=== PATIENT | female | born 1960 | race Caucasian/White ===

== ENCOUNTER → 2024-01-02 12:13 | Outpatient (REF) | payer BC, SELFPAY | LOC: RAD 12:13 | PROVIDERS: ATTENDING PHYSICIAN Nurse Practitioner Adult Health | DX: M54.2 Cervicalgia (principal) | CPT/HCPCS: 72040; 72110 ==

== ENCOUNTER → 2024-01-08 11:23 | Outpatient (REF) | payer BC, SELFPAY ==
[2024-01-08 13:58] LABS: Magnesium 2.1 mg/dl (1.6-2.3)
[2024-01-13 04:35] LABS: Albumin 3.89 g/dL (3.75-5.01); Alpha 1 Globulin 0.24 g/dL (0.19-0.46); Alpha 2 Globulin 0.75 g/dL (0.48-1.05); SPEP IFE Reflex Not Done; Total Protein-Electrophoresis 6.6 g/dL (6.3-8.2)
[2024-01-13 20:18] LABS: 24 Hour Urine Total Volume 1750 mL; Cortisol, Free Urine per 24Hr 14.5 ug/d (<=45.0); Cortisol,Urine Free per Volume 8.28 ug/L; Creatinine, Urine 24 Hour 1435 mg/d (500-1400); Creatinine, Urine per Volume 82 mg/dL; Urine Collection Length 24 hr
== END ==
LOC: REG 11:23
PROVIDERS: ATTENDING PHYSICIAN Nurse Practitioner Adult Health
DX: R25.2 Cramp and spasm (principal); R53.82 Chronic fatigue, unspecified; R51.9 Headache, unspecified
CPT/HCPCS: 81050; 82530; 83735; 84155; 84165

== ENCOUNTER → 2024-01-30 08:52 | Outpatient (REF) | payer BC, SELFPAY | LOC: HWRAD 08:52 | PROVIDERS: ATTENDING PHYSICIAN Nurse Practitioner Adult Health | DX: R10.11 Right upper quadrant pain (principal) | CPT/HCPCS: 76700 ==

== ENCOUNTER → 2024-02-04 11:07 | Outpatient (REF) | payer BC, SELFPAY | LOC: DHCBC HW 11:07 | PROVIDERS: ATTENDING PHYSICIAN Nurse Practitioner; FAMILY PHYSICIAN Nurse Practitioner Adult Health | DX: R06.02 Shortness of breath (principal); R06.09 Other forms of dyspnea; I48.0 Paroxysmal atrial fibrillation; I25.10 Atherosclerotic heart disease of native coronary artery without angina pectoris | CPT/HCPCS: 93306 ==

== ENCOUNTER → 2024-02-10 17:27 | Outpatient (REF) | payer BC, SELFPAY | LOC: RAD 17:27 | PROVIDERS: ATTENDING PHYSICIAN Nurse Practitioner Adult Health; FAMILY PHYSICIAN Nurse Practitioner Adult Health | DX: R06.02 Shortness of breath (principal) | CPT/HCPCS: 71046 ==

== ENCOUNTER 2024-02-12 13:34 | Emergency (ER) | payer BC, SELFPAY ==
[2024-02-12 13:36] VITALS: BP 154/103
[2024-02-12 14:06] LABS: % Basophils 1.4 % (0-2); % Eosinophils 1.6 % (0-6); % Immature Granulocytes 0.3 % (0-0.5); % Lymphocytes 21.9 % (20.5-51.1); % Monocytes 9.1 % (1.7-9.3); % Neutrophils 65.7 % (42.2-75.2); Absolute Basophils 0.1 10^3/uL (0-0.2); Absolute Eosinophils 0.1 10^3/uL (0-0.7); Absolute Lymphocytes 1.4 10^3/uL (1.2-3.4); Absolute Monocytes 0.6 10^3/uL (0.1-0.6); Absolute Neutrophils 4.2 10^3/uL (1.4-6.5); Hematocrit 43.5 % (37.0-47.0); Hemoglobin 14.5 g/dL (12.0-16.0); Mean Corp Hgb Conc. 33.3 g/dL (33.0-37.0); Mean Corpuscular Hgb 30.9 pg (27.0-31.0); Mean Corpuscular Volume 92.6 fL (81.0-99.0); Mean Platelet Volume 9.6 fL (7.4-10.4); Nucleated Red Blood Cells % 0 %; Platelet Count 242 10^3/uL (130-400); Red Cell Dist. Width 12.1 % (11.5-14.5); White Blood Cell Count 6.4 10^3/uL (4.8-10.8)
[2024-02-12 14:19] LABS: ALT (SGPT) 21 U/L (0-35); AST (SGOT) 28 U/L (14-36); Albumin 4.2 g/dl (3.5-5.0); Alkaline Phosphatase 83 U/L (38-126); Blood Urea Nitrogen 18 mg/dl (7-17); COVID-19 Antigen Negative (Negative); Calcium 9.5 mg/dl (8.4-10.2); Carbon Dioxide 30 mmol/L (22-30); Chloride 102 mmol/L (98-107); Glucose 125 mg/dl (70-99); Potassium 3.8 mmol/L (3.5-5.1); Sodium 138 mmol/L (135-145); Total Protein 6.6 g/dl (6.3-8.2); eGFR > 60.00
[2024-02-12 14:28] LABS: Troponin I < 0.012 ng/ml
[2024-02-12 16:37] VITALS: BMI 40.6
[2024-02-12 16:43] VITALS: BP 141/98
[2024-02-12 17:13] LABS: Urine Albumin Negative (Neg - Trace); Urine Bilirubin Negative (Negative); Urine Character Clear (Clear); Urine Color Yellow; Urine Glucose Negative (Negative); Urine Ketone Negative (Negative); Urine Leukocyte Negative (Negative); Urine Nitrite Negative (Negative); Urine Occult Blood 1+ (Negative); Urine Urobilinogen Negative (Neg - 1+)
[2024-02-12 17:22] LABS: Urine Squamous Cell 16-20 /LPF (Few)
[2024-02-12 17:23] LABS: Urine Bacteria Few (Negative); Urine White Cell 0-2 /HPF (0-5)
--- NOTE | 2024-02-12 17:30 | ED.GENMED ---
History of Present Illness
General
Chief Complaint: Weakness
Time Seen by Provider: 02/12/24 16:15
Travel History
Have you had any contact with someone who has COVID-19?: No
Do you have any symptoms of coronavirus? Fever > 100 degrees, chills, cough, shortness of breath, sore throat, loss of taste or smell, muscle aches, or headache?: No
History of Present Illness
History of Present Illness:
63-year-old female presents to the emergency department for evaluation of generalized weakness, back pain, shortness of breath, and intermittent bilateral facial numbness. The symptoms been ongoing for the past 5 days. She feels short of breath
when she exerts herself. Did have an unremarkable echocardiogram 1 week ago at this hospital. Denies any chest pain at this time. No recent nausea or vomiting. No fevers, or URI symptoms. Denies any coughing.
Past History
Past History
ED Past Medical History: Arrthythmia (Atrial fibrillation), Asthma, CAD, COPD, GERD and Hypercholesterolemia
ED Past Surgical History: Cardiac and Other (Lung biopsy)
Patient has exhibited threatening behavior?: No
PSI?: No
Social History
Tobacco: Former smoker
Alcohol: Occasional
Drug: None
Personal:
Living: with family
Employment: Not employed
Family History
Family History: CAD
Review of Systems
Review of Systems
Allergies reviewed?: Yes
All Other Systems: ROS reviewed and negative except as documented in HPI and ROS
Phy Exam
Physical Exam
Physical Exam:
GEN: Well appearing, NAD, WDWN
Eyes: PERRLA, EOMs intact, no scleral icterus
HENT: NCAT, oral mucosa moist, no JVD, no cervical adenopathy.
Lungs: CTAB, no wheezes, rales, rhonchi, normal chest wall excursion
Cardiac: RRR, no M/R/G, no peripheral edema. Radial pulses 2+ bilat
Abdomen: S, NT, ND, NABS, no masses or hepatosplenomegaly
Neuro: AO x 3
MSK: No gross deformity or ecchymosis. No edema. No digital clubbing
Skin: No rashes, petechiae. Normal color, no pallor or jaundice.
Psych: Calm, cooperative, proper hygiene
Course
Orders/Labs/Results
Orders:
Orders
02/12/24 13:40
Electrocardiogram (*1) Urgent
Reason for Study: Chest Pain
EKG- Treatment ONCE
02/12/24 13:53
COVID-19 Antigen Urgent
Source: Nasal Swab
Complete Blood Count/With Diff Urgent
Comprehensive Metabolic Panel Urgent
Troponin I Urgent
Influenza A+B Rapid Molecular Urgent
ARCADIO Source: Nasal Swab
Specimen Description:
02/12/24 17:07
Urinalysis Reflex To Culture Urgent
Date Specimen was Collected: 02/12/24
Time Specimen was Collected: 17:06
Urine Microscopic Reflex Cult Urgent
Abnormal Lab Results
02/12/24 02/12/24
13:53 17:07
BUN 18 H mg/dl
(7-17)
Glucose 125 H mg/dl
(70-99)
Ur Occult Blood Reflex 1+ A
(Negative)
Urine RBC 3-6 A /HPF
(0-2)
Urine Bacteria (Reflex) Few A
(Negative)
02/12/24 13:53
02/12/24 13:53
Vital Signs
Initial and Last Documented VS:
Initial Vital Signs
Temp Pulse Resp BP Pulse Ox
98.9 F 87 20 154/103 97
02/12/24 13:36 02/12/24 13:36 02/12/24 13:36 02/12/24 13:36 02/12/24 13:36
Last Documented Vital Signs
Temp Pulse Resp BP Pulse Ox
98.9 F 68 17 141/98 97
02/12/24 13:36 02/12/24 17:00 02/12/24 17:00 02/12/24 16:43 02/12/24 17:00
MDM/Problems Addressed
MDM/Problems Addressed:
Patient appears clinically well and is unremarkable labs. EKG is nonischemic with no arrhythmic changes. Electrolytes are within normal limits. Unclear etiology to patient's symptoms particularly given recent normal chest x-ray and outpatient
echocardiogram. Advised continued primary care follow-up
*Critical Care Note
Total Time (30-74mins, 75-104mins- exclusive of procedures): Not Applicable
ED Attending Note
-
Portions of this chart may have been created with voice recognition software.� Occasional wrong word or��sound alike� substitutions may have occurred due to the inherent limitations of voice recognition software.
Discharge Plan
Departure
Patient Disposition: Home (Routine Discharge)
Date of Disposition: 02/12/24
Time of Disposition: 17:30
Patient with high blood pressure during this ER visit?: Yes
Discharge Problem:
Fatigue
Instructions: Generalized Weakness (DC)
Prescriptions:
No Action
levalbuterol HCl 0.63 MG/3 ML solution for nebulization
0.63 mg inhalation R TIDPRN PRN (Reason: sob/wheezing)
pantoprazole 40 MG tablet,delayed release (DR/EC)
40 mg PO DAILY
loratadine [Claritin] 10 mg Tablet
10 mg PO DAILY
levalbuterol tartrate 45 mcg/actuation Hfa Aerosol Inhaler
2 inh INHALATION Q6H PRN (Reason: sob,wheezing)
fluticasone propion-salmeterol [Advair HFA] 115-21 mcg/actuation HFA aerosol inhaler
2 puff INHALATION R BID
cholecalciferol (vitamin D3) 50 mcg (2,000 unit) Tablet
50 mcg PO DAILY@1200
Spiriva Respimat 2.5 mcg/actuation mist
2 puff INHALATION R DAILY
clopidogrel 75 MG tablet
75 mg PO DAILY
aspirin 81 MG tablet,delayed release (DR/EC)
81 mg PO DAILY
famotidine 20 MG tablet
20 mg PO DAILYPRN PRN (Reason: heartburn)
docusate sodium 100 MG capsule
100 mg PO HS
diltiazem HCl 120 MG capsule,extended release 24hr
120 mg PO DAILY
famotidine 20 mg Tablet
20 mg PO BID Qty: 0 0RF
cefepime 2 gram Recon Soln
2,000 mg IV Q12H Qty: 0 0RF
guaifenesin 600 mg Tablet Extended Release 12hr
1,200 mg PO Q12 Qty: 0 0RF
nystatin 100,000 unit/mL Suspension
5 ml PO QID Qty: 60 0RF
doxycycline hyclate 100 mg Capsule
100 mg PO Q12 Qty: 21 0RF
prednisone 10 mg tablet
10 mg PO DIRECTED Qty: 45 0RF
Rx Instructions:
50mgX3 days,[id number] and stop
levalbuterol HCl 0.63 mg/3 mL solution for nebulization
0.63 mg inhalation ONCE Qty: 75 0RF
doxycycline monohydrate 100 mg capsule
100 mg PO BID Qty: 8 0RF
Referrals:
Kacey Villalba CRNP [Family Provider] -
Activity Restrictions/Additional Instructions:
The cause of your symptoms is not clear at this time, workup and see department is reassuring.
We recommend following up with your primary care physician for further testing if symptoms do not resolve within the next 5 to 7 days
Interventions
Interventions:
*Risk Screen - Suicide Last Done: 02/12/24 16:39
*General Assessment Last Done: 02/12/24 16:38
*Neglect/Abuse Screening Last Done: 02/12/24 16:39
ED- Fall Risk Assessment Last Done: 02/12/24 16:38
*ED COVID-19 Vaccine History Last Done: 02/12/24 13:36
*Nursing Disposition Last Done: 02/12/24 17:42
ED- Cardiac Assessment Last Done: 02/12/24 16:39
ED- Neurological Assessment Last Done: 02/12/24 16:39
ED- Pulmonary Assessment Last Done: 02/12/24 16:39
Discharge Date and Time
Discharge Date/Time: 02/12/24 17:44
Print Language: KINYARWANDA
== END 2024-02-12 17:44 | disposition home or self-care (01) ==
LOC: EMR 13:34
PROVIDERS: Emergency Medicine; Physician Assistant; EMERGENCY PHYSICIAN Emergency Medicine; FAMILY PHYSICIAN Nurse Practitioner Adult Health
DX: R53.83 Other fatigue (principal); R03.0 Elevated blood-pressure reading, without diagnosis of hypertension; Z87.891 Personal history of nicotine dependence; Z11.52 Encounter for screening for COVID-19
CPT/HCPCS: 99284; 80053; 81003; 81015; 84484; 85025; 87502; 87811; 93005

== ENCOUNTER → 2024-03-11 13:41 | Outpatient (REF) | payer BC, SELFPAY | LOC: RAD 13:41 | PROVIDERS: ATTENDING PHYSICIAN Nurse Practitioner Adult Health | DX: R51.9 Headache, unspecified (principal); I65.23 Occlusion and stenosis of bilateral carotid arteries; E78.00 Pure hypercholesterolemia, unspecified; R42 Dizziness and giddiness | CPT/HCPCS: 93880 ==

== ENCOUNTER 2024-06-29 23:54 | Inpatient (IN) | payer BC, SELFPAY ==
[2024-06-29] VITALS (8 sets, daily range): BP systolic 106–176; BP diastolic 73–93; BMI 42.1
[2024-06-29 17:20] LABS: % Basophils 1.2 % (0-2); % Immature Granulocytes 0.3 % (0-0.5); % Lymphocytes 23.2 % (20.5-51.1); % Monocytes 10.3 % (1.7-9.3); Absolute Basophils 0.1 10^3/uL (0-0.2); Absolute Eosinophils 0.1 10^3/uL (0-0.7); Absolute Lymphocytes 1.5 10^3/uL (1.2-3.4); Absolute Monocytes 0.7 10^3/uL (0.1-0.6); Absolute Neutrophils 4.2 10^3/uL (1.4-6.5); Mean Corpuscular Hgb 30.9 pg (27.0-31.0); Mean Corpuscular Volume 88.3 fL (81.0-99.0); Mean Platelet Volume 8.9 fL (7.4-10.4); Nucleated Red Blood Cells % 0 %; Platelet Count 287 10^3/uL (130-400); Red Blood Cell Count 4.53 10^6/uL (4.20-5.40); Red Cell Dist. Width 12.3 % (11.5-14.5); White Blood Cell Count 6.6 10^3/uL (4.8-10.8)
[2024-06-29 17:39] LABS: ALT (SGPT) 20 U/L (0-35); AST (SGOT) 28 U/L (14-36); Albumin 4.3 g/dl (3.5-5.0); Alkaline Phosphatase 92 U/L (38-126); Blood Urea Nitrogen 20 mg/dl (7-17); Calcium 9.6 mg/dl (8.4-10.2); Carbon Dioxide 26 mmol/L (22-30); Chloride 105 mmol/L (98-107); Glucose 107 mg/dl (70-99); Potassium 3.7 mmol/L (3.5-5.1); Sodium 142 mmol/L (135-145); Total Bilirubin 1.1 mg/dl (0.2-1.3); Total Protein 6.7 g/dl (6.3-8.2); eGFR > 60.00
[2024-06-29 17:44] LABS: Troponin I 0.025 ng/ml
--- NOTE | 2024-06-29 19:15 | ED.GENMED ---
History of Present Illness
General
Chief Complaint: Weakness
Source: patient
Exam Limitations: none
Time Seen by Provider: 06/29/24 19:08
Nursing documentation reviewed up to this point in time: agreed with
History of Present Illness
History of Present Illness:
Patient is a 63-year-old female with past medical history of A-fib CAD COPD GERD hypercholesteremia on chronic O2l cardiac stents on aspirin Plavix presents to the ER for evaluation of worsening shortness of breath over the past 2 weeks. She is on
chronic O2 2 L but noticed that despite the oxygen she is very short of breath. She believes that something is wrong. She has had off-and-on chest pressure in her left arm and left jaw but this is not new. In addition she reports she is feeling
lightheaded sometimes when she walks or stands. Today in fact she was sitting putting her make-up on and felt the same lightheaded feeling so she sat on her bed and the next thing she knew she woke up sitting on the floor and had a syncopal
episode. This is what prompted patient to call EMS. She is followed by pulmonary as well as Dr. Olmedo here cardiology. She is on Advair and Spiriva.
Past History
Past History
ED Past Medical History: Arrthythmia (Atrial fibrillation), Asthma, CAD, COPD, GERD and Hypercholesterolemia
ED Past Surgical History: Cardiac and Other (Lung biopsy)
Patient has exhibited threatening behavior?: No
PSI?: No
Social History
Tobacco: Former smoker
Alcohol: Occasional
Drug: None
Personal:
Living: with family
Employment: Not employed
Family History
Family History: CAD
Review of Systems
Review of Systems
Allergies reviewed?: Yes
All Other Systems: ROS reviewed and negative except as documented in HPI and ROS
Constitutional: Reports no symptoms
EENT: Reports no symptoms
Respiratory: Reports trouble breathing
Cardiac: Reports syncope and other (Intermittent chest pressure over the past several weeks)
ABD/GI: Reports no symptoms
: Reports no symptoms
Musculoskeletal: Reports no symptoms
Skin: Reports no symptoms
Neurological: Reports no symptoms
Psychiatric: Reports no symptoms
Phy Exam
General Physical Exam
General Presentation: no apparent distress
General age: appears stated age
General Skin: warm and dry
General Habitus: normal
General Mental: alert
General Hydration: appears well hydrated
Cardiovascular Exam
Cardiovascular Exam: regular rate/rhythm, no murmur and normal peripheral pulses
Pulmonary Exam
Pulmonary Exam: lungs clear, no respiratory distress and other (Dyspnea with exertion and conversational dyspnea)
Oxygen Status: oxygen 2 liters via NC
Neurological Exam
Neurological Exam: alert and oriented x3
Musculoskeletal Exam
Musculoskeletal Exam: full ROM
Skin Exam
Skin Exam: normal color and warm/dry
Psychiatric Exam
Psychiatric Exam: normal mood/affect
Course
Orders/Labs/Results
Orders:
Orders
06/29/24 17:04
Electrocardiogram (*1) Urgent
Reason for Study: Fatigue / Weakness
EKG- Treatment ONCE
06/29/24 17:13
CMP [Comprehensive Metabolic Panel] Urgent
Complete Blood Count/With Diff Urgent
NT-proBNP Urgent
Comment: ADD ON
Troponin I Urgent
06/29/24 19:26
Add On- LAB Urgent
Tests Added?: cardiac BNP
06/29/24 19:28
Chest [CR Chest - 2 Views ] Urgent
Comment:
Reason For Exam: sob
06/29/24 20:00
DDimer [D-Dimer] Urgent
06/29/24 21:39
CT Chest Pe Study Urgent
Comment:
Reason For Exam: SOB
Dexamethasone Sod Phosphate [Decadron] 10 mg IV NOW STA
Levalbuterol [Xopenex 1.25 mg Inhalant Solution] 1.25 mg INH R NOW STA
Abnormal Lab Results
06/29/24 06/29/24
17:13 20:00
Absolute Monos (auto) 0.7 H 10^3/uL
(0.1-0.6)
Monocytes % 10.3 H %
(1.7-9.3)
D-Dimer 0.65 H ug/mlFEU
(0.00-0.50)
BUN 20 H mg/dl
(7-17)
Glucose 107 H mg/dl
(70-99)
06/29/24 17:13
06/29/24 17:13
Vital Signs
Initial and Last Documented VS:
Initial Vital Signs
Temp Pulse Resp BP Pulse Ox
98.5 F 67 16 176/93 98
06/29/24 17:00 06/29/24 17:00 06/29/24 17:00 06/29/24 17:00 06/29/24 17:00
Last Documented Vital Signs
Temp Pulse Resp BP Pulse Ox
98.5 F 72 35 120/90 98
06/29/24 17:00 06/29/24 21:30 06/29/24 21:30 06/29/24 21:43 06/29/24 23:05
Electric Power Machine Operator consulted with Physician
Electric Power Machine Operator consulted with physician?: Yes
Name of Physician Consulted: Cristopher
MDM/Problems Addressed
Differential Diagnosis Includes:
Not limited to syncope, dehydration, COPD exacerbation, CAD
MDM/Problems Addressed:
Patient is a 63-year-old female with history of CAD stents on aspirin and Plavix history of COPD on 2 L nasal cannula with sleep apnea on CPAP at night presents to the ER complaining of worsening shortness of breath. She does not feel that the COPD
however has and is gradually worsening shortness of breath over the past 2 weeks worse for the past several days. Today she felt lightheaded and passed out. Patient denies any fevers on exam she does have conversational dyspnea is afebrile with a
normal white count D-dimer mildly elevated 0.65 normal creatinine. With mildly elevated D-dimer and syncope with shortness of as discussed ED physician will CT to rule out PE. The patient is not wheezing we will try lev albuterol as she does not
tolerate albuterol well along with a steroid however will likely need admission for eval of SOB . no associated cp neg trop and neg Pro BNP .
CT pe study neg for PE emphysematous changes seen
With continued dyspnea exertion shortness of breath history of syncope today will admit as planned.
*Radiology
Radiology exam reviewed: radiology read reviewed
*Pulse Oximetry
Patient hypoxic: yes
*EKG
Interpreted by ED Provider?: Yes
Heart Rate: 66
Rate: normal
Rhythm: sinus
Ischemia: no ischemia
*Critical Care Note
Total Time (30-74mins, 75-104mins- exclusive of procedures): Not Applicable
Data Reviewed
Review of Other/Old Records Reveals: Other (echo from 02/04/24 nm )
ED Attending Note
-
Portions of this chart may have been created with voice recognition software.� Occasional wrong word or��sound alike� substitutions may have occurred due to the inherent limitations of voice recognition software.
Discharge Plan
Departure
Patient Disposition: Admit
Date of Disposition: 06/29/24
Time of Disposition: 23:32
Admit to: Telemetry
Admit to doctor: hospitalist
Presentation/result/management discussed w/ accepting MD/DO: Hospitalist
Patient with high blood pressure during this ER visit?: Yes
Condition: Fair
Covid-19: Not Applicable
Discharge Problem:
Acute dyspnea, Syncope
Prescriptions:
No Action
levalbuterol HCl 0.63 MG/3 ML solution for nebulization
0.63 mg inhalation R TIDPRN PRN (Reason: sob/wheezing)
pantoprazole 40 MG tablet,delayed release (DR/EC)
40 mg PO DAILY
levalbuterol tartrate 45 mcg/actuation Hfa Aerosol Inhaler
2 inh INHALATION R Q6HPRN PRN (Reason: sob,wheezing)
fluticasone propion-salmeterol [Advair HFA] 115-21 mcg/actuation HFA aerosol inhaler
2 puff INHALATION R BID
cholecalciferol (vitamin D3) 50 mcg (2,000 unit) Tablet
50 mcg PO NOON
Spiriva Respimat 2.5 mcg/actuation mist
2 puff INHALATION R DAILY
clopidogrel 75 MG tablet
75 mg PO DAILY
aspirin 81 MG tablet,delayed release (DR/EC)
81 mg PO DAILY
famotidine 20 MG tablet
20 mg PO DAILYPRN PRN (Reason: heartburn)
docusate sodium 100 MG capsule
100 mg PO QPM
diltiazem HCl 120 MG capsule,extended release 24hr
120 mg PO DAILY
acetaminophen [Tylenol 8 Hour] 650 mg Tablet Extended Release
650 mg PO [id number] PRN (Reason: mild pain)
diazepam 2 mg Tablet
2 mg PO DAILYPRN PRN (Reason: anxiety)
Patient Comments:
06/29/24: last filled 02/26/24 for 30 tablets over 30 days. Patient states she uses this very rarely.
guaifenesin 600 mg tablet extended release 12hr
1,200 mg PO [id number] PRN (Reason: lung/breathing issues)
Referrals:
Kacey Villalba CRNP [Family Provider] -
Interventions
Interventions:
*Risk Screen - Suicide Last Done: 06/29/24 18:29
*General Assessment Last Done: 06/29/24 18:29
*Neglect/Abuse Screening Last Done: 06/29/24 18:29
*ED COVID-19 Vaccine History Last Done: 06/29/24 18:29
ED- Cardiac Assessment Last Done: 06/29/24 23:05
ED- Neurological Assessment Last Done: 06/29/24 23:05
ED- Pulmonary Assessment Last Done: 06/29/24 23:05
Discharge Date and Time
Print Language: PERUVIAN
[2024-06-29 20:22] LABS: NT-proBNP 67.8 pg/ml
[2024-06-29 20:22] LABS: D-Dimer 0.65 ug/mlFEU (0.00-0.50)
[2024-06-29] MEDS: DECADRON 10 MG IV (22:18)
[2024-06-29] MEDS: XOPENEX 1.25 MG INHALANT SOLUTION INH (22:19)
--- NOTE | 2024-06-29 23:59 | HPS.HSE ---
Family Physician
-
Family Physician: Kacey Villalba
Chief Complaint
-
SOB / malaise
History of Present Illness
Patient is a 63y F with PMH significant for O2-dependent COPD, ASCVD and morbid obesity who presents to ED complaining of worsening SOB. Patient states that she has been feeling worse for the past 2 weeks - with symptoms markedly worse over the
past 5 days or so. She complains of significant dyspnea with even minimal exertion. Prolonged recovery times with rest. No cough, fevers / chills, sore throat, etc. She does endorse periodic chest tightness, jaw pain, arm pain, etc. No
palpitations. Patient states that she 'feels terrible' and cannot explain further. She notes that her SpO2 at home decreases into the 80s at times - even on supplemental oxygen.
She denies any significant changes in her weight / edema / etc.
Today patient was seated on the bed drying her hair and the next thing she recalls is waking on the floor. She denies any prior h/o syncopal episodes.
She is currently comfortable in the ED while at rest. She has significant dyspnea with activity or with prolonged conversation. She is tearful and anxious.
Medical History
Past Medical History
Past Medical History: Reports Other
Additional Past Medical History:
Severe COPD
Chronic Hypoxemic Respiratory Failure
ASCVD
Paroxysmal Atrial Fibrillation
Hypertension
Alpha-1 Antitrypsin Deficiency
Morbid Obesity
GERD
Past Surgical History: Reports Other
Additional Past Surgical History:
Lung Biopsy
PTCA with Stent x 2
Social History
Tobacco: Former Smoker (Quit 2020. > 50 pack years total.)
Alcohol: Occasional
Drug: None
Family History
Family History: Not pertinent
Allergies / Home Medications
Allergies reflects when Allergies were last updated in [employer].
Home Medications with original date entered in [employer]
Allergy/Medication List:
Allergies
Allergy/AdvReac Type Severity Reaction Status Date / Time
azithromycin Allergy Unknown Verified 06/29/24 17:04
dipyridamole Allergy didn't Verified 06/29/24 17:04
[From Persantine] tolerate.
dobutamine Allergy 'feels Verified 06/29/24 17:04
terrible'
isosorbide [From Imdur] Allergy DIZZY Verified 06/29/24 17:04
levofloxacin [From Levaquin] Allergy LEGS WEAK Verified 06/29/24 17:04
morphine Allergy Nausea Verified 06/29/24 17:04
MUSCLE RELAXERS Allergy Nausea / Uncoded 06/29/24 17:04
Vomiting
Home Medications
levalbuterol HCl 0.63 mg/3 mL solution for nebulization 0.63 mg inhalation R TIDPRN PRN sob/wheezing 09/08/21
pantoprazole 40 mg tablet,delayed release 40 mg PO DAILY Gastrointestinal issue 02/28/22
aspirin 81 mg tablet,delayed release 81 mg PO DAILY Blood clot prevention/tx 01/29/23
cholecalciferol (vitamin D3) 50 mcg (2,000 unit) tablet 50 mcg PO NOON Supplement 01/29/23
clopidogrel 75 mg tablet 75 mg PO DAILY Blood clot prevention/tx 01/29/23
diltiazem HCl 120 mg capsule,extended release 24 hr 120 mg PO DAILY Blood pressure 01/29/23
docusate sodium 100 mg capsule 100 mg PO QPM Constipation 01/29/23
famotidine 20 mg tablet 20 mg PO DAILYPRN PRN heartburn 01/29/23
fluticasone propionate 115 mcg-salmeterol 21 mcg/actuation HFA inhaler (Advair HFA) 2 puff inhalation R BID Lung/breathing issues 01/29/23
levalbuterol tartrate 45 mcg/actuation aerosol inhaler 2 inh inhalation R Q6HPRN PRN sob,wheezing 01/29/23
tiotropium bromide 2.5 mcg/actuation mist for inhalation (Spiriva Respimat) 2 puff inhalation R DAILY Lung/breathing issues 01/29/23
acetaminophen 650 mg tablet,extended release (Tylenol 8 Hour) 650 mg PO [id number] PRN mild pain 06/29/24
diazepam 2 mg tablet 2 mg PO DAILYPRN PRN anxiety 06/29/24
guaifenesin 600 mg tablet, extended release 12 hr 1,200 mg PO [id number] PRN lung/breathing issues 06/29/24
Review of Systems
-
History Source: Patient
A 12 point ROS was completed and negative except as noted: Yes
Constitutional: Reports Fatigue; Denies Fever, Weight Gain, Weight Loss or Chills
EENT: Denies Sore Throat
Respiratory: Reports Trouble Breathing; Denies Cough or Hemoptysis
Cardiac: Reports Chest Pain, Diaphoresis and Syncope; Denies Palpitations
Abdomen/GI: Denies Abdominal Pain, Nausea, Vomiting, Diarrhea, Bloody Stools or Black Stools
: Denies Dysuria, Frequency or Flank Pain
Musculoskeletal: Denies Joint Pain or Edema
Neurological: Reports Headache; Denies Dizzy
Psych: Reports Depression and Anxiety
Physical Exam
Vital Signs
Vital Signs
Temp Pulse Resp BP Pulse Ox
98.5 F 72 35 120/90 98
06/29/24 17:00 06/29/24 21:30 06/29/24 21:30 06/29/24 21:43 06/29/24 23:05
Physical Exam
General: Other (63y F in mild distress due to YEN and anxiety.)
HEENT: Other (Thick neck. No JVD. MMM.)
Respiratory: Other (Decreased at bases - otherwise clear. No wheezing or rales.)
Cardiac: S1/S2 and Regular Rhythm; No Murmur
GI: Soft, Non Tender, Non Distended and Normal Bowel Sounds
Musculoskeletal: No Clubbing, No Cyanosis and No Edema
Neuro: AO x 3
Psych: Anxious and Depressed
Laboratory Results
-
06/29/24 17:13
06/29/24 17:13
Laboratory Results
Total Bilirubin 1.1 mg/dl (0.2-1.3) 06/29/24 17:13
AST 28 U/L (14-36) 06/29/24 17:13
ALT 20 U/L (0-35) 06/29/24 17:13
Alkaline Phosphatase 92 U/L (38-126) 06/29/24 17:13
Troponin I 0.025 ng/ml 06/29/24 17:13
Impression/Plan
-
A/P: Patient is a 63y F with PMH significant for COPD, chronic hypoxemia, ASCVD and morbid obesity who presents to ED complaining of worsening SOB and malaise.
Acute on Chronic Hypoxemic Respiratory Insufficiency
Syncope
- Admit for further evaluation and treatment.
- This is likely multifactorial and address individual issues as noted below.
- No significant evidence at present for exacerbations of either CF or COPD.
- ? cor pulmonale given syncopal event.
- Monitor on telemetry overnight. Update Echo (Last done 02/2024 and was fairly unremarkable).
- Follow for any new / worsening symptoms.
- Continue supplemental O2 and titrate as needed.
Severe COPD
- No active wheezing appreciated on exam.
- Continue inhaled medications including PRN Xopenex.
- Pulmonary evaluation given recent increase in dyspnea, etc.
ASCVD
- Patient complains of intermittent chest tightness, jaw pain, arm pain.
- EKG without evident ischemia / change from prior.
- Troponin is non-negative.
- Will continue to trend and monitor for any new / recurrent symptoms.
- Cardiology evaluation.
- Update Echo as noted above.
- Continue current CV med regimen including DAPT, statin, etc.
Anxiety / Depression
- Patient clearly anxious / depressed regarding her worsening symptoms.
- Continue PRN BZDs for now.
- Would consider trial of SSRI or similar for ongoing treatment of mood.
Morbid Obesity due to excess calories
- Affects all aspects of care and is certainly contributing directly to her worsening dyspnea.
- Weight is significantly elevated from prior visits (despite patient report of stable weight at home).
- Encourage healthy diet. Activity as tolerated - though this will likely be difficult in this patient with her degree of YEN.
DVT Prophylaxis: Lovenox
Code Status: Full
[2024-06-30] VITALS (10 sets, daily range): BP systolic 106–157; BP diastolic 66–98; PULSE 69–89; O2SAT 94–95; BMI 42.1; BMI 41.0
[2024-06-30 07:16] LABS: Hematocrit 44.4 % (37.0-47.0); Hemoglobin 15.3 g/dL (12.0-16.0); Mean Corp Hgb Conc. 34.5 g/dL (33.0-37.0); Mean Corpuscular Hgb 30.5 pg (27.0-31.0); Mean Corpuscular Volume 88.4 fL (81.0-99.0); Mean Platelet Volume 9.6 fL (7.4-10.4); Platelet Count 276 10^3/uL (130-400); Red Blood Cell Count 5.02 10^6/uL (4.20-5.40); Red Cell Dist. Width 12.2 % (11.5-14.5)
[2024-06-30] MEDS: ADVAIR HFA 115/21 MCG INHALER 2 PUFF INH ×2 (07:17→19:24)
[2024-06-30] MEDS: XOPENEX 0.63 MG INHALANT SOLUTION INH ×2 (07:20→19:25)
[2024-06-30 07:29] LABS: Troponin I < 0.012 ng/ml
[2024-06-30 07:34] LABS: Blood Urea Nitrogen 15 mg/dl (7-17); Calcium 10.2 mg/dl (8.4-10.2); Carbon Dioxide 28 mmol/L (22-30); Chloride 102 mmol/L (98-107); Estimated Creatinine Clearance 69 ml/min; Glucose 154 mg/dl (70-99); Potassium 4.4 mmol/L (3.5-5.1); Sodium 143 mmol/L (135-145); eGFR > 60.00
[2024-06-30 08:04] LABS: TSH Reflex To Free T4 0.67 uIU/ml (0.47-4.68)
[2024-06-30] MEDS: PROTONIX 40 MG PO (08:10)
[2024-06-30] MEDS: ASPIR LOW (ENTERIC COATED) 81 MG PO (08:11)
[2024-06-30] MEDS: PLAVIX 75 MG PO (08:13)
[2024-06-30] MEDS: CARDIZEM CD 120 MG PO (08:13)
--- NOTE | 2024-06-30 09:15 | CON.PUL ---
Consultation
Consultation Request
Date/Time Consultation Requested: 06/30/24
Date/Time Consultation Performed: 06/30/24
Performing Provider: Timothy
Reason for Consultation: SOB
Medical History
-
History of Present Illness:
Patient is a 63-year-old female with previous history of severe COPD on chronic 2 L oxygen, ASCVD, morbid obesity presenting to ER with complaints of acute on chronic shortness of breath over the past 4 months. She reports that her symptoms have
been progressively worsening over the past 4 months, she has significant tachypnea with exertion and is finding it difficult to recover with rest. She does not have any wheezing or chest tightness, she did have atypical chest discomfort. She does
not feel it was triggered by any upper respiratory illnesses or sick contacts. Chest x-ray demonstrating normal findings.
She has not noticed any worsening hypoxemia with exertion.
She has not been treated with oral prednisone course throughout this time.
.
Past Medical History
Past Medical History: Other (see list below)
Social History
Tobacco: Former Smoker
Alcohol: None
Drug: None
Family History
Family History: Reviewed & Not Pertinent
Allergies / Home Medications
Allergies
Allergy/AdvReac Type Severity Reaction Status Date / Time
azithromycin Allergy Unknown Verified 06/29/24 17:04
dipyridamole Allergy didn't Verified 06/29/24 17:04
[From Persantine] tolerate.
dobutamine Allergy 'feels Verified 06/29/24 17:04
terrible'
isosorbide [From Imdur] Allergy DIZZY Verified 06/29/24 17:04
levofloxacin [From Levaquin] Allergy LEGS WEAK Verified 06/29/24 17:04
morphine Allergy Nausea Verified 06/29/24 17:04
MUSCLE RELAXERS Allergy Nausea / Uncoded 06/29/24 17:04
Vomiting
Home Medications
�Medication �Instructions �Recorded �Confirmed �Last Taken �Type
levalbuterol HCl 0.63 mg/3 mL 0.63 mg inhalation R TIDPRN PRN 09/08/21 06/29/24 05/23/22 06:00 History
solution for nebulization sob/wheezing
pantoprazole 40 mg tablet,delayed 40 mg PO DAILY Gastrointestinal 02/28/22 06/29/24 06/29/24 History
release issue
aspirin 81 mg tablet,delayed 81 mg PO DAILY Blood clot 01/29/23 06/29/24 06/29/24 History
release prevention/tx
cholecalciferol (vitamin D3) 50 50 mcg PO NOON Supplement 01/29/23 06/29/24 06/29/24 History
mcg (2,000 unit) tablet
clopidogrel 75 mg tablet 75 mg PO DAILY Blood clot 01/29/23 06/29/24 06/29/24 History
prevention/tx
diltiazem HCl 120 mg 120 mg PO DAILY Blood pressure 01/29/23 06/29/24 06/29/24 History
capsule,extended release 24 hr
docusate sodium 100 mg capsule 100 mg PO QPM Constipation 01/29/23 06/29/24 02/24/23 History
famotidine 20 mg tablet 20 mg PO DAILYPRN PRN heartburn 01/29/23 06/29/24 Unknown History
fluticasone propionate 115 2 puff inhalation R BID 01/29/23 06/29/24 06/29/24 History
mcg-salmeterol 21 mcg/actuation Lung/breathing issues
HFA inhaler (Advair HFA)
levalbuterol tartrate 45 2 inh inhalation R Q6HPRN PRN 01/29/23 06/29/24 Unknown History
mcg/actuation aerosol inhaler sob,wheezing
tiotropium bromide 2.5 2 puff inhalation R DAILY 01/29/23 06/29/24 06/29/24 History
mcg/actuation mist for inhalation Lung/breathing issues
(Spiriva Respimat)
acetaminophen 650 mg 650 mg PO [id number] PRN mild pain 06/29/24 06/29/24 3 Days Ago History
tablet,extended release (Tylenol 8 ~06/26/24
Hour)
diazepam 2 mg tablet 2 mg PO DAILYPRN PRN anxiety 06/29/24 06/29/24 Unknown History
guaifenesin 600 mg tablet, 1,200 mg PO [id number] PRN 06/29/24 06/29/24 Unknown History
extended release 12 hr lung/breathing issues
Review of Systems
-
History Source: Patient
All other systems: Negative unless noted
Vitals / Labs / Diagnostic Testing
Vital Signs
Temp Pulse Resp BP Pulse Ox
97.9 F 70 14 126/82 97
06/30/24 02:13 06/30/24 08:13 06/30/24 07:22 06/30/24 08:13 06/30/24 07:22
Lab Data
06/30/24 06:06
06/30/24 06:06
Diagnostic Testing:
Physical Exam
-
HEENT: Normocephalic, Anicteric and Moist Mucous Membranes
Cardiovascular: S1/S2 and Regular Rhythm
Respiratory: Clear (decreased BS) and Non-Labored Respirations
GI: Soft, Non Distended and Non Tender
Neurology: Awake, Alert, Oriented, AO x 3 and No Motor Deficits
Skin: Warm, Dry and Good Color
General: Comfortable and Other (NAD)
Assessment
-
Patient is a 63-year-old female with previous history of severe COPD on chronic 2 L oxygen, ASCVD, morbid obesity presenting to ER with complaints of acute on chronic shortness of breath over the past 4 months. She reports that her symptoms have
been progressively worsening over the past 4 months, she has significant tachypnea with exertion and is finding it difficult to recover with rest. She does not have any wheezing or chest tightness, she did have atypical chest discomfort. She does
not feel it was triggered by any upper respiratory illnesses or sick contacts. Chest x-ray demonstrating normal findings. We are consulted for eval.
Acute on chronic SOB
AE COPD
New pulmonary nodules
Atypical chest pain
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
Severe COPD, maintained on levalbuterol nebs, advair/spiriva, and O2 2L at rest and sleep, 4L on exertion. Intermittent CS but no nursing home
ABG 02-28-22 on O2 3L: 7.40/46/125/28.5/3/98.9%
Intermittently elevated serum total CO2
02/20/24- FVC 2.07 or 72%, FEV1 0.95 or 43%. Ratio 45.
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 Never received A1AT replacement therapy
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
CAD, s/p KATHARINE to mid LAD 02/28/2021, then [place] with KATHARINE to stenosis proximal to prior LAD stent 10/31/2021, continued on ASA/clopidogrel, [facility] 12-04-21 without residual disease
PAFib: declined AC due to fear of bleeding complications
Paroxysmal SVT
Sinus bradycardia
Implantable Loop Recorder (2018)
GERD
HLD
Former smoker: since age 16, up to 2 ppd, quit 02/2021
PUD
Smoked marijuana intermittently for one y in her early 30s
Morbid obesity BMI 41
COVID vaccinated x2 until February 2021, declined booster due to side effects of second vaccine dose (tachycardia, AFib flare)
Suspected ALISSON
Pulmonary nodules, new 6 and 7mm
Plan:
She has acute on chronic SOB but no significant changes in her degree of hypoxemia
This could be due to deconditioning, obesity in the setting of severe COPD.
She has not been treated with oral steroids as an outpatient
She has completed pulmonary rehab over 5 years ago but has not returned
She follows with Dr. Lagunas
Chest x-ray demonstrating normal lungs
proBNP initially negative
There is questionable lower extremity swelling
She is willing to try 1 dose of Lasix
Cardiology has been consulted, repeat echo was obtained
Correspondence reviewed
I will also empirically treat with IV steroids for AECOPD
We have discussed possibility that this is just overall worsening lung disease
She is due for outpatient PFT at her next visit on 08/04/2024
It would be beneficial for her to re-enroll into pulmonary rehab
We have discussed that if this is worsening overall lung disease, that we should discuss her prognosis
We had a long discussion today in regards to her lung disease
If shortness of breath is not improving with empiric treatment, agree with moving forward with right heart cath and left heart cath
Outpatient pulmonary follow-Known to Dr Lagunas, scheduled for 08/04/24
We will follow
Diagnostic Data
CXR 02-25 c/w 01-29-23: interim RUL/RML infiltrate
Chest X-Ray: 02-17-22, PA/lat, upper lobes emphysema, no infiltrates, relatively flat diaphragms on lateral view.
CT Chest 06/29/24- 1. No evidence of pulmonary embolism.
2. Moderate/severe apical predominant emphysematous changes with similar appearance of the nodular scarring within the right middle lobe measuring approximately 3.0 cm.
3. There is a new 6 mm solid nodule within the medial right upper lobe as well as new 7 mm solid nodules within the left upper lobe. Recommend follow-up CT to ensure stability
4. Prominent gallstone present.
CT Chest 01/29/23 - IMPRESSION: Examination is negative for pulmonary embolism. Severe changes of emphysema. New horizontal band of increased opacity within the superior segment of the right lower lobe of the lung. Morphologic appearance would be
suggestive of scarring or atelectasis. Fatty infiltration of the liver.
CT chest 02-28-22, c/w 02-23-21 IMPRESSION: No CT evidence for pulmonary embolism. Severe centrilobular emphysema.
TTE 11-29-22: CONCLUSIONS- Normal biventricular size and systolic function without regional wall motion abnormality. Mild concentric left ventricular hypertrophy. No significant valvular disease. No significant change since the prior study of
03/01/22.
Echo: 03-01-22, normal LV systolic function, LVEF greater than 75%, mild concentric LVH. No significant valvular disease. Normal RV size and function. Normal pericardium without effusion. IVC is of normal size and demonstrates normal respiratory
variation. Interatrial septum is intact with no evidence of shunting by color-flow Doppler. No intracardiac mass or thrombus formation seen. No significant change compared to October 2021.
/[facility] 05-25-22 HEMODYNAMIC DATA : AO: 127/78 - LV: 127/16 - PCWP: 14 - PA: 36/22 - RV: 34/14 - RA: 10 - Oximetry: Ao 97%, PA 75%, cardiac output 4.5, cardiac index 2.4
LEFT VENTRICULOGRAPHY: Not performed
CORONARY ANGIOGRAPHY: Dominance: Right - Left Main: Normal - LAD: Widely patent ostial/proximal LAD stents with no restenosis. There is 30% mid LAD stenosis. - Circumflex: Normal - RCA: Normal dominant vessel
CONCLUSIONS
1: Normal filling pressures without pulmonary hypertension
2: Widely patent ostial/proximal LAD stents without restenosis
3. No significant residual obstructive CAD
DIANN doppler 02-26-23: negative
DIANN doppler 09-08-21: negative
PFT 08/21/22: FEV1 1.02L 46%, FVC 2.11L 73%, ratio 48. Post FEV1 1.06L 48%, +BD response in FVC. TLC 4.86L 110%, RV/TLC 51%, DLCO 24%
-----
Total time spent on this consultation __80__ includes review of history, physical exam, medications, laboratory data, personal review of imaging, extensive review of outpatient records, discussion with care team and respiratory therapy.
--- NOTE | 2024-06-30 10:33 | PTCARENOTE ---
EKG obtained and forwarded to Dr. Henderson via tiger text [id number]. Placed in chart
--- NOTE | 2024-06-30 11:05 | CM ---
CM following re: discharge planning.
Reviewed pt's chart, met with pt.
Pt is a 63 year old female, admitted with primary dx of increased SOB.
Pt reports she lives with brother in a 2SH, 2 steps to enter, [place]. Pt reports she has supportive daughter Karen Le [phone]. Pt reports her friend Domonique and brother Brian join [employer]. Pt reports she ambulates with a
walker at baseline, has BSC, a cane, w/c, home O2 - 2L NC at baseline and provided by [facility]. Pt reports she is known to [facility]. No SNF history.
PT and OT evaluations noted - home PT/OT recommended. Pt is aware, [facility] A referral to [facility] made.
PCP: Kacey Villalba
Pharmacy: [facility]
D/C plan: home with [facility] and family support. Family to transport at discharge.
CM will follow with discharge plan updates as hospitalization progresses
--- NOTE | 2024-06-30 11:28 | CON.CAR ---
Addendum entered and electronically signed by Jose Simmons MD 06/30/24 12:38:
I saw and examined the patient.
The WOOD PATTERN MAKER's note was reviewed and I agree with the note.
63 yo female with CAD s/p KATHARINE to mid LAD 02/28/21 then UA and KATHARINE proximal to prior LAD stent 10/31/21, ( cath 2021 with patent stents) paroxysmal Afib (declines OAC), PSVT, sinus bradycardia, LINQ 2018 (at EOL), anxiety, COPD ( homeO2) patietn with
SOB. Also reports ? syncope. Was seated and then found herself on the floor at home. Denies prodrome or other cause. Prior history of vertigo. Challegningto assess asymptoms. varies of symptms and some anxiety as well
- SOB - multifacotrial Obestiy deconditioning, COPD. No PE or acute abnormality on CT this admit. No overt signs of HF. pro BNP OK
- pulmonary assessment . if symptoms persist despite pulmonary optimization thn could RHC and LHC
- ?LOC/ syncope. stable on tele
- monitor on tele
- echo
- consider neuroi / seizure eval consideringother head symptoms she has
- anxiety - tx per primary team
Original Note:
Consultation
Consultation Request
Date/Time Consultation Requested: 06/30/24 2a
Date/Time Consultation Performed: 06/30/24 9a
Requesting Provider: Dr. Pedroza
Performing Provider: OMA Shukla for Dr. Simmons
Reason for Consultation: acute on chronic hypoxia
Medical History
-
Chief Complaint: sob
History of Present Illness:
Ms. Villanueva is a 63 yo female with CAD s/p KATHARINE to mid LAD 02/28/21 then UA and KATHARINE proximal to prior LAD stent 10/31/21, paroxysmal Afib (declines OAC), PSVT, sinus bradycardia, LINQ 2017 (at EOL), HLD, anxiety, COPD oxygen dependent 2L NC, and
former smoker, who presents to the ER with c/o SOB/YEN for months that has worsened over the last 1 month. YEN occurs with any type of exertion and improves with rest though does not resolve. She is admitted to the hospitalist service and we are
consulted for SOB/YEN. Tele is stable in NSR.
Past Medical History
Past Medical History: Other (as above)
Past Surgical History: Other (as above)
Social History
Tobacco: Former Smoker
Alcohol: None
Personal: Single
Living: With Family
Family History
Family History: Other (father AAA 67 yo cause of )
Allergies / Home Medications
Allergy/AdvReac Type Severity Reaction Status Date / Time
azithromycin Allergy Unknown Verified 06/29/24 17:04
dipyridamole Allergy didn't Verified 06/29/24 17:04
[From Persantine] tolerate.
dobutamine Allergy 'feels Verified 06/29/24 17:04
terrible'
isosorbide [From Imdur] Allergy DIZZY Verified 06/29/24 17:04
levofloxacin [From Levaquin] Allergy LEGS WEAK Verified 06/29/24 17:04
morphine Allergy Nausea Verified 06/29/24 17:04
MUSCLE RELAXERS Allergy Nausea / Uncoded 06/29/24 17:04
Vomiting
�Medication �Instructions �Recorded �Confirmed �Type
levalbuterol HCl 0.63 mg/3 mL 0.63 mg inhalation R TIDPRN PRN 09/08/21 06/29/24 History
solution for nebulization sob/wheezing
pantoprazole 40 mg tablet,delayed 40 mg PO DAILY Gastrointestinal 02/28/22 06/29/24 History
release issue
aspirin 81 mg tablet,delayed 81 mg PO DAILY Blood clot 01/29/23 06/29/24 History
release prevention/tx
cholecalciferol (vitamin D3) 50 50 mcg PO NOON Supplement 01/29/23 06/29/24 History
mcg (2,000 unit) tablet
clopidogrel 75 mg tablet 75 mg PO DAILY Blood clot 01/29/23 06/29/24 History
prevention/tx
diltiazem HCl 120 mg 120 mg PO DAILY Blood pressure 01/29/23 06/29/24 History
capsule,extended release 24 hr
docusate sodium 100 mg capsule 100 mg PO QPM Constipation 01/29/23 06/29/24 History
famotidine 20 mg tablet 20 mg PO DAILYPRN PRN heartburn 01/29/23 06/29/24 History
fluticasone propionate 115 2 puff inhalation R BID 01/29/23 06/29/24 History
mcg-salmeterol 21 mcg/actuation Lung/breathing issues
HFA inhaler (Advair HFA)
levalbuterol tartrate 45 2 inh inhalation R Q6HPRN PRN 01/29/23 06/29/24 History
mcg/actuation aerosol inhaler sob,wheezing
tiotropium bromide 2.5 2 puff inhalation R DAILY 01/29/23 06/29/24 History
mcg/actuation mist for inhalation Lung/breathing issues
(Spiriva Respimat)
acetaminophen 650 mg 650 mg PO [id number] PRN mild pain 06/29/24 06/29/24 History
tablet,extended release (Tylenol 8
Hour)
diazepam 2 mg tablet 2 mg PO DAILYPRN PRN anxiety 06/29/24 06/29/24 History
guaifenesin 600 mg tablet, 1,200 mg PO [id number] PRN 06/29/24 06/29/24 History
extended release 12 hr lung/breathing issues
Review of Systems
-
History Source: Patient
All other systems: Negative unless noted
Physical Exam
Vital Signs
Temp Pulse Resp BP Pulse Ox
97.5 F 70 14 126/82 97
06/30/24 07:10 06/30/24 08:13 06/30/24 07:22 06/30/24 08:13 06/30/24 07:22
Lab Results
06/30/24 06:06
06/30/24 06:06
Troponin I < 0.012 ng/ml 06/30/24 06:06
Agc-M-[id number] Pept 67.8 pg/ml 06/29/24 17:13
Physical Exam
General: Well Developed, Well Nourished and No Apparent Distress
HEENT: Normocephalic, Anicteric and Moist Mucous Membranes
Respiratory: Clear and Non Labored Respirations (on 2L NC)
Cardiac: S1/S2 and Regular Rhythm
Breast: Deferred by me
GI: Soft, Non Tender, Non Distended and Normal Bowel Sounds
Rectal: Deferred by Provider
Genito-urinary: No Costovertebral Tender
Musculoskeletal: No Clubbing, No Cyanosis and No Edema
Skin: Warm and Dry
Neuro: AO x 3
Psych: Calm
Impression / Plan
-
SOB - acute on chronic.
- no obvious wheezing or HF on exam.
- worse with exertion, chronic.
- troponin negative.
- chest CT results as below.
Afib - paroxysmal.
- none seen on tele.
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
- she denies using additional Cardizem, compliance with Cardizem 120mg daily.
- [id number] VASC score is 2, she declines OAC therapy.
- if Afib episodes seen on tele then can consider increasing Cardizem to 180mg daily and re-consider OAC therapy.
COPD - significant.
- oxygen dependent 2L NC.
- follows with pulmonary.
- CT chest results noted - new lung nodules.
CAD - stable on cath 05/2022.
- negative troponin and no ischemia on EKG.
- continue
CT chest no PE, moderate/severe apical predominant emphysematous changes with similar appearance of the nodular scarring within the right middle lobe measuring approximately 3.0 cm, new 6 mm solid nodule within the medial right upper lobe as well as
new 7 mm solid nodules within the left upper lobe.
Data Reviewed
-
EKG: Tracing Personally Visualized and interpreted (NSR 66 bpm, no acute ischemia)
Radiology: Report Reviewed by me (cxr: nad)
CT Scan: Report Reviewed by me (chest: no PE, moderate/severe apical predominant emphysematous changes with similar appearance of the nodular scarring within the right middle lobe measuring approximately 3.0 cm, new 6 mm solid nodule within the
medial right upper lobe as well as new 7 mm solid nodules within the left upper lobe.)
Medical Tests (Nuc Med, Echo etc): Report Reviewed by me (echo 11/29/22: EF 70-75%, mild LVH, no significant valve disease) and Other (cath 05/2022: patent LAD stent, 30% mid LAD.)
Labs: Labs Reviewed by me
Old Records: Reviewed
[2024-06-30 12:45] LABS: Troponin I 0.027 ng/ml
--- NOTE | 2024-06-30 13:21 | W.PN.HOSP.TC ---
Today's Communication/Plan
-
Monitor on O2 supplementation.
Echocardiogram.
Consider trial of diuresis if persistent dyspnea.
Assessment / Plan
Assessment / Plan
Impression:*
Presentation with syncope
Acute on chronic hypoxic respiratory failure
Conditions prior to admission:
Severe COPD
Chronic hypoxic respiratory failure on home O2 at 2 L per
ASCVD.
Anxiety/depression.
Morbid obesity with BMI of 41
Suspected obstructive sleep apnea not on CPAP
Plan:
Syncopal episodes, patient reports brief loss of consciousness without prodrome at home
No evidence of arrhythmia on monitoring or EKG.
Worsening dyspnea likely multifactorial.
Currently remains on O2 supplementation at 2 L which is baseline although with slightly increased work of breathing, likely secondary to anxiety.
Lung exam with clear lung holt no evidence of bronchospasm leaning away from COPD exacerbation.
Exam with relatively compensated volume status.
Pro CHF BNP within normal limits.
CT scan of the chest negative for PE or parenchymal abnormalities
Most recent echocardiogram 02/25 with preserved biventricular function.
Repeat echocardiogram.
Continue O2 supplementation per
Currently no indication for systemic steroids (status post single dose of dexamethasone provided in ED)
Consider trial of diuresis.
Cardiology consultation
Severe COPD.
Chronic hypoxic respiratory failure on home O2 at 2 L per
No more symptoms or signs of exacerbation.
Continue inhaled short and long-acting bronchodilators and corticosteroids
Pulmonology evaluation
ASCVD
- Patient complains of intermittent chest tightness, jaw pain, arm pain.
- EKG without evident ischemia / change from prior.
- Troponin is non-negative.
- Will continue to trend and monitor for any new / recurrent symptoms.
- Cardiology evaluation.
- Update Echo as noted above.
- Continue current CV med regimen including DAPT, statin, etc.
Anxiety / Depression
- Patient clearly anxious / depressed regarding her worsening symptoms.
- Continue PRN BZDs for now.
- Would consider trial of SSRI or similar for ongoing treatment of mood.
Morbid Obesity due to excess calories
- Affects all aspects of care and is certainly contributing directly to her worsening dyspnea.
- Weight is significantly elevated from prior visits (despite patient report of stable weight at home).
- Encourage healthy diet. Activity as tolerated - though this will likely be difficult in this patient with her degree of YEN.
DVT Prophylaxis: Lovenox
Code Status: Full
Anticipated Discharge: 24 - 48 hours
Subjective/Interval History
-
Date of Service: June 30, 2024
Objective Data
-
Labs:
Laboratory Results
06/30/24
06:06
WBC 5.0
Hgb 15.3
Hct 44.4
Plt Count 276
Sodium 143
Potassium 4.4
Chloride 102
Carbon Dioxide 28
BUN 15
Creatinine 0.9
Glucose 154 H
Calcium 10.2
Vital Signs:
Vital Signs
Temp Pulse Resp BP Pulse Ox
98.0 F 84 16 152/96 97
06/30/24 11:00 06/30/24 11:00 06/30/24 11:00 06/30/24 11:00 06/30/24 11:00
I&O
06/29/24 06/30/24 07/01/24
06:59 06:59 06:59
Intake Total 480 / 480
Balance 480 / 480
Physical Exam
-
General: Well Developed and No Apparent Distress
HEENT: Normocephalic, Atraumatic and Moist Mucous Membranes
Respiratory: Clear to Auscultation
Cardiac: Regular Rhythm and S1/S2; Negative Murmur, Rub or Gallop
GI: Soft, Nontender, Nondistended and Normal Bowel Sounds; Negative Organomegaly
Rectal: Deferred by Provider
Musculoskeletal: No Clubbing, No Cyanosis and Other (Trace bilateral lower extremity edema)
Skin: Negative Rash
Neuro: Awake, Alert, Oriented, AO x 3 and Nonfocal/Grossly Intact
Psych: Anxious
[2024-06-30] MEDS: COLACE 100 MG PO (17:30)
[2024-06-30] MEDS: DECADRON 4 MG IV (17:30)
[2024-06-30] MEDS: LASIX 40 MG IV (17:35)
[2024-06-30 19:51] LABS: Troponin I 0.028 ng/ml
[2024-07-01 03:02] VITALS: BP 141/86
[2024-07-01] MEDS: DECADRON 4 MG IV ×2 (05:45→17:26)
[2024-07-01 05:50] VITALS: BMI 40.7
[2024-07-01 07:05] VITALS: BP 134/79
[2024-07-01] MEDS: ADVAIR HFA 115/21 MCG INHALER 2 PUFF INH ×2 (07:24→21:05)
[2024-07-01] MEDS: XOPENEX 0.63 MG INHALANT SOLUTION INH (07:24)
[2024-07-01] MEDS: ASPIR LOW (ENTERIC COATED) 81 MG PO (08:11)
[2024-07-01] MEDS: CARDIZEM CD 120 MG PO (08:11)
[2024-07-01] MEDS: PROTONIX 40 MG PO (08:11)
[2024-07-01] MEDS: PLAVIX 75 MG PO (08:11)
--- NOTE | 2024-07-01 08:34 | W.PN.PUL3 ---
Today's Communication / Plan
-
Improved with steroids, lasix dose
Continue observation another day, can continue taper at discharge
She has FU appt scheduled, but will call for 2 week visit
Discharge planning in next 24 hours
Assessment
-
Patient is a 63-year-old female with previous history of severe COPD on chronic 2 L oxygen, ASCVD, morbid obesity presenting to ER with complaints of acute on chronic shortness of breath over the past 4 months. She reports that her symptoms have
been progressively worsening over the past 4 months, she has significant tachypnea with exertion and is finding it difficult to recover with rest. She does not have any wheezing or chest tightness, she did have atypical chest discomfort. She does
not feel it was triggered by any upper respiratory illnesses or sick contacts. Chest x-ray demonstrating normal findings. We are consulted for eval.
Acute on chronic SOB
AE COPD
New pulmonary nodules
Atypical chest pain
Conditions [employer]SE SEINING [employer]:
Severe COPD, maintained on levalbuterol nebs, advair/spiriva, and O2 2L at rest and sleep, 4L on exertion. Intermittent CS but no long term care administrator
ABG 02-28-22 on O2 3L: 7.40/46/125/28.5/3/98.9%
Intermittently elevated serum total CO2
02/20/24- FVC 2.07 or 72%, FEV1 0.95 or 43%. Ratio 45.
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 Never received A1AT replacement therapy
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
CAD, s/p KATHARINE to mid LAD 02/28/2021, then [place] with KATHARINE to stenosis proximal to prior LAD stent 10/31/2021, continued on ASA/clopidogrel, [facility] 12-04-21 without residual disease
PAFib: declined AC due to fear of bleeding complications
Paroxysmal SVT
Sinus bradycardia
Implantable Loop Recorder (2018)
GERD
HLD
Former smoker: since age 16, up to 2 ppd, quit 02/2021
PUD
Smoked marijuana intermittently for one y in her early 30s
Morbid obesity BMI 41
COVID vaccinated x2 until February 2021, declined booster due to side effects of second vaccine dose (tachycardia, AFib flare)
Suspected ALISSON
Pulmonary nodules, new 6 and 7mm
Plan:
She has acute on chronic SOB but no significant changes in her degree of hypoxemia
This could be due to deconditioning, obesity in the setting of severe COPD.
She has not been treated with oral steroids as an outpatient
She has completed pulmonary rehab over 5 years ago but has not returned
She follows with Dr. Lagunas
Chest x-ray demonstrating normal lungs
proBNP initially negative
There is questionable lower extremity swelling
She is willing to try 1 dose of Lasix, did well
2nd dose given today
Cardiology has been consulted, repeat echo was obtained
Correspondence reviewed
I will also empirically treat with IV steroids for AECOPD
We have discussed possibility that this is just overall worsening lung disease
She is due for outpatient PFT at her next visit on 08/04/2024
It would be beneficial for her to re-enroll into pulmonary rehab
We have discussed that if this is worsening overall lung disease, that we should discuss her prognosis
We had a long discussion today in regards to her lung disease
If shortness of breath is improving with empiric treatment
Can hold off on right heart cath and left heart cath
Outpatient pulmonary follow-Known to Dr Lagunas, scheduled for 08/04/24
Diagnostic Data
CXR 02-25 c/w 01-29-23: interim RUL/RML infiltrate
Chest X-Ray: 02-17-22, PA/lat, upper lobes emphysema, no infiltrates, relatively flat diaphragms on lateral view.
CT Chest 06/29/24- . No evidence of pulmonary embolism.
2. Moderate/severe apical predominant emphysematous changes with similar appearance of the nodular scarring within the right middle lobe measuring approximately 3.0 cm.
3. There is a new 6 mm solid nodule within the medial right upper lobe as well as new 7 mm solid nodules within the left upper lobe. Recommend follow-up CT to ensure stability
4. Prominent gallstone present.
CT Chest 01/29/23 - IMPRESSION: Examination is negative for pulmonary embolism. Severe changes of emphysema. New horizontal band of increased opacity within the superior segment of the right lower lobe of the lung. Morphologic appearance would be
suggestive of scarring or atelectasis. Fatty infiltration of the liver.
CT chest 02-28-22, c/w 02-23-21 IMPRESSION: No CT evidence for pulmonary embolism. Severe centrilobular emphysema.
TTE 11-29-22: CONCLUSIONS- Normal biventricular size and systolic function without regional wall motion abnormality. Mild concentric left ventricular hypertrophy. No significant valvular disease. No significant change since the prior study of
03/01/22.
Echo: 03-01-22, normal LV systolic function, LVEF greater than 75%, mild concentric LVH. No significant valvular disease. Normal RV size and function. Normal pericardium without effusion. IVC is of normal size and demonstrates normal respiratory
variation. Interatrial septum is intact with no evidence of shunting by color-flow Doppler. No intracardiac mass or thrombus formation seen. No significant change compared to October 2021.
/[facility] 05-25-22 HEMODYNAMIC DATA : AO: 127/78 - LV: 127/16 - PCWP: 14 - PA: 36/22 - RV: 34/14 - RA: 10 - Oximetry: Ao 97%, PA 75%, cardiac output 4.5, cardiac index 2.4
LEFT VENTRICULOGRAPHY: Not performed
CORONARY ANGIOGRAPHY: Dominance: Right - Left Main: Normal - LAD: Widely patent ostial/proximal LAD stents with no restenosis. There is 30% mid LAD stenosis. - Circumflex: Normal - RCA: Normal dominant vessel
CONCLUSIONS
1: Normal filling pressures without pulmonary hypertension
2: Widely patent ostial/proximal LAD stents without restenosis
3. No significant residual obstructive CAD
DAINN doppler 02-26-23: negative
DIANN doppler 09-08-21: negative
PFT 08/21/22: FEV1 1.02L 46%, FVC 2.11L 73%, ratio 48. Post FEV1 1.06L 48%, +BD response in FVC. TLC 4.86L 110%, RV/TLC 51%, DLCO 24%
-----
Total time spent on this encounter __50__ includes review of history, physical exam, medications, laboratory data, personal review of imaging, extensive review of outpatient records, discussion with care team and respiratory therapy.
Subjective Data
-
Date of Service:
Date of Service: July 01, 2024
Chief Complaint: Pulmonary Follow Up
Subjective:
Feels more improved today, less air hungry
Still on O2
UO was decent following lasix
Objective Data
Data Reviewed
Vital Signs / I&O / Oxygen:
Vital Signs
Temp Pulse Resp BP Pulse Ox
98.0 F 63 16 134/79 94
07/01/24 07:05 07/01/24 08:11 07/01/24 07:28 07/01/24 08:11 07/01/24 07:28
Intake and Output
06/30/24 07/01/24 07/02/24
06:59 06:59 06:59
Intake Total 480 / 480 840 / 840
Balance 480 / 480 840 / 840
SaO2 94
Nasal Cannula flow liters per 2
minute
Physical Exam
General: Comfortable and Other (NAD)
HEENT: Normocephalic, Anicteric and Moist Mucous Membranes
Cardiovascular: S1-S2 and Regular Rhythm
Respiratory: Clear and Non-Labored Respirations
GI: Soft, Non Distended and Non Tender
Neurology: Awake, Alert, Oriented, AO x 3 and No Motor Deficits
Skin: Warm, Dry and Good Color
Labs/Micro/Reports
Lab Data
06/30/24 06:06
06/30/24 06:06
--- NOTE | 2024-07-01 10:54 | CM ---
Patient seen at bedside.
Discussed role of CM.
PT recommended home health.
[facility] referral was placed in care port. Liaison aware.
Patient on home 02 & has her portable tank here in her room.
PLAN: Discharge when stable with [facility].
Brother to transport home.
[2024-07-01 11:05] VITALS: BP 160/90
[2024-07-01 11:40] VITALS: PULSE 87; O2SAT 92
[2024-07-01] MEDS: LASIX 40 MG IV (13:38)
[2024-07-01 15:05] VITALS: BP 133/78
--- NOTE | 2024-07-01 15:45 | W.PN.CD ---
Today's Communication / Plan
-
- Patient has been given steroids as well as a dose of Lasix yesterday. She definitely has noted some improvement.
Continue current therapy. If patient continues to improve then she will be discharged with additional outpatient follow-up with pulmonary and she also has a follow-up visit already scheduled in our office in July.
-As previously outlined in pulmonary note if patient does not have adequate improvement with the above measures then would consider right and left heart catheterization.
Impression / Plan
-
SOB - acute on chronic.
- no obvious wheezing or HF on exam.
- Patient has been given steroids as well as a dose of Lasix yesterday. She definitely has noted some improvement.
Continue current therapy. If patient continues to improve then she will be discharged with additional outpatient follow-up with pulmonary and she also has a follow-up visit already scheduled in our office in July.
-As previously outlined in pulmonary note if patient does not have adequate improvement with the above measures then would consider right and left heart catheterization.
Afib - paroxysmal.
- none seen on tele in last 24 hours
- wore an outpatient desk monitor recently that showed several episodes of Afib/Aflutter, rates 120-165 bpm.
- she denies using additional Cardizem, compliance with Cardizem 120mg daily.
- [id number] VASC score is 2, she declines OAC therapy.
- if Afib episodes seen on tele then can consider increasing Cardizem to 180mg daily and re-consider OAC therapy.
COPD - significant.
- oxygen dependent 2L NC.
- follows with pulmonary.
- CT chest results noted - new lung nodules.
CAD - stable on cath 05/2022.
- negative troponin and no ischemia on EKG.
- continue
CT chest no PE, moderate/severe apical predominant emphysematous changes with similar appearance of the nodular scarring within the right middle lobe measuring approximately 3.0 cm, new 6 mm solid nodule within the medial right upper lobe as well as
new 7 mm solid nodules within the left upper lobe.
Physical Exam
Vital Signs/Labs
Vital Signs
Temp Pulse Resp BP Pulse Ox
97.7 F 81 18 160/90 94
07/01/24 11:05 07/01/24 11:05 07/01/24 11:05 07/01/24 11:05 07/01/24 11:05
06/30/24 07/01/24 07/02/24
06:59 06:59 06:59
Actual Weight 98.458 kg 97.607 kg
06/30/24 06:06
06/30/24 06:06
06/29/24
17:13
Xgi-V-Gunafxyzcoo Pept 67.8
LAB Results
06/29/24 06/30/24 06/30/24
17:13 06:06 12:03
Troponin I 0.025 < 0.012 0.027 D
06/30/24
19:13
Troponin I 0.028
Physical Exam
Constitutional: No acute distress
Cardiovascular: Rhythm & rate is regular
Respiratory: Respiratory effort normal
GI: Soft and Non tender
Neuro/Psych: Alert
Data Reviewed
-
Date of Service: July 01, 2024
Medical Decision Making: Reviewed Test Results
Echo: Report Reviewed by me
Medical Tests (PFT, Pathology etc): Report Reviewed by me
Labs: Labs Reviewed by me
[2024-07-01] MEDS: COLACE 100 MG PO (17:26)
--- NOTE | 2024-07-01 17:46 | W.PN.HOSP.TC ---
Addendum entered and electronically signed by Jarvis Henderson MD 07/13/24 16:36:
Acute on chronic hypoxic respiratory failure present on admission in patient with chronic oxygen supplementation and increase of work of breathing
Original Note:
Today's Communication/Plan
-
IV Lasix.
IV corticosteroids.
Increase activity
Discussed option of anxiety management and consideration of low-dose of SSRI. Patient declined at this point.
Assessment / Plan
Assessment / Plan
Impression:*
Presentation with syncope
Acute on chronic hypoxic respiratory failure
Conditions prior to admission:
Severe COPD
Chronic hypoxic respiratory failure on home O2 at 2 L per
ASCVD.
Anxiety/depression.
Morbid obesity with BMI of 41
Suspected obstructive sleep apnea not on CPAP
Plan:
Syncopal episodes, patient reports brief loss of consciousness without prodrome at home
No evidence of arrhythmia on monitoring or EKG.
Worsening dyspnea likely multifactorial.
Currently remains on O2 supplementation at 2 L which is baseline although with slightly increased work of breathing, likely secondary to anxiety.
Lung exam with clear lung holt no evidence of bronchospasm leaning away from COPD exacerbation.
Exam with relatively compensated volume status.
Pro CHF BNP within normal limits.
CT scan of the chest negative for PE or parenchymal abnormalities
Most recent echocardiogram 02/25 with preserved biventricular function.
Repeat echocardiogram with preserved biventricular function and no changes since prior study.
Continue O2 supplementation per
Currently no indication for systemic steroids (status post single dose of dexamethasone provided in ED)
Subjectively improved with Lasix. Will continue IV diuresis for another 24 hours. Follow daily weights.
Severe COPD.
Chronic hypoxic respiratory failure on home O2 at 2 L per
No more symptoms or signs of exacerbation.
Continue inhaled short and long-acting bronchodilators and corticosteroids
Subjectively improved with empiric corticosteroids. Will continue with plan to transition to prednisone over the next 24 hours. Will taper
ASCVD
- Patient complains of intermittent chest tightness, jaw pain, arm pain.
- EKG without evident ischemia / change from prior.
- Troponin is non-negative.
- Will continue to trend and monitor for any new / recurrent symptoms.
- Cardiology evaluation.
- Update Echo as noted above.
- Continue current CV med regimen including DAPT, statin, etc.
Anxiety / Depression
- Patient clearly anxious / depressed regarding her worsening symptoms.
- Continue PRN BZDs for now.
- Would consider trial of SSRI or similar for ongoing treatment of mood.
Morbid Obesity due to excess calories
- Affects all aspects of care and is certainly contributing directly to her worsening dyspnea.
- Weight is significantly elevated from prior visits (despite patient report of stable weight at home).
- Encourage healthy diet. Activity as tolerated - though this will likely be difficult in this patient with her degree of YEN.
DVT Prophylaxis: Lovenox
Code Status: Full
Anticipated Discharge: 24 - 48 hours
Subjective/Interval History
-
Date of Service: July 01, 2024
Objective Data
-
Vital Signs:
Vital Signs
Temp Pulse Resp BP Pulse Ox
97.9 F 69 18 133/78 94
07/01/24 15:05 07/01/24 15:05 07/01/24 15:05 07/01/24 15:05 07/01/24 15:05
I&O
06/30/24 07/01/24 07/02/24
06:59 06:59 06:59
Intake Total 480 / 480 840 / 840 1080 / 1080
Balance 480 / 480 840 / 840 1080 / 1080
Physical Exam
-
General: Well Developed and No Apparent Distress
HEENT: Normocephalic, Atraumatic and Moist Mucous Membranes
Respiratory: Clear to Auscultation
Cardiac: Regular Rhythm and S1/S2; Negative Murmur, Rub or Gallop
GI: Soft, Nontender, Nondistended and Normal Bowel Sounds; Negative Organomegaly
Rectal: Deferred by Provider
Musculoskeletal: No Clubbing, No Cyanosis and Other (Trace bilateral lower extremity edema)
Skin: Negative Rash
Neuro: Awake, Alert, Oriented, AO x 3 and Nonfocal/Grossly Intact
Psych: Anxious
[2024-07-01 23:02] VITALS: BP 127/78
[2024-07-02 04:43] VITALS: BMI 40.8
[2024-07-02] MEDS: DECADRON 4 MG IV (05:22)
[2024-07-02] MEDS: ADVAIR HFA 115/21 MCG INHALER 2 PUFF INH (05:58)
[2024-07-02] MEDS: XOPENEX 0.63 MG INHALANT SOLUTION INH (05:58)
[2024-07-02 07:10] VITALS: BP 135/87
[2024-07-02] MEDS: ASPIR LOW (ENTERIC COATED) 81 MG PO (07:49)
[2024-07-02] MEDS: PLAVIX 75 MG PO (07:49)
[2024-07-02] MEDS: PROTONIX 40 MG PO (07:49)
[2024-07-02] MEDS: CARDIZEM CD 120 MG PO (07:49)
--- NOTE | 2024-07-02 08:58 | PN.CDI ---
CDI
- -
CDI:
Physician Documentation Request
Admit Date: 06/29/24 23:54
Dear Doctor Beatriz,
Please review the following and provide your response in the progress notes.
Clinical Indicators:
- 06/29 H&P 'Severe COPD'
- 'No active wheezing appreciated on exam'
- 07/01 Pulmonary 'AE COPD'
- 'empirically treat with IV steroids for AECOPD...possibility that this is just overall worsening lung disease'
- 07/01 PN 'No more symptoms or signs of exacerbation'
- Duoneb, Decadron, Xopenex, and Advair given
Clarify which of the following accurately represents the patient's respiratory status:
COPD - with exacerbation
COPD - stable chronic disease
Other
Use of terms such as suspected, likely, concern for, or probable (associated with a specific diagnosis that is being evaluated, monitored, or treated as if it exists) are acceptable and can be coded in the inpatient setting, when documented at the
time of discharge.
Thank you,
Fatemeh Guerra RN
CDI Specialist
Please use your independent medical judgment in providing your response.
--- NOTE | 2024-07-02 11:05 | W.PN.PUL3 ---
Today's Communication / Plan
-
Transition to PO prednisone, we discussed taper as OP
Encouraged continued rehab/consider OP enrollment
Outpatient FU scheduled, with PFT
Discharge planning per team
Assessment
-
Patient is a 63-year-old female with previous history of severe COPD on chronic 2 L oxygen, ASCVD, morbid obesity presenting to ER with complaints of acute on chronic shortness of breath over the past 4 months. She reports that her symptoms have
been progressively worsening over the past 4 months, she has significant tachypnea with exertion and is finding it difficult to recover with rest. She does not have any wheezing or chest tightness, she did have atypical chest discomfort. She does
not feel it was triggered by any upper respiratory illnesses or sick contacts. Chest x-ray demonstrating normal findings. We are consulted for eval.
Acute on chronic SOB
AE COPD
New pulmonary nodules
Atypical chest pain
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
Severe COPD, maintained on levalbuterol nebs, advair/spiriva, and O2 2L at rest and sleep, 4L on exertion. Intermittent CS but no nursing home
ABG 02-28-22 on O2 3L: 7.40/46/125/28.5/3/98.9%
Intermittently elevated serum total CO2
02/20/24- FVC 2.07 or 72%, FEV1 0.95 or 43%. Ratio 45.
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 Never received A1AT replacement therapy
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
CAD, s/p KATHARINE to mid LAD 02/28/2021, then [place] with KATHARINE to stenosis proximal to prior LAD stent 10/31/2021, continued on ASA/clopidogrel, [facility] 12-04-21 without residual disease
PAFib: declined AC due to fear of bleeding complications
Paroxysmal SVT
Sinus bradycardia
Implantable Loop Recorder (2018)
GERD
HLD
Former smoker: since age 16, up to 2 ppd, quit 02/2021
PUD
Smoked marijuana intermittently for one y in her early 30s
Morbid obesity BMI 41
COVID vaccinated x2 until February 2021, declined booster due to side effects of second vaccine dose (tachycardia, AFib flare)
Suspected ALISSON
Pulmonary nodules, new 6 and 7mm
Plan:
She has acute on chronic SOB but no significant changes in her degree of hypoxemia
This could be due to deconditioning, obesity in the setting of severe COPD.
She has not been treated with oral steroids as an outpatient
She has completed pulmonary rehab over 5 years ago but has not returned
She follows with Dr. Lagunas
Chest x-ray demonstrating normal lungs
proBNP initially negative
There is questionable lower extremity swelling
She is willing to try 1 dose of Lasix, did well
2nd dose given today
Cardiology has been consulted, repeat echo was obtained
Correspondence reviewed
I will also empirically treat with IV steroids for AECOPD--transition to PO prednisone with taper
We have discussed possibility that this is just overall worsening lung disease
She is due for outpatient PFT at her next visit on 08/04/2024
It would be beneficial for her to re-enroll into pulmonary rehab
We have discussed that if this is worsening overall lung disease, that we should discuss her prognosis
We had a long discussion today in regards to her lung disease
If shortness of breath is improving with empiric treatment
Can hold off on right heart cath and left heart cath
Outpatient pulmonary follow-Known to Dr Lagunas, scheduled for 08/04/24
Diagnostic Data
CXR 02-25 c/w 01-29-23: interim RUL/RML infiltrate
Chest X-Ray: 02-17-22, PA/lat, upper lobes emphysema, no infiltrates, relatively flat diaphragms on lateral view.
CT Chest 06/29/24- . No evidence of pulmonary embolism.
2. Moderate/severe apical predominant emphysematous changes with similar appearance of the nodular scarring within the right middle lobe measuring approximately 3.0 cm.
3. There is a new 6 mm solid nodule within the medial right upper lobe as well as new 7 mm solid nodules within the left upper lobe. Recommend follow-up CT to ensure stability
4. Prominent gallstone present.
CT Chest 01/29/23 - IMPRESSION: Examination is negative for pulmonary embolism. Severe changes of emphysema. New horizontal band of increased opacity within the superior segment of the right lower lobe of the lung. Morphologic appearance would be
suggestive of scarring or atelectasis. Fatty infiltration of the liver.
CT chest 02-28-22, c/w 02-23-21 IMPRESSION: No CT evidence for pulmonary embolism. Severe centrilobular emphysema.
TTE 11-29-22: CONCLUSIONS- Normal biventricular size and systolic function without regional wall motion abnormality. Mild concentric left ventricular hypertrophy. No significant valvular disease. No significant change since the prior study of
03/01/22.
Echo: 03-01-22, normal LV systolic function, LVEF greater than 75%, mild concentric LVH. No significant valvular disease. Normal RV size and function. Normal pericardium without effusion. IVC is of normal size and demonstrates normal respiratory
variation. Interatrial septum is intact with no evidence of shunting by color-flow Doppler. No intracardiac mass or thrombus formation seen. No significant change compared to October 2021.
/[facility] 05-25-22 HEMODYNAMIC DATA : AO: 127/78 - LV: 127/16 - PCWP: 14 - PA: 36/22 - RV: 34/14 - RA: 10 - Oximetry: Ao 97%, PA 75%, cardiac output 4.5, cardiac index 2.4
LEFT VENTRICULOGRAPHY: Not performed
CORONARY ANGIOGRAPHY: Dominance: Right - Left Main: Normal - LAD: Widely patent ostial/proximal LAD stents with no restenosis. There is 30% mid LAD stenosis. - Circumflex: Normal - RCA: Normal dominant vessel
CONCLUSIONS
1: Normal filling pressures without pulmonary hypertension
2: Widely patent ostial/proximal LAD stents without restenosis
3. No significant residual obstructive CAD
DIANN doppler 02-26-23: negative
DIANN doppler 09-08-21: negative
PFT 08/21/22: FEV1 1.02L 46%, FVC 2.11L 73%, ratio 48. Post FEV1 1.06L 48%, +BD response in FVC. TLC 4.86L 110%, RV/TLC 51%, DLCO 24%
-----
Total time spent on this encounter __50__ includes review of history, physical exam, medications, laboratory data, personal review of imaging, extensive review of outpatient records, discussion with care team and respiratory therapy.
Subjective Data
-
Date of Service:
Date of Service: July 02, 2024
Chief Complaint: Pulmonary Follow Up
Subjective:
Still SOB wtih exertion but better
No new complaints
Objective Data
Data Reviewed
Vital Signs / I&O / Oxygen:
Vital Signs
Temp Pulse Resp BP Pulse Ox
98.6 F 72 18 135/87 96
07/02/24 07:10 07/02/24 07:49 07/02/24 07:10 07/02/24 07:49 07/02/24 07:56
Intake and Output
07/01/24 07/02/24 07/03/24
06:59 06:59 06:59
Intake Total 840 / 840 2300 / 2300
Balance 840 / 840 2300 / 2300
SaO2 96
Nasal Cannula flow liters per 2
minute
Physical Exam
General: Comfortable and Other (NAD)
HEENT: Normocephalic, Anicteric and Moist Mucous Membranes
Cardiovascular: S1-S2 and Regular Rhythm
Respiratory: Clear and Non-Labored Respirations
GI: Soft, Non Distended and Non Tender
Neurology: Awake, Alert, Oriented, AO x 3 and No Motor Deficits
Skin: Warm, Dry and Good Color
Labs/Micro/Reports
Lab Data
06/30/24 06:06
06/30/24 06:06
--- NOTE | 2024-07-02 13:43 | W.PN.CD ---
Today's Communication / Plan
-
can discharge on lasix 20mg daily through weekend, then she can go back to prn dosing
Impression / Plan
-
SOB - acute on chronic.
- Patient has been given steroids as well as a dose of Lasix this admission. She definitely has noted some improvement.
- Continue current therapy.
-likely components of COPD and possible mild acute on chronic HFPEF
-can discharge on lasix 20mg daily through weekend, then she can go back to prn dosing
Afib - paroxysmal.
- none seen this admission
- wore an outpatient residential monitor recently that showed several episodes of Afib/Aflutter, rates 120-165 bpm.
- continue Cardizem 120mg daily.
- [id number] VASC score is 2, she declines OAC therapy.
- if Afib episodes seen on tele then can consider increasing Cardizem to 180mg daily and re-consider OAC therapy.
COPD - significant.
- oxygen dependent 2L NC.
- follows with pulmonary.
CAD - stable on cath 05/2022.
- negative troponin and no ischemia on EKG.
- continue ASA/plavix
CT chest no PE, moderate/severe apical predominant emphysematous changes with similar appearance of the nodular scarring within the right middle lobe measuring approximately 3.0 cm, new 6 mm solid nodule within the medial right upper lobe as well as
new 7 mm solid nodules within the left upper lobe.
Physical Exam
Vital Signs/Labs
Vital Signs
Temp Pulse Resp BP Pulse Ox
98.6 F 72 18 135/87 96
07/02/24 07:10 07/02/24 07:49 07/02/24 07:10 07/02/24 07:49 07/02/24 11:12
07/01/24 07/02/24 07/03/24
06:59 06:59 06:59
Actual Weight 97.607 kg 97.885 kg
06/30/24 06:06
06/30/24 06:06
06/29/24
17:13
Knr-M-Lfblewyvrar Pept 67.8
LAB Results
06/29/24 06/30/24 06/30/24
17:13 06:06 12:03
Troponin I 0.025 < 0.012 0.027 D
06/30/24
19:13
Troponin I 0.028
Physical Exam
Constitutional: No acute distress
EENT: Moist mucous membranes
Cardiovascular: Rhythm & rate is regular, Pedal edema is absent, JVD pressure is normal and Systolic murmur absent
Respiratory: Labored respirations and Other (poor air movement diffusely)
GI: Soft and Distention absent
Neuro/Psych: AO x 3
Data Reviewed
-
Date of Service: July 02, 2024
[2024-07-02] MEDS: LASIX 20 MG PO (14:03)
--- NOTE | 2024-07-02 14:07 | W.DS.TRANS ---
DC Summary - [employer]
-
Discharge Instructions:
Discharge Diagnosis/Procedures Impression:*
Presentation with syncope
Acute on chronic hypoxic respiratory failure
Conditions prior to admission:
Severe COPD
Chronic hypoxic respiratory failure on home O2
at 2 L per
ASCVD.
Anxiety/depression.
Morbid obesity with BMI of 41
Suspected obstructive sleep apnea not on CPAP
Diet Regular
Instructions:
Stand-Alone Forms:
Changes to Home Medications: Yes
Discharge Medications:
DC Medications w/original date entered in [facility]
levalbuterol HCl 0.63 mg/3 mL solution for nebulization 0.63 mg inhalation R TIDPRN PRN sob/wheezing 09/08/21
pantoprazole 40 mg tablet,delayed release 40 mg PO DAILY Gastrointestinal issue 02/28/22
aspirin 81 mg tablet,delayed release 81 mg PO DAILY Blood clot prevention/tx 01/29/23
cholecalciferol (vitamin D3) 50 mcg (2,000 unit) tablet 50 mcg PO NOON Supplement 01/29/23
clopidogrel 75 mg tablet 75 mg PO DAILY Blood clot prevention/tx 01/29/23
diltiazem HCl 120 mg capsule,extended release 24 hr 120 mg PO DAILY Blood pressure 01/29/23
docusate sodium 100 mg capsule 100 mg PO QPM Constipation 01/29/23
famotidine 20 mg tablet 20 mg PO DAILYPRN PRN heartburn 01/29/23
fluticasone propionate 115 mcg-salmeterol 21 mcg/actuation HFA inhaler (Advair HFA) 2 puff inhalation R BID Lung/breathing issues 01/29/23
levalbuterol tartrate 45 mcg/actuation aerosol inhaler 2 inh inhalation R Q6HPRN PRN sob,wheezing 01/29/23
tiotropium bromide 2.5 mcg/actuation mist for inhalation (Spiriva Respimat) 2 puff inhalation R DAILY Lung/breathing issues 01/29/23
acetaminophen 650 mg tablet,extended release (Tylenol 8 Hour) 650 mg PO [id number] PRN mild pain 06/29/24
diazepam 2 mg tablet 2 mg PO DAILYPRN PRN anxiety 06/29/24
guaifenesin 600 mg tablet, extended release 12 hr 1,200 mg PO [id number] PRN lung/breathing issues 06/29/24
furosemide 20 mg tablet 20 mg PO DAILY #30 tabs 07/02/24
prednisone 10 mg tablet 10 mg PO DIRECTED #42 tabs 07/02/24
Home Medication Changes
Standing Lasix dose
Prednisone taper
Pending Results: No
[2024-07-02 14:26] VITALS: BP 146/84
--- NOTE | 2024-07-02 14:28 | PTCARENOTE ---
Patient verbalizes understanding of discharge instructions; vital signs obtained and documented; IV removed.
--- NOTE | 2024-07-07 14:35 | PN.CDI ---
CDI
- -
CDI:
Physician Documentation Request
Admit Date: 06/29/24 23:54
Dear Doctor Beatriz,
Please review the following and provide your response in the progress notes.
Clinical Indicators:
- 06/29 ER Physician 'presents to the ER for evaluation of worsening shortness of breath over the past 2 weeks'
- 'Pulmonary Exam: lungs clear, no respiratory distress'
- per H&P 'O2-dependent COPD...She notes that her SpO2 at home decreases into the 80s at times'
- Acute on Chronic Hypoxemic Respiratory Insufficiency'
- 'No significant evidence at present for exacerbations of either CF or COPD'
- 07/02 Pulmonary 'acute on chronic SOB but no significant changes in her degree of hypoxemia'
- 'AE COPD'
Please clarify in the Progress Notes:
Acute hypoxic Respiratory failure is/was present and is a clinical diagnosis based on (please include this additional support in the medical record)
After careful study acute hypoxic respiratory failure has been ruled out, chronic hypoxic respiratory failure only
Other
Recognized standard criteria for respiratory failure includes:
(Source: [facility] Sep 2013)
ABGs (1 or more)
�PO2 <60 or RA SpO2 <91%
�PcO2 >50 and pH <7.35
�pO2 decrease or pcO2 increase by 10 mmHg from baseline if known Symptoms:
�Tachypnea, SOB, dyspnea
�Pallor or cyanosis
�Anxiety or restlessness
�Use of accessory muscles
�Retractions (grunting in newborns)
�Unable to speak in complete sentences
Supplemental O2 requirement of 40% (5LPM) or more Intubation is not required
Use of terms such as suspected, likely, concern for, or probable (associated with a specific diagnosis that is being evaluated, monitored, or treated as if it exists) are acceptable and can be coded in the inpatient setting, when documented at the
time of discharge.
Thank you,
Fatemeh Guerra RN
CDI Specialist
Please use your independent medical judgment in providing your response.
== END 2024-07-02 15:48 | disposition home health service (06) | DRG 189 ==
LOC: 2 NORTH 23:54
PROVIDERS: Emergency Medicine; Nurse Practitioner; ADMITTING PHYSICIAN Hospitalist; ATTENDING PHYSICIAN Internal Medicine; EMERGENCY PHYSICIAN Emergency Medicine; FAMILY PHYSICIAN Nurse Practitioner Adult Health; OTHER PHYSICIAN Internal Medicine; OTHER PHYSICIAN Internal Medicine Cardiovascular Disease
DX: J96.21 Acute and chronic respiratory failure with hypoxia (principal); I50.31 Acute diastolic (congestive) heart failure; J44.1 Chronic obstructive pulmonary disease with (acute) exacerbation; Z68.41 Body mass index [BMI] 40.0-44.9, adult; I11.0 Hypertensive heart disease with heart failure; F32.A Depression, unspecified; E66.01 Morbid (severe) obesity due to excess calories; J43.9 Emphysema, unspecified; E88.01 Alpha-1-antitrypsin deficiency; Z99.81 Dependence on supplemental oxygen; I48.0 Paroxysmal atrial fibrillation; I25.10 Atherosclerotic heart disease of native coronary artery without angina pectoris; F41.9 Anxiety disorder, unspecified; K21.9 Gastro-esophageal reflux disease without esophagitis; E78.00 Pure hypercholesterolemia, unspecified; R53.81 Other malaise; G47.33 Obstructive sleep apnea (adult) (pediatric); Z95.5 Presence of coronary angioplasty implant and graft; Z79.82 Long term (current) use of aspirin; Z79.02 Long term (current) use of antithrombotics/antiplatelets; Z79.899 Other long term (current) drug therapy; Z87.891 Personal history of nicotine dependence; Z87.11 Personal history of peptic ulcer disease; Z88.1 Allergy status to other antibiotic agents; Z88.5 Allergy status to narcotic agent; Z88.8 Allergy status to other drugs, medicaments and biological substances
CPT/HCPCS: 71046; 71275; 80048; 80053; 83880; 84443; 84484; 85025; 85027; 85379; 93005; 93306; 94640; 96374; 97112; 97163; 97166; 99285; Q9967

== ENCOUNTER → 2024-07-08 12:18 | Outpatient (REF) | payer BC, SELFPAY ==
[2024-07-08 14:00] LABS: Blood Urea Nitrogen 26 mg/dl (7-17); Calcium 9.2 mg/dl (8.4-10.2); Carbon Dioxide 28 mmol/L (22-30); Chloride 100 mmol/L (98-107); Glucose 118 mg/dl (70-99); Potassium 4.2 mmol/L (3.5-5.1); Sodium 139 mmol/L (135-145); eGFR > 60.00
== END ==
LOC: REG 12:18
PROVIDERS: ATTENDING PHYSICIAN Nurse Practitioner Adult Health
DX: J44.9 Chronic obstructive pulmonary disease, unspecified (principal); I10 Essential (primary) hypertension; J96.20 Acute and chronic respiratory failure, unspecified whether with hypoxia or hypercapnia
CPT/HCPCS: 36415; 80048

== ENCOUNTER 2024-07-21 06:45 | Inpatient (IN) | payer BC, SELFPAY ==
[2024-07-20 20:12] VITALS: BP 184/98
[2024-07-20 20:30] VITALS: BP 138/80
[2024-07-20 20:31] VITALS: BMI 42.1
[2024-07-20 20:51] LABS: % Basophils 0.4 % (0-2); % Eosinophils 0.2 % (0-6); % Immature Granulocytes 0.9 % (0-0.5); % Lymphocytes 17.3 % (20.5-51.1); % Neutrophils 74.2 % (42.2-75.2); Absolute Basophils 0.1 10^3/uL (0-0.2); Absolute Immature Granulocytes 0.1 10^3/uL (0-0.05); Absolute Monocytes 0.8 10^3/uL (0.1-0.6); Absolute Neutrophils 8.4 10^3/uL (1.4-6.5); Hematocrit 42.4 % (37.0-47.0); Hemoglobin 14.4 g/dL (12.0-16.0); Mean Corpuscular Hgb 31.8 pg (27.0-31.0); Mean Corpuscular Volume 93.6 fL (81.0-99.0); Mean Platelet Volume 9.2 fL (7.4-10.4); Nucleated Red Blood Cells % 0 %; Platelet Count 220 10^3/uL (130-400); Red Blood Cell Count 4.53 10^6/uL (4.20-5.40); Red Cell Dist. Width 13.3 % (11.5-14.5); White Blood Cell Count 11.3 10^3/uL (4.8-10.8)
[2024-07-20 21:00] VITALS: BP 137/73
--- NOTE | 2024-07-20 21:11 | ED.GENMED ---
History of Present Illness
General
Chief Complaint: Breathing Problem
Time Seen by Provider: 07/20/24 21:10
History of Present Illness
History of Present Illness:
HPI: Patient presents with worsening dyspnea. When she was admitted with similar symptoms approximately 3 weeks ago, she had a CTA that was negative for PE. This is very similar to when she came the last time. She called her head pumper and
guest services manager both recommended she come to the hospital again. She tells me that she has dyspnea that worsens with exertion. She did not have any significant weight gain other than maybe a couple of pounds of increase but notes no edema.
EXAM:
GENERAL: Well appearing in mild distress
HEENT: Moist oral mucosa
CARDIOVASCULAR: No murmurs, normal heart rate, regular rhythm, No chest wall tenderness
PULMONARY: Mild respiratory distress, breath sounds are slightly decreased and equal, mild tachypnea
ABDOMEN: Soft with no peritoneal signs, no tenderness
NEUROLOGIC: Excellent strength all extremities, no coordination deficits
PSYCHIATRIC: Appropriate mental status, normal insight and judgement
EXTREMITIES: Nontender, no edema, moves all extremities equally
SKIN: No rash, no lesions
TIME OF INITIAL ENCOUNTER: 9:15 PM
NUMBER AND COMPLEXITY OF PROBLEMS ADDRESSED AT THE ENCOUNTER
� Chronic conditions affecting care: The patient has history of COPD and diastolic CHF, morbid obesity, anxiety/depression
� Acute Exacerbation and/or Progression of Chronic Illness: This is an acute but recurring problem
� Differential Diagnosis includes: COPD exacerbation, CHF exacerbation, doubt PE as she just recently had a negative CTA with the same symptoms, pneumonia, atrial fibrillation
AMOUNT AND/OR COMPLEXITY OF DATA TO BE REVIEWED AND ANALYZED
� I performed an independent evaluation of and my interpretation is:
EKG: Sinus 64, normal axis, nonspecific ST abnormality
CT:
X-rays: Chest x-ray unremarkable
Laboratory Studies: White count 11.3, hemoglobin 14.4, chemistries unremarkable, COVID-negative
Other:
� Review of other/old records: I reviewed old records. The patient CTA chest last admission was negative for PE. She was given IV diuresis with Lasix and was also on systemic steroids and then improved.
� Clinical information was obtained by an independent historian: None needed
� Prescriptions/Medications Considered but not given:
� Further testing considered but not performed:
RISK OF COMPLICATIONS AND/OR MORBIDITY OR MORTALITY OF PATIENT MANAGEMENT
� Social determinants of health affecting care: Lives at home
� Discussion with other providers: Hospitalist, Dr. Quinteros for admission at 11:30 PM.
� Escalation of care including admission/observation vs risk of discharge considered: The patient feels that her symptoms are just as bad as when she required admission the last time. She feels rather significant dyspnea on
exertion. She does not feel, outpatient management. She requests Xopenex as opposed albuterol. Will also try IV diuresis and IV steroids again. On reassessment 11:30 PM, the patient states she feels she needs to stay in the hospital and tells me
that her doctors wanted her to be to the hospital for further evaluation.
Past History
Past History
ED Past Medical History: Arrthythmia (Atrial fibrillation), Asthma, CAD, COPD, GERD and Hypercholesterolemia
ED Past Surgical History: Cardiac and Other (Lung biopsy)
Patient has exhibited threatening behavior?: No
PSI?: No
Social History
Tobacco: Former smoker
Alcohol: Occasional
Drug: None
Personal:
Living: with family
Employment: Not employed
Family History
Family History: CAD
Phy Exam
Physical Exam
Physical Exam:
See HPI
Scores
Heart Failure Risk
Heart Failure Risk Score: Not Applicable
Course
Orders/Labs/Results
Orders:
Orders
07/20/24 20:17
ECG [Electrocardiogram (*1)] Urgent
Reason for Study: Shortness of Breath
Other Reason for Exam: CHEST PAIN
EKG- Treatment ONCE
07/20/24 20:41
COVID-19 Antigen Urgent
Source: Nasal Swab
Complete Blood Count/With Diff Urgent
Comprehensive Metabolic Panel Urgent
Pro-BNP [NT-proBNP] Urgent
Troponin I Urgent
Influenza A+B Rapid Molecular Urgent
ARCADIO Source: Nasal Swab
Specimen Description:
07/20/24 21:13
CR Chest Portable - 1 View Urgent
Comment:
Reason For Exam: sob
Reason Study Needs to be Portable: Patient Unstable
07/20/24 21:23
Furosemide [Lasix] 40 mg IV NOW STA
Levalbuterol [Xopenex 1.25 mg Inhalant Solution] 1.25 mg INH R NOW STA
MethylPREDNISolone PF [Solu-Medrol Pf] 125 mg IV NOW STA
Abnormal Lab Results
07/20/24
20:41
WBC 11.3 H 10^3/uL
(4.8-10.8)
MCH 31.8 H pg
(27.0-31.0)
Abs Immat Gran (auto) 0.1 H 10^3/uL
(0-0.05)
Absolute Neuts (auto) 8.4 H 10^3/uL
(1.4-6.5)
Absolute Monos (auto) 0.8 H 10^3/uL
(0.1-0.6)
Immature Gran % 0.9 H %
(0-0.5)
Lymphocytes % 17.3 L %
(20.5-51.1)
BUN 26 H mg/dl
(7-17)
Glucose 113 H mg/dl
(70-99)
07/20/24 20:41
07/20/24 20:41
Vital Signs
Initial and Last Documented VS:
Initial Vital Signs
Temp Pulse Resp BP Pulse Ox
100 F 66 30 184/98 95
07/20/24 20:12 07/20/24 20:12 07/20/24 20:12 07/20/24 20:12 07/20/24 20:12
Last Documented Vital Signs
Temp Pulse Resp BP Pulse Ox
97.6 F 61 21 115/73 97
07/20/24 20:30 07/20/24 22:45 07/20/24 22:45 07/20/24 22:08 07/20/24 22:45
*Critical Care Note
Total Time (30-74mins, 75-104mins- exclusive of procedures): Not Applicable
ED Attending Note
-
Portions of this chart may have been created with voice recognition software.� Occasional wrong word or��sound alike� substitutions may have occurred due to the inherent limitations of voice recognition software.
Discharge Plan
Departure
Prescriptions:
No Action
levalbuterol HCl 0.63 MG/3 ML solution for nebulization
0.63 mg inhalation R TIDPRN PRN (Reason: sob/wheezing)
pantoprazole 40 MG tablet,delayed release (DR/EC)
40 mg PO DAILY
levalbuterol tartrate 45 mcg/actuation Hfa Aerosol Inhaler
2 inh INHALATION R Q6HPRN PRN (Reason: sob,wheezing)
fluticasone propion-salmeterol [Advair HFA] 115-21 mcg/actuation HFA aerosol inhaler
2 puff INHALATION R BID
cholecalciferol (vitamin D3) 50 mcg (2,000 unit) Tablet
50 mcg PO NOON
Spiriva Respimat 2.5 mcg/actuation mist
2 puff INHALATION R DAILY
clopidogrel 75 MG tablet
75 mg PO DAILY
aspirin 81 MG tablet,delayed release (DR/EC)
81 mg PO DAILY
famotidine 20 MG tablet
20 mg PO DAILYPRN PRN (Reason: heartburn)
docusate sodium 100 MG capsule
100 mg PO QPM
diltiazem HCl 120 MG capsule,extended release 24hr
120 mg PO DAILY
acetaminophen [Tylenol 8 Hour] 650 mg Tablet Extended Release
650 mg PO [id number] PRN (Reason: mild pain)
diazepam 2 mg Tablet
2 mg PO DAILYPRN PRN (Reason: anxiety)
Patient Comments:
06/29/24: last filled 02/26/24 for 30 tablets over 30 days. Patient states she uses this very rarely.
guaifenesin 600 mg tablet extended release 12hr
1,200 mg PO [id number] PRN (Reason: lung/breathing issues)
furosemide 20 mg Tablet
20 mg PO DAILY Qty: 30 0RF
prednisone 10 mg tablet
10 mg PO DIRECTED Qty: 42 1RF
Rx Instructions:
Start with 50 ng daily and decreased dose by 10 mg on every 4th day.
Referrals:
Kacey Villalba CRNP [Family Provider] -
Interventions
Interventions:
*Risk Screen - Suicide Last Done: 07/20/24 20:12
*General Assessment Last Done: 07/20/24 20:31
*Neglect/Abuse Screening Last Done: 07/20/24 20:12
ED- Fall Risk Assessment Last Done: 07/20/24 20:31
*ED COVID-19 Vaccine History Last Done: 07/20/24 20:31
ED- Cardiac Assessment Last Done: 07/20/24 20:34
ED- Pulmonary Assessment Last Done: 07/20/24 20:34
Discharge Date and Time
Print Language: AUSTRALIAN
[2024-07-20 21:12] LABS: ALT (SGPT) 31 U/L (0-35); AST (SGOT) 25 U/L (14-36); Albumin 4.3 g/dl (3.5-5.0); Alkaline Phosphatase 81 U/L (38-126); Blood Urea Nitrogen 26 mg/dl (7-17); Calcium 9.7 mg/dl (8.4-10.2); Carbon Dioxide 30 mmol/L (22-30); Chloride 100 mmol/L (98-107); Estimated Creatinine Clearance 62 ml/min; Glucose 113 mg/dl (70-99); Potassium 3.7 mmol/L (3.5-5.1); Sodium 142 mmol/L (135-145); Total Bilirubin 1.2 mg/dl (0.2-1.3); Total Protein 6.8 g/dl (6.3-8.2); eGFR > 60.00
[2024-07-20 21:14] LABS: COVID-19 Antigen Negative (Negative)
[2024-07-20 21:15] LABS: NT-proBNP 55.2 pg/ml; Troponin I < 0.012 ng/ml
[2024-07-20 22:00] VITALS: BP 115/73
[2024-07-20] MEDS: XOPENEX 1.25 MG INHALANT SOLUTION INH (22:07)
[2024-07-20] MEDS: LASIX 40 MG IV (22:08)
[2024-07-20] MEDS: SOLU-MEDROL PF 125 MG IV (22:08)
[2024-07-21] VITALS (10 sets, daily range): BP systolic 129–161; BP diastolic 69–95; PULSE 75; O2SAT 97–98; BMI 40.9
--- NOTE | 2024-07-21 00:59 | HPS.HSE ---
Family Physician
-
Family Physician: Kacey Villalba
Chief Complaint
-
Dyspnea on exertion
History of Present Illness
This is a 64-year-old female with a past medical history of COPD, obesity, hypertension, atrial fibrillation not anticoagulated per patient's preference who presents to the emergency department with dyspnea on exertion and shortness of breath and
generally feeling unwell.
Patient had a similar presentation about 2 weeks ago. The etiology was not exactly clear but differential included COPD exacerbation and possibly diastolic CHF. She had a CT PE at the time which was negative for PE. Patient was treated
empirically with Lasix and a course of steroids. She was department from the steroids and maintained on 20 mg of Lasix daily. After discharge the patient felt slightly improved. Then she suffered an episode of shingles in the left trunk. She
felt significantly weakened and fatigued after the episode of shingles. Soon as the episode of shingles started clearing she developed this dyspnea exertion 4 days ago. She reported waking up and walking to her bathroom and noticing that she was
out of breath with just that activity. With any physical activity she develops shortness of breath and then becomes sweaty. She denies palpitations, she denies lightheadedness and she denies dizziness. She denies exertional chest pain. She
denies any numbness or tingling. She is measuring her blood pressure regularly and notices occasional transient elevations. She denies any acute weight gain. She denies ankle swelling.
In the Emergency Department the patient was afebrile blood pressure was normal at 115/73 with a pulse of 56 oxygen saturation was 97% on 2 L. Chest x-ray shows no acute infiltrates. ECG showed normal sinus rhythm with a rate of [address]
or T wave changes. White count was 11.3 hemoglobin 14.4 with a platelet count of 220. Troponin was negative. COVID testing was negative. BNP was 53. Chemistries were unremarkable.
Medical History
Past Medical History
Past Medical History: Reports Arrhythmia (Atrial Fibrillation), COPD and HTN
Past Surgical History: Reports None
Social History
Tobacco: Non-smoker
Alcohol: None
Drug: None
Living: With Family
Family History
Family History: Not pertinent
Allergies / Home Medications
Allergies reflects when Allergies were last updated in [facility].
Home Medications with original date entered in [facility]
Allergy/Medication List:
Allergies
Allergy/AdvReac Type Severity Reaction Status Date / Time
azithromycin Allergy Unknown Verified 07/20/24 20:15
dipyridamole Allergy didn't Verified 07/20/24 20:15
[From Persantine] tolerate.
dobutamine Allergy 'feels Verified 07/20/24 20:15
terrible'
isosorbide [From Imdur] Allergy DIZZY Verified 07/20/24 20:15
levofloxacin [From Levaquin] Allergy LEGS WEAK Verified 07/20/24 20:15
morphine Allergy Nausea Verified 07/20/24 20:15
MUSCLE RELAXERS Allergy Nausea / Uncoded 07/20/24 20:15
Vomiting
Home Medications
levalbuterol HCl 0.63 mg/3 mL solution for nebulization 0.63 mg inhalation R TIDPRN PRN sob/wheezing 09/08/21
pantoprazole 40 mg tablet,delayed release 40 mg PO DAILY Gastrointestinal issue 02/28/22
aspirin 81 mg tablet,delayed release 81 mg PO DAILY Blood clot prevention/tx 01/29/23
cholecalciferol (vitamin D3) 50 mcg (2,000 unit) tablet 50 mcg PO NOON Supplement 01/29/23
clopidogrel 75 mg tablet 75 mg PO DAILY Blood clot prevention/tx 01/29/23
diltiazem HCl 120 mg capsule,extended release 24 hr 120 mg PO DAILY Blood pressure 01/29/23
docusate sodium 100 mg capsule 100 mg PO QPM Constipation 01/29/23
famotidine 20 mg tablet 20 mg PO DAILYPRN PRN heartburn 01/29/23
fluticasone propionate 115 mcg-salmeterol 21 mcg/actuation HFA inhaler (Advair HFA) 2 puff inhalation R BID Lung/breathing issues 01/29/23
levalbuterol tartrate 45 mcg/actuation aerosol inhaler 2 inh inhalation R Q6HPRN PRN sob,wheezing 01/29/23
tiotropium bromide 2.5 mcg/actuation mist for inhalation (Spiriva Respimat) 2 puff inhalation R DAILY Lung/breathing issues 01/29/23
acetaminophen 650 mg tablet,extended release (Tylenol 8 Hour) 650 mg PO [id number] PRN mild pain 06/29/24
diazepam 2 mg tablet 2 mg PO DAILYPRN PRN anxiety 06/29/24
guaifenesin 600 mg tablet, extended release 12 hr 1,200 mg PO [id number] PRN lung/breathing issues 06/29/24
furosemide 20 mg tablet 20 mg PO DAILY #30 tabs 07/02/24
prednisone 10 mg tablet 10 mg PO DIRECTED #42 tabs 07/02/24
Review of Systems
-
History Source: Patient
Constitutional: Reports Fatigue
EENT: Reports No Symptoms
Respiratory: Reports Trouble Breathing
Cardiac: Reports Diaphoresis
Abdomen/GI: Reports No Symptoms
: Reports No Symptoms
Musculoskeletal: Reports No Symptoms
Skin: Reports No Symptoms
Neurological: Reports No Symptoms
Endocrine: Reports No Symptoms
Hematologic/Lymphatic: Reports No Symptoms
Psych: Reports No Symptoms
Physical Exam
Vital Signs
Vital Signs
Temp Pulse Resp BP Pulse Ox
97.6 F 56 22 115/73 97
07/20/24 20:30 07/21/24 00:00 07/21/24 00:00 07/20/24 22:08 07/21/24 00:00
Physical Exam
General: Well Developed, Well Nourished, No Apparent Distress and Comfortable
HEENT: NormoCephalic, Anicteric, Moist mucous membranes, Atraumatic and Oxygen
Respiratory: Clear
Cardiac: S1/S2 and Regular Rhythm
Breast: Deferred by me
GI: Soft, Non Tender, Non Distended and Normal Bowel Sounds
Rectal: Deferred by Provider
Genito-urinary: Deferred by me
Musculoskeletal: No Clubbing, No Cyanosis and No Edema
Skin: Warm
Neuro: AO x 3
Psych: Anxious
Laboratory Results
-
07/20/24 20:41
07/20/24 20:41
Laboratory Results
Total Bilirubin 1.2 mg/dl (0.2-1.3) 07/20/24 20:41
AST 25 U/L (14-36) 07/20/24 20:41
ALT 31 U/L (0-35) 07/20/24 20:41
Alkaline Phosphatase 81 U/L (38-126) 07/20/24 20:41
Troponin I < 0.012 ng/ml 07/20/24 20:41
Data Reviewed
-
Diagnostic Radiology: Image Personally Visualized and interpreted
Medical Tests (Nuc Med, Echo, EKG etc): Image Personally Visualized and interpreted
Lab Data: Labs Reviewed by me
Old Records: Reviewed
Impression/Plan
-
IMPRESSION:
64-year-old with history of COPD on home O2, atrial fibrillation, hyperlipidemia who presents to the emergency department with recurrent episode of dyspnea on exertion that started about 4 days ago and was instructed to come into the ED by
return agent airport and sewer bricklayer.
PLAN:
Dyspnea�patient with known COPD but does not appear to have COPD exacerbation without cough or wheezing fevers or infiltrates on x-ray. COVID test is negative. Oxygenation is at baseline. She has no pulmonary edema on x-ray. She has no
peripheral edema on exam. TRU JVD is not elevated. Patient's troponin is negative. BNP is negative. Similar presentation about 2 and half weeks ago for which she was treated empirically for COPD exacerbation and CHF exacerbation and placed on 20
mg of steroids at home. No weight changes. The only difference with this presentation is that the patient has significant dyspnea with any activity as well as diaphoresis. She did have a CT PE done the last time she was admitted but the symptoms
are still consistent with a PE. The other possibility is dyspnea exertion due to cardiac ischemia and possibly this is anxiety. 40mg IV lasix given in ED. No change in symptoms.
- admit to telemetry
- check CT PE
- cycle cardiac enzymes
- continue home lasix 20mg for now
- continue inhaled treatments for COPD without addition of systemic steroids as no evidence of acute exacerbation
- cardiology and pulmonary consultation.
AFIB - Rate controlled and sinus rhythm
- continue diltiazem
- asp/plavix, patient refused AC
DVT PPX - lovenox for now
Code Status - Full
[2024-07-21] MEDS: SPIRIVA RESPIMAT 2.5 MCG 2 PUFF INH (07:10)
[2024-07-21] MEDS: ADVAIR HFA 115/21 MCG INHALER 2 PUFF INH ×2 (07:10→19:15)
[2024-07-21] MEDS: ProAIR HFA INHALER 2 PUFF INH (07:11)
[2024-07-21] MEDS: PROTONIX 40 MG PO (08:01)
[2024-07-21] MEDS: MYCOSTATIN ORAL SUSPENSION PO ×2 (08:01→11:31)
[2024-07-21] MEDS: PLAVIX 75 MG PO (08:01)
[2024-07-21] MEDS: CARDIZEM CD 120 MG PO (08:01)
[2024-07-21] MEDS: ASPIR LOW (ENTERIC COATED) 81 MG PO (08:01)
[2024-07-21] MEDS: LASIX 20 MG PO (08:01)
[2024-07-21] MEDS: SOLU-MEDROL PF 40 MG IV (08:02)
--- NOTE | 2024-07-21 08:16 | CON.CAR ---
Addendum entered and electronically signed by David Molina MD 07/21/24 14:10:
Patient seen and examined in collaboration with NC MANAGER; agree with below.
-64-year-old female with CAD, PAF (declines oral anticoagulation), PSVT, obesity, and severe oxygen dependent COPD admitted with dyspnea and chest pain.
-Patient states chest pain radiates to jaw and down left arm.
-Will arrange right and left heart catheterization tomorrow.
-NPO after midnight.
Original Note:
Consultation
Consultation Request
Date/Time Consultation Requested: 07/21/2024 03:30
Date/Time Consultation Performed: 07/21/2024 09:00
Requesting Provider: Dr. Quinteros
Performing Provider: OMA Barrera for Dr. Molina
Reason for Consultation: Shortness of breath
Medical History
-
Chief Complaint: sob
History of Present Illness:
Maryjo Villanueva is a 64-year-old female (known to Dr. Olmedo, her primary clutch inspector), with CAD (KATHARINE to mid LAD 02/28/21 then UA and KATHARINE proximal to prior LAD stent 10/31/21), paroxysmal atrial fibrillation (declines OAC), PSVT, sinus bradycardia,
LINQ 2018 (EOL), HLD, anxiety, COPD oxygen dependent 2L NC, and former smoker, who presents to the ER with complaints of shortness of breath. Her shortness of breath was occurring at rest. She then began experiencing chest pain that was midsternal
and anterior and felt like a pressure. She endorses jaw discomfort along with her chest pain. She had 3 episodes of this at home, twice she was at rest. She had some lightheadedness at home.
She had a similar presentation approximately 2 weeks ago. The etiology was not exactly clear but differential included COPD exacerbation and acute on chronic heart failure exacerbation. She had a CT PE which was negative. She was empirically
treated with furosemide and steroids. She felt like she was getting better and then she developed shingles on her right trunk. Since her shingles diagnosis, she has been experiencing more significant fatigue and lightheadedness. Unfortunately,
she is still having nerve pain.
Past Medical History
Past Medical History: Arrhythmias (Paroxysmal atrial fibrillation, PSVT), CAD, COPD, HTN and Hypercholesterolemia
Social History
Tobacco: Former Smoker
Alcohol: None
Drug: None
Personal: Single
Living: With Family
Family History
Family History: Other (Father with AAA at the age of 67 (COD))
Allergies / Home Medications
Allergy/AdvReac Type Severity Reaction Status Date / Time
azithromycin Allergy Unknown Verified 07/20/24 20:15
dipyridamole Allergy didn't Verified 07/20/24 20:15
[From Persantine] tolerate.
dobutamine Allergy 'feels Verified 07/20/24 20:15
terrible'
isosorbide [From Imdur] Allergy DIZZY Verified 07/20/24 20:15
levofloxacin [From Levaquin] Allergy LEGS WEAK Verified 07/20/24 20:15
morphine Allergy Nausea Verified 07/20/24 20:15
MUSCLE RELAXERS Allergy Nausea / Uncoded 07/20/24 20:15
Vomiting
�Medication �Instructions �Recorded �Confirmed �Type
levalbuterol HCl 0.63 mg/3 mL 0.63 mg inhalation R TIDPRN PRN 09/08/21 07/21/24 History
solution for nebulization sob/wheezing
pantoprazole 40 mg tablet,delayed 40 mg PO DAILY Gastrointestinal 02/28/22 07/21/24 History
release issue
aspirin 81 mg tablet,delayed 81 mg PO DAILY Blood clot 01/29/23 07/21/24 History
release prevention/tx
cholecalciferol (vitamin D3) 50 50 mcg PO NOON Supplement 01/29/23 07/21/24 History
mcg (2,000 unit) tablet
clopidogrel 75 mg tablet 75 mg PO DAILY Blood clot 01/29/23 07/21/24 History
prevention/tx
diltiazem HCl 120 mg 120 mg PO DAILY Blood pressure 01/29/23 07/21/24 History
capsule,extended release 24 hr
docusate sodium 100 mg capsule 100 mg PO QPM Constipation 01/29/23 07/21/24 History
famotidine 20 mg tablet 20 mg PO DAILYPRN PRN heartburn 01/29/23 07/21/24 History
fluticasone propionate 115 2 puff inhalation R BID 01/29/23 07/21/24 History
mcg-salmeterol 21 mcg/actuation Lung/breathing issues
HFA inhaler (Advair HFA)
levalbuterol tartrate 45 2 inh inhalation R [id number] PRN 01/29/23 07/21/24 History
mcg/actuation aerosol inhaler sob,wheezing
tiotropium bromide 2.5 2 puff inhalation R DAILY 01/29/23 07/21/24 History
mcg/actuation mist for inhalation Lung/breathing issues
(Spiriva Respimat)
acetaminophen 650 mg 650 mg PO [id number] PRN mild pain 06/29/24 07/21/24 History
tablet,extended release (Tylenol 8
Hour)
guaifenesin 600 mg tablet, 1,200 mg PO [id number] PRN 06/29/24 07/21/24 History
extended release 12 hr lung/breathing issues
furosemide 20 mg tablet 20 mg PO DAILY #30 tabs 07/02/24 07/21/24 Rx
prednisone 10 mg tablet 10 mg PO DIRECTED #42 tabs 07/02/24 07/21/24 Rx
Review of Systems
-
History Source: Patient
All other systems: Negative unless noted
Constitutional: Fatigue
EENT: No Symptoms
Respiratory: Cough and Trouble Breathing
Cardiac: Chest Pain and Diaphoresis
Abdomen/GI: Other (Abdominal fullness)
: No Symptoms
Musculoskeletal: No Symptoms
Skin: No Symptoms
Neurological: Weakness
Endocrine: No Symptoms
Hematologic/Lymphatic: No Symptoms
Physical Exam
Vital Signs
Temp Pulse Resp BP Pulse Ox
98.1 F 75 20 146/90 97
07/21/24 07:35 07/21/24 08:01 07/21/24 07:35 07/21/24 08:01 07/21/24 07:35
Lab Results
07/20/24 20:41
07/20/24 20:41
Troponin I < 0.012 ng/ml 07/20/24 20:41
Rzw-T-Vpcgnkaznnu Pept 55.2 pg/ml 07/20/24 20:41
Physical Exam
General: Well Developed, Well Nourished, No Apparent Distress and Comfortable
HEENT: Normocephalic, Anicteric and Moist Mucous Membranes
Respiratory: Clear and Non Labored Respirations
Cardiac: S1/S2 and Regular Rhythm; Negative Peripheral Edema
Breast: Deferred by me
GI: Soft, Non Distended and Normal Bowel Sounds
Rectal: Deferred by Provider
Genito-urinary: No Costovertebral Tender
Musculoskeletal: No Cyanosis and No Edema
Skin: Warm and Dry
Neuro: AO x 3
Hematologic/Lymphatic: No Lymphadenopathy
Psych: Calm
Impression / Plan
-
Shortness of breath, acute on chronic, perhaps multifactorial
-Currently receiving intravenous furosemide and steroids
-Consider LHC/RHC
HFpEF, chronic
-She does not appear significantly volume overloaded
-She reports her weight is unchanged at home, perhaps her dry weight has changed (discharged 97.8 kg, today's weight 98.2 kg)
-Echocardiogram last month stable without significant changes
-Continue diuresis today
-Continue heart failure education
CAD
-Currently chest pain-free
-Some discomfort at home along with jaw pain and diaphoresis
-Cardiac catheterization in 2021 showed patent ostial/proximal LAD stents without restenosis and 30% mid LAD stenosis
-Continue risk factor modification
Paroxysmal atrial fibrillation
-Stable in sinus rhythm
-CM demonstrated elevated rates of atrial fibrillation, she had lightheadedness with diltiazem ER at 180 mg, she took 1 dose and is unsure if it was related to shingles or medication
-Oral Anticoagulation: Declines
- [id number]: Score at least 4 (Heart failure, HTN, Vascular disease, female gender)
COPD, significant, per primary team
Hypertension, trend BP
Obesity, BMI 40.9
DATA:
TTE, 06/30/2024:
1. Mild concentric LVH with hyperdynamic wall motion with EF 65-70%
2. Mild AL
3. Compared with prior study February 2024, AL previously graded as trace
Cardiac catheterization, 05/23/2022:
1: Normal filling pressures without pulmonary hypertension
2: Widely patent ostial/proximal LAD stents without restenosis
3. No significant residual obstructive CAD
4. Continue medical therapy for CAD and advanced oxygen dependent COPD
Data Reviewed
-
EKG: Report Reviewed by me (Sinus rhythm, rate 64)
Radiology: Report Reviewed by me (CXR: No active cardiopulmonary disease.)
--- NOTE | 2024-07-21 08:27 | VNURNOTE ---
Chart reviewed. Patient is current with [facility] nursing. Will continue to follow hospital course and DC plans.
--- NOTE | 2024-07-21 10:21 | W.PN.HOSP.TC ---
Today's Communication/Plan
-
Will benefit from RHC, cardiac evaluation.
Nystatin solution
Change to regular diet
Will hold on IV steroid until discuss with pulmonary doctor
Assessment / Plan
Assessment / Plan
Physical Exam
General: Well Developed, Well Nourished, No Apparent Distress and Comfortable
HEENT: NormoCephalic, Anicteric, Moist mucous membranes, Atraumatic and Oxygen
Respiratory: No crackles or wheezes, limited
Cardiac: S1/S2 and Regular Rhythm
GI: Soft, Non Tender, Non Distended and Normal Bowel Sounds
Genito-urinary: No hematuria
Musculoskeletal: No Clubbing, No Cyanosis and No Edema
Skin: Warm
Neuro: AO x 3
Psych: calm
# Progressive dyspnea�
patient with known COPD but does not appear to have COPD exacerbation without cough or wheezing fevers or infiltrates on x-ray. COVID test is negative. Oxygenation is at baseline. She has no pulmonary edema on x-ray. She has no peripheral edema
on exam. TRU JVD is not elevated. Patient's troponin is negative. BNP is negative. Similar presentation about 2 and half weeks ago for which she was treated empirically for COPD exacerbation and CHF exacerbation and placed on 20 mg of steroids at
home. No weight changes. The only difference with this presentation is that the patient has significant dyspnea with any activity as well as diaphoresis. CT chest no PE The other possibility is dyspnea exertion due to cardiac ischemia and
possibly this is anxiety. 40mg IV Lasix given in ED. No change in symptoms.
- continue home Lasix 20mg for now
- continue inhaled treatments for COPD, hold Steroid until further evaluation
- Known to Dr Zepeda and DR Olmedo
Will likely need to rule out CAD/Pulmonary HTN?
# paroxysmal AFIB - Rate controlled and sinus rhythm
- continue diltiazem
- asp/plavix, patient refused AC
# Mouth thrush
c/w Nystatin solution
# Recent Shingles
Recovery stage now
monitor, symptomatic treatment as needed
DVT PPX - lovenox for now
Code Status - Full
Anticipated Discharge: > 48 hours
Subjective/Interval History
-
Date of Service: July 21, 2024
Objective Data
-
Vital Signs:
Vital Signs
Temp Pulse Resp BP Pulse Ox
98.1 F 75 20 146/90 97
07/21/24 07:35 07/21/24 08:01 07/21/24 07:35 07/21/24 08:01 07/21/24 07:35
I&O
07/20/24 07/21/24 07/22/24
06:59 06:59 06:59
Intake Total 480 / 480
Balance 480 / 480
--- NOTE | 2024-07-21 10:55 | PTOTSP ---
pt currently demonstrates ability to complete simple ADLs, functional transfers, ambulation with supervision to no assistance. no acute OT needs identified at this time, will sign off.
[2024-07-21] MEDS: TYLENOL 650 MG PO (11:28)
[2024-07-21] MEDS: PEPCID 20 MG PO (11:28)
[2024-07-21] MEDS: VITAMIN D3 (cholecalciferol) 50 MCG PO (11:30)
[2024-07-21] MEDS: MYCOSTATIN ORAL SUSPENSION 5 ML PO ×3 (12:40→21:34)
--- NOTE | 2024-07-21 14:36 | PN.CDI ---
Addendum entered and electronically signed by Juan C Jones MD 07/21/24 14:56:
Chronic respiratory failure
Original Note:
CDI
- -
CDI:
Physician Documentation Request
Admit Date: 07/21/24 06:45
Dear Doctor Karen,
Please review the following and provide your response in the progress notes.
Clinical Indicators:
Cardiology consult, 07/21
#...COPD oxygen dependent 2L NC, and former smoker,
#...who presents to the ER with complaints of shortness of breath.
Maintained on 2L O2
Based on the above and your clinical assessment, please clarify which of the following accurately represents the patient's respiratory status:
Chronic respiratory failure
Hypoxia
Other(please specify)
Additional information for Respiratory Failure:
Recognized criteria for Respiratory Failure (Source: [employer] [facility] Sep 2013)
Symptoms
1. Tachypnea, SOB, dyspnea
2. Use of accessory muscles
3. Pallor or cyanosis
4. Anxiety or restlessness
5. Unable to speak in full sentences
Supplemental O2 of > 40% (5LPM) Intubation is not required
Use of terms such as suspected, likely, concern for, or probable (associated with a specific diagnosis that is being evaluated, monitored, or treated as if it exists) are acceptable and can be coded in the inpatient setting, when documented at the
time of discharge.
Thank you,
Sarina Crain RN BSN CCDS
CDI Specialist
please contact via tiger text
Please use your independent medical judgment in providing your response.
--- NOTE | 2024-07-21 14:54 | CON.PUL ---
Consultation
Consultation Request
Date/Time Consultation Requested: 07/21/2024
Date/Time Consultation Performed: 07/21/2024
Requesting Provider: Dr. Jones
Performing Provider: Dr. Roddy Herrera
Reason for Consultation: Exertional dyspnea/severe COPD
Medical History
-
History of Present Illness:
This is a 64-year-old woman who is well-known to our service for severe COPD, chronic shortness of breath, obesity, hypertension, atrial fibrillation not on anticoagulation, prior history of coronary artery disease with stents in the past. Recently
discharged from the hospital 2 weeks ago with shortness of breath. Treated with diuretics as well as steroids. Partial improvement.
At home developed worsening shortness of breath also complaining of some chest discomfort. In between she developed shingles. She is recovering from that.
She denies increased cough, wheezing, phlegm production or hemoptysis. Denies any fevers.
Evaluation in the emergency room including a CT angiogram of the chest that showed no evidence for pulmonary embolism. No evidence for acute infiltrates.
She has been compliant with inhalers from
She completed prednisone course. Currently has some thrush.
She did received in the emergency room high doses of IV corticosteroids for shortness of breath.
Past Medical History
Past Medical History: Other (see list below)
Social History
Tobacco: Former Smoker
Alcohol: None
Drug: None
Personal:
Family History
Family History: Reviewed & Not Pertinent
Allergies / Home Medications
Allergies
Allergy/AdvReac Type Severity Reaction Status Date / Time
azithromycin Allergy Unknown Verified 07/20/24 20:15
dipyridamole Allergy didn't Verified 07/20/24 20:15
[From Persantine] tolerate.
dobutamine Allergy 'feels Verified 07/20/24 20:15
terrible'
isosorbide [From Imdur] Allergy DIZZY Verified 07/20/24 20:15
levofloxacin [From Levaquin] Allergy LEGS WEAK Verified 07/20/24 20:15
morphine Allergy Nausea Verified 07/20/24 20:15
MUSCLE RELAXERS Allergy Nausea / Uncoded 07/20/24 20:15
Vomiting
Home Medications
�Medication �Instructions �Recorded �Confirmed �Last Taken �Type
levalbuterol HCl 0.63 mg/3 mL 0.63 mg inhalation R TIDPRN PRN 09/08/21 07/21/24 05/23/22 06:00 History
solution for nebulization sob/wheezing
pantoprazole 40 mg tablet,delayed 40 mg PO DAILY Gastrointestinal 02/28/22 07/21/24 07/20/24 History
release issue
aspirin 81 mg tablet,delayed 81 mg PO DAILY Blood clot 01/29/23 07/21/24 07/20/24 History
release prevention/tx
cholecalciferol (vitamin D3) 50 50 mcg PO NOON Supplement 01/29/23 07/21/24 07/20/24 History
mcg (2,000 unit) tablet
clopidogrel 75 mg tablet 75 mg PO DAILY Blood clot 01/29/23 07/21/24 07/20/24 History
prevention/tx
diltiazem HCl 120 mg 120 mg PO DAILY Blood pressure 01/29/23 07/21/24 07/20/24 History
capsule,extended release 24 hr
docusate sodium 100 mg capsule 100 mg PO QPM Constipation 01/29/23 07/21/24 02/24/23 History
famotidine 20 mg tablet 20 mg PO DAILYPRN PRN heartburn 01/29/23 07/21/24 Unknown History
fluticasone propionate 115 2 puff inhalation R BID 01/29/23 07/21/24 07/20/24 History
mcg-salmeterol 21 mcg/actuation Lung/breathing issues
HFA inhaler (Advair HFA)
levalbuterol tartrate 45 2 inh inhalation R Q6HPRN PRN 01/29/23 07/21/24 Unknown History
mcg/actuation aerosol inhaler sob,wheezing
tiotropium bromide 2.5 2 puff inhalation R DAILY 01/29/23 07/21/24 07/20/24 History
mcg/actuation mist for inhalation Lung/breathing issues
(Spiriva Respimat)
acetaminophen 650 mg 650 mg PO [id number] PRN mild pain 06/29/24 07/21/24 07/19/24 History
tablet,extended release (Tylenol 8
Hour)
guaifenesin 600 mg tablet, 1,200 mg PO [id number] PRN 06/29/24 07/21/24 Unknown History
extended release 12 hr lung/breathing issues
furosemide 20 mg tablet 20 mg PO DAILY #30 tabs 07/02/24 07/21/24 07/20/24 Rx
prednisone 10 mg tablet 10 mg PO DIRECTED #42 tabs 07/02/24 07/21/24 07/20/24 Rx
Review of Systems
-
History Source: Patient
All other systems: Negative unless noted
Vitals / Labs / Diagnostic Testing
Vital Signs
Temp Pulse Resp BP Pulse Ox
98.6 F 76 19 152/95 96
07/21/24 11:10 07/21/24 11:10 07/21/24 11:10 07/21/24 11:10 07/21/24 11:10
Lab Data
07/20/24 20:41
07/20/24 20:41
Microbiology
07/20/24 20:41 Nasal Swab Influenza Types A & B (SUZY) - Final
Negative for Influenza A & B, NAAT
Negative results must be combined with clinical observations
and patient history.
Nucleic Acid Amplification test (NAAT)performed on the
[employer] platform.
Diagnostic Testing:
Physical Exam
-
HEENT: Normocephalic
Cardiovascular: S1/S2
Respiratory: Wheeze (n) and Other (Prolonged expiratory phase)
GI: Soft and Distended ( obese)
Neurology: Awake, Alert, AO x 3 and No Motor Deficits
Skin: Warm
General: Comfortable
Assessment
-
Patient is a 63-year-old female with previous history of severe COPD on chronic 2 L oxygen, ASCVD, morbid obesity presenting to ER with complaints of acute on chronic shortness of breath over the past 4 months. She reports that her symptoms have
been progressively worsening over the past 4 months, she has significant tachypnea with exertion and is finding it difficult to recover with rest. She does not have any wheezing or chest tightness, she did have atypical chest discomfort. She does
not feel it was triggered by any upper respiratory illnesses or sick contacts. Chest x-ray demonstrating normal findings. We are consulted for eval.
Acute on chronic shortness of breath/chest discomfort: Unclear etiology-rule out acute coronary syndrome.
CT chest 07/21/2024: Reviewed showed no evidence for pulmonary embolism. No evidence for acute infiltrates.
Stable tiny lung nodules.
Advanced COPD contributing to symptoms-not in acute exacerbation.
Chronic hypoxemic respiratory failure-stable
New pulmonary nodules noted on CT chest
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
Severe COPD, maintained on levalbuterol nebs, advair/spiriva, and O2 2L at rest and sleep, 4L on exertion. Intermittent CS but no terminal system operator
ABG 02-28-22 on O2 3L: 7.40/46/125/28.5/3/98.9%
Intermittently elevated serum total CO2
02/20/24- FVC 2.07 or 72%, FEV1 0.95 or 43%. Ratio 45.
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 Never received A1AT replacement therapy
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
CAD, s/p KATHARINE to mid LAD 02/28/2021, then USA with KATHARINE to stenosis proximal to prior LAD stent 10/31/2021, continued on ASA/clopidogrel, [facility] 12-04-21 without residual disease
PAFib: declined AC due to fear of bleeding complications
Paroxysmal SVT
Sinus bradycardia
Implantable Loop Recorder (2018)
GERD
HLD
Former smoker: since age 16, up to 2 ppd, quit 02/2021
PUD
Smoked marijuana intermittently for one y in her early 30s
Morbid obesity BMI 41
COVID vaccinated x2 until February 2021, declined booster due to side effects of second vaccine dose (tachycardia, AFib flare)
Suspected ALISSON
Pulmonary nodules, new 6 and 7mm
Plan:
Readmitted within 2 weeks.
In the interim she developed shingles that is recovering.
Reports worsening shortness of breath, atypical chest discomfort? Radiation to her jaw-
EKG 07/20/2024: Reviewed showed normal sinus rhythm. Normal EKG.
Negative troponins at this point
Cardiology correspondence reviewed given readmission with worsening symptoms, no evidence for acute exacerbation of COPD left and right heart catheterization will be performed.
-
From the pulmonary perspective she does not seem to be in acute exacerbation.
Does have prolonged expiratory phase without wheezing
Imaging without evidence for infection
Did receive 1 dose of IV steroids in the emergency room-hold for now.
Patient already has thrush from recent steroid taper.
-
Continue inhalers similar to prior admission.
She has completed pulmonary rehab over 5 years ago but has not returned
Obesity/deconditioning/anxiety likely playing a role as well.
She follows with Dr. Lagunas
It would be beneficial for her to re-enroll into pulmonary rehab
Weight loss may be beneficial. This has been an ongoing discussion for several years. Her weight has increased probably year after year.
Outpatient pulmonary follow-Known to Dr Lagunas, scheduled for 08/04/24
We will follow, records reviewed in detail. Imaging and prior catheterization report as well as eCW has been reviewed.
Extensive discussion with patient as well.

Diagnostic Data
CT chest 07/21/2024: Reviewed
1. No evidence of pulmonary embolism or thoracic aortic dissection.
2. Changes of severe emphysema.
3. Nodular opacity within the right middle lobe, measuring 2.5 cm in diameter, best seen on series 401 images 33-38. No significant change compared to 06/29/2024, or 11/27/2023. Opacity is less pronounced compared to a prior CT dated 02/25/2023. This
likely represents scarring in a region of prior pneumonia. Consider continued CT follow-up as clinically appropriate.
4. Pulmonary nodule within the medial aspect of the right lung apex, best seen on series 401 image 18, measuring 4 mm in diameter. Nodule measured approximately 8 mm in diameter on 06/29/2024, therefore is likely infectious or inflammatory.
5. Severe coronary arterial calcification. Please correlate with symptoms of and risk factors for coronary artery disease, with further workup as clinically appropriate.
CXR 02-25 c/w 01-29-23: interim RUL/RML infiltrate
Chest X-Ray: 02-17-22, PA/lat, upper lobes emphysema, no infiltrates, relatively flat diaphragms on lateral view.
CT Chest 06/29/24- 1. No evidence of pulmonary embolism.
2. Moderate/severe apical predominant emphysematous changes with similar appearance of the nodular scarring within the right middle lobe measuring approximately 3.0 cm.
3. There is a new 6 mm solid nodule within the medial right upper lobe as well as new 7 mm solid nodules within the left upper lobe. Recommend follow-up CT to ensure stability
4. Prominent gallstone present.
CT Chest 01/29/23 - IMPRESSION: Examination is negative for pulmonary embolism. Severe changes of emphysema. New horizontal band of increased opacity within the superior segment of the right lower lobe of the lung. Morphologic appearance would be
suggestive of scarring or atelectasis. Fatty infiltration of the liver.
CT chest 02-28-22, c/w 02-23-21 IMPRESSION: No CT evidence for pulmonary embolism. Severe centrilobular emphysema.
TTE 11-29-22: CONCLUSIONS- Normal biventricular size and systolic function without regional wall motion abnormality. Mild concentric left ventricular hypertrophy. No significant valvular disease. No significant change since the prior study of
03/01/22.
Echo: 03-01-22, normal LV systolic function, LVEF greater than 75%, mild concentric LVH. No significant valvular disease. Normal RV size and function. Normal pericardium without effusion. IVC is of normal size and demonstrates normal respiratory
variation. Interatrial septum is intact with no evidence of shunting by color-flow Doppler. No intracardiac mass or thrombus formation seen. No significant change compared to October 2021.
R/[facility] 05-25-22 HEMODYNAMIC DATA : AO: 127/78 - LV: 127/16 - PCWP: 14 - PA: 36/22 - RV: 34/14 - RA: 10 - Oximetry: Ao 97%, PA 75%, cardiac output 4.5, cardiac index 2.4
LEFT VENTRICULOGRAPHY: Not performed
CORONARY ANGIOGRAPHY: Dominance: Right - Left Main: Normal - LAD: Widely patent ostial/proximal LAD stents with no restenosis. There is 30% mid LAD stenosis. - Circumflex: Normal - RCA: Normal dominant vessel
CONCLUSIONS
1: Normal filling pressures without pulmonary hypertension
2: Widely patent ostial/proximal LAD stents without restenosis
3. No significant residual obstructive CAD
DIANN doppler 02-26-23: negative
DIANN doppler 09-08-21: negative
PFT 08/21/22: FEV1 1.02L 46%, FVC 2.11L 73%, ratio 48. Post FEV1 1.06L 48%, +BD response in FVC. TLC 4.86L 110%, RV/TLC 51%, DLCO 24%
-----
Total time spent on this consultation __75__ includes review of history, physical exam, medications, laboratory data, personal review of imaging, extensive review of outpatient records, discussion with care team and respiratory therapy.
[2024-07-21] MEDS: COLACE 100 MG PO (17:29)
[2024-07-22] VITALS (13 sets, daily range): BP systolic 103–166; BP diastolic 62–96; BMI 41.8
--- NOTE | 2024-07-22 03:04 | DOWNTIME ---
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 Downtime documentation of patient's care, including medication administrations, has been reconciled in the electronic record per guidelines. Refer to the
patient's paper chart under the miscellaneous tab to see printed paper medication records and downtime forms.
[2024-07-22 07:29] LABS: % Basophils 0.1 % (0-2); % Eosinophils 0.1 % (0-6); % Immature Granulocytes 1.2 % (0-0.5); % Lymphocytes 12.7 % (20.5-51.1); % Monocytes 7.9 % (1.7-9.3); Absolute Immature Granulocytes 0.2 10^3/uL (0-0.05); Absolute Lymphocytes 1.8 10^3/uL (1.2-3.4); Absolute Monocytes 1.1 10^3/uL (0.1-0.6); Absolute Neutrophils 10.8 10^3/uL (1.4-6.5); Hematocrit 41.4 % (37.0-47.0); Hemoglobin 13.7 g/dL (12.0-16.0); Mean Corp Hgb Conc. 33.1 g/dL (33.0-37.0); Mean Corpuscular Hgb 30.2 pg (27.0-31.0); Mean Corpuscular Volume 91.2 fL (81.0-99.0); Mean Platelet Volume 10.1 fL (7.4-10.4); Nucleated Red Blood Cells % 0 %; Platelet Count 195 10^3/uL (130-400); Red Blood Cell Count 4.54 10^6/uL (4.20-5.40); Red Cell Dist. Width 13.4 % (11.5-14.5); White Blood Cell Count 13.9 10^3/uL (4.8-10.8)
[2024-07-22] MEDS: PROTONIX 40 MG PO (07:42)
[2024-07-22] MEDS: ASPIR LOW (ENTERIC COATED) 81 MG PO (07:42)
[2024-07-22] MEDS: PLAVIX 75 MG PO (07:42)
[2024-07-22] MEDS: CARDIZEM CD 120 MG PO (07:43)
[2024-07-22] MEDS: LASIX 20 MG PO (07:43)
[2024-07-22] MEDS: MYCOSTATIN ORAL SUSPENSION PO ×4 (07:44→21:02)
[2024-07-22] MEDS: SPIRIVA RESPIMAT 2.5 MCG 2 PUFF INH (07:55)
[2024-07-22] MEDS: ADVAIR HFA 115/21 MCG INHALER 2 PUFF INH ×2 (07:55→19:19)
[2024-07-22 08:01] LABS: Blood Urea Nitrogen 35 mg/dl (7-17); Carbon Dioxide 34 mmol/L (22-30); Chloride 97 mmol/L (98-107); Estimated Creatinine Clearance 62 ml/min; Glucose 102 mg/dl (70-99); Magnesium 2.2 mg/dl (1.6-2.3); Potassium 3.9 mmol/L (3.5-5.1); Sodium 139 mmol/L (135-145); eGFR > 60.00
--- NOTE | 2024-07-22 08:20 | W.PN.CD ---
Today's Communication / Plan
-
Right/Left cardiac catheterization to clarify coronary anatomy/filling pressures.
Continue to treat COPD/Emphysema.
Impression / Plan
-
Impression/Plan: 64 y/o female with HTN, CAD s/p prior PCI to pLAD, PAF, COPD and a history of HFpEF admitted with recurrent respiratory failure.
#Shortness of breath
-Acute on chronic, multifactorial (HFpEF, COPD/Emphysema).
-Currently receiving intravenous furosemide and steroids.
-LHC/RHC today to clarify coronary anatomy, filling pressures.
#HFpEF
-Acute on chronic.
-She does not appear significantly volume overloaded, but body habitus may be misleading.
-She reports her weight is unchanged at home, perhaps her dry weight has changed (discharged 97.8 kg, today's weight 98.2 kg).
-Echocardiogram last month stable without significant changes.
-Continue heart failure education.
-Complete heart cath today as noted above.
-She would benefit from SGLT2i. Start dapagliflozin 10 mg daily post cath.
#CAD
-Chronic.
-Currently chest pain-free.
-Some discomfort at home along with jaw pain and diaphoresis.
-Cardiac catheterization in 2021 showed patent ostial/proximal LAD stents without restenosis and 30% mid LAD stenosis.
-Continue risk factor modification.
-Repeat coronary angiography in light of dynamic symptoms.
-Continue aspirin and clopidogrel.
#Paroxysmal atrial fibrillation
-Currently in sinus rhythm.
-CM demonstrated elevated rates of atrial fibrillation, she had lightheadedness with diltiazem ER at 180 mg, she took 1 dose and is unsure if it was related to shingles or medication.
-[id number]: Score at least 4 (Heart failure, HTN, Vascular disease, female gender).
-She declines oral anticoagulation.
#COPD
-Acute on chronic, severe.
-Most recent PFT's on [employer]: TLC = 4.86 (110% predicted); FEV1/FVC = 0.48; FEV1 = 1.02 (46% predicted); DLCO/VA = 1.33 (29% predicted).
-Continue methylprednisolone and albuterol PRN.
-Continue tiotropium and salmeterol/fluticasone.
Hypertension, trend BP
Obesity, BMI 40.9
Subjective/Interval History:
Weight 100.4 <-- 98.2 <-- 101 (97.9 at last discharge).
She is somewhat nervous.
Remains on 2LNC.
CT chest shows severe emphysema.
DATA:
CT Chest, 07/21/2024:
IMPRESSION:
1. No evidence of pulmonary embolism or thoracic aortic dissection.
2. Changes of severe emphysema.
3. Nodular opacity within the right middle lobe, measuring 2.5 cm in diameter, best seen on series 401 images 33-38. No significant change compared to 06/29/2024, or 11/27/2023. Opacity is less pronounced compared to a prior CT dated 02/25/2023. This
likely represents scarring in a region of prior pneumonia. Consider continued CT follow-up as clinically appropriate.
4. Pulmonary nodule within the medial aspect of the right lung apex, best seen on series 401 image 18, measuring 4 mm in diameter. Nodule measured approximately 8 mm in diameter on 06/29/2024, therefore is likely infectious or inflammatory.
5. Severe coronary arterial calcification. Please correlate with symptoms of and risk factors for coronary artery disease, with further workup as clinically appropriate.
TTE, 06/30/2024:
1. Mild concentric LVH with hyperdynamic wall motion with EF 65-70%
2. Mild SC
3. Compared with prior study February 2024, SC previously graded as trace
Cardiac catheterization, 05/23/2022:
1: Normal filling pressures without pulmonary hypertension
2: Widely patent ostial/proximal LAD stents without restenosis
3. No significant residual obstructive CAD
4. Continue medical therapy for CAD and advanced oxygen dependent COPD
Physical Exam
Vital Signs/Labs
Vital Signs
Temp Pulse Resp BP Pulse Ox
36.9 C 81 17 166/96 95
07/22/24 07:24 07/22/24 07:56 07/22/24 07:56 07/22/24 07:43 07/22/24 07:56
07/20/24 07/21/24 07/22/24
11:59 11:59 11:59
Actual Weight 98.203 kg 100.4 kg
07/22/24 06:57
07/22/24 06:57
Magnesium 2.2 mg/dl (1.6-2.3) 07/22/24 06:57
07/20/24
20:41
Jiy-[id number]-Kfmzcqehtbo Pept 55.2
LAB Results
07/20/24
20:41
Troponin I < 0.012
Physical Exam
Constitutional: No acute distress and Comfortable
EENT: Anicteric and Moist mucous membranes
Cardiovascular: Rhythm & rate is regular, Pedal edema is absent, S1S2 is normal and Murmur/rub/gallop absent
Respiratory: Respiratory effort normal and Other (Diffusely decreased.)
GI: Soft, Distention absent, Flat, Non tender and Normal bowel sounds
Neuro/Psych: AO x 3
Data Reviewed
-
Date of Service: July 22, 2024
Medical Decision Making: Reviewed Test Results, Independent Historian Assessment and Test Interpretation
EKG: Tracing Personally Visualized and interpreted and Report Reviewed by me
Echo: Tracing Personally Visualized and interpreted and Report Reviewed by me
X-Ray/CT/US/MRI/NUC/PET: Image Personally Visualized and interpreted and Report Reviewed by me
Medical Tests (PFT, Pathology etc): Image Personally Visualized and interpreted and Report Reviewed by me
Labs: Labs Reviewed by me
Old Records: Reviewed
--- NOTE | 2024-07-22 08:23 | CM ---
Late note; Patient seen at bedside yesterday pm. Patient states that she lives with her and brother in a 2 story home. Patient has home O2 from [place]. Patient PCP is Dr. Villalba and she uses the [facility] in [place]. Patient
stated that she is not driving currently and has a walker/wheelchair for use as needed. Patient indicated that she has been having [facility] nursing and would like to have them again when discharged. CM will continue to follow for discharge planning
needs.
Plan; home with [facility]
--- NOTE | 2024-07-22 11:04 | W.PN.HOSP.TC ---
Today's Communication/Plan
-
she seems to have panic feeling this morning, added low dose IV Ativan , she will try to meditate
Assessment / Plan
Assessment / Plan
Physical Exam
General: Well Developed, Well Nourished, No Apparent Distress and Comfortable
HEENT: NormoCephalic, Anicteric, Moist mucous membranes, Atraumatic and Oxygen
Respiratory: No crackles or wheezes, limited
Cardiac: S1/S2 and Regular Rhythm
GI: Soft, Non Tender, Non Distended and Normal Bowel Sounds
Genito-urinary: No hematuria
Musculoskeletal: No Clubbing, No Cyanosis and No Edema
Skin: Warm
Neuro: AO x 3
Psych: calm
# Progressive dyspnea�
patient with known COPD but does not appear to have COPD exacerbation without cough or wheezing fevers or infiltrates on x-ray. COVID test is negative. Oxygenation is at baseline. She has no pulmonary edema on x-ray. She has no peripheral edema
on exam. TRU JVD is not elevated. Patient's troponin is negative. BNP is negative. Similar presentation about 2 and half weeks ago for which she was treated empirically for COPD exacerbation and CHF exacerbation and placed on 20 mg of steroids at
home. No weight changes. The only difference with this presentation is that the patient has significant dyspnea with any activity as well as diaphoresis. CT chest no PE The other possibility is dyspnea exertion due to cardiac ischemia and
possibly this is anxiety. 40mg IV Lasix given in ED. No change in symptoms.
- continue home Lasix 20mg for now
- continue inhaled treatments for COPD, hold Steroid until further evaluation
- Known to Dr Zepeda and DR Olmedo
Will likely need to rule out CAD/Pulmonary HTN?
# paroxysmal AFIB - Rate controlled and sinus rhythm
- continue diltiazem
- asp/plavix, patient refused AC
# Mouth thrush
c/w Nystatin solution
# Recent Shingles
Recovery stage now
monitor, symptomatic treatment as needed
# Anxiety
she seems to have panic feeling this morning, added low dose IV Ativan , she will try to meditate
DVT PPX - lovenox for now
Code Status - Full
Anticipated Discharge: Within 24 hours
Subjective/Interval History
-
Date of Service: July 22, 2024
No chest pain
Still exertional sob , anxious about her test
Objective Data
-
Labs:
Laboratory Results
07/22/24
06:57
WBC 13.9 H
Hgb 13.7
Hct 41.4
Plt Count 195
Sodium 139
Potassium 3.9
Chloride 97 L
Carbon Dioxide 34 H
BUN 35 H
Creatinine 1.0
Glucose 102 H
Calcium 10.0
Vital Signs:
Vital Signs
Temp Pulse Resp BP Pulse Ox
98.5 F 73 18 121/79 96
07/22/24 11:00 07/22/24 11:00 07/22/24 11:00 07/22/24 11:00 07/22/24 11:00
I&O
07/21/24 07/22/24 07/23/24
06:59 06:59 06:59
Intake Total 480 / 480 1080 / 1080
Balance 480 / 480 1080 / 1080
--- NOTE | 2024-07-22 12:06 | W.PN.PUL3 ---
Today's Communication / Plan
-
For left and right heart catheterization
Continue current pulmonary therapy for now
No indication for IV corticosteroids
Continue ox supplementation-baseline
Assessment
-
Patient is a 63-year-old female with previous history of severe COPD on chronic 2 L oxygen, ASCVD, morbid obesity presenting to ER with complaints of acute on chronic shortness of breath over the past 4 months. She reports that her symptoms have
been progressively worsening over the past 4 months, she has significant tachypnea with exertion and is finding it difficult to recover with rest. She does not have any wheezing or chest tightness, she did have atypical chest discomfort. She does
not feel it was triggered by any upper respiratory illnesses or sick contacts. Chest x-ray demonstrating normal findings. We are consulted for eval.
Acute on chronic shortness of breath/chest discomfort: Unclear etiology-rule out acute coronary syndrome.
CT chest 07/21/2024: Reviewed showed no evidence for pulmonary embolism. No evidence for acute infiltrates.
Stable tiny lung nodules.
Advanced COPD contributing to symptoms-not in acute exacerbation.
Chronic hypoxemic respiratory failure-stable
New pulmonary nodules noted on CT chest
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
Severe COPD, maintained on levalbuterol nebs, advair/spiriva, and O2 2L at rest and sleep, 4L on exertion. Intermittent CS but no long filler cigar roller machine
ABG 02-28-22 on O2 3L: 7.40/46/125/28.5/3/98.9%
Intermittently elevated serum total CO2
02/20/24- FVC 2.07 or 72%, FEV1 0.95 or 43%. Ratio 45.
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 Never received A1AT replacement therapy
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
CAD, s/p KATHARINE to mid LAD 02/28/2021, then USA with KATHARINE to stenosis proximal to prior LAD stent 10/31/2021, continued on ASA/clopidogrel, [facility] 12-04-21 without residual disease
PAFib: declined AC due to fear of bleeding complications
Paroxysmal SVT
Sinus bradycardia
Implantable Loop Recorder (2018)
GERD
HLD
Former smoker: since age 16, up to 2 ppd, quit 02/2021
PUD
Smoked marijuana intermittently for one y in her early 30s
Morbid obesity BMI 41
COVID vaccinated x2 until February 2021, declined booster due to side effects of second vaccine dose (tachycardia, AFib flare)
Suspected ALISSON
Pulmonary nodules, new 6 and 7mm
Plan:
Readmitted within 2 weeks-for exertional dyspnea.
In the interim she developed shingles that is recovering.
Reports worsening shortness of breath, atypical chest discomfort? Radiation to her jaw-
EKG 07/20/2024: Reviewed showed normal sinus rhythm. Normal EKG.
Negative troponins at this point
Cardiology correspondence reviewed given readmission with worsening symptoms, no evidence for acute exacerbation of COPD left and right heart catheterization will be performed pending today 07/22/2024.
-
From the pulmonary perspective she does not seem to be in acute exacerbation.
Not bronchospastic 07/22/2024. Seems to be at baseline.
Does have prolonged expiratory phase without wheezing
Imaging without evidence for infection
Did receive 1 dose of IV steroids in the emergency room-hold further for now.
Patient already has thrush from recent steroid taper-on nystatin.
-
Continue inhalers similar to prior admission.
She has completed pulmonary rehab over 5 years ago but has not returned
Obesity/deconditioning/anxiety likely playing a role as well.
She follows with Dr. Lagunas
It would be beneficial for her to re-enroll into pulmonary rehab
Weight loss may be beneficial. This has been an ongoing discussion for several years. Her weight has increased probably year after year.
Outpatient pulmonary follow-Known to Dr Lagunas, scheduled for 08/04/24
-
Will wait for left and right heart catheterization
Will continue to follow

Diagnostic Data
CT chest 07/21/2024: Reviewed
1. No evidence of pulmonary embolism or thoracic aortic dissection.
2. Changes of severe emphysema.
3. Nodular opacity within the right middle lobe, measuring 2.5 cm in diameter, best seen on series 401 images 33-38. No significant change compared to 06/29/2024, or 11/27/2023. Opacity is less pronounced compared to a prior CT dated 02/25/2023. This
likely represents scarring in a region of prior pneumonia. Consider continued CT follow-up as clinically appropriate.
4. Pulmonary nodule within the medial aspect of the right lung apex, best seen on series 401 image 18, measuring 4 mm in diameter. Nodule measured approximately 8 mm in diameter on 06/29/2024, therefore is likely infectious or inflammatory.
5. Severe coronary arterial calcification. Please correlate with symptoms of and risk factors for coronary artery disease, with further workup as clinically appropriate.
CXR 02-25 c/w 01-29-23: interim RUL/RML infiltrate
Chest X-Ray: 02-17-22, PA/lat, upper lobes emphysema, no infiltrates, relatively flat diaphragms on lateral view.
CT Chest 06/29/24- . No evidence of pulmonary embolism.
2. Moderate/severe apical predominant emphysematous changes with similar appearance of the nodular scarring within the right middle lobe measuring approximately 3.0 cm.
3. There is a new 6 mm solid nodule within the medial right upper lobe as well as new 7 mm solid nodules within the left upper lobe. Recommend follow-up CT to ensure stability
4. Prominent gallstone present.
CT Chest 01/29/23 - IMPRESSION: Examination is negative for pulmonary embolism. Severe changes of emphysema. New horizontal band of increased opacity within the superior segment of the right lower lobe of the lung. Morphologic appearance would be
suggestive of scarring or atelectasis. Fatty infiltration of the liver.
CT chest 02-28-22, c/w 02-23-21 IMPRESSION: No CT evidence for pulmonary embolism. Severe centrilobular emphysema.
TTE 11-29-22: CONCLUSIONS- Normal biventricular size and systolic function without regional wall motion abnormality. Mild concentric left ventricular hypertrophy. No significant valvular disease. No significant change since the prior study of
03/01/22.
Echo: 03-01-22, normal LV systolic function, LVEF greater than 75%, mild concentric LVH. No significant valvular disease. Normal RV size and function. Normal pericardium without effusion. IVC is of normal size and demonstrates normal respiratory
variation. Interatrial septum is intact with no evidence of shunting by color-flow Doppler. No intracardiac mass or thrombus formation seen. No significant change compared to October 2021.
/[facility] 05-25-22 HEMODYNAMIC DATA : AO: 127/78 - LV: 127/16 - PCWP: 14 - PA: 36/22 - RV: 34/14 - RA: 10 - Oximetry: Ao 97%, PA 75%, cardiac output 4.5, cardiac index 2.4
LEFT VENTRICULOGRAPHY: Not performed
CORONARY ANGIOGRAPHY: Dominance: Right - Left Main: Normal - LAD: Widely patent ostial/proximal LAD stents with no restenosis. There is 30% mid LAD stenosis. - Circumflex: Normal - RCA: Normal dominant vessel
CONCLUSIONS
1: Normal filling pressures without pulmonary hypertension
2: Widely patent ostial/proximal LAD stents without restenosis
3. No significant residual obstructive CAD
DIANN doppler 02-26-23: negative
DIANN doppler 09-08-21: negative
PFT 08/21/22: FEV1 1.02L 46%, FVC 2.11L 73%, ratio 48. Post FEV1 1.06L 48%, +BD response in FVC. TLC 4.86L 110%, RV/TLC 51%, DLCO 24%
-----
Subjective Data
-
Date of Service:
Date of Service: July 22, 2024
Chief Complaint: Pulmonary Follow Up (Exertional dyspnea/COPD)
Subjective:
No new events overnight
This morning with anxiety.
Waiting for left and right heart catheterization
Review of Systems
Cardiopulmonary: Dyspnea, Dyspnea on Exertion and Chest Pain (n)
GI: Abdominal Pain (n) and Nausea (n)
Objective Data
Data Reviewed
Vital Signs / I&O / Oxygen:
Vital Signs
Temp Pulse Resp BP Pulse Ox
98.5 F 73 18 121/79 96
07/22/24 11:00 07/22/24 11:00 07/22/24 11:00 07/22/24 11:00 07/22/24 11:00
Intake and Output
07/21/24 07/22/24 07/23/24
06:59 06:59 06:59
Intake Total 480 / 480 1080 / 1080
Balance 480 / 480 1080 / 1080
SaO2 96
Nasal Cannula flow liters per 2
minute
Physical Exam
General: Comfortable
HEENT: Normocephalic
Cardiovascular: S1-S2
Respiratory: Other (Prolonged expiratory phase)
GI: Soft and Distended (Obese)
Neurology: Awake, Alert, Oriented and No Motor Deficits
Labs/Micro/Reports
Lab Data
07/22/24 06:57
07/22/24 06:57
Microbiology
07/20/24 20:41 Nasal Swab Influenza Types A & B (SUZY) - Final
Negative for Influenza A & B, NAAT
Negative results must be combined with clinical observations
and patient history.
Nucleic Acid Amplification test (NAAT)performed on the
[employer] platform.
[2024-07-22] MEDS: VITAMIN D3 (cholecalciferol) PO (12:17)
--- NOTE | 2024-07-22 15:42 | ITS.CL.CATH ---
Respite Worker - Catheterization
Cardiac Catheterization
Procedure Report:
CARDIAC CATHETERIZATION REPORT
Date of Procedure: 07/22/2024
Referring: Rojelio Olmedo M.D., Ph.D.
Indication: Clarification of volume status, assessment of coronary anatomy.
PROCEDURE:
1. Right heart catheterization.
2. Left heart catheterization.
3. Coronary angiography.
ACCESS:
6 [place] right radial artery.
5 [place] right antecubital vein.
CATHETERS:
1. 5 [place] balloon wedge.
2. 5 [place] JL 3.5.
3. 5 [place] JR4.
HEMODYNAMIC DATA
Weight (kg): 100.2
AO (s/d/x mmHg): 135/85/113
LV (s/x mmHg): 138/26
PCWP (a/v/x mmHg): 29/28/26
PA (s/d/x mmHg): 40/28/33
RV (s/x mmHg): 40/20
RA (a/v/x mmHg): 23/23/21
SVC SvO2 (%): 74.1
PA SvO2 (%): 72.0
SaO2 (%): 96.7
Hbg (g/dL): 14.1
CO (L/min): 3.68
CI (L/min/m2): 1.87
TPG (mmHg): 7
PVR (Roberts Units): 1.90
SVR (dynes*seconds*cm^-5): 2000
AVO2 Diff (Volume %): 4.74
AV gradient (x, mmHg): None.
AV area (cm2): Normal.
LEFT VENTRICULOGRAPHY: Not performed.
CORONARY ANGIOGRAPHY
Dominance: Right.
Left Main: Normal size, bifurcating vessel. There is no coronary artery disease.
LAD: Normal size vessel giving rise to a single diagonal before wrapping around the apex. A patent stent is present in the proximal vessel with no evidence of in-stent restenosis. There is a 20-30% lesion in the mid vessel.
Ramus: Congenitally absent.
Circumflex: Normal size, nondominant vessel that is essentially to medium size obtuse marginals. There is moderate tortuosity with no coronary artery disease.
RCA: Large size, dominant vessel with a significant posterolateral arcade. There is no coronary artery disease.
INTERVENTIONS
None.
Closure Device: Vascular band for the right radial artery, manual pressure for the right antecubital vein.
Radiation dose (mGy): 321.58
DAP (cm2.Gy): 20.1097
Fluoroscopy time (minutes): 4.3
Sedation time (minutes): 12
CONCLUSIONS:
1. Right dominant circulation with a patent stent in the proximal LAD and a 20-30% lesion in the mid LAD without significant coronary artery disease elsewhere.
2. Severely elevated filling pressures (LVEDP = 26 mmHg, PCWP = 26 mmHg at 100.2 kg) consistent with decompensated heart failure with preserved ejection fraction.
3. Mild postcapillary pulmonary hypertension (mean PA = 33 mmHg, LVEDP = 26 mmHg, PVR = 1.90 Roberts units), WHO group 2.
RECOMMENDATIONS:
1. Expectant management after cardiac catheterization via right radial/antecubital approach.
2. Limited weight bearing on the right wrist for one week.
3. Accelerate diuresis. Increase furosemide to 40 mg IV twice daily.
4. Add guideline directed medical therapy as hemodynamics will tolerate.
5. Continue treatment of severe underlying emphysematous lung disease.
Copy to: Rojelio Olmedo M.D., Ph.D., [facility]
Rinku Tao DO, FACC, FACP
[2024-07-22] MEDS: COLACE 100 MG PO (17:03)
[2024-07-22] MEDS: TYLENOL 650 MG PO (17:05)
[2024-07-22] MEDS: LASIX 40 MG IV (19:46)
[2024-07-23] VITALS (7 sets, daily range): BP systolic 123–143; BP diastolic 77–91; PULSE 77; O2SAT 97; BMI 40.7
[2024-07-23 06:52] LABS: Hematocrit 41.4 % (37.0-47.0); Hemoglobin 13.8 g/dL (12.0-16.0); Mean Corp Hgb Conc. 33.3 g/dL (33.0-37.0); Mean Corpuscular Hgb 30.7 pg (27.0-31.0); Mean Corpuscular Volume 92.2 fL (81.0-99.0); Mean Platelet Volume 9.1 fL (7.4-10.4); Platelet Count 205 10^3/uL (130-400); Red Blood Cell Count 4.49 10^6/uL (4.20-5.40); Red Cell Dist. Width 13.6 % (11.5-14.5); White Blood Cell Count 8.3 10^3/uL (4.8-10.8)
[2024-07-23] MEDS: ADVAIR HFA 115/21 MCG INHALER 2 PUFF INH ×2 (07:41→20:28)
[2024-07-23] MEDS: SPIRIVA RESPIMAT 2.5 MCG 2 PUFF INH (07:42)
[2024-07-23 07:43] LABS: Blood Urea Nitrogen 31 mg/dl (7-17); Calcium 9.2 mg/dl (8.4-10.2); Carbon Dioxide 35 mmol/L (22-30); Chloride 94 mmol/L (98-107); Estimated Creatinine Clearance 55 ml/min; Glucose 87 mg/dl (70-99); Sodium 141 mmol/L (135-145); eGFR 56.11
[2024-07-23] MEDS: PROTONIX 40 MG PO (08:35)
[2024-07-23] MEDS: CARDIZEM CD 120 MG PO (08:36)
[2024-07-23] MEDS: MYCOSTATIN ORAL SUSPENSION PO ×2 (08:36→20:16)
[2024-07-23] MEDS: ASPIR LOW (ENTERIC COATED) 81 MG PO (08:36)
[2024-07-23] MEDS: PLAVIX 75 MG PO (08:36)
[2024-07-23] MEDS: LASIX 40 MG IV ×2 (08:37→16:39)
--- NOTE | 2024-07-23 08:44 | W.PN.CD ---
Today's Communication / Plan
-
continue IV lasix, and trend labs, weight, tele
Impression / Plan
-
Impression/Plan: 64 y/o female with HTN, CAD s/p prior PCI to pLAD, PAF, COPD and a history of HFpEF admitted with recurrent respiratory failure.
#HFpEF: acute on chronic, severe, requiring IV diuresis and close monitoring of labs and tele
-echo 06/2024: EF 65-70%, no sig valve disease
-elevated filling pressures on RHC 07/22 no obstructive CAD
-continue lasix at 40mg IV bid
-we discussed SGLT2i: she wishes to defer for now
#CAD
-patents stents on cath 07/22
-Continue aspirin and clopidogrel.
#Paroxysmal atrial fibrillation
-Currently in sinus rhythm.
-continue diltiazem 120mg daily
-[id number]: Score at least 4 (Heart failure, HTN, Vascular disease, female gender).
-She declines oral anticoagulation.
#COPD
-Acute on chronic, severe.
-Most recent PFT's on [employer]: TLC = 4.86 (110% predicted); FEV1/FVC = 0.48; FEV1 = 1.02 (46% predicted); DLCO/VA = 1.33 (29% predicted).
-Continue methylprednisolone and albuterol PRN.
-Continue tiotropium and salmeterol/fluticasone.
Hypertension, trend BP
Obesity, morbid, BMI 40.9
Subjective/Interval History:
Continue with SOB.
DATA:
CT Chest, 07/21/2024:
IMPRESSION:
1. No evidence of pulmonary embolism or thoracic aortic dissection.
2. Changes of severe emphysema.
3. Nodular opacity within the right middle lobe, measuring 2.5 cm in diameter, best seen on series 401 images 33-38. No significant change compared to 06/29/2024, or 11/27/2023. Opacity is less pronounced compared to a prior CT dated 02/25/2023. This
likely represents scarring in a region of prior pneumonia. Consider continued CT follow-up as clinically appropriate.
4. Pulmonary nodule within the medial aspect of the right lung apex, best seen on series 401 image 18, measuring 4 mm in diameter. Nodule measured approximately 8 mm in diameter on 06/29/2024, therefore is likely infectious or inflammatory.
5. Severe coronary arterial calcification. Please correlate with symptoms of and risk factors for coronary artery disease, with further workup as clinically appropriate.
TTE, 06/30/2024:
1. Mild concentric LVH with hyperdynamic wall motion with EF 65-70%
2. Mild OR
3. Compared with prior study February 2024, OR previously graded as trace
Cardiac catheterization, 05/23/2022:
1: Normal filling pressures without pulmonary hypertension
2: Widely patent ostial/proximal LAD stents without restenosis
3. No significant residual obstructive CAD
4. Continue medical therapy for CAD and advanced oxygen dependent COPD
CATH 07/22/24 (100.4 kg)
1. Right dominant circulation with a patent stent in the proximal LAD and a 20-30% lesion in the mid LAD without significant coronary artery disease elsewhere.
2. Severely elevated filling pressures (LVEDP = 26 mmHg, PCWP = 26 mmHg at 100.2 kg) consistent with decompensated heart failure with preserved ejection fraction.
3. Mild postcapillary pulmonary hypertension (mean PA = 33 mmHg, LVEDP = 26 mmHg, PVR = 1.90 Roberts units), WHO group 2.
Physical Exam
Vital Signs/Labs
Vital Signs
Temp Pulse Resp BP Pulse Ox
98.0 F 78 14 137/82 96
07/23/24 07:00 07/23/24 07:48 07/23/24 07:48 07/23/24 07:00 07/23/24 07:48
07/22/24 07/23/24 07/24/24
06:59 06:59 06:59
Actual Weight 100.4 kg 97.749 kg
07/23/24 06:22
07/23/24 06:22
Magnesium 2.2 mg/dl (1.6-2.3) 07/22/24 06:57
07/20/24
20:41
Unm-N-Ydlorupkgre Pept 55.2
LAB Results
07/20/24
20:41
Troponin I < 0.012
Physical Exam
Constitutional: Other (increased WOB)
EENT: Moist mucous membranes
Cardiovascular: Rhythm & rate is regular, Pedal edema is absent, Systolic murmur absent and JVD present
Respiratory: Labored respirations
Neuro/Psych: AO x 3
Data Reviewed
-
Date of Service: July 23, 2024
EKG: Other (Tele: SR 60s, Brief SVT, one V triplet)
Labs: Labs Reviewed by me
--- NOTE | 2024-07-23 09:10 | W.PN.PUL3 ---
Today's Communication / Plan
-
Aggressive diuresis given elevated filling pressures seen on RHC from 07/22
Trend I/O and monitor UOP, trend sCr
Continue current inhalers for now (home meds)
No indication for IV corticosteroids
Continue ox supplementation-baseline
Assessment
-
Patient is a 63-year-old female with previous history of severe COPD on chronic 2 L oxygen, ASCVD, morbid obesity presenting to ER with complaints of acute on chronic shortness of breath over the past 4 months. She reports that her symptoms have
been progressively worsening over the past 4 months, she has significant tachypnea with exertion and is finding it difficult to recover with rest. She does not have any wheezing or chest tightness, she did have atypical chest discomfort. She does
not feel it was triggered by any upper respiratory illnesses or sick contacts. Chest x-ray demonstrating normal findings. We are consulted for eval.
Impression:
Acute on chronic shortness of breath/chest discomfort: Due to acute decompensated heart failure
CT chest 07/21/2024: Reviewed showed no evidence for pulmonary embolism. No evidence for acute infiltrates.
Stable tiny lung nodules.
Advanced COPD contributing to symptoms-not in acute exacerbation.
Chronic hypoxemic respiratory failure-stable
New pulmonary nodules noted on CT chest
Conditions OPTICAL DESIGNER:
Severe COPD, maintained on levalbuterol nebs, advair/spiriva, and O2 2L at rest and sleep, 4L on exertion. Intermittent CS but no fpc
ABG 02-28-22 on O2 3L: 7.40/46/125/28.5/3/98.9%
Intermittently elevated serum total CO2
02/20/24- FVC 2.07 or 72%, FEV1 0.95 or 43%. Ratio 45.
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 Never received A1AT replacement therapy
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
CAD, s/p KATHARINE to mid LAD 02/28/2021, then [place] with KATHARINE to stenosis proximal to prior LAD stent 10/31/2021, continued on ASA/clopidogrel, [facility] 12-04-21 without residual disease
PAFib: declined AC due to fear of bleeding complications
Paroxysmal SVT
Sinus bradycardia
Implantable Loop Recorder (2018)
GERD
HLD
Former smoker: since age 16, up to 2 ppd, quit 02/2021
PUD
Smoked marijuana intermittently for one y in her early 30s
Morbid obesity BMI 41
COVID vaccinated x2 until February 2021, declined booster due to side effects of second vaccine dose (tachycardia, AFib flare)
Suspected ALISSON
Pulmonary nodules, new 6 and 7mm
Plan:
Readmitted within 2 weeks-for exertional dyspnea.
In the interim she developed shingles that she is recovering from
Reports worsening shortness of breath, atypical chest discomfort? Radiation to her jaw - troponin was negative x1 on 07/20/2024
EKG 07/20/2024: Reviewed showed normal sinus rhythm. Normal EKG, normal axis
Cardiology correspondence reviewed given readmission with worsening symptoms, no evidence for acute exacerbation of COPD; left + right heart catheterization performed on 07/22/2024 showing patent stent in proximal LAD with 20-30% lesion in the mLAD,
and severely elevated filling pressures (LVEDP: 26 mmHg, PCWP: 26 mmHg, with preserved cardiac output at 3.68 and PVR 1.9 Wood units with mild pulmonary hypertension with mPAP: 33 mmHg (postcapillary)
Continue aggressive diuresis and defer starting farxiga to cardiology - patient would like to hold off for now as she wants to try diuresis first and see how she feels
-
From the pulmonary perspective she does not seem to be in acute COPD exacerbation.
Not bronchospastic 07/22/2024. Seems to be at baseline.
Does have prolonged expiratory phase without wheezing
Imaging without evidence for infection
Did receive 1 dose of IV steroids in the emergency room -given Solu-Medrol 40 mg IV x1 on 07/21 --> continue to hold for now
Patient already has thrush from recent steroid taper-on nystatin.
-
Continue inhalers similar to prior admission (advair 115mcg + spiriva)
She has completed pulmonary rehab over 5 years ago but has not returned
Obesity/deconditioning/anxiety likely playing a role as well.
She follows with Dr. Lagunas
It would be beneficial for her to re-enroll into pulmonary rehab
Weight loss may be beneficial. This has been an ongoing discussion for several years. Her weight has increased probably year after year.
Outpatient pulmonary follow-Known to Dr Lagunas, scheduled for 08/04/24
-
Will continue to follow

Diagnostic Data
CT chest 07/21/2024: Reviewed
1. No evidence of pulmonary embolism or thoracic aortic dissection.
2. Changes of severe emphysema.
3. Nodular opacity within the right middle lobe, measuring 2.5 cm in diameter, best seen on series 401 images 33-38. No significant change compared to 06/29/2024, or 11/27/2023. Opacity is less pronounced compared to a prior CT dated 02/25/2023. This
likely represents scarring in a region of prior pneumonia. Consider continued CT follow-up as clinically appropriate.
4. Pulmonary nodule within the medial aspect of the right lung apex, best seen on series 401 image 18, measuring 4 mm in diameter. Nodule measured approximately 8 mm in diameter on 06/29/2024, therefore is likely infectious or inflammatory.
5. Severe coronary arterial calcification. Please correlate with symptoms of and risk factors for coronary artery disease, with further workup as clinically appropriate.
CXR 04-24 c/w 01-29-23: interim RUL/RML infiltrate
Chest X-Ray: 02-17-22, PA/lat, upper lobes emphysema, no infiltrates, relatively flat diaphragms on lateral view.
CT Chest 06/29/24- . No evidence of pulmonary embolism.
2. Moderate/severe apical predominant emphysematous changes with similar appearance of the nodular scarring within the right middle lobe measuring approximately 3.0 cm.
3. There is a new 6 mm solid nodule within the medial right upper lobe as well as new 7 mm solid nodules within the left upper lobe. Recommend follow-up CT to ensure stability
4. Prominent gallstone present.
CT Chest 01/29/23 - IMPRESSION: Examination is negative for pulmonary embolism. Severe changes of emphysema. New horizontal band of increased opacity within the superior segment of the right lower lobe of the lung. Morphologic appearance would be
suggestive of scarring or atelectasis. Fatty infiltration of the liver.
CT chest 02-28-22, c/w 02-23-21 IMPRESSION: No CT evidence for pulmonary embolism. Severe centrilobular emphysema.
TTE 11-29-22: CONCLUSIONS- Normal biventricular size and systolic function without regional wall motion abnormality. Mild concentric left ventricular hypertrophy. No significant valvular disease. No significant change since the prior study of
03/01/22.
Echo: 03-01-22, normal LV systolic function, LVEF greater than 75%, mild concentric LVH. No significant valvular disease. Normal RV size and function. Normal pericardium without effusion. IVC is of normal size and demonstrates normal respiratory
variation. Interatrial septum is intact with no evidence of shunting by color-flow Doppler. No intracardiac mass or thrombus formation seen. No significant change compared to October 2021.
/[facility] 05-25-22 HEMODYNAMIC DATA : AO: 127/78 - LV: 127/16 - PCWP: 14 - PA: 36/22 - RV: 34/14 - RA: 10 - Oximetry: Ao 97%, PA 75%, cardiac output 4.5, cardiac index 2.4
LEFT VENTRICULOGRAPHY: Not performed
CORONARY ANGIOGRAPHY: Dominance: Right - Left Main: Normal - LAD: Widely patent ostial/proximal LAD stents with no restenosis. There is 30% mid LAD stenosis. - Circumflex: Normal - RCA: Normal dominant vessel
CONCLUSIONS
1: Normal filling pressures without pulmonary hypertension
2: Widely patent ostial/proximal LAD stents without restenosis
3. No significant residual obstructive CAD
DIANN doppler 02-26-23: negative
DIANN doppler 09-08-21: negative
PFT 08/21/22: FEV1 1.02L 46%, FVC 2.11L 73%, ratio 48. Post FEV1 1.06L 48%, +BD response in FVC. TLC 4.86L 110%, RV/TLC 51%, DLCO 24%
-----
Total time spent today was 35 minutes for this encounter. Time includes reviewing laboratory test/imaging results, reviewing pertinent medical records, obtaining and reviewing medical history, performing an appropriate exam, ordering medications,
tests and procedures. Time also includes documentation of this encounter, coordinating patient care and communicating with other healthcare professionals. Total time does not include separately billed tests performed on this date of service.
Subjective Data
-
Date of Service:
Date of Service: July 23, 2024
Chief Complaint: Pulmonary Follow Up (Exertional dyspnea/COPD)
Subjective:
Patient seen and evaluated today at bedside. Currently on 2 L/min nasal cannula. She has pain in her back that she thinks is from sitting in the chair and she also had shingles recently although that rash was on her right flank stretching across
her abdomen and her lower back. She still feels shortness of breath, especially with activity, although it is slightly improved. Denies cough, REYES, chest pain, abdominal pain, nausea, fevers or chills.
Review of Systems
General: Other (Negative unless mentioned above)
Objective Data
Data Reviewed
Vital Signs / I&O / Oxygen:
Vital Signs
Temp Pulse Resp BP Pulse Ox
98.0 F 78 14 137/82 96
07/23/24 07:00 07/23/24 07:48 07/23/24 07:48 07/23/24 07:00 07/23/24 07:48
Intake and Output
07/22/24 07/23/24 07/24/24
06:59 06:59 06:59
Intake Total 1080 / 1080 1220 / 1220
Balance 1080 / 1080 1220 / 1220
SaO2 96
Nasal Cannula flow liters per 2
minute
Physical Exam
General: Respiratory Distress (negative) and Comfortable
HEENT: Normocephalic and Anicteric
Cardiovascular: S1-S2 and Peripheral Edema (Trace lower extremity edema bilaterally)
Respiratory: Clear, Wheeze (negative), Crackles (negative), Rhonchi (negative) and Other (Prolonged expiratory phase)
GI: Soft, Distended (Abdominal obesity), Non Tender and Normal Bowel Sounds
Neurology: AO x 3 and Tremors (negative)
Skin: Warm, Dry, Cyanosis (negative), Jaundice (negative) and Other (cap refill <2 secs)
Labs/Micro/Reports
Lab Data
07/23/24 06:22
07/23/24 06:22
Microbiology
07/20/24 20:41 Nasal Swab Influenza Types A & B (SUZY) - Final
Negative for Influenza A & B, NAAT
Negative results must be combined with clinical observations
and patient history.
Nucleic Acid Amplification test (NAAT)performed on the
[employer] platform.
--- NOTE | 2024-07-23 09:55 | W.PN.HOSP.TC ---
Today's Communication/Plan
-
likely dc in am
Assessment / Plan
Assessment / Plan
Physical Exam
General: Well Developed, Well Nourished, No Apparent Distress and Comfortable
HEENT: NormoCephalic, Anicteric, Moist mucous membranes, Atraumatic and Oxygen
Respiratory: No crackles or wheezes, limited
Cardiac: S1/S2 and Regular Rhythm
GI: Soft, Non Tender, Non Distended and Normal Bowel Sounds
Genito-urinary: No hematuria
Musculoskeletal: No Clubbing, No Cyanosis and No Edema
Skin: Warm
Neuro: AO x 3
Psych: calm
# Progressive dyspnea�
Advanced COPD
- s/p Left and right heart cath that showed no CAD, elevated filling pressures, acute on chronic diastolic heart failure
for IV Lasix, weight monitoring
- continue inhaled treatments for COPD, hold Steroid
Appreciate cardiology & pulmonary input
# paroxysmal AFIB - Rate controlled and sinus rhythm
- continue diltiazem
- asp/Plavix, patient refused AC
# Mouth thrush
c/w Nystatin solution
# Recent Shingles
Recovery stage now
monitor, symptomatic treatment as needed
# Anxiety
Less anxious today
DVT PPX - lovenox for now
Code Status - Full
Total time spent to see the patient, examine the patient on the floor, review data and lab results, discuss treatment plan with patient, nursing staff around 55 minutes
Anticipated Discharge: Within 24 hours
Subjective/Interval History
-
Date of Service: July 23, 2024
Same exertional sob
No chest pain
Objective Data
-
Labs:
Laboratory Results
07/23/24
06:22
WBC 8.3
Hgb 13.8
Hct 41.4
Plt Count 205
Sodium 141
Potassium 4.0
Chloride 94 L
Carbon Dioxide 35 H
BUN 31 H
Creatinine 1.1 H
Glucose 87
Calcium 9.2
Vital Signs:
Vital Signs
Temp Pulse Resp BP Pulse Ox
98.0 F 78 14 137/82 96
07/23/24 07:00 07/23/24 07:48 07/23/24 07:48 07/23/24 07:00 07/23/24 07:48
I&O
07/22/24 07/23/24 07/24/24
06:59 06:59 06:59
Intake Total 1080 / 1080 1220 / 1220
Balance 1080 / 1080 1220 / 1220
[2024-07-23] MEDS: MYCOSTATIN ORAL SUSPENSION 5 ML PO ×2 (11:46→17:32)
[2024-07-23] MEDS: VITAMIN D3 (cholecalciferol) 50 MCG PO (11:48)
--- NOTE | 2024-07-23 14:07 | PTCARENOTE ---
patient becomes sob with little exertion, +JVD, tolerating diet, independent in room, though feels, 'like her body is heavy and unsteady at times', vss, will continue to monitor.
[2024-07-23] MEDS: COLACE PO (17:32)
[2024-07-24] MEDS: TYLENOL 650 MG PO (02:15)
[2024-07-24 03:00] VITALS: BP 123/71
[2024-07-24 05:27] VITALS: BMI 40.6
[2024-07-24 06:00] VITALS: BMI 40.6
[2024-07-24 07:30] VITALS: BP 133/87
[2024-07-24] MEDS: ADVAIR HFA 115/21 MCG INHALER 2 PUFF INH (08:25)
[2024-07-24] MEDS: SPIRIVA RESPIMAT 2.5 MCG 2 PUFF INH (08:25)
[2024-07-24] MEDS: MYCOSTATIN ORAL SUSPENSION 5 ML PO (08:37)
[2024-07-24] MEDS: CARDIZEM CD 120 MG PO (08:37)
[2024-07-24] MEDS: LASIX 40 MG IV (08:37)
[2024-07-24] MEDS: PLAVIX 75 MG PO (08:38)
[2024-07-24] MEDS: PROTONIX 40 MG PO (08:38)
[2024-07-24] MEDS: ASPIR LOW (ENTERIC COATED) 81 MG PO (08:38)
--- NOTE | 2024-07-24 08:57 | W.PN.PUL3 ---
Today's Communication / Plan
-
Continue with diuresis given elevated filling pressures seen on RHC from 07/22 --> transition to PO lasix and advised to take daily weight and fluid/sodium restrict her diet going forward
She will need close follow up with cardiology
Trend I/O and monitor UOP, trend sCr
Continue current inhalers for now (home meds)
No indication for IV corticosteroids
Continue ox supplementation-baseline and she has O2 at home - continue same dose, and we can check 6MWT in office
Patient be prepared for discharge home today. Pulmonary service will now sign off. Advised her to keep her upcoming appt with Dr. Lagunas on 08/04/2024 at 11:30AM - she has full PFTs scheduled for that day as well at 10:00AM. Please reconsult if
there are any additional questions/concerns, or if patient's respiratory status deteriorates.
Assessment
-
Patient is a 63-year-old female with previous history of severe COPD on chronic 2 L oxygen, ASCVD, morbid obesity presenting to ER with complaints of acute on chronic shortness of breath over the past 4 months. She reports that her symptoms have
been progressively worsening over the past 4 months, she has significant tachypnea with exertion and is finding it difficult to recover with rest. She does not have any wheezing or chest tightness, she did have atypical chest discomfort. She does
not feel it was triggered by any upper respiratory illnesses or sick contacts. Chest x-ray demonstrating normal findings. We are consulted for eval.
Impression:
Acute on chronic shortness of breath/chest discomfort: Due to acute decompensated heart failure
CT chest 07/21/2024: Reviewed showed no evidence for pulmonary embolism. No evidence for acute infiltrates.
Stable tiny lung nodules
Advanced COPD contributing to symptoms-not in acute exacerbation.
Chronic hypoxemic respiratory failure-stable
New pulmonary nodules noted on CT chest
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
Severe COPD, maintained on levalbuterol nebs, advair/spiriva, and O2 2L at rest and sleep, 4L on exertion. Intermittent CS but no care home
ABG 02-28-22 on O2 3L: 7.40/46/125/28.5/3/98.9%
Intermittently elevated serum total CO2
02/20/24- FVC 2.07 or 72%, FEV1 0.95 or 43%. Ratio 45.
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 Never received A1AT replacement therapy
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
CAD, s/p KATHARINE to mid LAD 02/28/2021, then [place] with KATHARINE to stenosis proximal to prior LAD stent 10/31/2021, continued on ASA/clopidogrel, [facility] 12-04-21 without residual disease
PAFib: declined AC due to fear of bleeding complications
Paroxysmal SVT
Sinus bradycardia
Implantable Loop Recorder (2018)
GERD
HLD
Former smoker: since age 16, up to 2 ppd, quit 02/2021
PUD
Smoked marijuana intermittently for one y in her early 30s
Morbid obesity BMI 41
COVID vaccinated x2 until February 2021, declined booster due to side effects of second vaccine dose (tachycardia, AFib flare)
Suspected ALISSON
Pulmonary nodules, new 6 and 7mm
Plan:
Readmitted within 2 weeks-for exertional dyspnea.
In the interim she developed shingles that she is recovering from
Reports worsening shortness of breath, atypical chest discomfort? Radiation to her jaw - troponin was negative x1 on 07/20/2024
EKG 07/20/2024: Reviewed showed normal sinus rhythm. Normal EKG, normal axis
Cardiology correspondence reviewed given readmission with worsening symptoms, no evidence for acute exacerbation of COPD; left + right heart catheterization performed on 07/22/2024 showing patent stent in proximal LAD with 20-30% lesion in the mLAD,
and severely elevated filling pressures (LVEDP: 26 mmHg, PCWP: 26 mmHg, with preserved cardiac output at 3.68 and PVR 1.9 Wood units with mild pulmonary hypertension with mPAP: 33 mmHg (postcapillary)
Continue aggressive diuresis and defer starting farxiga to cardiology - patient would like to hold off for now as she wants to try diuresis first and see how she feels
-
From the pulmonary perspective she does not seem to be in acute COPD exacerbation.
Not bronchospastic 07/22/2024. Seems to be at baseline.
Does have prolonged expiratory phase without wheezing
Imaging without evidence for infection
Did receive 1 dose of IV steroids in the emergency room -given Solu-Medrol 40 mg IV x1 on 07/21 --> continue to hold for now
Patient already has thrush from recent steroid taper-on nystatin.
-
Continue inhalers similar to prior admission (advair 115mcg + spiriva)
She has completed pulmonary rehab over 5 years ago but has not returned
Obesity/deconditioning/anxiety likely playing a role as well.
She follows with Dr. Lagunas
It would be beneficial for her to re-enroll into pulmonary rehab
Weight loss may be beneficial. This has been an ongoing discussion for several years. Her weight has increased probably year after year.
Outpatient pulmonary follow-Known to Dr Lagunas, scheduled for 08/04/24
-
Patient be prepared for discharge home today. Pulmonary service will now sign off. Thank you for allowing us to be involved in the care of this patient. Please reconsult if there are any additional questions/concerns, or if patient's respiratory
status deteriorates.

Diagnostic Data
CT chest 07/21/2024: Reviewed
1. No evidence of pulmonary embolism or thoracic aortic dissection.
2. Changes of severe emphysema.
3. Nodular opacity within the right middle lobe, measuring 2.5 cm in diameter, best seen on series 401 images 33-38. No significant change compared to 06/29/2024, or 11/27/2023. Opacity is less pronounced compared to a prior CT dated 02/25/2023. This
likely represents scarring in a region of prior pneumonia. Consider continued CT follow-up as clinically appropriate.
4. Pulmonary nodule within the medial aspect of the right lung apex, best seen on series 401 image 18, measuring 4 mm in diameter. Nodule measured approximately 8 mm in diameter on 06/29/2024, therefore is likely infectious or inflammatory.
5. Severe coronary arterial calcification. Please correlate with symptoms of and risk factors for coronary artery disease, with further workup as clinically appropriate.
CXR 02-25 c/w 01-29-23: interim RUL/RML infiltrate
Chest X-Ray: 02-17-22, PA/lat, upper lobes emphysema, no infiltrates, relatively flat diaphragms on lateral view.
CT Chest 06/29/24- . No evidence of pulmonary embolism.
2. Moderate/severe apical predominant emphysematous changes with similar appearance of the nodular scarring within the right middle lobe measuring approximately 3.0 cm.
3. There is a new 6 mm solid nodule within the medial right upper lobe as well as new 7 mm solid nodules within the left upper lobe. Recommend follow-up CT to ensure stability
4. Prominent gallstone present.
CT Chest 01/29/23 - IMPRESSION: Examination is negative for pulmonary embolism. Severe changes of emphysema. New horizontal band of increased opacity within the superior segment of the right lower lobe of the lung. Morphologic appearance would be
suggestive of scarring or atelectasis. Fatty infiltration of the liver.
CT chest 02-28-22, c/w 02-23-21 IMPRESSION: No CT evidence for pulmonary embolism. Severe centrilobular emphysema.
TTE 11-29-22: CONCLUSIONS- Normal biventricular size and systolic function without regional wall motion abnormality. Mild concentric left ventricular hypertrophy. No significant valvular disease. No significant change since the prior study of
03/01/22.
Echo: 03-01-22, normal LV systolic function, LVEF greater than 75%, mild concentric LVH. No significant valvular disease. Normal RV size and function. Normal pericardium without effusion. IVC is of normal size and demonstrates normal respiratory
variation. Interatrial septum is intact with no evidence of shunting by color-flow Doppler. No intracardiac mass or thrombus formation seen. No significant change compared to October 2021.
/[facility] 05-25-22 HEMODYNAMIC DATA : AO: 127/78 - LV: 127/16 - PCWP: 14 - PA: 36/22 - RV: 34/14 - RA: 10 - Oximetry: Ao 97%, PA 75%, cardiac output 4.5, cardiac index 2.4
LEFT VENTRICULOGRAPHY: Not performed
CORONARY ANGIOGRAPHY: Dominance: Right - Left Main: Normal - LAD: Widely patent ostial/proximal LAD stents with no restenosis. There is 30% mid LAD stenosis. - Circumflex: Normal - RCA: Normal dominant vessel
CONCLUSIONS
1: Normal filling pressures without pulmonary hypertension
2: Widely patent ostial/proximal LAD stents without restenosis
3. No significant residual obstructive CAD
DIANN doppler 02-26-23: negative
DIANN doppler 09-08-21: negative
PFT 08/21/22: FEV1 1.02L 46%, FVC 2.11L 73%, ratio 48. Post FEV1 1.06L 48%, +BD response in FVC. TLC 4.86L 110%, RV/TLC 51%, DLCO 24%
-----
Total time spent today was 25 minutes for this encounter. Time includes reviewing laboratory test/imaging results, reviewing pertinent medical records, obtaining and reviewing medical history, performing an appropriate exam, ordering medications,
tests and procedures. Time also includes documentation of this encounter, coordinating patient care and communicating with other healthcare professionals. Total time does not include separately billed tests performed on this date of service.
Subjective Data
-
Date of Service:
Date of Service: July 24, 2024
Chief Complaint: Pulmonary Follow Up (Exertional dyspnea/COPD)
Subjective:
Patient seen and evaluated today at bedside. Afebrile overnight. She feels better today in regards to her shortness of breath. No chest pain reported overnight. Still has some back pain that she believes is from her recent diagnosis of shingles.
She denies REYES, chest pain, abdominal pain, nausea, fevers or chills. Being prepared for discharge home today.
Review of Systems
General: Other (Negative unless mentioned above)
Objective Data
Data Reviewed
Vital Signs / I&O / Oxygen:
Vital Signs
Temp Pulse Resp BP Pulse Ox
97.8 F 92 18 133/87 96
07/24/24 07:30 07/24/24 08:30 07/24/24 08:30 07/24/24 07:30 07/24/24 08:30
Intake and Output
07/23/24 07/24/24 07/25/24
06:59 06:59 06:59
Intake Total 1220 / 1220 1640 / 1640
Output Total 500 / 500
Balance 1220 / 1220 1140 / 1140
SaO2 96
Nasal Cannula flow liters per 2
minute
Physical Exam
General: Respiratory Distress (negative) and Comfortable
HEENT: Normocephalic and Anicteric
Cardiovascular: S1-S2 and Peripheral Edema (Trace lower extremity edema bilaterally)
Respiratory: Clear, Wheeze (negative), Crackles (negative), Rhonchi (negative) and Other (Prolonged expiratory phase)
GI: Soft, Distended (Abdominal obesity), Non Tender and Normal Bowel Sounds
Neurology: AO x 3 and Tremors (negative)
Skin: Warm, Dry, Cyanosis (negative), Jaundice (negative), Other (cap refill <2 secs) and Other (Crusted rash seen on lower back just superior to midline SI joint with no drainage appreciated)
Labs/Micro/Reports
Lab Data
07/23/24 06:22
07/24/24 09:32
[2024-07-24 10:17] LABS: Blood Urea Nitrogen 26 mg/dl (7-17); Calcium 10.4 mg/dl (8.4-10.2); Carbon Dioxide 39 mmol/L (22-30); Chloride 88 mmol/L (98-107); Estimated Creatinine Clearance 51 ml/min; Glucose 153 mg/dl (70-99); Potassium 3.7 mmol/L (3.5-5.1); Sodium 138 mmol/L (135-145); eGFR 50.55
--- NOTE | 2024-07-24 10:18 | W.PN.HOSP.TC ---
Today's Communication/Plan
-
Likely dc
Assessment / Plan
Assessment / Plan
Physical Exam
General: Well Developed, Well Nourished, No Apparent Distress and Comfortable
HEENT: NormoCephalic, Anicteric, Moist mucous membranes, Atraumatic and Oxygen
Respiratory: No crackles or wheezes, limited
Cardiac: S1/S2 and Regular Rhythm
GI: Soft, Non Tender, Non Distended and Normal Bowel Sounds
Genito-urinary: No hematuria
Musculoskeletal: No Clubbing, No Cyanosis and No Edema
Skin: Warm
Neuro: AO x 3
Psych: calm
# Progressive dyspnea�
Advanced COPD
- s/p Left and right heart cath that showed no CAD, elevated filling pressures, acute on chronic diastolic heart failure
for IV Lasix, weight monitoring
- continue inhaled treatments for COPD, hold Steroid
Appreciate cardiology & pulmonary input
# paroxysmal AFIB - Rate controlled and sinus rhythm
- continue diltiazem
- asp/Plavix, patient refused AC
# Mouth thrush
c/w Nystatin solution
# Recent Shingles
Recovery stage now
monitor, symptomatic treatment as needed
# Anxiety
Less anxious today
DVT PPX - lovenox for now
Code Status - Full
Total discharge time spent to see the patient, examine the patient on the floor, review data and lab results, discuss discharge plan with patient, nursing staff around 65 minutes
Anticipated Discharge: Today
Subjective/Interval History
-
Date of Service: July 24, 2024
No worsening sob
No chest pain
Objective Data
-
Labs:
Laboratory Results
07/24/24
09:32
Sodium 138
Potassium 3.7
Chloride 88 L
Carbon Dioxide 39 H
BUN 26 H
Creatinine 1.2 H
Glucose 153 H
Calcium 10.4 H
Vital Signs:
Vital Signs
Temp Pulse Resp BP Pulse Ox
97.8 F 92 18 133/87 96
07/24/24 07:30 07/24/24 08:30 07/24/24 08:30 07/24/24 07:30 07/24/24 08:30
I&O
07/23/24 07/24/24 07/25/24
06:59 06:59 06:59
Intake Total 1220 / 1220 1640 / 1640
Output Total 500 / 500
Balance 1220 / 1220 1140 / 1140
--- NOTE | 2024-07-24 12:09 | W.PN.CD ---
Today's Communication / Plan
-
transition to lasix 40mg PO bid
discharge planning
we will arrange for follow up with us
Impression / Plan
-
Impression/Plan: 64 y/o female with HTN, CAD s/p prior PCI to pLAD, PAF, COPD and a history of HFpEF admitted with recurrent respiratory failure.
#HFpEF: acute on chronic, severe, requiring IV diuresis and close monitoring of labs and tele
-echo 06/2024: EF 65-70%, no sig valve disease
-elevated filling pressures on RHC 07/22 no obstructive CAD
-looks euvolemic at 97.5 kg (down 3 kg this admission)
-transition to lasix 40mg PO bid
-we discussed SGLT2i: she wishes to defer for now
#CAD
-patents stents on cath 07/22
-Continue aspirin and clopidogrel.
#Paroxysmal atrial fibrillation
-Currently in sinus rhythm.
-continue diltiazem 120mg daily
-[id number]: Score at least 4 (Heart failure, HTN, Vascular disease, female gender).
-She declines oral anticoagulation.
#COPD
-Acute on chronic, severe.
-Most recent PFT's on [employer]: TLC = 4.86 (110% predicted); FEV1/FVC = 0.48; FEV1 = 1.02 (46% predicted); DLCO/VA = 1.33 (29% predicted).
-Continue methylprednisolone and albuterol PRN.
-Continue tiotropium and salmeterol/fluticasone.
Hypertension, trend BP
Obesity, morbid, BMI 40.9
Subjective/Interval History:
SOB better.
DATA:
CT Chest, 07/21/2024:
IMPRESSION:
1. No evidence of pulmonary embolism or thoracic aortic dissection.
2. Changes of severe emphysema.
3. Nodular opacity within the right middle lobe, measuring 2.5 cm in diameter, best seen on series 401 images 33-38. No significant change compared to 06/29/2024, or 11/27/2023. Opacity is less pronounced compared to a prior CT dated 02/25/2023. This
likely represents scarring in a region of prior pneumonia. Consider continued CT follow-up as clinically appropriate.
4. Pulmonary nodule within the medial aspect of the right lung apex, best seen on series 401 image 18, measuring 4 mm in diameter. Nodule measured approximately 8 mm in diameter on 06/29/2024, therefore is likely infectious or inflammatory.
5. Severe coronary arterial calcification. Please correlate with symptoms of and risk factors for coronary artery disease, with further workup as clinically appropriate.
TTE, 06/30/2024:
1. Mild concentric LVH with hyperdynamic wall motion with EF 65-70%
2. Mild OH
3. Compared with prior study February 2024, OH previously graded as trace
Cardiac catheterization, 05/23/2022:
1: Normal filling pressures without pulmonary hypertension
2: Widely patent ostial/proximal LAD stents without restenosis
3. No significant residual obstructive CAD
4. Continue medical therapy for CAD and advanced oxygen dependent COPD
CATH 07/22/24 (100.4 kg)
1. Right dominant circulation with a patent stent in the proximal LAD and a 20-30% lesion in the mid LAD without significant coronary artery disease elsewhere.
2. Severely elevated filling pressures (LVEDP = 26 mmHg, PCWP = 26 mmHg at 100.2 kg) consistent with decompensated heart failure with preserved ejection fraction.
3. Mild postcapillary pulmonary hypertension (mean PA = 33 mmHg, LVEDP = 26 mmHg, PVR = 1.90 Roberts units), WHO group 2.
Physical Exam
Vital Signs/Labs
Vital Signs
Temp Pulse Resp BP Pulse Ox
97.8 F 92 18 133/87 96
07/24/24 07:30 07/24/24 08:30 07/24/24 08:30 07/24/24 07:30 07/24/24 08:30
07/23/24 07/24/24 07/25/24
06:59 06:59 06:59
Actual Weight 97.749 kg 97.477 kg
07/23/24 06:22
07/24/24 09:32
Magnesium 2.2 mg/dl (1.6-2.3) 07/22/24 06:57
07/20/24
20:41
Vit-Q-Dldskjnujxs Pept 55.2
Physical Exam
Constitutional: No acute distress
EENT: Moist mucous membranes
Cardiovascular: Rhythm & rate is regular, Pedal edema is absent, JVD pressure is normal and Systolic murmur absent
Respiratory: Labored respirations
Neuro/Psych: AO x 3
Data Reviewed
-
Date of Service: July 24, 2024
EKG: Other (Tele: SR 70s)
Labs: Labs Reviewed by me
[2024-07-24 12:10] VITALS: BP 157/94
--- NOTE | 2024-07-24 12:17 | CM ---
met with patient at bedside.she is on 2 liters nc o2(on home o2),transition to po lasix.declines anticogulation for afib.may dc home with dhvn.
[2024-07-24] MEDS: VITAMIN D3 (cholecalciferol) PO (13:27)
[2024-07-24] MEDS: MYCOSTATIN ORAL SUSPENSION PO (13:27)
[2024-07-24 14:40] VITALS: BP 148/82
== END 2024-07-24 14:55 | disposition home health service (06) | DRG 286 ==
LOC: 3 WEST ACU 06:45
PROVIDERS: Internal Medicine; Internal Medicine Cardiovascular Disease; Nurse Practitioner; Nurse Practitioner Family; ADMITTING PHYSICIAN Internal Medicine; ATTENDING PHYSICIAN Internal Medicine; EMERGENCY PHYSICIAN Emergency Medicine; FAMILY PHYSICIAN Nurse Practitioner Adult Health; OTHER PHYSICIAN Internal Medicine; OTHER PHYSICIAN Internal Medicine Critical Care Medicine
PROC: B2111ZZ Fluoroscopy of Multiple Coronary Arteries using Low Osmolar Contrast (ICD-10-PCS; 2024-07-22)
PROC: 4A023N8 Measurement of Cardiac Sampling and Pressure, Bilateral, Percutaneous Approach (ICD-10-PCS; 2024-07-22)
DX: I11.0 Hypertensive heart disease with heart failure (principal); I50.33 Acute on chronic diastolic (congestive) heart failure; Z68.41 Body mass index [BMI] 40.0-44.9, adult; J96.11 Chronic respiratory failure with hypoxia; B37.0 Candidal stomatitis; I27.29 Other secondary pulmonary hypertension; J43.9 Emphysema, unspecified; E78.00 Pure hypercholesterolemia, unspecified; I25.10 Atherosclerotic heart disease of native coronary artery without angina pectoris; K21.9 Gastro-esophageal reflux disease without esophagitis; E66.01 Morbid (severe) obesity due to excess calories; F41.9 Anxiety disorder, unspecified; F32.A Depression, unspecified; G47.33 Obstructive sleep apnea (adult) (pediatric); B02.9 Zoster without complications; I48.0 Paroxysmal atrial fibrillation; Z99.81 Dependence on supplemental oxygen; Z87.891 Personal history of nicotine dependence; Z88.1 Allergy status to other antibiotic agents; Z88.5 Allergy status to narcotic agent; Z88.8 Allergy status to other drugs, medicaments and biological substances; Z79.82 Long term (current) use of aspirin; Z79.02 Long term (current) use of antithrombotics/antiplatelets; Z79.51 Long term (current) use of inhaled steroids; Z79.52 Long term (current) use of systemic steroids; Z11.52 Encounter for screening for COVID-19
CPT/HCPCS: 71045; 71275; 80048; 80053; 83735; 83880; 84484; 85025; 85027; 87502; 87811; 93005; 93460; 94640; 96374; 96375; 97116; 97163; 97165; 97530; 99285; C1894; Q9967

== ENCOUNTER → 2024-07-29 11:37 | Outpatient (REF) | payer BC, SELFPAY ==
[2024-07-29 13:26] LABS: Blood Urea Nitrogen 29 mg/dl (7-17); Calcium 9.4 mg/dl (8.4-10.2); Carbon Dioxide 33 mmol/L (22-30); Chloride 92 mmol/L (98-107); Glucose 117 mg/dl (70-99); Potassium 3.5 mmol/L (3.5-5.1); Sodium 138 mmol/L (135-145); eGFR 45.92
== END ==
LOC: REG 11:37
PROVIDERS: ATTENDING PHYSICIAN Internal Medicine; FAMILY PHYSICIAN Nurse Practitioner Adult Health
DX: I48.0 Paroxysmal atrial fibrillation (principal); R00.1 Bradycardia, unspecified
CPT/HCPCS: 36415; 80048

== ENCOUNTER → 2024-08-04 11:46 | Outpatient (REF) | payer BC, SELFPAY ==
[2024-08-04 12:31] LABS: % Eosinophils 1.8 % (0-6); % Immature Granulocytes 0.7 % (0-0.5); % Lymphocytes 21.4 % (20.5-51.1); % Monocytes 11.9 % (1.7-9.3); % Neutrophils 63.2 % (42.2-75.2); Absolute Basophils 0.1 10^3/uL (0-0.2); Absolute Eosinophils 0.1 10^3/uL (0-0.7); Absolute Immature Granulocytes 0.1 10^3/uL (0-0.05); Absolute Lymphocytes 1.4 10^3/uL (1.2-3.4); Absolute Monocytes 0.8 10^3/uL (0.1-0.6); Absolute Neutrophils 4.3 10^3/uL (1.4-6.5); Hemoglobin 13.9 g/dL (12.0-16.0); Mean Corp Hgb Conc. 33.9 g/dL (33.0-37.0); Mean Corpuscular Hgb 30.3 pg (27.0-31.0); Mean Corpuscular Volume 89.3 fL (81.0-99.0); Mean Platelet Volume 9.3 fL (7.4-10.4); Nucleated Red Blood Cells % 0 %; Platelet Count 278 10^3/uL (130-400); Red Blood Cell Count 4.59 10^6/uL (4.20-5.40); Red Cell Dist. Width 12.4 % (11.5-14.5); White Blood Cell Count 6.7 10^3/uL (4.8-10.8)
[2024-08-04 13:15] LABS: ALT (SGPT) 31 U/L (0-35); AST (SGOT) 30 U/L (14-36); Albumin 4.3 g/dl (3.5-5.0); Alkaline Phosphatase 82 U/L (38-126); Blood Urea Nitrogen 20 mg/dl (7-17); Calcium 9.7 mg/dl (8.4-10.2); Carbon Dioxide 32 mmol/L (22-30); Chloride 97 mmol/L (98-107); Glucose 104 mg/dl (70-99); Potassium 3.4 mmol/L (3.5-5.1); Sodium 140 mmol/L (135-145); Total Bilirubin 0.9 mg/dl (0.2-1.3); Total Protein 6.8 g/dl (6.3-8.2); eGFR 50.55
[2024-08-04 13:33] LABS: Glycohemoglobin (HgbA1c) 6.2 % (4.0-5.6)
== END ==
LOC: REG 11:46
PROVIDERS: ATTENDING PHYSICIAN Internal Medicine; FAMILY PHYSICIAN Nurse Practitioner Adult Health
DX: I25.10 Atherosclerotic heart disease of native coronary artery without angina pectoris (principal); J44.9 Chronic obstructive pulmonary disease, unspecified
CPT/HCPCS: 36415; 80048; 80053; 83036; 85025

== ENCOUNTER → 2024-08-12 10:38 | Outpatient (REF) | payer BC, SELFPAY ==
[2024-08-12 12:20] LABS: Blood Urea Nitrogen 21 mg/dl (7-17); Calcium 9.7 mg/dl (8.4-10.2); Carbon Dioxide 36 mmol/L (22-30); Chloride 97 mmol/L (98-107); Glucose 96 mg/dl (70-99); Potassium 3.4 mmol/L (3.5-5.1); Sodium 142 mmol/L (135-145); eGFR 50.55
== END ==
LOC: REG 10:38
PROVIDERS: ATTENDING PHYSICIAN Nurse Practitioner; FAMILY PHYSICIAN Nurse Practitioner Adult Health
DX: I50.32 Chronic diastolic (congestive) heart failure (principal); I48.0 Paroxysmal atrial fibrillation; I25.10 Atherosclerotic heart disease of native coronary artery without angina pectoris
CPT/HCPCS: 36415; 80048

== ENCOUNTER → 2024-08-20 11:30 | Outpatient (REF) | payer BC, SELFPAY ==
[2024-08-20 14:23] LABS: Blood Urea Nitrogen 23 mg/dl (7-17); Calcium 9.9 mg/dl (8.4-10.2); Carbon Dioxide 33 mmol/L (22-30); Chloride 98 mmol/L (98-107); Glucose 104 mg/dl (70-99); Potassium 3.6 mmol/L (3.5-5.1); Sodium 143 mmol/L (135-145); eGFR 50.55
== END ==
LOC: REG 11:30
PROVIDERS: ATTENDING PHYSICIAN Nurse Practitioner Adult Health; FAMILY PHYSICIAN Internal Medicine
DX: E87.6 Hypokalemia (principal)
CPT/HCPCS: 36415; 80048

== ENCOUNTER → 2024-08-27 12:01 | Outpatient (REF) | payer BC, SELFPAY ==
[2024-08-27 14:01] LABS: Blood Urea Nitrogen 21 mg/dl (7-17); Calcium 9.8 mg/dl (8.4-10.2); Carbon Dioxide 32 mmol/L (22-30); Chloride 101 mmol/L (98-107); Glucose 96 mg/dl (70-99); Sodium 144 mmol/L (135-145); eGFR 56.11
== END ==
LOC: REG 12:01
PROVIDERS: ATTENDING PHYSICIAN Nurse Practitioner; FAMILY PHYSICIAN Nurse Practitioner Adult Health
DX: I50.32 Chronic diastolic (congestive) heart failure (principal); I48.0 Paroxysmal atrial fibrillation; I25.10 Atherosclerotic heart disease of native coronary artery without angina pectoris; E87.6 Hypokalemia
CPT/HCPCS: 36415; 80048

== ENCOUNTER 2024-09-02 13:33 | Emergency (ER) | payer BC, SELFPAY ==
[2024-09-02 13:36] VITALS: BP 136/97
--- NOTE | 2024-09-02 15:19 | ED.GENMED ---
History of Present Illness
General
Chief Complaint: Dizziness
Time Seen by Provider: 09/02/24 14:12
History of Present Illness
History of Present Illness:
64-year-old female with history of newly diagnosed CHF on Lasix, emphysema on chronic oxygen presenting to the emergency department for feeling like she is going to pass out. She reports since today she has been having what she describes as
dizziness,, feels like she is going to pass out. Reports that she has had this sensation several times today. She called her doctor who advised that she come to the hospital. She does note in the past several days she has had increased dyspnea,
however is on her baseline 2 L of O2. She has been compliant with her Lasix and denies any swelling in her lower extremities. She denies any cough or fever. She denies any associated chest pain. She denies abdominal pain or GI complaints. She
denies weakness or numbness to her extremities. She denies additional acute medical complaints.
Past History
Past History
ED Past Medical History: Arrthythmia (Atrial fibrillation), Asthma, CAD, COPD, GERD and Hypercholesterolemia
ED Past Surgical History: Cardiac and Other (Lung biopsy)
Patient has exhibited threatening behavior?: No
PSI?: No
Social History
Tobacco: Former smoker
Alcohol: Occasional
Drug: None
Personal:
Living: with family
Employment: Not employed
Family History
Family History: CAD
Phy Exam
Physical Exam
Physical Exam:
General: Well-appearing, no clinical signs of dehydration, nontoxic and in no acute distress
HEENT: protecting airway
Neck: appears supple
CV: Normal heart rate, regular rhythm
Resp: No accessory muscle use, no increased work of breathing, lungs clear to auscultation bilaterally
Abd: Soft and non-distended, no tenderness to palpation
Extremities: No deformities, no swelling, no erythema
Neuro: alert, no focal neurologic deficit
: deferred
Rectal: deferred
Psych: Normal affect
Skin: Intact
Course
Orders/Labs/Results
Orders:
Orders
09/02/24 13:39
ECG [Electrocardiogram (*1)] Urgent
Reason for Study: Vertigo / Dizzy
EKG- Treatment ONCE
09/02/24 14:33
CR Chest - 2 Views Urgent
Comment:
Reason For Exam: dizziness
09/02/24 15:22
Complete Blood Count/With Diff Urgent
Comprehensive Metabolic Panel Urgent
Magnesium Urgent
NT-proBNP Urgent
Troponin I Urgent
Abnormal Lab Results
09/02/24
15:22
Lymphocytes % 16.3 L %
(20.5-51.1)
Potassium 3.4 L mmol/L
(3.5-5.1)
Chloride 95 L mmol/L
(98-107)
Carbon Dioxide 34 H mmol/L
(22-30)
BUN 23 H mg/dl
(7-17)
Glucose 122 H mg/dl
(70-99)
09/02/24 15:22
09/02/24 15:22
Vital Signs
Initial and Last Documented VS:
Initial Vital Signs
Temp Pulse Resp BP Pulse Ox
98.3 F 72 20 136/97 95
09/02/24 13:36 09/02/24 13:36 09/02/24 13:36 09/02/24 13:36 09/02/24 13:36
Last Documented Vital Signs
Temp Pulse Resp BP Pulse Ox
98.3 F 72 18 129/86 98
09/02/24 13:36 09/02/24 15:30 09/02/24 15:30 09/02/24 15:34 09/02/24 15:34
MDM/Problems Addressed
MDM/Problems Addressed:
64-year-old female with history of CHF and COPD on chronic O2 presenting for dizziness. Vital signs on arrival are normal.
On exam, patient is well-appearing, no acute distress or discomfort. Unremarkable cardiac and pulmonary exam. Patient in no respiratory distress. No signs of volume overload, no rales/crackles, no signs of lower extremity edema. Unremarkable
neurologic exam, no focal neurologic deficits, without concern for central neurologic process. Patient afebrile, nontoxic with lower suspicion for infectious pathology. Patient does not describe the dizziness as room spinning, with lower suspicion
for vertigo. Patient reports she has had increase of her diuretic secondary to her newly diagnosed CHF. For this reason possible overdiuresis, will check electrolyte panel. Will continue to close monitor.
16:20 - Patient's labs are unremarkable, mild hypokalemia. Chest x-ray without acute cardiopulmonary disease. Troponin undetectable. EKG unchanged from prior. BNP within normal limits. At this time low suspicion for acute process. Advised
continued appropriate nutrition, patient notes that she did not eat very much today, as well as hydration. Otherwise feel stable for discharge. Return precautions discussed and patient verbalized understanding
*EKG
Interpreted by ED Provider?: Yes
EKG Intrepretation Date: 09/02/24
EKG Intrepretation Time: 16:11
Interpretation: normal
Comparison EKG: no changes (07/20/24)
Heart Rate: 74
Rate: normal
Rhythm: sinus
[place]: normal axis
Interval: normal interval
QRS Pattern: normal QRS
Ischemia: non-specific ST changes
*Critical Care Note
Total Time (30-74mins, 75-104mins- exclusive of procedures): Not Applicable
ED Attending Note
-
Portions of this chart may have been created with voice recognition software.� Occasional wrong word or��sound alike� substitutions may have occurred due to the inherent limitations of voice recognition software.
Discharge Plan
Departure
Prescriptions:
No Action
levalbuterol HCl 0.63 MG/3 ML solution for nebulization
0.63 mg inhalation R TIDPRN PRN (Reason: sob/wheezing)
pantoprazole 40 MG tablet,delayed release (DR/EC)
40 mg PO DAILY
levalbuterol tartrate 45 mcg/actuation Hfa Aerosol Inhaler
2 inh INHALATION R Q6HPRN PRN (Reason: sob,wheezing)
fluticasone propion-salmeterol [Advair HFA] 115-21 mcg/actuation HFA aerosol inhaler
2 puff INHALATION R BID
cholecalciferol (vitamin D3) 50 mcg (2,000 unit) Tablet
50 mcg PO NOON
Spiriva Respimat 2.5 mcg/actuation mist
2 puff INHALATION R DAILY
clopidogrel 75 MG tablet
75 mg PO DAILY
aspirin 81 MG tablet,delayed release (DR/EC)
81 mg PO DAILY
famotidine 20 MG tablet
20 mg PO DAILYPRN PRN (Reason: heartburn)
docusate sodium 100 MG capsule
100 mg PO QPM
diltiazem HCl 120 MG capsule,extended release 24hr
120 mg PO DAILY
acetaminophen [Tylenol 8 Hour] 650 mg Tablet Extended Release
650 mg PO [id number] PRN (Reason: mild pain)
guaifenesin 600 mg tablet extended release 12hr
1,200 mg PO [id number] PRN (Reason: lung/breathing issues)
furosemide 40 mg Tablet
40 mg PO BID AT 0800,1600 Qty: 60 0RF
tramadol 50 mg tablet
25 mg PO DAILYPRN PRN (Reason: severe pain) Qty: 10 0RF
Referrals:
Kacey Villalba CRNP [Family Provider] -
Interventions
Interventions:
*Risk Screen - Suicide Last Done: 09/02/24 15:28
*General Assessment Last Done: 09/02/24 13:36
*Neglect/Abuse Screening Last Done: 09/02/24 15:28
*ED COVID-19 Vaccine History Last Done: 09/02/24 15:25
ED- Cardiac Assessment Last Done: 09/02/24 15:28
ED- Neurological Assessment Last Done: 09/02/24 15:28
ED Swallowing Screen Last Done: 09/02/24 15:33
Discharge Date and Time
Print Language: PALAUAN
[2024-09-02 15:25] VITALS: BMI 41.1
[2024-09-02 15:29] VITALS: BP 129/86
[2024-09-02 15:33] LABS: % Basophils 1.2 % (0-2); % Eosinophils 1.2 % (0-6); % Immature Granulocytes 0.4 % (0-0.5); % Lymphocytes 16.3 % (20.5-51.1); % Monocytes 7.6 % (1.7-9.3); % Neutrophils 73.3 % (42.2-75.2); Absolute Basophils 0.1 10^3/uL (0-0.2); Absolute Eosinophils 0.1 10^3/uL (0-0.7); Absolute Lymphocytes 1.3 10^3/uL (1.2-3.4); Absolute Monocytes 0.6 10^3/uL (0.1-0.6); Absolute Neutrophils 5.7 10^3/uL (1.4-6.5); Hematocrit 43.3 % (37.0-47.0); Mean Corp Hgb Conc. 34.6 g/dL (33.0-37.0); Mean Corpuscular Hgb 30.9 pg (27.0-31.0); Mean Corpuscular Volume 89.3 fL (81.0-99.0); Mean Platelet Volume 8.7 fL (7.4-10.4); Nucleated Red Blood Cells % 0 %; Platelet Count 312 10^3/uL (130-400); Red Blood Cell Count 4.85 10^6/uL (4.20-5.40); Red Cell Dist. Width 12.4 % (11.5-14.5); White Blood Cell Count 7.7 10^3/uL (4.8-10.8)
[2024-09-02 15:34] VITALS: BP 129/86
[2024-09-02 15:43] LABS: ALT (SGPT) 27 U/L (0-35); AST (SGOT) 31 U/L (14-36); Albumin 4.5 g/dl (3.5-5.0); Alkaline Phosphatase 89 U/L (38-126); Blood Urea Nitrogen 23 mg/dl (7-17); Calcium 9.3 mg/dl (8.4-10.2); Carbon Dioxide 34 mmol/L (22-30); Chloride 95 mmol/L (98-107); Estimated Creatinine Clearance 61 ml/min; Glucose 122 mg/dl (70-99); Magnesium 2.1 mg/dl (1.6-2.3); Potassium 3.4 mmol/L (3.5-5.1); Sodium 141 mmol/L (135-145); Total Bilirubin 1.1 mg/dl (0.2-1.3); Total Protein 7.1 g/dl (6.3-8.2); eGFR > 60.00
[2024-09-02 15:52] LABS: NT-proBNP 26.8 pg/ml
[2024-09-02 16:14] LABS: Troponin I < 0.012 ng/ml
[2024-09-02 16:48] VITALS: BP 123/96
[2024-09-02] MEDS: KCL 40 MEQ PO (16:56)
== END 2024-09-02 17:30 | disposition home or self-care (01) ==
LOC: EMR 13:33
PROVIDERS: EMERGENCY PHYSICIAN Student in an Organized Health Care Education/Training Program; FAMILY PHYSICIAN Nurse Practitioner Adult Health
DX: R42 Dizziness and giddiness (principal); E87.6 Hypokalemia; I50.9 Heart failure, unspecified; J43.9 Emphysema, unspecified; E78.00 Pure hypercholesterolemia, unspecified; I48.91 Unspecified atrial fibrillation; I25.10 Atherosclerotic heart disease of native coronary artery without angina pectoris; J44.89 Other specified chronic obstructive pulmonary disease; K21.9 Gastro-esophageal reflux disease without esophagitis; Z87.891 Personal history of nicotine dependence; Z99.81 Dependence on supplemental oxygen; Z79.899 Other long term (current) drug therapy
CPT/HCPCS: 99285; 71046; 80053; 83735; 83880; 84484; 85025; 93005

== ENCOUNTER → 2024-09-23 13:11 | Outpatient (REF) | payer BC, SELFPAY ==
[2024-09-23 15:59] LABS: ALT (SGPT) 21 U/L (0-35); AST (SGOT) 28 U/L (14-36); Albumin 4.3 g/dl (3.5-5.0); Alkaline Phosphatase 96 U/L (38-126); Blood Urea Nitrogen 19 mg/dl (7-17); Calcium 9.3 mg/dl (8.4-10.2); Carbon Dioxide 29 mmol/L (22-30); Chloride 98 mmol/L (98-107); Glucose 120 mg/dl (70-99); Potassium 3.3 mmol/L (3.5-5.1); Sodium 140 mmol/L (135-145); Total Bilirubin 1.3 mg/dl (0.2-1.3); Total Protein 6.6 g/dl (6.3-8.2); eGFR 56.11
[2024-09-23 16:28] LABS: TSH Reflex To Free T4 1.32 uIU/ml (0.47-4.68)
== END ==
LOC: REG 13:11
PROVIDERS: ATTENDING PHYSICIAN Nurse Practitioner Adult Health
DX: E78.00 Pure hypercholesterolemia, unspecified (principal); Z13.29 Encounter for screening for other suspected endocrine disorder
CPT/HCPCS: 36415; 80053; 84443

== ENCOUNTER → 2024-10-06 13:04 | Outpatient (REF) | payer BC, SELFPAY | LOC: DHSLP 13:04 | PROVIDERS: ATTENDING PHYSICIAN Internal Medicine Critical Care Medicine; FAMILY PHYSICIAN Nurse Practitioner Adult Health | DX: G47.00 Insomnia, unspecified (principal); R06.83 Snoring; R09.02 Hypoxemia | CPT/HCPCS: 95810 ==

== ENCOUNTER → 2024-10-13 14:10 | Outpatient (REF) | payer BC, SELFPAY ==
[2024-10-13 16:16] LABS: ALT (SGPT) 20 U/L (0-35); AST (SGOT) 26 U/L (14-36); Albumin 4.3 g/dl (3.5-5.0); Alkaline Phosphatase 95 U/L (38-126); Blood Urea Nitrogen 23 mg/dl (7-17); Calcium 9.4 mg/dl (8.4-10.2); Carbon Dioxide 31 mmol/L (22-30); Chloride 99 mmol/L (98-107); Glucose 128 mg/dl (70-99); Magnesium 2.2 mg/dl (1.6-2.3); Potassium 3.6 mmol/L (3.5-5.1); Sodium 140 mmol/L (135-145); Total Bilirubin 1.2 mg/dl (0.2-1.3); Total Protein 6.7 g/dl (6.3-8.2); eGFR 45.92
== END ==
LOC: REG 14:10
PROVIDERS: ATTENDING PHYSICIAN Nurse Practitioner; FAMILY PHYSICIAN Nurse Practitioner Adult Health
DX: I50.32 Chronic diastolic (congestive) heart failure (principal)
CPT/HCPCS: 36415; 80053; 83735

== ENCOUNTER 2024-10-22 20:44 | Inpatient (IN) | payer BC, SELFPAY ==
[2024-10-22 14:55] VITALS: BP 153/91
--- NOTE | 2024-10-22 14:57 | ED.GENMED ---
ED Provider Triage
<Delfina Chun PA-C - Last Filed: 10/22/24 15:01>
-
Patient seen by provider in Triage?: Seen in Triage
Attestation: A medical screening examination has been initiated by a qualified medical provider. Based on the assessment performed at this time, it has been determined that an emergent medical condition may exist and the patient has been informed
that further medical evaluation and possible additional diagnostic testing may be needed.
HPI: 64yoF here with lightheadedness, SOB, feeling clammy x 2 days. On 2L NC with ambulation. Hx of COPD, CHF, and CAD. Sent here by PCP.
GENERAL: Alert , in no apparent distress
EYE: No visual abnormalities.
NECK: Trachea midline
ENT: No visible abnormalities.
LUNGS: No acute respiratory distress
NEUROLOGICAL: Alert and oriented
SKIN: Skin intact. No visible changes.
MUSCULOSKELETAL: Moving extremities normally
PSYCH: Normal and appropriate interaction.
This is a medical evaluation conducted in person to initiate diagnostic evaluation and provide initial therapeutics. Please see further documentation by the treating clinician.
Cardiac labs, EKG, and CXR ordered.
History of Present Illness
<Delfina Chun PA-C - Last Filed: 10/22/24 15:01>
General
Chief Complaint: Breathing Problem
Time Seen by Provider: 10/22/24 17:06
<Steve Argueta PA-C - Last Filed: 10/22/24 19:07>
General
Source: patient
Exam Limitations: none
History of Present Illness
History of Present Illness:
64-year-old female with history of COPD, PAF, CHF, presents with increased shortness of breath worsening since yesterday. She is typically on 2 L of oxygen daily. She saw her family doctor today and was sent here for evaluation. She noted an
episode of diaphoresis yesterday with extreme difficulty breathing. She dropped into the 80s at the office when ambulating. She denies chest pain. Report from family doctor states that she was having trouble completing a sentence. She denies any
leg swelling. She is on aspirin and Plavix. She also feels lightheaded.
Past History
<Delfina Chun PA-C - Last Filed: 10/22/24 15:01>
Past History
ED Past Medical History: Arrthythmia (Atrial fibrillation), Asthma, CAD, COPD, GERD and Hypercholesterolemia
ED Past Surgical History: Cardiac and Other (Lung biopsy)
Patient has exhibited threatening behavior?: No
PSI?: No
Social History
Tobacco: Former smoker
Alcohol: Occasional
Drug: None
Personal:
Living: with family
Employment: Not employed
Family History
Family History: CAD
Phy Exam
<Steve Argueta PA-C - Last Filed: 10/22/24 19:07>
Physical Exam
Physical Exam:
General: Well-developed female with slight increased work of breathing on her baseline 2 L of oxygen
HEENT: Normocephalic atraumatic
Heart: Regular rate and rhythm
Lungs: diminished bilaterally
Abdomen soft nontender extremities: No cyanosis or edema
Scores
<Steve Argueta PA-C - Last Filed: 10/22/24 19:07>
Heart Failure Risk
Heart Failure Risk Score: Not Applicable
Course
<Delfina Chun PA-C - Last Filed: 10/22/24 15:01>
Orders/Labs/Results
Orders:
Orders
10/22/24 15:00
Electrocardiogram (*1) Urgent
Reason for Study: Shortness of Breath
EKG- Treatment ONCE
CR Chest - 2 Views Urgent
Comment:
Reason For Exam: SOB
10/22/24 15:14
Complete Blood Count/With Diff Urgent
Comprehensive Metabolic Panel Urgent
NT-proBNP Urgent
Comment: ADD ON
Troponin I Urgent
10/22/24 17:08
Add On- LAB Urgent
Tests Added?: bnp
10/22/24 17:48
COVID-19 Antigen Urgent
Source: Nasal Swab
Influenza A+B Rapid Molecular Urgent
ARCADIO Source: Nasal Swab
Specimen Description:
10/22/24 18:12
Dexamethasone Sod Phosphate [Decadron] 10 mg IV NOW STA
Ipratropium/Albuterol Sulfate [Duoneb] 3 ml INH R NOW STA
10/22/24 18:39
Levalbuterol [Xopenex 1.25 mg Inhalant Solution] 1.25 mg INH R NOW STA
Abnormal Lab Results
10/22/24
15:14
Absolute Monos (auto) 0.7 H 10^3/uL
(0.1-0.6)
Monocytes % 10.1 H %
(1.7-9.3)
Potassium 3.2 L mmol/L
(3.5-5.1)
Chloride 96 L mmol/L
(98-107)
Carbon Dioxide 32 H mmol/L
(22-30)
BUN 20 H mg/dl
(7-17)
Creatinine 1.1 H mg/dL
(0.6-1.0)
Glucose 111 H mg/dl
(70-99)
10/22/24 15:14
10/22/24 15:14
Vital Signs
Initial and Last Documented VS:
Initial Vital Signs
Temp Pulse Resp BP Pulse Ox
98.4 F 68 20 153/91 97
10/22/24 14:55 10/22/24 14:55 10/22/24 14:55 10/22/24 14:55 10/22/24 14:55
Last Documented Vital Signs
Temp Pulse Resp BP Pulse Ox
98.4 F 72 20 153/91 97
10/22/24 14:55 10/22/24 18:45 10/22/24 18:45 10/22/24 14:55 10/22/24 18:45
<Steve Argueta PA-C - Last Filed: 10/22/24 19:07>
Orders/Labs/Results
Orders:
Orders
10/22/24 15:00
Electrocardiogram (*1) Urgent
Reason for Study: Shortness of Breath
EKG- Treatment ONCE
CR Chest - 2 Views Urgent
Comment:
Reason For Exam: SOB
10/22/24 15:14
Complete Blood Count/With Diff Urgent
Comprehensive Metabolic Panel Urgent
NT-proBNP Urgent
Comment: ADD ON
Troponin I Urgent
10/22/24 17:08
Add On- LAB Urgent
Tests Added?: bnp
10/22/24 17:48
COVID-19 Antigen Urgent
Source: Nasal Swab
Influenza A+B Rapid Molecular Urgent
ARCADIO Source: Nasal Swab
Specimen Description:
10/22/24 18:12
Dexamethasone Sod Phosphate [Decadron] 10 mg IV NOW STA
Ipratropium/Albuterol Sulfate [Duoneb] 3 ml INH R NOW STA
10/22/24 18:39
Levalbuterol [Xopenex 1.25 mg Inhalant Solution] 1.25 mg INH R NOW STA
Abnormal Lab Results
10/22/24
15:14
Absolute Monos (auto) 0.7 H 10^3/uL
(0.1-0.6)
Monocytes % 10.1 H %
(1.7-9.3)
Potassium 3.2 L mmol/L
(3.5-5.1)
Chloride 96 L mmol/L
(98-107)
Carbon Dioxide 32 H mmol/L
(22-30)
BUN 20 H mg/dl
(7-17)
Creatinine 1.1 H mg/dL
(0.6-1.0)
Glucose 111 H mg/dl
(70-99)
10/22/24 15:14
10/22/24 15:14
Vital Signs
Initial and Last Documented VS:
Initial Vital Signs
Temp Pulse Resp BP Pulse Ox
98.4 F 68 20 153/91 97
10/22/24 14:55 10/22/24 14:55 10/22/24 14:55 10/22/24 14:55 10/22/24 14:55
Last Documented Vital Signs
Temp Pulse Resp BP Pulse Ox
98.4 F 72 20 153/91 97
10/22/24 14:55 10/22/24 18:45 10/22/24 18:45 10/22/24 14:55 10/22/24 18:45
<Steve Argueta PA-C - Last Filed: 10/22/24 19:07>
MDM/Problems Addressed
Differential Diagnosis Includes:
Shortness of breath. Differential could in bili CHF flare versus COPD exacerbation versus pneumonia versus COVID or flu. Will check electrolytes and blood count. BMP pending. Chest x-ray pending. Will ambulate her in the room to see how she
does with her breathing. She is not hypoxic at rest
<Steve Argueta PA-C - Last Filed: 10/22/24 19:07>
*Critical Care Note
Total Time (30-74mins, 75-104mins- exclusive of procedures): Not Applicable
<Steve Argueta PA-C - Last Filed: 10/22/24 19:07>
Update Note
Update Note:
Patient extremely dyspneic on minimal ambulation here. Chest x-ray clear BNP negative. Ordered Decadron and nebulizer treatment however she declined Decadron will opt to admit patient to hospital secondary to shortness of breath
ED Attending Note
<Delfina Chun PA-C - Last Filed: 10/22/24 15:01>
-
Portions of this chart may have been created with voice recognition software.� Occasional wrong word or��sound alike� substitutions may have occurred due to the inherent limitations of voice recognition software.
Discharge Plan
Departure
Patient Disposition: Admit
Date of Disposition: 10/22/24
Time of Disposition: 19:05
Admit to: Telemetry
Presentation/result/management discussed w/ accepting MD/DO: Hospitalist
Discharge Problem:
COPD (chronic obstructive pulmonary disease)
Prescriptions:
No Action
levalbuterol HCl 0.63 MG/3 ML solution for nebulization
0.63 mg inhalation R TIDPRN PRN (Reason: sob/wheezing)
pantoprazole 40 MG tablet,delayed release (DR/EC)
40 mg PO DAILY
levalbuterol tartrate 45 mcg/actuation Hfa Aerosol Inhaler
2 inh INHALATION R Q6HPRN PRN (Reason: sob,wheezing)
fluticasone propion-salmeterol [Advair HFA] 115-21 mcg/actuation HFA aerosol inhaler
2 puff INHALATION R BID
cholecalciferol (vitamin D3) 50 mcg (2,000 unit) Tablet
50 mcg PO NOON
Spiriva Respimat 2.5 mcg/actuation mist
2 puff INHALATION R DAILY
clopidogrel 75 MG tablet
75 mg PO DAILY
aspirin 81 MG tablet,delayed release (DR/EC)
81 mg PO DAILY
famotidine 20 MG tablet
20 mg PO DAILYPRN PRN (Reason: heartburn)
docusate sodium 100 MG capsule
100 mg PO QPM
diltiazem HCl 120 MG capsule,extended release 24hr
120 mg PO DAILY
acetaminophen [Tylenol 8 Hour] 650 mg Tablet Extended Release
650 mg PO [id number] PRN (Reason: mild pain)
guaifenesin 600 mg tablet extended release 12hr
1,200 mg PO [id number] PRN (Reason: lung/breathing issues)
furosemide 40 mg Tablet
40 mg PO BID AT 0800,1600 Qty: 60 0RF
tramadol 50 mg tablet
25 mg PO DAILYPRN PRN (Reason: severe pain) Qty: 10 0RF
Referrals:
Kacey Villalba CRNP [Family Provider] -
Interventions
Interventions:
*Risk Screen - Suicide Last Done: 10/22/24 14:55
*General Assessment Last Done: 10/22/24 14:55
*Neglect/Abuse Screening Last Done: 10/22/24 14:55
*ED COVID-19 Vaccine History Last Done: 10/22/24 14:55
ED- Cardiac Assessment Last Done: 10/22/24 16:39
ED- Pulmonary Assessment Last Done: 10/22/24 16:39
Discharge Date and Time
Print Language: KENYAN
[2024-10-22 15:39] LABS: % Basophils 1.4 % (0-2); % Eosinophils 1.5 % (0-6); % Immature Granulocytes 0.4 % (0-0.5); % Lymphocytes 21.3 % (20.5-51.1); % Monocytes 10.1 % (1.7-9.3); % Neutrophils 65.3 % (42.2-75.2); Absolute Basophils 0.1 10^3/uL (0-0.2); Absolute Eosinophils 0.1 10^3/uL (0-0.7); Absolute Lymphocytes 1.5 10^3/uL (1.2-3.4); Absolute Monocytes 0.7 10^3/uL (0.1-0.6); Absolute Neutrophils 4.7 10^3/uL (1.4-6.5); Hematocrit 42.3 % (37.0-47.0); Hemoglobin 14.3 g/dL (12.0-16.0); Mean Corp Hgb Conc. 33.8 g/dL (33.0-37.0); Mean Corpuscular Hgb 30.6 pg (27.0-31.0); Mean Corpuscular Volume 90.6 fL (81.0-99.0); Mean Platelet Volume 8.8 fL (7.4-10.4); Nucleated Red Blood Cells % 0 %; Platelet Count 299 10^3/uL (130-400); Red Blood Cell Count 4.67 10^6/uL (4.20-5.40); Red Cell Dist. Width 11.9 % (11.5-14.5); White Blood Cell Count 7.2 10^3/uL (4.8-10.8)
[2024-10-22 15:42] LABS: ALT (SGPT) 19 U/L (0-35); AST (SGOT) 25 U/L (14-36); Albumin 4.4 g/dl (3.5-5.0); Alkaline Phosphatase 90 U/L (38-126); Blood Urea Nitrogen 20 mg/dl (7-17); Calcium 9.7 mg/dl (8.4-10.2); Carbon Dioxide 32 mmol/L (22-30); Chloride 96 mmol/L (98-107); Glucose 111 mg/dl (70-99); Potassium 3.2 mmol/L (3.5-5.1); Sodium 138 mmol/L (135-145); Total Bilirubin 1.1 mg/dl (0.2-1.3); Total Protein 6.9 g/dl (6.3-8.2); eGFR 56.11
[2024-10-22 15:54] LABS: Troponin I < 0.012 ng/ml
[2024-10-22 18:09] LABS: NT-proBNP 37.9 pg/ml
[2024-10-22 18:26] LABS: COVID-19 Antigen Negative (Negative)
[2024-10-22] MEDS: XOPENEX 1.25 MG INHALANT SOLUTION INH (18:40)
[2024-10-22 19:19] VITALS: BMI 39.7
--- NOTE | 2024-10-22 19:25 | HPS.HSE ---
Family Physician
-
Family Physician: Kacey Villalba
Chief Complaint
-
Short of breath
History of Present Illness
64-year-old female with history of COPD, PAF, CHF, presents with increased shortness of breath worsening since Saturday. she is typically on 2 L of oxygen daily. Patient was extremely short of breath with any small activity. She noted some relief
with rest, but it took while get some relief. As stated she was very clammy and sweating. 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 She was evaluated by PCP today, who thought she will be
benefit from ER evaluation. She noted some cough. Patient stated lightheaded, dizzy and felt like passing out when she is coughing. Denied headache patient denied fever, chills, chest pain. Patient denied abdominal pain, nausea, vomiting,
diarrhea. Patient denied dysuria materia. She denied any lower extremities edema. Denied any weight gain.
Patient received nebs. Admitting for further management. Patient denied steroids
Medical History
Past Medical History
Past Medical History: Reports Other
Additional Past Medical History:
Paroxysmal SVT
Hyperlipidemia
Herpes simplex
Centrilobular emphysema
Coronary artery disease
Pulmonary emphysema
Anxiety CHF
Pulmonary hypertension
Obstructive sleep apnea
Paroxysmal A-fib
GERD
Past Surgical History: Reports Other
Additional Past Surgical History:
Loop recorder implant
Left breast lump removed cardiac stent
Social History
Tobacco: Former Smoker
Alcohol: None
Drug: None
Family History
Family History: Not pertinent
Allergies / Home Medications
Allergies reflects when Allergies were last updated in [email or web address].
Home Medications with original date entered in [email or web address]
Allergy/Medication List:
Allergies
Allergy/AdvReac Type Severity Reaction Status Date / Time
azithromycin Allergy Unknown Verified 10/22/24 15:01
dipyridamole Allergy didn't Verified 10/22/24 15:01
[From Persantine] tolerate.
dobutamine Allergy 'feels Verified 10/22/24 15:01
terrible'
isosorbide [From Imdur] Allergy DIZZY Verified 10/22/24 15:01
levofloxacin [From Levaquin] Allergy LEGS WEAK Verified 10/22/24 15:01
morphine Allergy Nausea Verified 10/22/24 15:01
MUSCLE RELAXERS Allergy Nausea / Uncoded 10/22/24 15:01
Vomiting
Home Medications
levalbuterol HCl 0.63 mg/3 mL solution for nebulization 0.63 mg inhalation R TIDPRN PRN sob/wheezing 09/08/21
pantoprazole 40 mg tablet,delayed release 40 mg PO DAILY Gastrointestinal issue 02/28/22
aspirin 81 mg tablet,delayed release 81 mg PO DAILY Blood clot prevention/tx 01/29/23
cholecalciferol (vitamin D3) 50 mcg (2,000 unit) tablet 50 mcg PO NOON Supplement 01/29/23
clopidogrel 75 mg tablet 75 mg PO DAILY Blood clot prevention/tx 01/29/23
diltiazem HCl 120 mg capsule,extended release 24 hr 120 mg PO DAILY Blood pressure 01/29/23
docusate sodium 100 mg capsule 100 mg PO QPM Constipation 01/29/23
famotidine 20 mg tablet 20 mg PO DAILYPRN PRN heartburn 01/29/23
fluticasone propionate 115 mcg-salmeterol 21 mcg/actuation HFA inhaler (Advair HFA) 2 puff inhalation R BID Lung/breathing issues 01/29/23
levalbuterol tartrate 45 mcg/actuation aerosol inhaler 2 inh inhalation R Q6HPRN PRN sob,wheezing 01/29/23
acetaminophen 650 mg tablet,extended release (Tylenol 8 Hour) 650 mg PO [id number] PRN mild pain 06/29/24
guaifenesin 600 mg tablet, extended release 12 hr 1,200 mg PO [id number] PRN lung/breathing issues 06/29/24
furosemide 40 mg tablet 40 mg PO MUST ENTER TIMES 10/22/24
furosemide 40 mg tablet 40 mg PO [id number] 10/22/24
Review of Systems
-
Constitutional: Reports No Symptoms
EENT: Reports No Symptoms
Respiratory: Reports Cough and Trouble Breathing
Cardiac: Reports No Symptoms
Abdomen/GI: Reports No Symptoms
: Reports No Symptoms
Musculoskeletal: Reports No Symptoms
Skin: Reports No Symptoms
Neurological: Reports Dizzy
Endocrine: Reports No Symptoms
Hematologic/Lymphatic: Reports No Symptoms
Psych: Reports No Symptoms
Physical Exam
Vital Signs
Vital Signs
Temp Pulse Resp BP Pulse Ox
98.4 F 71 20 153/91 97
10/22/24 14:55 10/22/24 19:00 10/22/24 19:00 10/22/24 14:55 10/22/24 18:45
Physical Exam
General: Well Developed, Well Nourished and No Apparent Distress
HEENT: NormoCephalic, Moist mucous membranes and Atraumatic
Respiratory: Clear
Cardiac: S1/S2 and Regular Rhythm; No Murmur or Rub
GI: Soft, Non Tender, Non Distended and Normal Bowel Sounds; No Organomegaly
Rectal: Deferred by Provider
Musculoskeletal: No Clubbing, No Cyanosis and No Edema
Skin: No Rash
Neuro: AO x 3 and Nonfocal/grossly intact
Psych: Calm
Laboratory Results
-
10/22/24 15:14
10/22/24 15:14
Laboratory Results
Total Bilirubin 1.1 mg/dl (0.2-1.3) 10/22/24 15:14
AST 25 U/L (14-36) 10/22/24 15:14
ALT 19 U/L (0-35) 10/22/24 15:14
Alkaline Phosphatase 90 U/L (38-126) 10/22/24 15:14
Troponin I < 0.012 ng/ml 10/22/24 15:14
Data Reviewed
-
Diagnostic Radiology: Report Reviewed by me
Lab Data: Labs Reviewed by me
Impression/Plan
-
# Dyspnea on exertion unclear cause likely palpitation
# Chronic respiratory failure, patient uses 2 L at home
-Patient oxygenating greater than 92 on 2 L
-COVID-negative, negative for influenza AMB
-Chest x-ray with no acute cardiopulmonary process.
-nebs as needed for short of breath and wheezing
-Continue supplemental oxygen to keep sat greater than 92/9
-Wean as tolerated
-obtain D dimer
-consult cardiology
# Dizziness/lightheaded with cough likely vasovagal
-Obtain orthostatics
-PT consult
#hxt of COPD
-meds from home continued
# Hypokalemia/CKD stage IIIb
-K3.2
-replated with kcl
-Creatinine stable at 1.1
paroxysmal AFIB - Rate controlled and sinus rhythm
- continue diltiazem
- asp/Plavix, patient refused AC
# History of CHF
-Patient not in acute exacerbation
-Diuretics continued
-Strict GENESIS, daily weight
# GERD
-PPI continued
-DVT prophylaxis
#DVT PPX
-Heparin subcu
Code Status - Full
--- NOTE | 2024-10-22 20:03 | W.PN.UPDATE ---
Update Note
Progress Note Update
Patient seen and condition with OMA. I agree with the findings on history and physical. I concur with the assessment and plan.
This is a 64-year-old with past medical history significant for COPD, quit smoking 3 years ago, CHF with preserved EF, hypertension, GERD, paroxysmal atrial fibrillation not anticoagulated due to patient was concerned about intracranial bleed who
presents to the emergency department with 6 days of recurrent symptoms of exertional dyspnea, lightheadedness, intermittent episodes of feeling out of breath suddenly and clamy. Denies having any sick contacts. No fevers or chills. She denies any
significant productive cough. She reports compliance with her usual medications. She denies palpitations. She denies chest pain but feels like if she did not have cath recently she will consider it/chest pain. Denies any significant weight
change. Denies lower extremity swelling. Denies orthopnea. Patient denies pleuritic chest pain.
In the emergency department she was afebrile blood pressure was 150/90 with a pulse of 71 and regular. She was satting 97% on her home O2. ECG shows normal sinus rhythm at a rate of 63 with a known right bundle and no acute ST or T wave changes.
Troponin was negative. BNP was in the 50s. Chest x-ray shows no acute infiltrates. No pneumothorax or pleural effusion. CBC is unremarkable. Chemistries notable for a potassium of 3.2 but is otherwise unchanged from prior with a creatinine of
1.1 and a BUN of 26. Recent cardiac w/u with severely elevated filling pressures (LVEDP = 26 mmHg, PCWP = 26 mmHg at 100.2 kg) consistent with decompensated heart failure with preserved ejection fraction.
On my exam the patient had clear breath sounds bilaterally. There was no decrease in the breath sound. There was no wheezing. There was no crackles. There is no increased work of breathing or labored breathing. There was no JVD. Her cardiac
exam revealed no murmurs rubs or gallops. Lower extremity shows no pitting edema.
Dyspnea and lightheadedness
Patients vitals and examination were reassurring and did not provide evidence for acute COPD exacerbation or heart failure exacerbation. No evidence of acute infection. Differential for her lightheadedness and dyspnea on exertion now includes
intermittent uncontrolled cardiac rhythm, CHF exacerbation and venous thromboembolism and less likely COPD exacerbation. In the past she had severe heart failure on cath without overt signs on exam, xray or elevation in BNP in part due to body
habitus and she has NICM and has been unable to tolerate GDMT with SGLTII inh or aldactone.
Admit to telemetry and monitor x 12 to 24 hours.
- ambulating sats
- check d-dimer, if negative, no further testing, if positive CT PE
- orthostatic vs
- continue furosemide per home regimen
- keep K, Mag > 4, 2
- continue diltiazem, aspirin and plavix
- cardiology consultation regarding longer term monitoring
COPD - no evidence of acute exacerbation
- continue current home ICS/LABA and intermittent albuterol prn
- AFIB
- see above
DVT PPX - lovenox sq for now
[2024-10-22] MEDS: KCL ELIXIR 40 MEQ PO (20:12)
[2024-10-22 20:16] VITALS: BP 124/88
[2024-10-22 20:38] LABS: D-Dimer 0.97 ug/mlFEU (0.00-0.50)
[2024-10-22 21:02] VITALS: BP 150/95; BMI 39.9
--- NOTE | 2024-10-22 21:15 | PTCARENOTE ---
Patient arrived from the ED via stretcher. Patient on chronic 2L O2 NC. Ambulated into the room with assistance. AAOx3, VSS. Very SOB with exertion. Patient oriented to the room, call butler is within reach.
[2024-10-22 21:45] VITALS: BMI 39.9
[2024-10-22] MEDS: PEPCID 20 MG PO (21:56)
[2024-10-22 22:01] LABS: Magnesium 2.2 mg/dl (1.6-2.3)
[2024-10-22] MEDS: ADVAIR HFA 115/21 MCG INHALER INH (22:49)
[2024-10-22 23:30] VITALS: BP 119/80
[2024-10-23] MEDS: TYLENOL 650 MG PO (03:19)
[2024-10-23 03:45] VITALS: BP 98/67
[2024-10-23 05:01] VITALS: BMI 39.9
[2024-10-23 08:04] VITALS: BP 121/78
[2024-10-23 08:20] LABS: Hematocrit 41.5 % (37.0-47.0); Hemoglobin 13.9 g/dL (12.0-16.0); Mean Corp Hgb Conc. 33.5 g/dL (33.0-37.0); Mean Corpuscular Hgb 30.7 pg (27.0-31.0); Mean Corpuscular Volume 91.6 fL (81.0-99.0); Mean Platelet Volume 9.2 fL (7.4-10.4); Platelet Count 280 10^3/uL (130-400); Red Blood Cell Count 4.53 10^6/uL (4.20-5.40); Red Cell Dist. Width 11.9 % (11.5-14.5)
--- NOTE | 2024-10-23 08:28 | CON.CAR ---
Consultation
Consultation Request
Date/Time Consultation Requested: 10/22/24 10p
Date/Time Consultation Performed: 10/23/24 8:15a
Requesting Provider: OMA Valderrama
Performing Provider: OMA Shukla for Dr. You
Reason for Consultation: SOB
Medical History
-
Chief Complaint: SOB
History of Present Illness:
Mrs. Villanueva is a 64 year old female with HTN, CAD s/p prior PCI to pLAD, PAF (declines OAC), COPD 2L NC and a history of HFpEF, who c/o recurrent SOB that began 3 days ago. She is admitted to the hospitalist service and we are consulted for SOB.
CXR NAD and Chest CT shows COPD. Her BNP is 37. She is wheezing and coughing on exam. She noted chest tightness while at home with her SOB, EKG with NSR 63, iRBBB and no acute ischemia; troponin is <0.012. Currently she c/o SOB, wheezing and
coughing up clear mucus.
Past Medical History
Past Medical History: Other (as above)
Past Surgical History: Other (as above)
Social History
Tobacco: Former Smoker
Alcohol: None
Personal: Single
Living: With Family
Family History
Family History: Reviewed & Not Pertinent
Allergies / Home Medications
Allergy/AdvReac Type Severity Reaction Status Date / Time
azithromycin Allergy Per pt Verified 10/22/24 21:05
stimulates
her A Fib
dipyridamole Allergy didn't Verified 10/22/24 15:01
[From Persantine] tolerate.
dobutamine Allergy 'feels Verified 10/22/24 15:01
terrible'
isosorbide [From Imdur] Allergy DIZZY Verified 10/22/24 15:01
levofloxacin [From Levaquin] Allergy LEGS WEAK Verified 10/22/24 15:01
morphine Allergy Nausea Verified 10/22/24 15:01
MUSCLE RELAXERS Allergy Nausea / Uncoded 10/22/24 15:01
Vomiting
�Medication �Instructions �Recorded �Confirmed �Type
levalbuterol HCl 0.63 mg/3 mL 0.63 mg inhalation R TIDPRN PRN 09/08/21 10/22/24 History
solution for nebulization sob/wheezing
pantoprazole 40 mg tablet,delayed 40 mg PO DAILY Gastrointestinal 02/28/22 10/22/24 History
release issue
aspirin 81 mg tablet,delayed 81 mg PO DAILY Blood clot 01/29/23 10/22/24 History
release prevention/tx
cholecalciferol (vitamin D3) 50 50 mcg PO NOON Supplement 01/29/23 10/22/24 History
mcg (2,000 unit) tablet
clopidogrel 75 mg tablet 75 mg PO DAILY Blood clot 01/29/23 10/22/24 History
prevention/tx
diltiazem HCl 120 mg 120 mg PO DAILY Blood pressure 01/29/23 10/22/24 History
capsule,extended release 24 hr
docusate sodium 100 mg capsule 100 mg PO QPM Constipation 01/29/23 10/22/24 History
famotidine 20 mg tablet 20 mg PO DAILYPRN PRN heartburn 01/29/23 10/22/24 History
fluticasone propionate 115 2 puff inhalation R BID 01/29/23 10/22/24 History
mcg-salmeterol 21 mcg/actuation Lung/breathing issues
HFA inhaler (Advair HFA)
levalbuterol tartrate 45 2 inh inhalation R Q6HPRN PRN 01/29/23 10/22/24 History
mcg/actuation aerosol inhaler sob,wheezing
acetaminophen 650 mg 650 mg PO [id number] PRN mild pain 06/29/24 10/22/24 History
tablet,extended release (Tylenol 8
Hour)
guaifenesin 600 mg tablet, 1,200 mg PO [id number] PRN 06/29/24 10/22/24 History
extended release 12 hr lung/breathing issues
furosemide 40 mg tablet 40 mg PO MUST ENTER TIMES 10/22/24 10/22/24 History
furosemide 40 mg tablet 40 mg PO [id number] 10/22/24 10/22/24 History
Review of Systems
-
History Source: Patient
All other systems: Negative unless noted
Physical Exam
Vital Signs
Temp Pulse Resp BP Pulse Ox
97.8 F 62 20 121/78 98
10/23/24 08:04 10/23/24 08:04 10/23/24 08:04 10/23/24 08:04 10/23/24 08:04
Lab Results
10/23/24 07:22
Troponin I < 0.012 ng/ml 10/22/24 15:14
Mnl-B-[id number] Pept 37.9 pg/ml 10/22/24 15:14
Physical Exam
General: Well Developed and Well Nourished
HEENT: Normocephalic, Anicteric and Moist Mucous Membranes
Respiratory: Wheezes (diffuse expiratory) and Non Labored Respirations
Cardiac: S1/S2 and Regular Rhythm
Breast: Deferred by me
GI: Soft, Non Tender, Non Distended and Normal Bowel Sounds
Rectal: Deferred by Provider
Genito-urinary: No Costovertebral Tender
Musculoskeletal: No Clubbing
Skin: Warm and Dry
Neuro: AO x 3
Hematologic/Lymphatic: No Lymphadenopathy
Psych: Calm
Impression / Plan
-
SOB - recurrent.
- COPD noted on chest CT.
- BNP 37, no acute weight gain at home, CXR NAD.
COPD - acute on chronic, severe.
- nebs, inhalers, oxygen, supportive treatment.
- recent PFT's on [facility]: TLC = 4.86 (110% predicted); FEV1/FVC = 0.48; FEV1 = 1.02 (46% predicted); DLCO/VA = 1.33 (29% predicted).
- follows with Dr. Lagunas as an outpatient.
HFpEF - chronic.
- stable weight at 210 lbs at home, bnp 37 and no acute heart failure on CXR.
- echo 06/2024: EF 65-70%, no sig valve disease.
- PCWP 26mmHg at 220 lbs on RHC 07/22/24, no obstructive CAD.
- continue outpatient diuretics.
- she was taken off Aldactone due to lightheadedness at home this week, no change off meds.
- has declined SGLT2i in the past.
CAD - stable w/o angina.
- patents stents from 02/2021, on cath 07/22/24, no new ischemia.
- continue aspirin and clopidogrel.
Paroxysmal atrial fibrillation - stable in NSR.
- denies palpitations.
- continue diltiazem 120mg daily.
- [id number]: Score at least 4 (Heart failure, HTN, Vascular disease, female gender).
- she declines oral anticoagulation.
Hypertension - stable on meds.
- trend BP.
Obesity, morbid, BMI 40.9 - weight loss recommended.
Data Reviewed
-
EKG: Report Reviewed by me (NSR, iRBBB, no acute changes. )
Radiology: Report Reviewed by me (CXR: NAD)
CT Scan: Report Reviewed by me (chest with COPD)
Labs: Labs Reviewed by me
Old Records: Reviewed
[2024-10-23 08:38] VITALS: BP 141/88; PULSE 83; O2SAT 97
[2024-10-23] MEDS: ADVAIR HFA 115/21 MCG INHALER 2 PUFF INH (08:41)
[2024-10-23] MEDS: XOPENEX 1.25 MG INHALANT SOLUTION INH (08:49)
[2024-10-23 08:57] LABS: Blood Urea Nitrogen 18 mg/dl (7-17); Calcium 9.4 mg/dl (8.4-10.2); Carbon Dioxide 33 mmol/L (22-30); Chloride 97 mmol/L (98-107); Estimated Creatinine Clearance 60 ml/min; Glucose 98 mg/dl (70-99); Magnesium 2.3 mg/dl (1.6-2.3); Potassium 4.1 mmol/L (3.5-5.1); Sodium 136 mmol/L (135-145); eGFR > 60.00
[2024-10-23] MEDS: PROTONIX 40 MG PO (09:01)
[2024-10-23] MEDS: PLAVIX 75 MG PO (09:01)
[2024-10-23] MEDS: CARDIZEM CD 120 MG PO (09:01)
[2024-10-23] MEDS: ASPIR LOW (ENTERIC COATED) 81 MG PO (09:01)
[2024-10-23] MEDS: FLUSH (NSS) 1 FLUSH IV (09:04)
[2024-10-23] MEDS: LASIX 40 MG PO (09:10)
--- NOTE | 2024-10-23 10:08 | W.PN.HOSP.TC ---
Today's Communication/Plan
-
see outlined plan
Assessment / Plan
Assessment / Plan
Assessment:
Acute on chronic SOB/YEN
Chronic hypoxic respiratory failure
- broad differential given underlying history
- monitor tele for arrhythmia
- no overt signs of CHF - patient compliance with Lasix.
- trop negative x 1, repeat
- consider Echo
- noted recent RHC with elevated pressures.
- Appreciate Cards recs
- with sore throat, reported wheezing - possible bronchitis - start Doxycycline empirically
- CT-PE study negative for clot, PNA. COVID/Flu negative. Strep pending
- no changes in baseline O2 needs
- consult Pulmonary to evaluate outpatient regimen. ? chronic steroids
- ultimately will benefit from cardio-pulmonary outpatient rehab.
Hx of COPD/Emphysema
- continue Xopenex
- continue Advair
- continue Mucolytics
- Pulm evaluation to determine any further changes in baseline meds
Chronic HFpEF
- continue Lasix; monitor weights, I/Os, lytes
- previously on Aldactone and Farxiga - could not tolerate
- Cards following
Dizziness
- recently was on Aldactone, stopped
- check orthostatics
- PT/OT evaluation
Hypokalemia
- replete prn
- may need daily dosing
CKD stage 3b
Parox Afib
- continue Diltiazem/ASA/Plavix
- not on AC due to concerns for intracranial bleeding
GERD
- continue PPI
DVT ppx: SC heparin
Code: Full
Anticipated Discharge: 24 - 48 hours
Subjective/Interval History
-
Date of Service: October 23, 2024
reports chronic SOB since cath, worsening over past 1 week
denies any chills/fevers, no sick contacts but does reports nasal congestion, sore throat
no change in baseline 2L NC
Objective Data
-
Labs:
Laboratory Results
10/23/24
07:22
WBC 6.0
Hgb 13.9
Hct 41.5
Plt Count 280
Sodium 136
Potassium 4.1 D
Chloride 97 L
Carbon Dioxide 33 H
BUN 18 H
Creatinine 1.0
Glucose 98
Calcium 9.4
Vital Signs:
Vital Signs
Temp Pulse Resp BP Pulse Ox
97.8 F 62 20 121/78 96
10/23/24 08:04 10/23/24 09:10 10/23/24 08:52 10/23/24 09:10 10/23/24 08:52
I&O
10/22/24 10/23/24 10/24/24
06:59 06:59 06:59
Intake Total 960 / 960
Output Total 300 / 300
Balance 660 / 660
Physical Exam
-
General: Respiratory Distress (mild)
HEENT: Normocephalic and Atraumatic
Respiratory: Clear to Auscultation; Negative Wheezes or Rales
Cardiac: Regular Rhythm and S1/S2
GI: Soft
Genito-urinary: No Costovertebral Tender
Musculoskeletal: No Edema
Neuro: AO x 3
Hematologic / Lymphatic: No Lymphadenopathy
Psych: Calm
Data Reviewed
-
Total Time Spent with Patient (in minutes): 44
Labs: Labs Reviewed by me
--- NOTE | 2024-10-23 10:53 | CON.PUL ---
Consultation
Consultation Request
Date/Time Consultation Requested: 10/23/2024-11 45 AM
Date/Time Consultation Performed: 10/23/2020 4-12 noon
Requesting Provider: Hospitalist
Performing Provider: Dr. Cheng
Reason for Consultation: Shortness of breath
Medical History
-
Chief Complaint: Shortness of breath
History of Present Illness:
64-year-old former smoker with COPD, PAF, CHF, SVT, anxiety, ALISSON presents with increasing shortness of breath and pulmonary was consulted for shortness of breath and hypoxemia 10/23/2024.Patient states that her shortness of breath, increased from
her baseline and she was not sure whether it was COPD or CHF. She states it is not like her previous COPD exacerbations. She was admitted, not placed on steroids, continued on some nebulizers and had some diuresis. She is feeling improved without
steroids. She offers no complaints of chest pain but admits significant intermittent wheezing responding to nebulizers and currently no chest pain, chest tightness, chest congestion, productive cough, abdominal pain or worsening leg swelling.
Past Medical History
Past Medical History: None (COPD. Hypertension. Hyperlipidemia. ALISSON. Pulmonary hypertension. CAD/stent. Anxiety. History CHF. PAF. GERD. Left breast lump removed.)
Social History
Tobacco: Former Smoker
Alcohol: None
Drug: None
Personal: Single
Living: With Family
Occupational Exposures: No known asbestos exposure
Environmental Exposures: No known tuberculosis exposure
Family History
Family History: Other (Brother-ALISSON and COPD)
Allergies / Home Medications
Allergies
Allergy/AdvReac Type Severity Reaction Status Date / Time
azithromycin Allergy Per pt Verified 10/22/24 21:05
stimulates
her A Fib
dipyridamole Allergy didn't Verified 10/22/24 15:01
[From Persantine] tolerate.
dobutamine Allergy 'feels Verified 10/22/24 15:01
terrible'
isosorbide [From Imdur] Allergy DIZZY Verified 10/22/24 15:01
levofloxacin [From Levaquin] Allergy LEGS WEAK Verified 10/22/24 15:01
morphine Allergy Nausea Verified 10/22/24 15:01
MUSCLE RELAXERS Allergy Nausea / Uncoded 10/22/24 15:01
Vomiting
Home Medications
�Medication �Instructions �Recorded �Confirmed �Last Taken �Type
levalbuterol HCl 0.63 mg/3 mL 0.63 mg inhalation R TIDPRN PRN 09/08/21 10/22/24 05/23/22 06:00 History
solution for nebulization sob/wheezing
pantoprazole 40 mg tablet,delayed 40 mg PO DAILY Gastrointestinal 02/28/22 10/22/24 07/20/24 History
release issue
aspirin 81 mg tablet,delayed 81 mg PO DAILY Blood clot 01/29/23 10/22/24 07/20/24 History
release prevention/tx
cholecalciferol (vitamin D3) 50 50 mcg PO NOON Supplement 01/29/23 10/22/24 07/20/24 History
mcg (2,000 unit) tablet
clopidogrel 75 mg tablet 75 mg PO DAILY Blood clot 01/29/23 10/22/24 07/20/24 History
prevention/tx
diltiazem HCl 120 mg 120 mg PO DAILY Blood pressure 01/29/23 10/22/24 07/20/24 History
capsule,extended release 24 hr
docusate sodium 100 mg capsule 100 mg PO QPM Constipation 01/29/23 10/22/24 02/24/23 History
famotidine 20 mg tablet 20 mg PO DAILYPRN PRN heartburn 01/29/23 10/22/24 Unknown History
fluticasone propionate 115 2 puff inhalation R BID 01/29/23 10/22/24 07/20/24 History
mcg-salmeterol 21 mcg/actuation Lung/breathing issues
HFA inhaler (Advair HFA)
levalbuterol tartrate 45 2 inh inhalation R Q6HPRN PRN 01/29/23 10/22/24 Unknown History
mcg/actuation aerosol inhaler sob,wheezing
acetaminophen 650 mg 650 mg PO [id number] PRN mild pain 06/29/24 10/22/24 07/19/24 History
tablet,extended release (Tylenol 8
Hour)
guaifenesin 600 mg tablet, 1,200 mg PO [id number] PRN 06/29/24 10/22/24 Unknown History
extended release 12 hr lung/breathing issues
furosemide 40 mg tablet 40 mg PO MUST ENTER TIMES 10/22/24 10/22/24 Unknown History
furosemide 40 mg tablet 40 mg PO [id number] 10/22/24 10/22/24 Unknown History
Review of Systems
-
Unable to Obtain full review of systems at this time due to: Other (Per HPI)
Vitals / Labs / Diagnostic Testing
Vital Signs
Temp Pulse Resp BP Pulse Ox
97.8 F 62 20 121/78 96
10/23/24 08:04 10/23/24 09:10 10/23/24 08:52 10/23/24 09:10 10/23/24 08:52
Lab Data
10/23/24 07:22
10/23/24 07:22
Microbiology
10/22/24 17:48 Nasal Swab Influenza Types A & B (SUZY) - Final
Negative for Influenza A & B, NAAT
Negative results must be combined with clinical observations
and patient history.
Nucleic Acid Amplification test (NAAT)performed on the
[employer] platform.
Diagnostic Testing:
Physical Exam
-
Exam:
Well-nourished and well-developed in no apparent distress
HEENT-atraumatic, normocephalic
Neck-supple, no JVD, no bruit
Heart-regular rate and rhythm-no murmurs, rubs or gallops
Chest with diminished breath sounds, prolonged expiratory time and forced wheezes
Back without tenderness
Abdomen-soft, nontender, nondistended, no hepatosplenomegaly
Extremities-no cyanosis, clubbing, edema and good peripheral pulses
Integument-intact, no rashes, lesions or ecchymosis
Neurology-alert and oriented, nonfocal motor and sensory exam
Assessment
-
64-year-old former smoker with COPD, PAF, CHF, SVT, anxiety, ALISSON presents with increasing shortness of breath and pulmonary was consulted for shortness of breath and hypoxemia 10/23/2024.
COPD with mild acute exacerbation
Fluid overload/Art failure, preserved EF
Elevated E-[id number]-[id number] CT PE protocol
Conditions present prior to admission:
Hospitalized 07/2024 with COPD exacerbation and decompensated heart failure
Severe COPD, maintained on levalbuterol nebs, advair/spiriva, and O2 2L at rest and sleep, 4L on exertion. Intermittent CS but no termination clerk
ABG 02-28-22 on O2 3L: 7.40/46/125/28.5/3/98.9%
Intermittently elevated serum total CO2
02/20/24- FVC 2.07 or 72%, FEV1 0.95 or 43%. Ratio 45.
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 Never received A1AT replacement therapy
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
Pulmonary nodules-4 mm right upper lobe stable
Former smoker-since age 16 up to 2 packs a day quit 02/2021
Hypertension.
Hyperlipidemia.
ALISSON-mild.
Nocturnal hypoxemia
Pulmonary hypertension.
CAD, s/p KATHARINE to mid LAD 02/28/2021, then [facility] with KATHARINE to stenosis proximal to prior LAD stent 10/31/2021, continued on ASA/clopidogrel, [facility] 12-04-21 without residual disease
PAFib: declined AC due to fear of bleeding complications
Anxiety.
History CHF.
PAF.
GERD.
Left breast lump removed.
Plan
Deciphering etiology of her respiratory decompensation is often difficult as she has both CHF and advanced COPD
She feels like this exacerbation was 'not like her COPD exacerbations in the past' and she has responded to diuresis and not steroids.
Supplemental oxygen as needed.
Continue Advair.
Add drxs-nxoornmfava-ixi was told to 'stop Spiriva as it caused bleeding when taking potassium supplements.'-I told her I was unaware of any such contraindication
Nebulizers as needed.
Mucolytic's..
Observe off steroids
Check cultures.
Observe off antibiotics.
Cardiology following-correspondence reviewed.
Diuresis as tolerated.
Monitor weight, intake, output, renal function, edema and replace electrolytes as needed
Noted when cardiac catheterization performed in July and chest x-ray was clear she had significantly elevated left ventricular filling pressures
DVT prophylaxis-on subcutaneous heparin.
Pantoprazole for GI prophylaxis.
Nutrition
Early mobilization.
Stable from a pulmonary perspective for discharge-she was told to continue Advair, return to Spiriva, (use prednisone 40 mg-has pills at home) if wheezing worsens and call the office on Saturday.
Pulmonary rehabilitation would be an option.
Consider Biologics if anything COPD/asthma overlap..
Had sleep study 10/06/24- reviewed- no significant sleep disorder breathing, nocturnal hypoxemia, nocturnal oxygen supplementation 1 L recommended
Outpatient pulmonary/Sleep disorders-follows with Dr. Lagunas-last seen 08/04/24
Diagnostic data:
Chest x-ray 10/22/2024-NAD, stable scarring in anterior right upper lobe
CT chest 10/22/2024-Advanced emphysematous changes, stable 4 mm nodule right upper lobe, no evidence for pulmonary embolism, chronic scarring right upper lobe
CT chest 07/21/2024: ReviewedNo evidence of pulmonary embolism or thoracic aortic dissection.Changes of severe emphysema.Nodular opacity within the right middle lobe, measuring 2.5 cm in diameter, best seen on series 401 images 33-38. No significant
change compared to 06/29/2024, or 11/27/2023. Opacity is less pronounced compared to a prior CT dated 02/25/2023. This likely represents scarring in a region of prior pneumonia. Consider continued CT follow-up as clinically appropriate. Pulmonary
nodule within the medial aspect of the right lung apex, best seen on series 401 image 18, measuring 4 mm in diameter. Nodule measured approximately 8 mm in diameter on 06/29/2024, therefore is likely infectious or inflammatory. Severe coronary
arterial calcification. Please correlate with symptoms of and risk factors for coronary artery disease, with further workup as clinically appropriate.
CT Chest 06/29/24- No evidence of pulmonary embolism.Moderate/severe apical predominant emphysematous changes with similar appearance of the nodular scarring within the right middle lobe measuring approximately 3.0 cm.There is a new 6 mm solid nodule
within the medial right upper lobe as well as new 7 mm solid nodules within the left upper lobe. Recommend follow-up CT to ensure stability Prominent gallstone present.
CT Chest 01/29/23 - Examination is negative for pulmonary embolism. Severe changes of emphysema. New horizontal band of increased opacity within the superior segment of the right lower lobe of the lung. Morphologic appearance would be suggestive of
scarring or atelectasis. Fatty infiltration of the liver.
CT chest 02-28-22, c/w 02-23-21 IMPRESSION: No CT evidence for pulmonary embolism. Severe centrilobular emphysema.
TTE 11-29-22:Normal biventricular size and systolic function without regional wall motion abnormality. Mild concentric left ventricular hypertrophy. No significant valvular disease. No significant change since the prior study of 03/01/22
.
Echo: 03-01-22, normal LV systolic function, LVEF greater than 75%, mild concentric LVH. No significant valvular disease. Normal RV size and function. Normal pericardium without effusion. IVC is of normal size and demonstrates normal respiratory
variation. Interatrial septum is intact with no evidence of shunting by color-flow Doppler. No intracardiac mass or thrombus formation seen. No significant change compared to October 2021.
/[facility] 05-25-22 HEMODYNAMIC DATA : AO: 127/78 - LV: 127/16 - PCWP: 14 - PA: 36/22 - RV: 34/14 - RA: 10 - Oximetry: Ao 97%, PA 75%, cardiac output 4.5, cardiac index 2.4
LEFT VENTRICULOGRAPHY: Not performed
CORONARY ANGIOGRAPHY: Dominance: Right - Left Main: Normal - LAD: Widely patent ostial/proximal LAD stents with no restenosis. There is 30% mid LAD stenosis. - Circumflex: Normal - RCA: Normal dominant vessel
CONCLUSIONS
1: Normal filling pressures without pulmonary hypertension
2: Widely patent ostial/proximal LAD stents without restenosis
3. No significant residual obstructive CAD
Cardiac catheterization 07/22/2024-patent proximal LAD stent, severely elevated filling [id number]
DIANN doppler 02-26-23: negative
DIANN doppler 09-08-21: negative
PFT 08/21/22: FEV1 1.02L 46%, FVC 2.11L 73%, ratio 48. Post FEV1 1.06L 48%, +BD response in FVC. TLC 4.86L 110%, RV/TLC 51%, DLCO 24%
.
HST 10/07/19-AHI-2.4, desaturation laura 89%, snoring
PSG 10/06/24-sleep efficiency 68.7%, AHI-4.4, desaturation laura 78%, 76.4%. The time less than 90% saturation, 1 L of oxygen was added
Data Reviewed
-
PFT: Report reviewed by me
EKG: Report reviewed by me
Radiology: Image personally visualized and interpreted and Report reviewed by me
CT Scan: Image personally visualized and interpreted and Report reviewed by me
Medical Tests (Nuc Med, Echo etc): Image personally visualized and interpreted and Report reviewed by me
Labs: Labs reviewed by me
Old Records: Reviewed
Total Time Spent with Patient (in minutes): 65
[2024-10-23 11:47] VITALS: BP 133/80
[2024-10-23 12:08] LABS: Troponin I < 0.012 ng/ml
[2024-10-23] MEDS: VIBRAMYCIN 100 MG PO ×2 (12:20→17:52)
[2024-10-23 12:59] LABS: TSH Reflex To Free T4 2.03 uIU/ml (0.47-4.68)
--- NOTE | 2024-10-23 13:22 | W.PN.UPDATE ---
Update Note
Progress Note Update
Please see medical consultation note from today at 08:28 by OMA Shukla for full consultation.
In brief this is a 64-year-old female with COPD (on home O2), CAD (LAD PCI 2020), paroxysmal atrial fibrillation (declines AC), HFpEF, hypertension, and obesity who presents for shortness of breath. She is known to Dr. Ruddy Olmedo and Honey Baeza,
OMA. She was diagnosed with HFpEF in July when she had an RHC/LHC showing elevated filling pressures (PCWP 26 mmHg) and patent stents with no new obstructive coronary artery disease. Her weight at that time was 220 pounds. She was started
on Lasix and has been taking 40 mg daily on Saturday, , Saturday, and Saturday and 40 mg twice daily on . She was started on Farxiga a few months ago but had to stop it because it made her feel 'terrible'. She was then started on
spironolactone on 10/06. She felt constant dizziness with this so stopped it on Saturday of this week. On Saturday she notes that she was clammy, diaphoretic, short of breath, and had chest pressure. It felt slightly better yesterday but was not
totally improved so she came to the ER. Here she continues to note dyspnea on exertion though it is not changed from her ongoing symptoms the past couple of months. Her chest pressure and diaphoresis have resolved. She denies recent sick
contacts, palpitations, and presyncope or syncope. She does not feel like this is similar to her prior COPD exacerbations. On exam she is well-appearing, comfortably sitting up in bed. Her cardiovascular exam is notable for regular rate and
rhythm with no murmurs/rubs/gallops, lungs are clear to auscultation bilaterally. She has no lower extremity edema. Her labs are notable for creatinine 1.0, troponin <0.012, BNP 38. CXR and chest CT are consistent with COPD. Her last echo in
June showed LVEF 65-70%, mild concentric LVH and no significant valvular disease. ECG this admission shows normal sinus rhythm with first-degree AV block and incomplete RBBB. Telemetry shows intermittent SVT. I do not think that she has a HFpEF
exacerbation given that her weight is stable, CXR and chest CT have no evidence of pulmonary edema, and she does not appear volume overloaded on exam. We can switch her Lasix to alternating 40 mg daily with 40 mg BID every other day as this may
allow for tighter volume control. Her goal weight is 210-212 pounds. She knows to call our office if her weight increases by 3 pounds overnight or 5 pounds in 1 week. Thus far she has not been able to tolerate any other GDMT for her HFpEF, but we
can continue to work on this as an outpatient. We will check if she qualifies for cardiac rehab. If not, maybe pulmonary rehab can be considered given her COPD on home oxygen. She has follow-up with our office scheduled on 11/11/2024 with Honey
OMA Baeza. She is stable for discharge from a cardiovascular standpoint.
[2024-10-23 15:27] VITALS: BP 141/80
[2024-10-23 15:28] VITALS: BP 132/82; BP 141/80; PULSE 63; PULSE 66; PULSE 75
--- NOTE | 2024-10-23 16:56 | W.DS.TRANS ---
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
-
Discharge Instructions:
Sleep Apnea Risk Intermediate
Discharge Diagnosis/Procedures acute on chronic SOB from CHF and COPD, possible
bronchitis
Diet 2 Gram Sodium,Restrict fluids to 48 oz,Low
Cholesterol
Activity As tolerated
Instructions:
Stand-Alone Forms:
Changes to Home Medications: Yes
Discharge Medications:
DC Medications w/original date entered in [employer]
pantoprazole 40 mg tablet,delayed release 40 mg PO DAILY Gastrointestinal issue 02/28/22
aspirin 81 mg tablet,delayed release 81 mg PO DAILY Blood clot prevention/tx 01/29/23
cholecalciferol (vitamin D3) 50 mcg (2,000 unit) tablet 50 mcg PO NOON Supplement 01/29/23
clopidogrel 75 mg tablet 75 mg PO DAILY Blood clot prevention/tx 01/29/23
diltiazem HCl 120 mg capsule,extended release 24 hr 120 mg PO DAILY Blood pressure 01/29/23
docusate sodium 100 mg capsule 100 mg PO QPM Constipation 01/29/23
famotidine 20 mg tablet 20 mg PO DAILYPRN PRN heartburn 01/29/23
fluticasone propionate 115 mcg-salmeterol 21 mcg/actuation HFA inhaler (Advair HFA) 2 puff inhalation R BID Lung/breathing issues 01/29/23
acetaminophen 650 mg tablet,extended release (Tylenol 8 Hour) 650 mg PO [id number] PRN mild pain 06/29/24
guaifenesin 600 mg tablet, extended release 12 hr 1,200 mg PO [id number] PRN lung/breathing issues 06/29/24
doxycycline hyclate 100 mg capsule 100 mg PO Q12 #8 caps 10/23/24
furosemide 40 mg tablet See Rx Instructions .Route .COMPLEX #60 tabs 10/23/24
levalbuterol HCl 0.63 mg/3 mL solution for nebulization 0.63 mg (3 mL) inhalation R TIDPRN PRN sob/wheezing #72 mL 10/23/24
levalbuterol tartrate 45 mcg/actuation aerosol inhaler 2 inh inhalation R Q6HPRN PRN sob,wheezing #15 grams 10/23/24
tiotropium bromide 18 mcg capsule with inhalation device (Spiriva with HandiHaler) 1 cap inhalation DAILY #30 inhalations 10/23/24
Home Medication Changes
spiriva added back
Lasix dosing increased
Pending Results: No
Total time spent discharging patient (in min): 41
--- NOTE | 2024-10-23 17:03 | CM ---
Alert awake oriented patient who lives with her brother Brian who lives in a 2 story home with 2 steps to enter and stairglide to bed bathroom. She is independent in all activities of daily living.She has oxygen with [employer].Offered VN she
declined.
DH VN hx /SNF
Pharmacy [facility]
PCP Dr Kacey Villalba
PLAN Home no needs
[2024-10-23] MEDS: LASIX PO (17:14)
== END 2024-10-23 19:13 | disposition home or self-care (01) | DRG 202 ==
LOC: 4 EAST ACU 20:44
PROVIDERS: Nurse Practitioner Family; Physician Assistant; Registered Nurse; ADMITTING PHYSICIAN Internal Medicine; ATTENDING PHYSICIAN Internal Medicine; CONSULT PHYSICIAN Internal Medicine; CONSULT PHYSICIAN Internal Medicine Critical Care Medicine; EMERGENCY PHYSICIAN Emergency Medicine; FAMILY PHYSICIAN Nurse Practitioner Adult Health
DX: J20.9 Acute bronchitis, unspecified (principal); I13.0 Hypertensive heart and chronic kidney disease with heart failure and stage 1 through stage 4 chronic kidney disease, or unspecified chronic kidney disease; I50.32 Chronic diastolic (congestive) heart failure; J96.11 Chronic respiratory failure with hypoxia; J44.0 Chronic obstructive pulmonary disease with (acute) lower respiratory infection; N18.32 Chronic kidney disease, stage 3b; I48.0 Paroxysmal atrial fibrillation; E87.6 Hypokalemia; R42 Dizziness and giddiness; K21.9 Gastro-esophageal reflux disease without esophagitis
CPT/HCPCS: 71046; 71275; 80048; 80053; 83735; 83880; 84443; 84484; 85025; 85027; 85379; 87070; 87502; 87811; 87880; 93005; 94640; 97116; 97162; 97166; 97535; 99285; Q9967

== ENCOUNTER → 2024-11-10 11:38 | Outpatient (REF) | payer BC, SELFPAY ==
[2024-11-10 13:13] LABS: ALT (SGPT) 21 U/L (0-35); AST (SGOT) 30 U/L (14-36); Albumin 4.4 g/dl (3.5-5.0); Alkaline Phosphatase 92 U/L (38-126); Blood Urea Nitrogen 23 mg/dl (7-17); Calcium 8.9 mg/dl (8.4-10.2); Carbon Dioxide 32 mmol/L (22-30); Chloride 96 mmol/L (98-107); Glucose 100 mg/dl (70-99); Potassium 3.7 mmol/L (3.5-5.1); Sodium 138 mmol/L (135-145); Total Bilirubin 1.2 mg/dl (0.2-1.3); Total Protein 6.9 g/dl (6.3-8.2); eGFR > 60.00
[2024-11-10 13:25] LABS: NT-proBNP 47.1 pg/ml
== END ==
LOC: REG 11:38
PROVIDERS: ATTENDING PHYSICIAN Nurse Practitioner Adult Health
DX: R06.02 Shortness of breath (principal); I50.32 Chronic diastolic (congestive) heart failure
CPT/HCPCS: 36415; 80053; 83880

== ENCOUNTER → 2024-11-24 11:52 | Outpatient (REF) | payer BC, SELFPAY ==
[2024-11-24 13:55] LABS: Blood Urea Nitrogen 20 mg/dl (7-17); Calcium 9.2 mg/dl (8.4-10.2); Carbon Dioxide 34 mmol/L (22-30); Chloride 95 mmol/L (98-107); Glucose 129 mg/dl (70-99); Potassium 3.6 mmol/L (3.5-5.1); Sodium 135 mmol/L (135-145); eGFR 56.11
== END ==
LOC: REG 11:52
PROVIDERS: ATTENDING PHYSICIAN Nurse Practitioner; FAMILY PHYSICIAN Nurse Practitioner Adult Health
DX: I48.0 Paroxysmal atrial fibrillation (principal); I50.32 Chronic diastolic (congestive) heart failure; I25.10 Atherosclerotic heart disease of native coronary artery without angina pectoris
CPT/HCPCS: 36415; 80048

== ENCOUNTER 2024-11-27 02:39 | Inpatient (IN) | payer BC, SELFPAY ==
[2024-11-26 23:44] VITALS: BP 131/96; BMI 40.1
[2024-11-26 23:50] VITALS: BP 131/96
[2024-11-27] VITALS (11 sets, daily range): BP systolic 103–151; BP diastolic 70–92; PULSE 66–69; O2SAT 96–98; BMI 40.4
[2024-11-27 00:13] LABS: Hemoglobin 14.2 g/dL (12.0-16.0); Mean Corp Hgb Conc. 34.6 g/dL (33.0-37.0); Mean Corpuscular Hgb 30.5 pg (27.0-31.0); Mean Corpuscular Volume 88.2 fL (81.0-99.0); Mean Platelet Volume 9.2 fL (7.4-10.4); Platelet Count 264 10^3/uL (130-400); Red Blood Cell Count 4.65 10^6/uL (4.20-5.40); White Blood Cell Count 8.9 10^3/uL (4.8-10.8)
--- NOTE | 2024-11-27 00:19 | ED.GENMED ---
History of Present Illness
General
Chief Complaint: Heart Rate Problem
Source: patient
Exam Limitations: none
Time Seen by Provider: 11/26/24 23:40
Nursing documentation reviewed up to this point in time: agreed with
History of Present Illness
History of Present Illness:
Patient with history of COPD, congestive heart failure on Lasix, paroxysmal atrial fibrillation, and tachycardia on Cardizem, presents to ED secondary to more frequent episodes of tachycardia despite medication adjustment by cardiology office last
week, associated with 'not feeling well' and near syncope. Patient has had a loop recorder in place, but battery has run out. There has been discussion with her junior administrative assistant about changing her battery or other potential workup. Patient was told
that she is not a candidate for ablation, secondary to her underlying COPD history. Denies fever or chills. Denies coughing. Denies leg pain or swelling. Denies back pain. No recent change in diet.
Past History
Past History
ED Past Medical History: Arrthythmia (Atrial fibrillation), Asthma, CAD, COPD, GERD and Hypercholesterolemia
ED Past Surgical History: Cardiac and Other (Lung biopsy)
Patient has exhibited threatening behavior?: No
PSI?: No
Social History
Tobacco: Former smoker
Alcohol: Occasional
Drug: None
Personal:
Living: with family
Employment: Not employed
Family History
Family History: CAD
Review of Systems
Review of Systems
Allergies reviewed?: Yes
All Other Systems: ROS reviewed and negative except as documented in HPI and ROS
Constitutional: Reports no symptoms
Respiratory: Reports no symptoms
Cardiac: Reports palpitations and other (Near syncope)
ABD/GI: Reports no symptoms
: Reports no symptoms
Musculoskeletal: Reports no symptoms; Denies edema
Skin: Reports no symptoms
Neurological: Reports dizzy; Denies headache
Phy Exam
Physical Exam
Physical Exam:
Physical Exam
General: mild distress, not acutely ill. afebrile
Head: nc/at. eomi
Neck: supple. normal range of motion.
Heart: s1/s2 regular rate and rhythm, no murmur. equal radial pulses.
Lungs: no acute respiratory distress. clear bilaterally
Abdomen: normal bowel sounds. not tender.
Neuro: alert and oriented. no focal neurological deficits
Skin: no rash
Psychiatric: well kept. interactive and cooperative
Extremities: no edema. no calf tenderness
Course
Orders/Labs/Results
Orders:
Orders
11/26/24 23:37
Electrocardiogram (*1) Urgent
Reason for Study: Tachycardia
11/26/24 23:38
EKG- Treatment ONCE
11/26/24 23:59
BNP [NT-proBNP] Urgent
Complete Blood Count/No Diff Urgent
Comprehensive Metabolic Panel Urgent
Magnesium Urgent
Comment: ADDED
TSH Reflex To Free T4 Urgent
Comment: ADDED
11/27/24 00:17
Add On- LAB Urgent
Tests Added?: magnesium, TSH to reflex Free T4
11/27/24 00:30
Diltiazem 125 mg/125 ml Nss [Cardizem] 125 mg in 125 ml IV PER PROTOCOL
Initial dose in mg/hr, then titrate:: 5
Titrate to keep:: Heart rate 80-100 bpm
Titrate by mg/hr:: 5 mg/hr
Frequency of titrations (minutes):: 15
Maximum dose in mg/hr:: 15
11/27/24 00:52
Acetaminophen [Tylenol] 650 mg .ROUTE .STK-MED ONE
11/27/24 00:56
Acetaminophen [Tylenol] 650 mg PO NOW STA
11/27/24 02:20
Admit/Transfer Patient As Directed
Co-Sign Provider:
Level of Care: Inpatient admission
Assign to:: Telemetry
Physician / Group: Yovany
Diagnosis: Palpitations / SVT
Reason for Telemetry: Arrhythmia
Date to Stop Telemetry: 11/30/24
Time to Stop Telemetry: 11:00
Reason for Hospitalization: Palpitations / SVT
Expected length of stay greater than two midnights?: Yes
ELOS- Estimated Length of Stay in days: 2
I certify the patient meets the requirements for IP care: Yes
11/27/24 02:21
PRN Pain Medication Management As Directed
May give lesser potent ordered pain med per pt: Yes
preference::
Protocol:: Medication orders for pain may be administered in a
manner that supports deferring to patient preference
when the pt is:
- Requesting an ordered lesser potent pain medication.
Least to most potent pain medications are defined
as: acetaminophen < NSAID < tramadol < opioids
(morphine, oxycodone, hydromorphone).
- Requesting a lesser dose of the same medication IF
ORDERED.
- Requesting a less intrusive route of administration
if both routes are prescribed by the provider (PO <
IV).
11/27/24 02:23
Code Status As Directed
Resuscitation Status: Full Code
11/27/24 04:07
Acetaminophen [Tylenol] 650 mg PO Q4HPRN PRN
Diltiazem 125 mg/125 ml Nss [Cardizem] 125 mg in 125 ml IV PER PROTOCOL
Continuous dose without titration in mg/hr:: 5
Additional Titration Instructions:: Do not titrate. Rate change by provider order only.
Furosemide [Lasix] See Dose Instructions PO .COMPLEX
Levalbuterol [Xopenex 0.63 mg Inhalant Solution] 0.63 mg INH R TIDPRN PRN
11/27/24 04:07
CARDIOLOGY CONSULT Routine
Consulting Provider: Durga Andrew
Was physician already notified: No
Reason for consult: Palpitations / SVT
Consult Notification Routine
Specialty to Notify: Cardiology
Activity As Directed
Activity Level: Ambulate
With Assistance
EKG with chest pain [ECG as needed] As Directed
ECG as needed for:: Chest Pain
I/O [Intake/ Output] As Directed
Frequency: Per unit guidelines
Notify MD As Directed
Notify physician if: HR < 50 or > 110
Vital Signs As Directed
Frequency: Per unit guidelines
Weight As Directed
Frequency: Daily
Xopenex Reason for Use As Directed
Reason for ordering Xopenex instead of Albuterol: Tachycardia
Oxygen Therapy [O2 Therapy] [RESP] Routine
Titrate/Wean O2 to maintain O2 sat greater than (%): 94
Ot Eval And Treat Routine
PT Consult [Pt Eval And Treat] Routine
Activity Level: Ambulate
With Assistance
DX Deep Vein Thrombosis Video Routine
11/27/24 06:00
EKG [Electrocardiogram (*1)] IN AM
Reason for Study: Chest Pain
Regular
At Your Request: Full Participation
Basic Metabolic Panel IN AM
Complete Blood Count/No Diff IN AM
11/27/24 08:00
Aspirin Low Dose EC [Aspir Low (Enteric Coated)] 81 mg PO DAILY
Clopidogrel Bisulfate [Plavix] 75 mg PO DAILY
Heparin 5,000 units SC Q12
Pantoprazole [Protonix] 40 mg PO DAILY
Potassium Chloride [KCl] 20 meq PO DAILY
tiotropium bromide [Spiriva with HandiHaler] 1 cap INH DAILY
11/30/24 11:00
DC Protocol for Telemetry ONCE
Abnormal Lab Results
11/26/24
23:59
Chloride 97 L mmol/L
(98-107)
BUN 28 H mg/dl
(7-17)
Creatinine 1.1 H mg/dL
(0.6-1.0)
Glucose 116 H mg/dl
(70-99)
11/26/24 23:59
11/26/24 23:59
Vital Signs
Initial and Last Documented VS:
Initial Vital Signs
Temp Pulse Resp BP Pulse Ox
98.7 F 85 33 131/96 98
11/26/24 23:44 11/26/24 23:44 11/26/24 23:44 11/26/24 23:44 11/26/24 23:44
Last Documented Vital Signs
Temp Pulse Resp BP Pulse Ox
97.6 F 64 22 140/78 96
11/27/24 04:13 11/27/24 04:13 11/27/24 04:13 11/27/24 04:13 11/27/24 04:13
MDM/Problems Addressed
MDM/Problems Addressed:
Patient with multiple episodes of narrow complex tachycardia noted during initial evaluation, with the symptoms. As such, patient will be started on Cardizem infusion and admitted for further evaluation/treatment.
*Critical Care Note
Total Time (30-74mins, 75-104mins- exclusive of procedures): Not Applicable
ED Attending Note
-
Portions of this chart may have been created with voice recognition software.� Occasional wrong word or��sound alike� substitutions may have occurred due to the inherent limitations of voice recognition software.
Discharge Plan
Departure
Patient Disposition: Admit
Date of Disposition: 11/27/24
Time of Disposition: 01:03
Admit to: Telemetry
Presentation/result/management discussed w/ accepting MD/DO: Hospitalist
Discharge Problem:
Tachycardia
Interventions
Interventions:
*Risk Screen - Suicide Last Done: 11/27/24 04:13
*General Assessment Last Done: 11/26/24 23:44
*Neglect/Abuse Screening Last Done: 11/26/24 23:44
ED- Fall Risk Assessment Last Done: 11/27/24 03:25
*ED COVID-19 Vaccine History Last Done: 11/27/24 04:13
*Nursing Disposition Last Done: 11/27/24 04:00
ED- Cardiac Assessment Last Done: 11/27/24 03:25
ED- Pulmonary Assessment Last Done: 11/27/24 03:25
Discharge Date and Time
Discharge Date/Time: 11/27/24 04:00
[2024-11-27 00:30] LABS: ALT (SGPT) 18 U/L (0-35); AST (SGOT) 27 U/L (14-36); Albumin 4.3 g/dl (3.5-5.0); Alkaline Phosphatase 99 U/L (38-126); Blood Urea Nitrogen 28 mg/dl (7-17); Calcium 8.9 mg/dl (8.4-10.2); Carbon Dioxide 27 mmol/L (22-30); Chloride 97 mmol/L (98-107); Estimated Creatinine Clearance 55 ml/min; Glucose 116 mg/dl (70-99); Potassium 3.5 mmol/L (3.5-5.1); Sodium 135 mmol/L (135-145); Total Bilirubin 1.1 mg/dl (0.2-1.3); Total Protein 6.9 g/dl (6.3-8.2); eGFR 56.11
[2024-11-27 00:36] LABS: Magnesium 2.1 mg/dl (1.6-2.3)
[2024-11-27] MEDS: CARDIZEM 125 IV (00:38)
[2024-11-27] MEDS: TYLENOL 650 MG PO ×2 (00:56→16:31)
--- NOTE | 2024-11-27 02:27 | HPS.HSE ---
Family Physician
-
Family Physician: Kacey Villalba
Chief Complaint
-
Palpitations
History of Present Illness
Patient is a 64y F with PMH significant for O2-dependent COPD, ASCVD and CHFpEF who presents to ED complaining of palpitations. Patient reports intermittent palpitations that have been occurring for months. She reports a fluttering sensation in
her chest along with a pulsing in her upper abdomen. She will typically confirm her symptoms with checking her carotid pulse or by using pulse oximeter at home. Episodes last for moments and then resolve. Patient reports that these episodes have
been occurring more frequently of late. She was seen by Cardiology about one week ago and her Cardizem dose was increased from 120mg daily to 120mg BID in an attempt to decrease her symptoms. Patient feels that her episodes have become more
frequent since this dose change.
This evening she was having palpitations off-an-on throughout the night. She took an extra 30mg of diltiazem without improvement in her symptoms and then called 911 for evaluation.
In the ED, patient is resting comfortably. She is somewhat anxious and tearful at times when discussing her symptoms / history.
Medical History
Past Medical History
Past Medical History: Reports Other
Additional Past Medical History:
Severe COPD
Chronic Hypoxemic Respiratory Failure
ASCVD
Paroxysmal Atrial Fibrillation
Hypertension
Alpha-1 Antitrypsin Deficiency
Morbid Obesity
GERD
Past Surgical History: Reports Other
Additional Past Surgical History:
Lung Biopsy
PTCA with Stent x 2
Social History
Tobacco: Former Smoker (Quit 2020. > 50 pack years total.)
Alcohol: Occasional
Drug: None
Family History
Family History: Not pertinent
Allergies / Home Medications
Allergies reflects when Allergies were last updated in [facility]
Home Medications with original date entered in [facility]
Allergy/Medication List:
Allergies
Allergy/AdvReac Type Severity Reaction Status Date / Time
azithromycin Allergy Per pt Verified 11/26/24 23:43
stimulates
her A Fib
dipyridamole Allergy didn't Verified 11/26/24 23:43
[From Persantine] tolerate.
dobutamine Allergy 'feels Verified 11/26/24 23:43
terrible'
isosorbide [From Imdur] Allergy DIZZY Verified 11/26/24 23:43
levofloxacin [From Levaquin] Allergy LEGS WEAK Verified 11/26/24 23:43
morphine Allergy Nausea Verified 11/26/24 23:43
MUSCLE RELAXERS Allergy Nausea / Uncoded 11/26/24 23:43
Vomiting
Home Medications
pantoprazole 40 mg tablet,delayed release 40 mg PO DAILY Gastrointestinal issue 02/28/22
aspirin 81 mg tablet,delayed release 81 mg PO DAILY Blood clot prevention/tx 01/29/23
cholecalciferol (vitamin D3) 50 mcg (2,000 unit) tablet 50 mcg PO NOON Supplement 01/29/23
clopidogrel 75 mg tablet 75 mg PO DAILY Blood clot prevention/tx 01/29/23
diltiazem HCl 120 mg capsule,extended release 24 hr 120 mg PO DAILY Blood pressure 01/29/23
docusate sodium 100 mg capsule 100 mg PO QPM Constipation 01/29/23
famotidine 20 mg tablet 20 mg PO DAILYPRN PRN heartburn 01/29/23
fluticasone propionate 115 mcg-salmeterol 21 mcg/actuation HFA inhaler (Advair HFA) 2 puff inhalation R BID Lung/breathing issues 01/29/23
acetaminophen 650 mg tablet,extended release (Tylenol 8 Hour) 650 mg PO [id number] PRN mild pain 06/29/24
guaifenesin 600 mg tablet, extended release 12 hr 1,200 mg PO [id number] PRN lung/breathing issues 06/29/24
doxycycline hyclate 100 mg capsule 100 mg PO Q12 #8 caps 10/23/24
furosemide 40 mg tablet See Rx Instructions .Route .COMPLEX #60 tabs 10/23/24
levalbuterol HCl 0.63 mg/3 mL solution for nebulization 0.63 mg (3 mL) inhalation R TIDPRN PRN sob/wheezing #72 mL 10/23/24
levalbuterol tartrate 45 mcg/actuation aerosol inhaler 2 inh inhalation R Q6HPRN PRN sob,wheezing #15 grams 10/23/24
potassium chloride 20 mEq tablet,extended release 20 meq PO DAILY #30 tabs 10/23/24
tiotropium bromide 18 mcg capsule with inhalation device (Spiriva with HandiHaler) 1 cap inhalation DAILY #30 inhalations 10/23/24
Review of Systems
-
History Source: Patient
A 12 point ROS was completed and negative except as noted: Yes
Constitutional: Reports Fatigue; Denies Fever, Weight Gain, Weight Loss or Chills
Respiratory: Reports Trouble Breathing; Denies Cough
Cardiac: Reports Palpitations; Denies Chest Pain, Diaphoresis or Syncope
Abdomen/GI: Denies Abdominal Pain, Nausea, Vomiting or Diarrhea
: Denies Dysuria or Frequency
Musculoskeletal: Denies Joint Pain or Edema
Neurological: Denies Dizzy or Headache
Psych: Reports Depression and Anxiety
Physical Exam
Vital Signs
Vital Signs
Temp Pulse Resp BP Pulse Ox
98.7 F 57 19 114/74 95
11/26/24 23:44 11/27/24 01:30 11/27/24 01:30 11/27/24 01:00 11/27/24 01:30
Physical Exam
General: Other (64y F in no acute distress.)
HEENT: Moist mucous membranes and PERRLA
Respiratory: Clear; No Wheezes, Rales or Rhonchi
Cardiac: S1/S2 and Regular Rhythm; No Murmur
GI: Soft, Non Tender, Non Distended and Normal Bowel Sounds
Musculoskeletal: No Clubbing, No Cyanosis and No Edema
Neuro: AO x 3
Laboratory Results
-
11/26/24 23:59
11/26/24 23:59
Laboratory Results
Total Bilirubin 1.1 mg/dl (0.2-1.3) 11/26/24 23:59
AST 27 U/L (14-36) 11/26/24 23:59
ALT 18 U/L (0-35) 11/26/24 23:59
Alkaline Phosphatase 99 U/L (38-126) 11/26/24 23:59
Impression/Plan
-
A/P: Patient is a 64y F with PMH significant for COPD, CHF, PA-Fib and ASCVD who presents to ED complaining of palpitations.
Palpitations
Paroxysmal Atrial Fibrillation / SVT
- Admit for further evaluation and treatment.
- Patient reportedly had multiple episodes of transient SVT / tachycardia in the ED - though there is no recorded tachycardia by vitals, etc.
- EKG and tele at the time of my visit are both unremarkable.
- Maintain diltiazem infusion for now with no titration.
- Cardiology evaluation in the AM for additional recommendations.
- Has LINQ in place that is non-functional - ? replace.
- Patient is not on OAC despite history of PA-Fib.
- Monitor for any new / worsening symptoms.
- Continue other usual medications without changes.
COPD
Chronic Hypoxemic Respiratory Insufficiency secondary to the above.
- No active wheezing appreciated on exam.
- Continue inhaled medications including PRN Xopenex.
ASCVD
- Stable. No complaints of chest pain, new dyspnea, etc.
- Continue current CV med regimen including DAPT, statin, etc.
Anxiety / Depression
- Patient clearly anxious / depressed regarding her symptoms.
- Would consider trial of SSRI or similar for ongoing treatment of mood.
Morbid Obesity due to excess calories
- Affects all aspects of care.
- Encourage healthy diet. Activity as tolerated with goal of weight loss.
DVT Prophylaxis: Subcut Heparin
Code Status: Full
[2024-11-27 03:23] LABS: TSH Reflex To Free T4 1.84 uIU/ml (0.47-4.68)
[2024-11-27 06:41] LABS: Hematocrit 39.5 % (37.0-47.0); Hemoglobin 13.4 g/dL (12.0-16.0); Mean Corp Hgb Conc. 33.9 g/dL (33.0-37.0); Mean Corpuscular Hgb 30.7 pg (27.0-31.0); Mean Corpuscular Volume 90.4 fL (81.0-99.0); Mean Platelet Volume 8.4 fL (7.4-10.4); Platelet Count 254 10^3/uL (130-400); Red Blood Cell Count 4.37 10^6/uL (4.20-5.40); White Blood Cell Count 7.3 10^3/uL (4.8-10.8)
[2024-11-27 07:06] LABS: Blood Urea Nitrogen 25 mg/dl (7-17); Calcium 8.7 mg/dl (8.4-10.2); Carbon Dioxide 34 mmol/L (22-30); Chloride 97 mmol/L (98-107); Estimated Creatinine Clearance 55 ml/min; Glucose 96 mg/dl (70-99); Potassium 3.3 mmol/L (3.5-5.1); Sodium 137 mmol/L (135-145); eGFR 56.11
[2024-11-27] MEDS: SPIRIVA RESPIMAT 2.5 MCG 2 PUFF INH (07:30)
--- NOTE | 2024-11-27 07:58 | CON.CAR ---
Addendum entered and electronically signed by Rojelio Olmedo MD 11/27/24 14:07:
64 yo female with PMH of paroxysmal A fib (declines OAC), CAD prior LAD stent 2020, chronic HFPEF, severe COPD admitted with palpitations. Found to have runs of SVT. Was on diltiazem drip, now weaned off. Feels better overall. No chest pain. Exam
with RRR, no murmurs, no edema. Tele: SR, brief SVT.
Paroxysmal SVT. Increase diltiazem gradually (120mg AM, 180mg PM) given prior side effects. Avoiding beta ayde due to severe SOB.
Original Note:
Consultation
Consultation Request
Date/Time Consultation Requested: 11/27/24 4a
Date/Time Consultation Performed: 11/27/24 7:45a
Requesting Provider: Dr. Pedroza
Performing Provider: OMA Shukla for Dr. Olmedo
Reason for Consultation: Afib/SVT
Medical History
-
Chief Complaint: palpitations
History of Present Illness:
Mrs. Villanueva is a 64 year old female with HTN, CAD s/p prior PCI to pLAD 2020, paroxysmal atrial fibrillation (declines OAC), sinus bradycardia with MDT ILR (LINQ) 2018 now at EOS, severe COPD 2L dependent and a history of HFpEF, who c/o increased
palpitations/tachycardia feeling over the last week. 11/12/24 office visit her Cardizem was titrated to 120mg BID for palpitations and she feels they are worse now. She is admitted to the hospitalist service and we are consulted for Afib/SVT. EKG
and tele reviewed and shows NSR with PACs, PVCs, no Afib and one short run of SVT today 6:45a 11/27/24. She was placed on a Diltiazem drip at 5mg in the ER and it was turned off this am due to sinus bradycardia. She feels better now and denies any
recurrence of palpitations. She states her signal for Afib is jaw pain and mild SOB, which she states having this week, along with the tachycardia/palpitations.
Past Medical History
Past Medical History: Other (as above)
Past Surgical History: Cardiac (ILR 2018)
Social History
Tobacco: Former Smoker
Alcohol: None
Living: With Family (brother)
Family History
Family History: Reviewed & Not Pertinent
Allergies / Home Medications
Allergy/AdvReac Type Severity Reaction Status Date / Time
azithromycin Allergy Per pt Verified 11/26/24 23:43
stimulates
her A Fib
dipyridamole Allergy didn't Verified 11/26/24 23:43
[From Persantine] tolerate.
dobutamine Allergy 'feels Verified 11/26/24 23:43
terrible'
isosorbide [From Imdur] Allergy DIZZY Verified 11/26/24 23:43
levofloxacin [From Levaquin] Allergy LEGS WEAK Verified 11/26/24 23:43
morphine Allergy Nausea Verified 11/26/24 23:43
MUSCLE RELAXERS Allergy Nausea / Uncoded 11/26/24 23:43
Vomiting
�Medication �Instructions �Recorded �Confirmed �Type
pantoprazole 40 mg tablet,delayed 40 mg PO DAILY Gastrointestinal 02/28/22 11/27/24 History
release issue
aspirin 81 mg tablet,delayed 81 mg PO DAILY Blood clot 01/29/23 11/27/24 History
release prevention/tx
cholecalciferol (vitamin D3) 50 50 mcg PO NOON Supplement 01/29/23 11/27/24 History
mcg (2,000 unit) tablet
clopidogrel 75 mg tablet 75 mg PO DAILY Blood clot 01/29/23 11/27/24 History
prevention/tx
diltiazem HCl 120 mg 120 mg PO BID Blood pressure 01/29/23 11/27/24 History
capsule,extended release 24 hr
docusate sodium 100 mg capsule 100 mg PO QPM Constipation 01/29/23 11/27/24 History
famotidine 20 mg tablet 20 mg PO DAILYPRN PRN heartburn 01/29/23 11/27/24 History
fluticasone propionate 115 2 puff inhalation R BID 01/29/23 11/27/24 History
mcg-salmeterol 21 mcg/actuation Lung/breathing issues
HFA inhaler (Advair HFA)
acetaminophen 650 mg 650 mg PO [id number] PRN mild pain 06/29/24 11/27/24 History
tablet,extended release (Tylenol 8
Hour)
furosemide 40 mg tablet See Rx Instructions .Route 10/23/24 Rx
.COMPLEX #60 tabs
levalbuterol HCl 0.63 mg/3 mL 0.63 mg (3 mL) inhalation R TIDPRN 10/23/24 11/27/24 Rx
solution for nebulization PRN sob/wheezing #72 mL
levalbuterol tartrate 45 2 inh inhalation R Q6HPRN PRN 10/23/24 11/27/24 Rx
mcg/actuation aerosol inhaler sob,wheezing #15 grams
potassium chloride 20 mEq 20 meq PO DAILY #30 tabs 10/23/24 11/27/24 Rx
tablet,extended release
tiotropium bromide 18 mcg capsule 1 cap inhalation DAILY #30 10/23/24 11/27/24 Rx
with inhalation device (Spiriva inhalations
with HandiHaler)
Review of Systems
-
History Source: Patient
All other systems: Negative unless noted
Physical Exam
Vital Signs
Temp Pulse Resp BP Pulse Ox
97.6 F 62 16 140/78 98
11/27/24 04:13 11/27/24 07:35 11/27/24 07:35 11/27/24 04:13 11/27/24 07:35
Lab Results
11/27/24 06:14
11/27/24 06:14
[id number] Pept 43.0 pg/ml 11/26/24 23:59
Physical Exam
General: Well Developed, Well Nourished and No Apparent Distress
HEENT: Normocephalic and Anicteric
Respiratory: Clear and Non Labored Respirations
Cardiac: S1/S2 and Regular Rhythm
Breast: Deferred by me
GI: Soft, Non Tender, Non Distended and Normal Bowel Sounds
Rectal: Deferred by Provider
Musculoskeletal: No Cyanosis and No Edema
Neuro: AO x 3
Psych: Calm
Impression / Plan
-
Tachycardia/PSVT/Afib - Paroxysmal atrial fibrillation history.
- no Afib seen here on EKG or tele.
- one short run of SVT today 11/27/24 at 6:45a, resolved on its own.
- last week her Cardizem CD was increased to 120mg BID and she was given IV Cardizem in the ER, now off due to sinus bradycardia. now she feels better w/o recurrent palpitations/tachycardia feeling.
- [id number]: Score at least 4 (Heart failure, HTN, Vascular disease, female gender).
- she declines oral anticoagulation, which limits treatment options.
- MDT ILR LINQ 2018 implant, now at EOS and does not provide data.
- consider increasing Cardizem CD to 180mg BID.
- consider explant ILR and re-implant ILR for continued monitoring.
- she does have [employer] mobile device at home, no recent episodes recorded.
COPD - severe, oxygen dependent.
- stable.
- nebs, inhalers, oxygen, supportive treatment.
- PFT's on [employer]: TLC = 4.86 (110% predicted); FEV1/FVC = 0.48; FEV1 = 1.02 (46% predicted); DLCO/VA = 1.33 (29% predicted).
- follows with Dr. Lagunas as an outpatient.
HFpEF - chronic.
- stable weight at 209-212 lbs at home.
- echo 06/2024: EF 65-70%, no significant valve disease.
- PCWP 26mmHg at 220 lbs on RHC 07/22/24, no obstructive CAD at that time.
- continue outpatient diuretics, Lasix 80mg alternating with 40mg daily.
- does not tolerate Aldactone due to lightheadedness, did not tolerate Farxiga either.
CAD - stable w/o angina.
- patents stents from 02/2021, on cath 07/22/24, no new ischemia.
- continue aspirin and clopidogrel.
Hypertension - stable on meds.
- trend BP.
Obesity, morbid, BMI 40.9 - weight loss recommended.
Data Reviewed
-
EKG: Tracing Personally Visualized and interpreted (11/26/24 NSR with sinus arrhythmia 74 bpm, [id number], no changes. EKG 11/27/24 Sinus bradycardia with PVCs 64.)
Medical Tests (Nuc Med, Echo etc): Report Reviewed by me (cath 07/22/24: patent stent in pLAD, 20-30% lesion in mLAD, severely elevated filling pressures LVEDP 26mmHg at 220 lbs (consistent with decompensated HFpEF)) and Other (echo 06/30/24: mild
cLVH, EF 65-70%, mild pulmonic regurgitation)
Labs: Labs Reviewed by me
Old Records: Reviewed
[2024-11-27] MEDS: PLAVIX 75 MG PO (08:17)
[2024-11-27] MEDS: ASPIR LOW (ENTERIC COATED) 81 MG PO (08:17)
[2024-11-27] MEDS: KCL 20 MEQ PO (08:17)
[2024-11-27] MEDS: PROTONIX 40 MG PO (08:17)
[2024-11-27] MEDS: LASIX 40 MG PO ×2 (08:21→21:02)
[2024-11-27] MEDS: CARDIZEM CD 120 MG PO (10:36)
--- NOTE | 2024-11-27 10:43 | CM ---
Patient seen bedside.
IA completed.
patient loves with spouse and brother in a 2 story home, 2 steps to enter.
Patient has a stair glide in the home.
patient on chronic home oxygen, has thru [facility] [employer].
Patient has had [facility] in the past, not current with them.
No HC needs anticipated.
Patient requested names of alternate home oxygen suppliers, options provided.
PCP: Dr Villalba
Pharmacy: [facility]
Plan: home, no needs anticiapted
--- NOTE | 2024-11-27 11:28 | W.PN.HOSP.TC ---
Today's Communication/Plan
-
Continues her home dose of Cardizem. Following telemetry.
Await cardiology input.
Assessment / Plan
Assessment / Plan
A/P: Patient is a 64y F with PMH significant for COPD, CHF, PA-Fib and ASCVD who presents to ED complaining of palpitations.
Palpitations
Paroxysmal Atrial Fibrillation / SVT
- Currently in sinus rhythm. Off of Cardizem drip.
- Cardiology evaluation pending.
- Has LINQ in place that is non-functional - ? replace.
- Patient is not on OAC despite history of PA-Fib -she told me today that she chose not to go because of concerns of bleeding risk.
- Monitor for any new / worsening symptoms.
- Continue other usual medications without changes.
COPD
Chronic Hypoxemic Respiratory Insufficiency secondary to the above.
- No active wheezing appreciated on exam.
- Continue inhaled medications including PRN Xopenex.
ASCVD
- Stable. No complaints of chest pain, new dyspnea, etc.
- Continue current CV med regimen including DAPT, statin, etc.
Anxiety / Depression
- Patient clearly anxious / depressed regarding her symptoms.
- Would consider trial of SSRI or similar for ongoing treatment of mood.
Morbid Obesity due to excess calories
- Affects all aspects of care.
- Encourage healthy diet. Activity as tolerated with goal of weight loss.
DVT Prophylaxis: Subcut Heparin
Code Status: Full
Anticipated Discharge: 24 - 48 hours
Subjective/Interval History
-
Date of Service: November 27, 2024
Patient currently without any palpitations or chest pain. She is in sinus rhythm and off of IV Cardizem drip.
She is troubled with intermittent tachycardia and palpitations for last 10days.
Denies any changes with her COPD symptoms or need for more oxygenation.
Denies any recent fever, chills, sorethroat, cough or phlegm.
Objective Data
-
Labs:
Laboratory Results
11/26/24 11/27/24
23:59 06:14
WBC 8.9 7.3
Hgb 14.2 13.4
Hct 41.0 39.5
Plt Count 264 254
Sodium 135 137
Potassium 3.5 3.3 L
Chloride 97 L 97 L
Carbon Dioxide 27 34 H
BUN 28 H 25 H
Creatinine 1.1 H 1.1 H
Glucose 116 H 96
Calcium 8.9 8.7
Total Bilirubin 1.1
AST 27
ALT 18
Alkaline Phosphatase 99
Vital Signs:
Vital Signs
Temp Pulse Resp BP Pulse Ox
97.7 F 77 24 131/78 96
11/27/24 08:26 11/27/24 10:36 11/27/24 08:26 11/27/24 10:36 11/27/24 08:26
Review of Systems
-
Abdomen/GI: Denies Abdominal Pain, Nausea or Vomiting
Neuro: Denies Dizzy
Physical Exam
-
General: No Apparent Distress
HEENT: Moist Mucous Membranes
Respiratory: Non Labored Respirations; Negative Wheezes, Crackles or Accessory Resp Muscle Use
Cardiac: Regular Rhythm and S1/S2; Negative Tachycardic
GI: Soft
Musculoskeletal: No Edema
Neuro: AO x 3
Psych: Calm
Data Reviewed
-
Labs: Labs Reviewed by me
[2024-11-27] MEDS: ADVAIR HFA 115/21 MCG INHALER INH (11:49)
[2024-11-27] MEDS: ADVAIR HFA 115/21 MCG INHALER 2 PUFF INH ×2 (11:51→20:23)
[2024-11-27] MEDS: CARDIZEM CD 180 MG PO (21:03)
[2024-11-28] MEDS: XOPENEX 0.63 MG INHALANT SOLUTION INH (02:29)
[2024-11-28 03:45] VITALS: BP 99/63
[2024-11-28 06:00] VITALS: BMI 40.5
[2024-11-28] MEDS: TYLENOL 650 MG PO (06:28)
[2024-11-28 07:35] VITALS: BP 109/69
[2024-11-28] MEDS: CARDIZEM CD 120 MG PO (08:37)
[2024-11-28] MEDS: ASPIR LOW (ENTERIC COATED) 81 MG PO (08:37)
[2024-11-28] MEDS: KCL 20 MEQ PO (08:38)
[2024-11-28] MEDS: PLAVIX 75 MG PO (08:38)
[2024-11-28] MEDS: PROTONIX 40 MG PO (08:38)
[2024-11-28] MEDS: LASIX 40 MG PO (08:41)
[2024-11-28] MEDS: FLUSH (NSS) 1 FLUSH IV (08:41)
[2024-11-28] MEDS: ADVAIR HFA 115/21 MCG INHALER 2 PUFF INH (08:52)
[2024-11-28] MEDS: SPIRIVA RESPIMAT 2.5 MCG 2 PUFF INH (08:53)
[2024-11-28 09:56] VITALS: BP 109/69
--- NOTE | 2024-11-28 11:00 | W.PN.HOSP.TC ---
Today's Communication/Plan
-
COVID/influenza swab
DC planning
Assessment / Plan
Assessment / Plan
A/P: Patient is a 64y F with PMH significant for COPD, CHF, PA-Fib and ASCVD who presents to ED complaining of palpitations.
Palpitations
Paroxysmal Atrial Fibrillation / SVT
- Currently in sinus rhythm. Off of Cardizem drip.
- Cardiology evaluation noted-increased Cardizem evening dose. Patient has breakthrough nonsustained SVT last night but patient had no symptoms. If no further new recommendations from cardiology will discharge patient home today.
- Has LINQ in place that is non-functional - ? replace.
- Patient is not on OAC despite history of PA-Fib -she told me today that she chose not to go because of concerns of bleeding risk.
- Continue other usual medications without changes.
COPD
Chronic Hypoxemic Respiratory Insufficiency secondary to the above.
- No active wheezing appreciated on exam.
- Continue inhaled medications including PRN Xopenex.
-Check COVID and flu swab because of sore throat.
ASCVD
- Stable. No complaints of chest pain, new dyspnea, etc.
- Continue current CV med regimen including DAPT, statin, etc.
Anxiety / Depression
- Patient clearly anxious / depressed regarding her symptoms.
- Would consider trial of SSRI or similar for ongoing treatment of mood.
Morbid Obesity due to excess calories
- Affects all aspects of care.
- Encourage healthy diet. Activity as tolerated with goal of weight loss.
DVT Prophylaxis: Subcut Heparin
Code Status: Full
Anticipated Discharge: Today
Subjective/Interval History
-
Date of Service: November 28, 2024
Denies any further palpitations. No chest pain. Not short of breath.
She felt as throat was bit sore yesterday. No fever or chills.
Objective Data
-
Vital Signs:
Vital Signs
Temp Pulse Resp BP Pulse Ox
98.5 F 63 18 109/69 97
11/28/24 07:35 11/28/24 09:06 11/28/24 09:06 11/28/24 08:37 11/28/24 09:06
I&O
11/27/24 11/28/24 11/29/24
06:59 06:59 06:59
Intake Total 480 / 480
Balance 480 / 480
Review of Systems
-
Abdomen/GI: Denies Abdominal Pain, Nausea or Vomiting
Neuro: Denies Dizzy
Physical Exam
-
General: No Apparent Distress
Respiratory: Clear to Auscultation and Non Labored Respirations; Negative Accessory Resp Muscle Use
Cardiac: Regular Rhythm and S1/S2; Negative Tachycardic
GI: Soft
Neuro: AO x 3
[2024-11-28 11:10] VITALS: BP 134/85
[2024-11-28 12:19] VITALS: BP 134/85
[2024-11-28 12:50] LABS: COVID-19 Antigen Negative (Negative)
--- NOTE | 2024-11-28 12:52 | W.PN.CD ---
Today's Communication / Plan
-
stable on increased diltiazem: at home she will take 180mg AM, 120mg PM
discharge planning
Impression / Plan
-
Tachycardia/PSVT/Afib - Paroxysmal atrial fibrillation history.
- no Afib seen here on EKG or tele. there is paroxysmal SVT
- [id number]: Score at least 4 (Heart failure, HTN, Vascular disease, female gender).
- she declines oral anticoagulation, which limits treatment options.
- MDT NAOMI DICKINSON 2018 implant, now at [facility] and does not provide data.
-stable on increased diltiazem: at home she will take 180mg AM, 120mg PM
COPD - severe, oxygen dependent.
- stable.
- nebs, inhalers, oxygen, supportive treatment.
- PFT's on [employer]-IVC: TLC = 4.86 (110% predicted); FEV1/FVC = 0.48; FEV1 = 1.02 (46% predicted); DLCO/VA = 1.33 (29% predicted).
- follows with Dr. Lagunas as an outpatient.
HFpEF - chronic.
- stable weight at 209-212 lbs at home.
- echo 06/2024: EF 65-70%, no significant valve disease.
- PCWP 26mmHg at 220 lbs on C 07/22/24, no obstructive CAD at that time.
- continue outpatient diuretics, Lasix 80mg alternating with 40mg daily.
- does not tolerate Aldactone due to lightheadedness, did not tolerate Farxiga either.
CAD - stable w/o angina.
- patents stents from 02/2021, on cath 07/22/24, no new ischemia.
- continue aspirin and clopidogrel.
Hypertension - stable on meds.
- trend BP.
Obesity, morbid, BMI 40.9 - weight loss recommended.
Physical Exam
Vital Signs/Labs
Vital Signs
Temp Pulse Resp BP Pulse Ox
98.2 F 72 16 134/85 96
11/28/24 11:10 11/28/24 11:10 11/28/24 11:10 11/28/24 11:10 11/28/24 11:10
11/27/24 11/28/24 11/29/24
06:59 06:59 06:59
Actual Weight 96.842 kg 97.097 kg
11/27/24 06:14
11/27/24 06:14
Magnesium 2.1 mg/dl (1.6-2.3) 11/26/24 23:59
11/26/24
23:59
Xzd-R-Yjxllipxyon Pept 43.0
Physical Exam
Constitutional: No acute distress
EENT: Moist mucous membranes
Cardiovascular: Rhythm & rate is regular, Pedal edema is absent, JVD pressure is normal and Systolic murmur absent
Respiratory: Labored respirations and Wheeze Present
Neuro/Psych: AO x 3
Data Reviewed
-
Date of Service: November 28, 2024
EKG: Other (Tele: SR, with runs of SVT)
Labs: Labs Reviewed by me
--- NOTE | 2024-11-28 13:00 | PTCARENOTE ---
Pt has been refusing Heparin SC since admission to hospital. Pt verbalizes understanding of why it was ordered for her. Dr. Pereira aware that pt refusing Heparin.
--- NOTE | 2024-11-28 15:11 | CM ---
CM following re: discharge planning.
Reviewed pt's chart, met with pt.
Discharge order noted. Pt is aware and she stated her is coming to transport home.
Pt is aware that PT/OT recommend home PT/OT vs outpatient therapy. Pt politely declined it. Pt stated she has her private therapist and she can call him but pt stated she feels very weak and she just wants to be home with family.
Pt asked to check a new [employer]xygen DME company because pt stated she is tired dealing with [employer] bureaucracy. CM spoke to [employer] liaison and she stated that pt was too long with the same company and it will not be possible. Per pt she was with
[employer] for 5 years.
D/C plan: home no needs. to transport.
[2024-11-28 15:30] VITALS: BP 148/93
== END 2024-11-28 16:55 | disposition home or self-care (01) | DRG 309 ==
LOC: 4 EAST ACU 02:39
PROVIDERS: Emergency Medicine; ADMITTING PHYSICIAN Hospitalist; ATTENDING PHYSICIAN Internal Medicine; EMERGENCY PHYSICIAN Emergency Medicine; FAMILY PHYSICIAN Nurse Practitioner Adult Health; OTHER PHYSICIAN Internal Medicine
DX: I47.10 Supraventricular tachycardia, unspecified (principal); I50.32 Chronic diastolic (congestive) heart failure; J96.11 Chronic respiratory failure with hypoxia; Z68.41 Body mass index [BMI] 40.0-44.9, adult; E78.00 Pure hypercholesterolemia, unspecified; I25.10 Atherosclerotic heart disease of native coronary artery without angina pectoris; I11.0 Hypertensive heart disease with heart failure; E88.01 Alpha-1-antitrypsin deficiency; E66.01 Morbid (severe) obesity due to excess calories; K21.9 Gastro-esophageal reflux disease without esophagitis; R00.2 Palpitations; F32.A Depression, unspecified; F41.9 Anxiety disorder, unspecified; I49.3 Ventricular premature depolarization; R68.84 Jaw pain; I48.0 Paroxysmal atrial fibrillation; J44.9 Chronic obstructive pulmonary disease, unspecified; Z87.891 Personal history of nicotine dependence; Z79.02 Long term (current) use of antithrombotics/antiplatelets; Z79.82 Long term (current) use of aspirin; Z99.81 Dependence on supplemental oxygen; Z11.52 Encounter for screening for COVID-19; Z95.5 Presence of coronary angioplasty implant and graft; Z88.1 Allergy status to other antibiotic agents; Z88.5 Allergy status to narcotic agent; Z88.8 Allergy status to other drugs, medicaments and biological substances
CPT/HCPCS: 71046; 80048; 80053; 83735; 83880; 84443; 85027; 87502; 87811; 93005; 94640; 96374; 97162; 97166; 97530; 99285

== ENCOUNTER → 2024-12-26 08:53 | Outpatient (REF) | payer BC, SELFPAY ==
[2024-12-26 11:08] LABS: ALT (SGPT) 24 U/L (0-35); AST (SGOT) 26 U/L (14-36); Albumin 4.7 g/dl (3.5-5.0); Alkaline Phosphatase 124 U/L (38-126); Blood Urea Nitrogen 23 mg/dl (7-17); Calcium 9.3 mg/dl (8.4-10.2); Carbon Dioxide 36 mmol/L (22-30); Chloride 95 mmol/L (98-107); Glucose 97 mg/dl (70-99); Potassium 3.4 mmol/L (3.5-5.1); Sodium 137 mmol/L (135-145); Total Bilirubin 1.2 mg/dl (0.2-1.3); Total Protein 7.3 g/dl (6.3-8.2); eGFR 56.11
== END ==
LOC: REG 08:53
PROVIDERS: ATTENDING PHYSICIAN Nurse Practitioner; FAMILY PHYSICIAN Nurse Practitioner Adult Health
DX: I50.32 Chronic diastolic (congestive) heart failure (principal)
CPT/HCPCS: 36415; 80053

== ENCOUNTER 2025-01-08 20:03 | Inpatient (IN) | payer BC, SELFPAY ==
[2025-01-08 13:07] VITALS: BP 155/100
--- NOTE | 2025-01-08 13:11 | ED.GENMED ---
History of Present Illness
<OMA Petty - Last Filed: 01/08/25 19:19>
General
Chief Complaint: Breathing Problem
Source: patient
Exam Limitations: none
Time Seen by Provider: 01/08/25 13:11
Nursing documentation reviewed up to this point in time: agreed with
History of Present Illness
History of Present Illness:
Patient is a 64-year-old history of A-fib PSVT COPD oxygen dependent, heart failure CAD hypertension HI stent presents to the ER for evaluation. Patient reports for the past 5 days she has had increasing shortness of breath. She is very short of
breath with exertion/walking. She does reports she has had a gradual increased weight over the past 3 weeks and recently noticed some ankle swelling. She is on Lasix alternating 40 mg and 80 mg a day. She does have COPD and is on 2 L nasal
cannula oxygen however does not feel like this is COPD exacerbation she denies any wheezing. She has used her inhalers and has not have relief.
She did have chest pain yesterday morning which radiates to her left arm.
Past History
<OMA Petty - Last Filed: 01/08/25 19:19>
Past History
ED Past Medical History: Arrthythmia (Atrial fibrillation), Asthma, CAD, COPD, GERD and Hypercholesterolemia
ED Past Surgical History: Cardiac and Other (Lung biopsy)
Patient has exhibited threatening behavior?: No
PSI?: No
Social History
Tobacco: Former smoker
Alcohol: Occasional
Drug: None
Personal:
Living: with family
Employment: Not employed
Family History
Family History: CAD
Review of Systems
<OMA Petty - Last Filed: 01/08/25 19:19>
Review of Systems
Allergies reviewed?: Yes
All Other Systems: ROS reviewed and negative except as documented in HPI and ROS
Constitutional: Reports no symptoms; Denies fever, fatigue or chills
Respiratory: Reports trouble breathing; Denies cough
Cardiac: Reports no symptoms
ABD/GI: Reports no symptoms
Musculoskeletal: Reports no symptoms
Skin: Reports no symptoms
Neurological: Reports no symptoms
Psychiatric: Reports no symptoms
Phy Exam
<OMA Petty - Last Filed: 01/08/25 19:19>
General Physical Exam
General Presentation: no apparent distress
General age: appears stated age
General Skin: warm and dry
General Habitus: normal
General Mental: alert
General Hydration: appears well hydrated
Cardiovascular Exam
Cardiovascular Exam: regular rate/rhythm, no murmur and normal peripheral pulses
Pulmonary Exam
Pulmonary Exam: no respiratory distress and other (decreased throughout )
Gastrointestinal Exam
Gastrointestinal Exam: non tender and soft
Neurological Exam
Neurological Exam: alert and oriented x3
Scores
<OMA Petty - Last Filed: 01/08/25 19:19>
Heart Failure Risk
Heart Failure Risk Score: Not Applicable
Course
<OMA Petty - Last Filed: 01/08/25 19:19>
Orders/Labs/Results
Orders:
Orders
01/08/25 13:03
EKG [Electrocardiogram (*1)] Urgent
Reason for Study: Chest Pain
EKG- Treatment ONCE
01/08/25 13:31
CBC/With Diff [Complete Blood Count/With Diff] Urgent
CMP [Comprehensive Metabolic Panel] Urgent
Magnesium Urgent
Pro-BNP [NT-proBNP] Urgent
Troponin I Urgent
01/08/25 13:37
Chest [CR Chest - 2 Views ] Urgent
Comment:
Reason For Exam: sob
01/08/25 14:34
DDimer [D-Dimer] Urgent
01/08/25 14:35
EKG [Electrocardiogram (*1)] Urgent
Reason for Study: Chest Pain
EKG- Treatment ONCE
01/08/25 14:45
Albuterol Nebs [Ventolin Nebules] 2.5 mg INH R NOW STA
01/08/25 15:16
Dexamethasone Sod Phosphate [Decadron] 10 mg IV NOW STA
Ipratropium/Albuterol Sulfate [Duoneb] 3 ml INH R NOW STA
01/08/25 15:18
CT Chest PE Study Urgent
Comment:
Reason For Exam: sob
01/08/25 15:31
Venous Blood Gas Urgent
%Oxygen/Room Air: 2l
01/08/25 16:29
US Abdomen Complete/Upper Urgent
Comment:
Reason For Exam: upper abd pain
01/08/25 18:24
Albuterol Nebs [Ventolin Nebules] 2.5 mg INH R NOW STA
01/08/25 18:32
Troponin I Urgent
Abnormal Lab Results
01/08/25 01/08/25 01/08/25
13:31 14:34 15:31
Lymphocytes % 19.6 L %
(20.5-51.1)
D-Dimer 0.70 H ug/mlFEU
(0.00-0.50)
VBG pCO2 54 H mmHg
(35-48)
VBG HCO3 31.9 H mmol/L
(22-27)
BUN 20 H mg/dl
(7-17)
Creatinine 1.1 H mg/dL
(0.6-1.0)
Glucose 136 H mg/dl
(70-99)
Total Bilirubin 1.4 H mg/dl
(0.2-1.3)
Alkaline Phosphatase 141 H U/L
(38-126)
01/08/25 13:31
01/08/25 13:31
Vital Signs
Initial and Last Documented VS:
Initial Vital Signs
Temp Pulse Resp BP Pulse Ox
98.4 F 78 20 155/100 98
01/08/25 13:07 01/08/25 13:07 01/08/25 13:07 01/08/25 13:07 01/08/25 13:07
Last Documented Vital Signs
Temp Pulse Resp BP Pulse Ox
98.4 F 78 22 138/80 94
01/08/25 13:07 01/08/25 18:45 01/08/25 18:45 01/08/25 17:24 01/08/25 18:45
Gin Clerk consulted with Physician
Gin Clerk consulted with physician?: Yes
Name of Physician Consulted: Roel
<Cheryl Sevilla MD - Last Filed: 01/08/25 15:19>
Orders/Labs/Results
Orders:
Orders
01/08/25 13:03
EKG [Electrocardiogram (*1)] Urgent
Reason for Study: Chest Pain
EKG- Treatment ONCE
01/08/25 13:31
CBC/With Diff [Complete Blood Count/With Diff] Urgent
CMP [Comprehensive Metabolic Panel] Urgent
Magnesium Urgent
Pro-BNP [NT-proBNP] Urgent
Troponin I Urgent
01/08/25 13:37
Chest [CR Chest - 2 Views ] Urgent
Comment:
Reason For Exam: sob
01/08/25 14:34
DDimer [D-Dimer] Urgent
01/08/25 14:35
EKG [Electrocardiogram (*1)] Urgent
Reason for Study: Chest Pain
EKG- Treatment ONCE
01/08/25 14:45
Albuterol Nebs [Ventolin Nebules] 2.5 mg INH R NOW STA
01/08/25 15:16
Dexamethasone Sod Phosphate [Decadron] 10 mg IV NOW STA
Ipratropium/Albuterol Sulfate [Duoneb] 3 ml INH R NOW STA
01/08/25 15:18
CT Chest PE Study Urgent
Comment:
Reason For Exam: sob
01/08/25 15:31
Venous Blood Gas Urgent
%Oxygen/Room Air: 2l
01/08/25 16:29
US Abdomen Complete/Upper Urgent
Comment:
Reason For Exam: upper abd pain
01/08/25 18:24
Albuterol Nebs [Ventolin Nebules] 2.5 mg INH R NOW STA
01/08/25 18:32
Troponin I Urgent
Abnormal Lab Results
01/08/25 01/08/25 01/08/25
13:31 14:34 15:31
Lymphocytes % 19.6 L %
(20.5-51.1)
D-Dimer 0.70 H ug/mlFEU
(0.00-0.50)
VBG pCO2 54 H mmHg
(35-48)
VBG HCO3 31.9 H mmol/L
(22-27)
BUN 20 H mg/dl
(7-17)
Creatinine 1.1 H mg/dL
(0.6-1.0)
Glucose 136 H mg/dl
(70-99)
Total Bilirubin 1.4 H mg/dl
(0.2-1.3)
Alkaline Phosphatase 141 H U/L
(38-126)
01/08/25 13:31
01/08/25 13:31
Vital Signs
Initial and Last Documented VS:
Initial Vital Signs
Temp Pulse Resp BP Pulse Ox
98.4 F 78 20 155/100 98
01/08/25 13:07 01/08/25 13:07 01/08/25 13:07 01/08/25 13:07 01/08/25 13:07
Last Documented Vital Signs
Temp Pulse Resp BP Pulse Ox
98.4 F 78 22 138/80 94
01/08/25 13:07 01/08/25 18:45 01/08/25 18:45 01/08/25 17:24 01/08/25 18:45
<OMA Petty - Last Filed: 01/08/25 19:19>
MDM/Problems Addressed
Differential Diagnosis Includes:
Not limited to CHF, COPD exacerbation
MDM/Problems Addressed:
As documented patient is a 64-year-old with history of COPD presented for worsening shortness of breath. She has had increased weight however her BNP is normal and imaging not consistent with congestive heart failure. She denies any fever. She is
tight on exam and was given nebs and Decadron here however has persistent shortness of breath. CAT scan was done and negative for PE. She has a normal white count denies any fevers. In addition she felt some upper abdominal fullness and
ultrasound done and negative for acute cholecystitis normal LFTs.
Patient was eval by ED physician with patiently being symptomatic we will admit to the hospital.
<OMA Petty - Last Filed: 01/08/25 19:19>
*Radiology
Radiology exam reviewed: radiology read reviewed
*Pulse Oximetry
Patient hypoxic: no
*EKG
Interpreted by ED Provider?: Yes
Interpretation: abnormal
Heart Rate: 72
Rhythm: sinus
Ischemia: non-specific ST changes
*Critical Care Note
Total Time (30-74mins, 75-104mins- exclusive of procedures): Not Applicable
ED Attending Note
<OMA Petty - Last Filed: 01/08/25 19:19>
-
Portions of this chart may have been created with voice recognition software.� Occasional wrong word or��sound alike� substitutions may have occurred due to the inherent limitations of voice recognition software.
<Cheryl Sevilla MD - Last Filed: 01/08/25 15:19>
ED Attending Note
Patient seen and examined by attending physician: Yes
I performed the substantive portion of visit, reviewed & personally made and approve the management plan that is documented in note by myself or MANJIT.: Yes
ED Attending Note:
I have seen and evaluated the patient with a [id number] encounter. I have spoken to the [WINDOWS SECURITY ANALYST] and involved in the medical history, the physical exam, medical decision making.
Evaluation and management service: agree unless noted differently below.
Results interpretation: agree unless noted differently below.
64-year-old woman with history of COPD, A-fib, CHF, CAD presenting to the emergency room with shortness of breath. Patient states for the past week has been having shortness of breath especially upon exertion. Last night she developed chest pain
that radiated up her jaw and down her arms. Has been intermittently coming and going since last night. She did try taking her nebulizer at home which did not help. Denies any hemoptysis. States that she is been compliant with her medications.
No recent sick contacts.
GENERAL: in no acute distress
HEENT: normocephalic, extraocular movements intact, moist oral mucosa
NECK: normal inspection
RESPIRATORY: Mild respiratory distress, tachypneic, pursed lip breathing, diminished breath sounds at the apex
CARDIOVASCULAR: regular rate and rhythm
ABDOMEN/: soft, non-distended, non-tender to palpation, no rebound or guarding
EXTREMITIES: non-tender, no edema/swelling
NEUROLOGIC: awake and alert, moves all extremities
SKIN: warm
64-year-old woman history of COPD, A-fib, CHF, CAD presenting to the emergency room shortness of breath and chest pain. On arrival patient is requiring 2 L which is her baseline. Exam does show accessory muscle use tachypnea and diminished breath
sounds at the apex. Differential consists of COPD exacerbation versus atypical ACS. Considered PE though less likely. Initial blood work obtained is unremarkable. Will obtain delta troponin. Also obtain VBG. Will give nebulizer treatment.
Dimer is elevated we will proceed with CT PE. Consider BiPAP however patient would like to trial the nebulizer treatment first appropriate given that she is not in overt respiratory distress. Dispo pending reassessment and patient's response to
treatment.
Discharge Plan
Departure
Patient Disposition: Admit
Date of Disposition: 01/08/25
Time of Disposition: 19:17
Admit to: Telemetry
Admit to doctor: hospitalist
Presentation/result/management discussed w/ accepting MD/DO: Hospitalist
Patient with high blood pressure during this ER visit?: No
Condition: Fair
Covid-19: Not Applicable
Discharge Problem:
YEN (dyspnea on exertion), copd exacerbation
Prescriptions:
No Action
pantoprazole 40 MG tablet,delayed release (DR/EC)
40 mg PO DAILY
fluticasone propion-salmeterol [Advair HFA] 115-21 mcg/actuation HFA aerosol inhaler
2 puff INHALATION R BID
cholecalciferol (vitamin D3) 50 mcg (2,000 unit) Tablet
50 mcg PO NOON
clopidogrel 75 MG tablet
75 mg PO DAILY
aspirin 81 MG tablet,delayed release (DR/EC)
81 mg PO DAILY
famotidine 20 MG tablet
20 mg PO DAILYPRN PRN (Reason: heartburn)
docusate sodium 100 MG capsule
100 mg PO QPM
acetaminophen [Tylenol 8 Hour] 650 mg Tablet Extended Release
650 mg PO [id number] PRN (Reason: mild pain)
furosemide 40 mg Tablet
See Rx Instructions .ROUTE .COMPLEX Qty: 60 0RF
Rx Instructions:
take 1 tablet 40mg BID every other day and daily 40mg every other day.
tiotropium bromide [Spiriva with HandiHaler] 18 mcg capsule, w/inhalation device
1 cap inhalation DAILY Qty: 30 0RF
levalbuterol HCl 0.63 MG/3 ML solution for nebulization
0.63 mg inhalation R TIDPRN PRN (Reason: sob/wheezing) Qty: 72 0RF
levalbuterol tartrate 45 mcg/actuation Hfa Aerosol Inhaler
2 inh INHALATION R Q6HPRN PRN (Reason: sob,wheezing) Qty: 15 0RF
potassium chloride 20 mEq tablet extended release
20 meq PO DAILY Qty: 30 0RF
diltiazem HCl [Cardizem CD] 180 mg capsule,extended release 24hr
180 mg PO DAILY Qty: 30 0RF
diltiazem HCl [Cardizem CD] 120 mg capsule,extended release 24hr
120 mg PO HS Qty: 30 0RF
Referrals:
UNKNOWN - PT NOT,INTERVIEWE [Unknown Provider] -
Interventions
Interventions:
*General Assessment Last Done: 01/08/25 13:07
*Neglect/Abuse Screening Last Done: 01/08/25 13:39
*ED- Fall Risk Assessment Last Done: 01/08/25 13:39
ED- Cardiac Assessment Last Done: 01/08/25 13:39
ED- Pulmonary Assessment Last Done: 01/08/25 13:39
Discharge Date and Time
Print Language: GREENLANDIC
[2025-01-08 13:17] VITALS: BP 110/84
[2025-01-08 13:34] VITALS: BMI 41.7
[2025-01-08 13:42] LABS: % Basophils 1.8 % (0-2); % Eosinophils 1.6 % (0-6); % Immature Granulocytes 0.1 % (0-0.5); % Lymphocytes 19.6 % (20.5-51.1); % Neutrophils 69.9 % (42.2-75.2); Absolute Basophils 0.1 10^3/uL (0-0.2); Absolute Eosinophils 0.1 10^3/uL (0-0.7); Absolute Lymphocytes 1.3 10^3/uL (1.2-3.4); Absolute Monocytes 0.5 10^3/uL (0.1-0.6); Absolute Neutrophils 4.8 10^3/uL (1.4-6.5); Hematocrit 45.6 % (37.0-47.0); Hemoglobin 15.5 g/dL (12.0-16.0); Mean Corpuscular Hgb 30.4 pg (27.0-31.0); Mean Corpuscular Volume 89.4 fL (81.0-99.0); Mean Platelet Volume 8.5 fL (7.4-10.4); Nucleated Red Blood Cells % 0 %; Platelet Count 300 10^3/uL (130-400); Red Cell Dist. Width 12.4 % (11.5-14.5); White Blood Cell Count 6.8 10^3/uL (4.8-10.8)
[2025-01-08 13:52] LABS: ALT (SGPT) 20 U/L (0-35); AST (SGOT) 25 U/L (14-36); Albumin 4.2 g/dl (3.5-5.0); Alkaline Phosphatase 141 U/L (38-126); Blood Urea Nitrogen 20 mg/dl (7-17); Calcium 9.6 mg/dl (8.4-10.2); Carbon Dioxide 30 mmol/L (22-30); Chloride 102 mmol/L (98-107); Estimated Creatinine Clearance 56 ml/min; Glucose 136 mg/dl (70-99); Magnesium 2.2 mg/dl (1.6-2.3); Potassium 3.9 mmol/L (3.5-5.1); Sodium 137 mmol/L (135-145); Total Bilirubin 1.4 mg/dl (0.2-1.3); Total Protein 6.9 g/dl (6.3-8.2); eGFR 56.11
[2025-01-08 14:00] VITALS: BP 126/84
[2025-01-08 14:03] LABS: NT-proBNP 59.8 pg/ml; Troponin I < 0.012 ng/ml
[2025-01-08 15:00] VITALS: BP 137/83
[2025-01-08] MEDS: DUONEB 3 ML INH (15:33)
[2025-01-08] MEDS: DECADRON 10 MG IV (15:33)
[2025-01-08 15:50] LABS: Venous Blood Gas B.E. 5.3 mmol/L (-4 to +4); Venous Blood Gas HCO3 31.9 mmol/L (22-27); Venous Blood Gas O2 Sat % 54.8 %; Venous Blood Gas pCO2 54 mmHg (35-48); Venous Blood Gas pH 7.38 (7.32-7.43); Venous Blood Gas pO2 33 mmHg (30-50)
[2025-01-08 17:24] VITALS: BP 138/80
[2025-01-08] MEDS: VENTOLIN NEBULES 2.5 MG INH (18:28)
[2025-01-08 19:06] LABS: Troponin I < 0.012 ng/ml
--- NOTE | 2025-01-08 20:05 | HPS.HSE ---
Family Physician
-
Family Physician: Kacey Villalba
Chief Complaint
-
SOB
History of Present Illness
Patient is a 64y F with PMH significant for O2-dependent COPD, ASCVD and CHFpEF who presents to ED complaining of SOB. Patient states that she has felt increasingly SOB over the past week or so. She notes dyspnea with any level of exertion and
now even at rest. Patient notes that she breathes heavily and then begins to feel as if she might pass out. She complains of chest tightness with pain across the anterior chest and radiating into the jaw and the LUE. The chest discomfort worsens
with activity and improves with rest. She denies any cough, fevers / chills, N/V/D, etc.
Patient has been using her usual meds at home including typical inhaler regimen, diuretics, etc.
She notes that she has gained about 7 pounds gradually over the past 3 weeks or so (212 lbs to 219 lbs by her scale).
She denies any significant ankle swelling, but notes that she has felt abdominal distention and 'fullness / tightness' in the thighs.
Patient states that her symptoms seem similar to her prior episode of CHF. Symptoms do not seem similar to her prior episodes of COPD exacerbation.
Her diltiazem dose has been gradually titrated over the past two months from 120mg daily to 180mg BID.
No other recent med changes.
Medical History
Past Medical History
Past Medical History: Reports Other
Additional Past Medical History:
Severe COPD
Chronic Hypoxemic Respiratory Failure
ASCVD
Chronic HFpEF
Paroxysmal Atrial Fibrillation
Hypertension
Alpha-1 Antitrypsin Deficiency
Morbid Obesity
GERD
Past Surgical History: Reports Other
Additional Past Surgical History:
Lung Biopsy
PTCA with Stent x 2
Social History
Tobacco: Former Smoker (Quit 2020. > 50 pack years total.)
Alcohol: Occasional
Drug: None
Family History
Family History: Not pertinent
Allergies / Home Medications
Allergies reflects when Allergies were last updated in [employer].
Home Medications with original date entered in [employer]
Allergy/Medication List:
Allergies
Allergy/AdvReac Type Severity Reaction Status Date / Time
azithromycin Allergy Per pt Verified 01/08/25 13:06
stimulates
her A Fib
dipyridamole Allergy didn't Verified 01/08/25 13:06
[From Persantine] tolerate.
dobutamine Allergy 'feels Verified 01/08/25 13:06
terrible'
isosorbide [From Imdur] Allergy DIZZY Verified 01/08/25 13:06
levofloxacin [From Levaquin] Allergy LEGS WEAK Verified 01/08/25 13:06
morphine Allergy Nausea Verified 01/08/25 13:06
MUSCLE RELAXERS Allergy Nausea / Uncoded 01/08/25 13:06
Vomiting
Home Medications
pantoprazole 40 mg tablet,delayed release 40 mg PO DAILY Gastrointestinal issue 02/28/22
aspirin 81 mg tablet,delayed release 81 mg PO DAILY Blood clot prevention/tx 01/29/23
cholecalciferol (vitamin D3) 50 mcg (2,000 unit) tablet 50 mcg PO NOON Supplement 01/29/23
clopidogrel 75 mg tablet 75 mg PO DAILY Blood clot prevention/tx 01/29/23
docusate sodium 100 mg capsule 100 mg PO QPM Constipation 01/29/23
famotidine 20 mg tablet 20 mg PO DAILYPRN PRN heartburn 01/29/23
fluticasone propionate 115 mcg-salmeterol 21 mcg/actuation HFA inhaler (Advair HFA) 2 puff inhalation R BID Lung/breathing issues 01/29/23
acetaminophen 650 mg tablet,extended release (Tylenol 8 Hour) 650 mg PO [id number] PRN mild pain 06/29/24
levalbuterol HCl 0.63 mg/3 mL solution for nebulization 0.63 mg (3 mL) inhalation R TIDPRN PRN sob/wheezing #72 mL 10/23/24
levalbuterol tartrate 45 mcg/actuation aerosol inhaler 2 inh inhalation R Q6HPRN PRN sob,wheezing #15 grams 10/23/24
acyclovir 5 % topical cream 1 applic topical DAILYPRN PRN herpes flare 01/08/25
diazepam 2 mg tablet 2 mg PO DAILYPRN PRN anxiety 01/08/25
diltiazem HCl 180 mg capsule,extended release 24 hr, controlled 180 mg PO BID 01/08/25
furosemide 40 mg tablet 40 mg PO Q48H 01/08/25
furosemide 40 mg tablet 80 mg PO Q48H 01/08/25
magnesium oxide 400 mg PO HS 01/08/25
potassium chloride 20 mEq tablet,extended release 20 meq PO Q48H 01/08/25
potassium chloride 20 mEq tablet,extended release 40 meq PO Q48H 01/08/25
tiotropium bromide 2.5 mcg/actuation mist for inhalation (Spiriva Respimat) 2 puff inhalation R DAILY 01/08/25
Review of Systems
-
History Source: Patient
A 12 point ROS was completed and negative except as noted: Yes
Constitutional: Reports Weight Gain and Fatigue; Denies Fever or Chills
EENT: Denies Sore Throat
Respiratory: Reports Trouble Breathing; Denies Cough or Hemoptysis
Cardiac: Reports Chest Pain and Diaphoresis; Denies Palpitations or Syncope
Abdomen/GI: Denies Abdominal Pain, Nausea, Vomiting or Diarrhea
: Denies Dysuria, Frequency or Flank Pain
Musculoskeletal: Denies Joint Pain or Edema
Neurological: Reports Dizzy; Denies Headache
Psych: Reports Anxiety; Denies Depression
Physical Exam
Vital Signs
Vital Signs
Temp Pulse Resp BP Pulse Ox
98.4 F 78 22 138/80 94
01/08/25 13:07 01/08/25 18:45 01/08/25 18:45 01/08/25 17:24 01/08/25 18:45
Physical Exam
General: Other (64y F in mild distress due to dyspnea. Pos tachypneic.)
HEENT: Moist mucous membranes, PERRLA and Other (Thick neck. No appreciable JVD.)
Respiratory: Other (No significant W/R/R.)
Cardiac: S1/S2, Regular Rhythm and Murmur (II/ PIERRE)
GI: Non Tender, Non Distended, Normal Bowel Sounds and Other (Obese)
Musculoskeletal: No Clubbing, No Cyanosis and No Edema
Neuro: AO x 3
Laboratory Results
-
01/08/25 13:31
01/08/25 13:31
Laboratory Results
Total Bilirubin 1.4 mg/dl (0.2-1.3) H 01/08/25 13:31
AST 25 U/L (14-36) 01/08/25 13:31
ALT 20 U/L (0-35) 01/08/25 13:31
Alkaline Phosphatase 141 U/L (38-126) H 01/08/25 13:31
Troponin I < 0.012 ng/ml 01/08/25 18:32
Impression/Plan
-
A/P: Patient is a 64y F with PMH significant for COPD, CHF, PA-Fib and ASCVD who presents to ED complaining of SOB.
Acute Hypoxemic Respiratory Failure
- Admit for further evaluation and treatment.
- Possibly multifactorial with CHF and COPD overlay - but seems primarily CHF by history, etc.
- Continue supportive care / supplemental O2 / etc.
- Treat individual issues as noted below and follow for clinical improvement.
Acute on Chronic HFpEF
- Patient presents with hypoxemia, dyspnea with exertion, chest discomfort and recent weight gain.
- BNP is unremarkable - but is the same as in 07/2024 when she was noted to have markedly elevated filling pressures on cath.
- IV Lasix BID and follow for clinical improvement / effective diuresis.
- Continue potassium supplementation.
- Cardiology evaluation for additional recommendations.
- Update Echo.
Chest Pain
ASCVD
- Patient with exertional chest pain - ? related to CHF / CAD versus anxiety versus combination.
- Troponin negative x 2 sets thus far. EKG without active ischemia.
- Continue current CV med regimen.
- Cath done 07/2024 without significant / critical stenoses.
- Cardiology evaluation as noted above.
COPD
- Doubt significant exacerbation at present without cough, audible wheezing, etc.
- Hold further systemic steroids.
- Nebs ATC and PRN.
- Follow for clinical changes.
- Rule out COVID / flu for completeness.
Paroxysmal A-Fib / SVT
- Patient denies specific episodes of palpitations since increase in diltiazem dosing.
- Monitor on telemetry for any recurrent SVT episodes which may be contributing to current presentation.
- Continue current med regimen.
- Patient has declined OAC for stroke risk reduction.
Anxiety / Depression
- Again, suspect this is contributing to some degree to current presentation.
- BZDs PRN for anxiety and follow for clinical response.
Morbid Obesity due to excess calories
- Affects all aspects of care and specifically contributes to respiratory complaints.
- Encourage healthy diet and regular exercise with goal of weight loss.
DVT Prophylaxis: Lovenox
Code Status: Full
[2025-01-08 21:21] LABS: COVID-19 Antigen Negative (Negative)
[2025-01-08 22:55] VITALS: BP 147/78; BMI 41.3
[2025-01-08] MEDS: DUONEB INH (23:45)
[2025-01-09] VITALS (7 sets, daily range): BP systolic 104–144; BP diastolic 61–82; PULSE 76–77; O2SAT 97–98; BMI 41.3; BMI 41.2
[2025-01-09] MEDS: LASIX 40 MG IV ×3 (00:50→15:54)
[2025-01-09] MEDS: MAG-TAB SR 84 MG PO ×2 (00:50→19:51)
[2025-01-09] MEDS: CARDIZEM CD 180 MG PO ×2 (06:03→17:11)
--- NOTE | 2025-01-09 06:26 | PTCARENOTE ---
Admitted to floor. Assessed as per work list flow sheet. Stated she feels bouts of 'SVT'. Pt has only alarmed when moving in the bed. Pt slept very little through shift with no s/s of distress assessed. Pt denies pain and SOB. Will continue to
monitor.
[2025-01-09] MEDS: ADVAIR HFA 115/21 MCG INHALER 2 PUFF INH ×2 (07:31→19:31)
[2025-01-09] MEDS: DUONEB 3 ML INH (07:32)
[2025-01-09 07:51] LABS: Blood Urea Nitrogen 22 mg/dl (7-17); Calcium 10.1 mg/dl (8.4-10.2); Carbon Dioxide 27 mmol/L (22-30); Chloride 101 mmol/L (98-107); Estimated Creatinine Clearance 61 ml/min; Glucose 145 mg/dl (70-99); HDL Cholesterol 85 mg/dl; LDL Cholesterol, Calculated 181 mg/dl; Potassium 4.5 mmol/L (3.5-5.1); Sodium 136 mmol/L (135-145); Total Cholesterol 278 mg/dl (50-199); Triglyceride 64 mg/dl (10-149); Very Low Density Lipoprotein 12 mg/dl (0-30); eGFR > 60.00
[2025-01-09 07:53] LABS: Troponin I < 0.012 ng/ml
[2025-01-09 07:59] LABS: Hematocrit 41.4 % (37.0-47.0); Hemoglobin 14.1 g/dL (12.0-16.0); Mean Corp Hgb Conc. 34.1 g/dL (33.0-37.0); Mean Corpuscular Hgb 30.3 pg (27.0-31.0); Mean Corpuscular Volume 88.8 fL (81.0-99.0); Mean Platelet Volume 9.8 fL (7.4-10.4); Platelet Count 221 10^3/uL (130-400); Red Blood Cell Count 4.66 10^6/uL (4.20-5.40); Red Cell Dist. Width 12.5 % (11.5-14.5); White Blood Cell Count 6.6 10^3/uL (4.8-10.8)
[2025-01-09] MEDS: PROTONIX 40 MG PO (08:02)
[2025-01-09] MEDS: KCL 20 MEQ PO (08:02)
[2025-01-09] MEDS: ASPIR LOW (ENTERIC COATED) 81 MG PO (08:02)
[2025-01-09] MEDS: PLAVIX 75 MG PO (08:02)
[2025-01-09 08:23] LABS: TSH Reflex To Free T4 0.51 uIU/ml (0.47-4.68)
--- NOTE | 2025-01-09 10:21 | W.PN.HOSP.TC ---
Today's Communication/Plan
-
Xopenex
Spiriva
Mucinex
Acapella
Incentive spirometer
Continue IV Lasix
Cardiology consult
Assessment / Plan
Assessment / Plan
Gen-AAOx3, NAD
HEENT-NC, AT, anicteric, clear oral mm
Neck-supple
CV-reg, no M, +S1/S2
Lungs-clear B/L
Abd-soft, NT, ND
Ext-no edema
Musculoskeletal-no cyanosis, clubbing
Skin-warm and dry
Neuro-grossly non-focal
Psych-calm, cooperative
Acute Hypoxemic Respiratory Failure -presentation with shortness of breath and tachypnea. Still tachypneic today. 2 L nasal cannula currently.
- Possibly multifactorial with CHF and COPD overlay - but seems primarily CHF by history, etc.
- Continue supportive care / supplemental O2 / etc.
- Treat individual issues as noted below and follow for clinical improvement.
Acute on Chronic HFpEF
- Patient presents with hypoxemia, dyspnea with exertion, chest discomfort and recent weight gain.
- BNP is unremarkable - but is the same as in 07/2024 when she was noted to have markedly elevated filling pressures on cath.
- IV Lasix BID and follow for clinical improvement / effective diuresis.
- Continue potassium supplementation.
- Cardiology evaluation for additional recommendations.
- Update Echo.
Acute bronchitis - suspect viral in etiology. Patient states she started having a cough yesterday. No infiltrates on chest x-ray or CT. Treat supportively with Acapella, incentive spirometer, Mucinex. No wheezing on exam, hold off on further
steroids. Will change inhalers to Xopenex given history of SVT.
Chest Pain
ASCVD
- Patient with exertional chest pain - ? related to CHF / CAD versus anxiety versus combination.
- Troponin negative x 3 sets thus far. EKG without active ischemia.
- Continue current CV med regimen.
- Cath done 07/2024 without significant / critical stenoses.
- Cardiology evaluation as noted above.
COPD with mild exacerbation due to bronchitis -not actively wheezing. Hold off on further steroids. Did receive Decadron in the emergency room. Treat as above for bronchitis.
Paroxysmal A-Fib / SVT
- Patient denies specific episodes of palpitations since increase in diltiazem dosing.
- Monitor on telemetry for any recurrent SVT episodes which may be contributing to current presentation.
- Continue current med regimen.
- Patient has declined OAC for stroke risk reduction.
Anxiety / Depression
- Again, suspect this is contributing to some degree to current presentation.
- BZDs PRN for anxiety and follow for clinical response.
Morbid Obesity due to excess calories
- Affects all aspects of care and specifically contributes to respiratory complaints.
- Encourage healthy diet and regular exercise with goal of weight loss.
DVT Prophylaxis: Lovenox
Code Status: Full
Anticipated Discharge: > 48 hours
Subjective/Interval History
-
Date of Service: January 09, 2025
Patient seen and examined. Still complaining of dyspnea on exertion, only very slightly less than yesterday.
Objective Data
-
Labs:
Laboratory Results
01/09/25
07:19
WBC 6.6
Hgb 14.1
Hct 41.4
Plt Count 221 D
Sodium 136
Potassium 4.5
Chloride 101
Carbon Dioxide 27
BUN 22 H
Creatinine 1.0
Glucose 145 H
Calcium 10.1
Vital Signs:
Vital Signs
Temp Pulse Resp BP Pulse Ox
97.4 F 69 20 124/78 96
01/09/25 07:39 01/09/25 08:02 01/09/25 07:40 01/09/25 08:02 01/09/25 07:40
I&O
0301/09/25 01/10/25
06:59 06:59 07:59
Intake Total 240 / 240
Balance 240 / 240
Review of Systems
-
History Source: Patient
All other systems: Reviewed and negative
[2025-01-09] MEDS: SPIRIVA RESPIMAT 2.5 MCG 2 PUFF INH (11:21)
--- NOTE | 2025-01-09 11:27 | PTOTSP ---
pt currently requires supervision to no assistance to complete simple ADLs, functional transfers, ambulation. pt does demonstrate shortness of breath, educated on pursed lipped breathing and energy conservation. pt verbalized and demonstrated
understanding. no acute OT needs identified at this time, will sign off.
[2025-01-09] MEDS: MUCINEX 600 MG PO ×2 (11:51→19:51)
--- NOTE | 2025-01-09 12:52 | CON.CAR ---
Consultation
Consultation Request
Date/Time Consultation Requested: 01/09/2025
Date/Time Consultation Performed: 01/09/2025
Requesting Provider: Dr. Butterfield
Performing Provider: Dr. Molina
Reason for Consultation: CHF
Medical History
-
Chief Complaint: Shortness of breath
History of Present Illness:
64 year old female (known to Dr. 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
hyperlipidemia (patient declines statin), sinus bradycardia with MDT ILR (TEENA) 2018 now at EOS, severe COPD (2L dependent; quit smoking 2020), OBIE, obesity, and likely anxiety presenting with shortness of breath. The patient takes alternating QOD
doses of Lasix 40 mg once daily and 80 mg once daily at home. She has noted an approximate 5 pound weight gain over the past few weeks. The patient also experienced similar midsternal chest pain that radiated across her chest and bilateral arms;
patient had similar presentation 07/2024 which led to cardiac catheterization that revealed patent stents and no obstructive coronary artery disease.
Past Medical History
Past Medical History: CAD (Previous KATHARINE x 2 in 2020), COPD, GERD, HTN, Hypercholesterolemia (Uncontrolled), NIDDM and Other (as above)
Past Surgical History: Cardiac (ILR 2018, KATHARINE x 2 in 2020) and Other (Lumpectomy, lung biopsy)
Social History
Tobacco: Former Smoker
Alcohol: None
Living: With Family (brother)
Family History
Family History: Reviewed & Not Pertinent
Allergies / Home Medications
Allergy/AdvReac Type Severity Reaction Status Date / Time
azithromycin Allergy Per pt Verified 01/08/25 13:06
stimulates
her A Fib
dipyridamole Allergy didn't Verified 01/08/25 13:06
[From Persantine] tolerate.
dobutamine Allergy 'feels Verified 01/08/25 13:06
terrible'
isosorbide [From Imdur] Allergy DIZZY Verified 01/08/25 13:06
levofloxacin [From Levaquin] Allergy LEGS WEAK Verified 01/08/25 13:06
morphine Allergy Nausea Verified 01/08/25 13:06
MUSCLE RELAXERS Allergy Nausea / Uncoded 01/08/25 13:06
Vomiting
�Medication �Instructions �Recorded �Confirmed �Type
pantoprazole 40 mg tablet,delayed 40 mg PO DAILY Gastrointestinal 02/28/22 01/09/25 History
release issue
aspirin 81 mg tablet,delayed 81 mg PO DAILY Blood clot 01/29/23 01/09/25 History
release prevention/tx
cholecalciferol (vitamin D3) 50 50 mcg PO NOON Supplement 01/29/23 01/09/25 History
mcg (2,000 unit) tablet
clopidogrel 75 mg tablet 75 mg PO DAILY Blood clot 01/29/23 01/09/25 History
prevention/tx
docusate sodium 100 mg capsule 100 mg PO QPM Constipation 01/29/23 01/09/25 History
famotidine 20 mg tablet 20 mg PO DAILYPRN PRN heartburn 01/29/23 01/09/25 History
fluticasone propionate 115 2 puff inhalation R BID 01/29/23 01/09/25 History
mcg-salmeterol 21 mcg/actuation Lung/breathing issues
HFA inhaler (Advair HFA)
acetaminophen 650 mg 650 mg PO [id number] PRN mild pain 06/29/24 01/09/25 History
tablet,extended release (Tylenol 8
Hour)
levalbuterol HCl 0.63 mg/3 mL 0.63 mg (3 mL) inhalation R TIDPRN 10/23/24 01/09/25 Rx
solution for nebulization PRN sob/wheezing #72 mL
levalbuterol tartrate 45 2 inh inhalation R Q6HPRN PRN 10/23/24 01/09/25 Rx
mcg/actuation aerosol inhaler sob,wheezing #15 grams
acyclovir 5 % topical cream 1 applic topical DAILYPRN PRN 01/08/25 01/09/25 History
herpes flare
diazepam 2 mg tablet 2 mg PO DAILYPRN PRN anxiety 01/08/25 01/09/25 History
diltiazem HCl 180 mg 180 mg PO BID 01/08/25 01/09/25 History
capsule,extended release 24 hr,
controlled
furosemide 40 mg tablet 40 mg PO Q48H 01/08/25 01/09/25 History
furosemide 40 mg tablet 80 mg PO Q48H 01/08/25 01/09/25 History
magnesium oxide 400 mg PO HS 01/08/25 01/09/25 History
potassium chloride 20 mEq 20 meq PO Q48H 01/08/25 01/09/25 History
tablet,extended release
potassium chloride 20 mEq 40 meq PO Q48H 01/08/25 01/09/25 History
tablet,extended release
tiotropium bromide 2.5 2 puff inhalation R DAILY 01/08/25 01/09/25 History
mcg/actuation mist for inhalation
(Spiriva Respimat)
Review of Systems
-
History Source: Patient
All other systems: Negative unless noted
Physical Exam
Vital Signs
Temp Pulse Resp BP Pulse Ox
97.5 F 64 18 144/79 96
01/09/25 11:22 01/09/25 11:29 01/09/25 11:29 01/09/25 11:22 01/09/25 11:29
Lab Results
01/09/25 07:19
01/09/25 07:19
Troponin I < 0.012 ng/ml 01/09/25 07:19
Qrk-B-Ooblfmrucrg Pept 59.8 pg/ml 01/08/25 13:31
Physical Exam
General: No Apparent Distress and Comfortable
HEENT: Anicteric
Respiratory: Clear
Cardiac: S1/S2, Regular Rhythm and Murmur (Soft 1/6 systolic murmur)
Breast: Deferred by me
GI: Soft
Rectal: Deferred by Provider
Musculoskeletal: No Edema
Skin: Warm and Dry
Neuro: AO x 3
Psych: Calm
Impression / Plan
-
64 year old female (known to Dr. 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
hyperlipidemia (patient declines statin), sinus bradycardia with MDT ILR (LINQ) 2018 now at EOS, severe COPD (2L dependent; quit smoking 2020), GERD, obesity, and likely anxiety presenting with shortness of breath. The patient takes alternating QOD
doses of Lasix 40 mg once daily and 80 mg once daily at home. She has noted an approximate 5 pound weight gain over the past few weeks. The patient also experienced similar midsternal chest pain that radiated across her chest and bilateral arms;
patient had similar presentation 07/2024 which led to cardiac catheterization that revealed patent stents and no obstructive coronary artery disease.
Chest pain/known CAD:
-Most likely non-cardiac; possibly related to significant anxiety.
-No objective signs suggestive of ACS; cardiac enzymes negative EKG with no acute changes (unchanged compared to previous EKGs).
-Patent stents and no obstructive CAD on cardiac catheterization 07/12/2024.
-Continue aspirin/Plavix.
-Patient declines statin; discussed recommendation at length today.
Severe oxygen dependent COPD exacerbation:
-Continue respiratory treatment as directed by primary Hospitalist.
-Should continue to refrain from tobacco use.
Acute on chronic HFpEF:
-Patient is up approximately 5 kg compared to 10/2024.
-This is a threat to life; IV diuresis indicated.
-Patient shows no overt signs of volume overload, but patient had 5 pound weight gain at home.
-Cardiac BNP not elevated.
-Patient states that she has been diuresing with Lasix 40 mg IV twice daily; continue for now.
-Closely monitor daily weights and I/Os.
-Patient did not tolerate SGLT2 inhibitor or spironolactone.
-No need to repeat echocardiogram as the patient recently had one on 06/30/2024.
Paroxysmal atrial fibrillation/PSVT:
-Patient declines anticoagulation.
-Continue diltiazem CD1 180 mg twice daily.
Hypertension:
-Blood pressure was elevated at 155/100 mmHg on admission, but quickly normalized to 110/84 mmHg on recheck; likely secondary to anxiety.
-Continue current antihypertensive medication regimen.
Hyperlipidemia:
-LDL 181; patient declines statin.
-Counseled today at length on the importance of a statin, which is indicated given her CAD.
Diabetes:
-Management as per primary team.
Obesity:
-Weight loss recommended.
Data Reviewed
-
EKG: Tracing Personally Visualized and interpreted (Sinus rhythm; nonspecific T wave abnormality)
Medical Tests (Nuc Med, Echo etc): Image Personally Visualized and interpreted (Transthoracic echocardiogram (06/30/2024): LVEF 65-70%, normal regional wall motion, normal diastolic function; trace MR/TR.)
Labs: Labs Reviewed by me and Discussed with Patient
Old Records: Reviewed (Cardiology office visit 12/11/2024.)
[2025-01-09] MEDS: XOPENEX 1.25 MG INHALANT SOLUTION INH ×2 (14:43→19:31)
[2025-01-09] MEDS: FLUSH (NSS) 2 FLUSH IV (15:54)
--- NOTE | 2025-01-09 16:51 | PTCARENOTE ---
Pt c/o dry hands made aware, new order provided, see MAR.
[2025-01-09] MEDS: HYDROPHOR 1 APPLIC TOPICAL (17:06)
[2025-01-09] MEDS: LOVENOX SC (17:11)
[2025-01-09] MEDS: COLACE PO (17:11)
[2025-01-09] MEDS: MIRALAX 17 GRAMS PO (17:28)
--- NOTE | 2025-01-09 17:28 | PTCARENOTE ---
Pt c/o constipation, requested MD maged made aware, new order provided, see MAR.
[2025-01-10] VITALS (7 sets, daily range): BP systolic 97–139; BP diastolic 58–83; PULSE 65–78; BMI 41.4
[2025-01-10] MEDS: TYLENOL 650 MG PO (06:02)
[2025-01-10] MEDS: CARDIZEM CD 180 MG PO ×2 (06:03→17:20)
[2025-01-10 06:26] LABS: ALT (SGPT) 19 U/L (0-35); AST (SGOT) 20 U/L (14-36); Albumin 4.1 g/dl (3.5-5.0); Alkaline Phosphatase 106 U/L (38-126); Blood Urea Nitrogen 27 mg/dl (7-17); Calcium 9.6 mg/dl (8.4-10.2); Carbon Dioxide 31 mmol/L (22-30); Chloride 97 mmol/L (98-107); Estimated Creatinine Clearance 56 ml/min; Glucose 135 mg/dl (70-99); Potassium 4.2 mmol/L (3.5-5.1); Sodium 138 mmol/L (135-145); Total Bilirubin 0.8 mg/dl (0.2-1.3); Total Protein 6.4 g/dl (6.3-8.2); eGFR 56.11
[2025-01-10] MEDS: ADVAIR HFA 115/21 MCG INHALER 2 PUFF INH ×2 (07:50→20:38)
[2025-01-10] MEDS: SPIRIVA RESPIMAT 2.5 MCG 2 PUFF INH (07:50)
[2025-01-10] MEDS: XOPENEX 1.25 MG INHALANT SOLUTION INH ×3 (07:50→20:39)
[2025-01-10] MEDS: PROTONIX 40 MG PO (08:20)
[2025-01-10] MEDS: KCL 40 MEQ PO (08:20)
[2025-01-10] MEDS: ASPIR LOW (ENTERIC COATED) 81 MG PO (08:21)
[2025-01-10] MEDS: LASIX 40 MG IV ×2 (08:21→16:11)
[2025-01-10] MEDS: PLAVIX 75 MG PO (08:21)
[2025-01-10] MEDS: MUCINEX 600 MG PO ×2 (08:21→19:59)
--- NOTE | 2025-01-10 11:41 | W.PN.CD ---
Today's Communication / Plan
-
-Statin again discussed today and recommended; patient still declines.
-Wheezing on examination this a.m.; management as per primary team.
-Continue Lasix 40 mg IV twice daily.
-Continue to monitor daily weights and I/Os.
-Patient declines anticoagulation.
Impression / Plan
-
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
hyperlipidemia (patient declines statin), sinus bradycardia with MDT ILR (LINQ) 2018 now at EOS, severe COPD (2L dependent; quit smoking 2020), GERD, obesity, and likely anxiety presenting with shortness of breath. The patient takes alternating QOD
doses of Lasix 40 mg once daily and 80 mg once daily at home. She has noted an approximate 5 pound weight gain over the past few weeks. The patient also experienced similar midsternal chest pain that radiated across her chest and bilateral arms;
patient had similar presentation 07/2024 which led to cardiac catheterization that revealed patent stents and no obstructive coronary artery disease.
Chest pain/known CAD:
-Most likely non-cardiac; possibly related to significant anxiety.
-No objective signs suggestive of ACS; cardiac enzymes negative EKG with no acute changes (unchanged compared to previous EKGs).
-Patent stents and no obstructive CAD on cardiac catheterization 07/12/2024.
-Continue aspirin/Plavix.
-Statin again discussed today and recommended; patient still declines.
Severe oxygen dependent COPD exacerbation:
-Continue respiratory treatment as directed by primary Hospitalist.
-Should continue to refrain from tobacco use.
-Wheezing on examination this a.m.; management as per primary team.
Acute on chronic HFpEF:
-Patient is up approximately 5 kg compared to 10/2024.
-This is a threat to life; IV diuresis indicated.
-Patient shows no overt signs of volume overload, but patient had an over 5 pound weight gain at home.
-Cardiac BNP not elevated.
-Continue Lasix 40 mg IV twice daily.
-Continue to monitor daily weights and I/Os.
-Patient did not tolerate SGLT2 inhibitor or spironolactone.
-No need to repeat echocardiogram as the patient recently had one on 06/30/2024.
Paroxysmal atrial fibrillation/PSVT:
-Patient declines anticoagulation.
-Continue diltiazem CD 180 mg twice daily.
Hypertension:
-Blood pressure was elevated at 155/100 mmHg on admission, but quickly normalized to 110/84 mmHg on recheck; likely secondary to anxiety.
-Controlled on current antihypertensive medication regimen; continue.
Hyperlipidemia:
-LDL 181; patient declines statin.
-Counseled again today on the importance of a statin, which is indicated given her CAD; patient declines.
Diabetes:
-Management as per primary team.
Obesity:
-Weight loss recommended.
Physical Exam
Vital Signs/Labs
Vital Signs
Temp Pulse Resp BP Pulse Ox
98.8 F 56 16 111/78 95
01/10/25 11:40 01/10/25 07:54 01/10/25 07:54 01/10/25 07:45 01/10/25 07:54
01/09/25 01/10/25 01/11/25
05:59 06:59 06:59
Actual Weight
01/09/25 07:19
01/10/25 05:18
Magnesium 2.2 mg/dl (1.6-2.3) 01/08/25 13:31
Triglycerides 64 mg/dl (10-149) 01/09/25 07:19
LDL Cholesterol, Calc 181 mg/dl 01/09/25 07:19
VLDL Cholesterol, Calc 12 mg/dl (0-30) 01/09/25 07:19
HDL Cholesterol 85 mg/dl 01/09/25 07:19
01/08/25
13:31
Cnb-G-Shwdidhodzw Pept 59.8
LAB Results
01/08/25 01/08/25 01/09/25
13:31 18:32 07:19
Troponin I < 0.012 < 0.012 < 0.012
Physical Exam
Constitutional: No acute distress and Comfortable
EENT: Anicteric
Cardiovascular: Rhythm & rate is regular, Pedal edema is absent, Systolic murmur absent and S1S2 is normal
Respiratory: Respiratory effort normal and Wheeze Present
GI: Soft
Neuro/Psych: AO x 3
Other: Skin (Warm, dry, intact)
Data Reviewed
-
Date of Service: January 10, 2025
EKG: Tracing Personally Visualized and interpreted (Telemetry: Sinus rhythm)
Medical Tests (PFT, Pathology etc): Discussed with Patient
Labs: Labs Reviewed by me
--- NOTE | 2025-01-10 12:50 | W.PN.HOSP.TC ---
Today's Communication/Plan
-
Continue current care
Assessment / Plan
Assessment / Plan
Gen-AAOx3, NAD
HEENT-NC, AT, anicteric, clear oral mm
Neck-supple
CV-reg, no M, +S1/S2
Lungs-clear B/L
Abd-soft, NT, ND
Ext-no edema
Musculoskeletal-no cyanosis, clubbing
Skin-warm and dry
Neuro-grossly non-focal
Psych-calm, cooperative
Acute Hypoxemic Respiratory Failure -presentation with shortness of breath and tachypnea. Still tachypneic today. 2 L nasal cannula currently.
- Possibly multifactorial with CHF and COPD overlay - but seems primarily CHF by history, etc.
- Continue supportive care / supplemental O2 / etc.
- Treat individual issues as noted below and follow for clinical improvement.
Acute on Chronic HFpEF
- Patient presents with hypoxemia, dyspnea with exertion, chest discomfort and recent weight gain. Weight remains unchanged on IV Lasix.
- BNP is unremarkable - but is the same as in 07/2024 when she was noted to have markedly elevated filling pressures on cath.
- IV Lasix BID and follow for clinical improvement / effective diuresis.
- Update Echo.
Not orthostatic based on vitals.
Acute bronchitis - suspect viral in etiology. Patient states she started having a cough day before admission. No infiltrates on chest x-ray or CT. Treat supportively with Acapella, incentive spirometer, Mucinex. No wheezing on exam, hold off on
further steroids. Continue inhalers.
Chest Pain
ASCVD
- Patient with exertional chest pain - ? related to CHF / CAD versus anxiety versus combination.
- Troponin negative x 3 sets thus far. EKG without active ischemia.
- Continue current CV med regimen.
- Cath done 07/2024 without significant / critical stenoses.
- Cardiology evaluation as noted above.
COPD with mild exacerbation due to bronchitis -not actively wheezing. Hold off on further steroids. Did receive Decadron in the emergency room. Treat as above for bronchitis.
Paroxysmal A-Fib / SVT
- Patient denies specific episodes of palpitations since increase in diltiazem dosing.
- Monitor on telemetry for any recurrent SVT episodes which may be contributing to current presentation.
- Continue current med regimen.
- Patient has declined OAC for stroke risk reduction.
Anxiety / Depression
- Again, suspect this is contributing to some degree to current presentation.
- BZDs PRN for anxiety and follow for clinical response.
Morbid Obesity due to excess calories
- Affects all aspects of care and specifically contributes to respiratory complaints.
- Encourage healthy diet and regular exercise with goal of weight loss.
DVT Prophylaxis: Lovenox
Code Status: Full
Anticipated Discharge: 24 - 48 hours
Subjective/Interval History
-
Date of Service: January 10, 2025
Patient seen and examined. Still with dyspnea on exertion, mildly improved. Mild lightheadedness.
Objective Data
-
Labs:
Laboratory Results
01/10/25
05:18
Sodium 138
Potassium 4.2
Chloride 97 L
Carbon Dioxide 31 H
BUN 27 H
Creatinine 1.1 H
Glucose 135 H
Calcium 9.6
Total Bilirubin 0.8
AST 20
ALT 19
Alkaline Phosphatase 106
Vital Signs:
Vital Signs
Temp Pulse Resp BP Pulse Ox
98.8 F 67 20 111/78 97
01/10/25 11:40 01/10/25 11:40 01/10/25 11:40 01/10/25 11:40 01/10/25 11:40
I&O
01/09/25 01/10/25 01/11/25
05:59 06:59 06:59
Intake Total
Balance
Review of Systems
-
History Source: Patient
All other systems: Reviewed and negative
--- NOTE | 2025-01-10 13:05 | CM ---
Spoke with patient to obtain information for assessment. She stated that she lives with her spouse and brother in a two story home with two steps to enter. She has a chair glide to go up to the second floor. She described herself as independent with
her ADLs and personal care. 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
Patient is on o2
She has had [facility] in the past.
No SNF.
Patient has a prescription plan and uses [facility] in [place] for all of her medications.
Her PCP is, Kacey Batres
Patient asked where she could get counseling on Medicare options. She was provided with the # to [facility],
Patient stated that she feels she will be able to return home when stable and anticipates no needs.
Plan: Case management will continue to follow and assist with discharge planning. Home when stable.
[2025-01-10] MEDS: LOVENOX SC (17:19)
[2025-01-10] MEDS: COLACE 100 MG PO (17:19)
[2025-01-10] MEDS: MAG-TAB SR 84 MG PO (19:59)
[2025-01-11 03:20] VITALS: BP 107/64
[2025-01-11 06:00] VITALS: BMI 41.4
[2025-01-11] MEDS: CARDIZEM CD 180 MG PO ×2 (06:07→17:28)
[2025-01-11] MEDS: MIRALAX 17 GRAMS PO (06:09)
[2025-01-11 06:48] LABS: ALT (SGPT) 19 U/L (0-35); AST (SGOT) 20 U/L (14-36); Albumin 3.8 g/dl (3.5-5.0); Alkaline Phosphatase 110 U/L (38-126); Blood Urea Nitrogen 26 mg/dl (7-17); Calcium 9.3 mg/dl (8.4-10.2); Carbon Dioxide 36 mmol/L (22-30); Chloride 94 mmol/L (98-107); Estimated Creatinine Clearance 61 ml/min; Glucose 102 mg/dl (70-99); Sodium 137 mmol/L (135-145); Total Bilirubin 0.8 mg/dl (0.2-1.3); Total Protein 6.1 g/dl (6.3-8.2); eGFR > 60.00
[2025-01-11 07:00] VITALS: BP 122/90
[2025-01-11] MEDS: MUCINEX 600 MG PO ×2 (07:21→13:44)
[2025-01-11] MEDS: PROTONIX 40 MG PO (07:21)
[2025-01-11] MEDS: KCL 40 MEQ PO (07:21)
[2025-01-11] MEDS: LASIX 40 MG IV ×2 (07:21→16:19)
[2025-01-11] MEDS: ASPIR LOW (ENTERIC COATED) 81 MG PO (07:21)
[2025-01-11] MEDS: PLAVIX 75 MG PO (07:21)
[2025-01-11] MEDS: SPIRIVA RESPIMAT 2.5 MCG 2 PUFF INH (07:53)
[2025-01-11] MEDS: ADVAIR HFA 115/21 MCG INHALER 2 PUFF INH ×2 (07:53→20:18)
[2025-01-11] MEDS: XOPENEX 1.25 MG INHALANT SOLUTION INH ×3 (07:53→20:18)
--- NOTE | 2025-01-11 08:42 | W.PN.CD ---
Today's Communication / Plan
-
-Patient still wheezing on examination this a.m.; continue management as per primary team.
-Patient continues to diurese relatively well with Lasix 40 mg IV twice daily; continue for now.
-Once respiratory status improves, patient should be discharged on Lasix 80 mg PO BID (she was on alternating once daily doses of 40 mg and 80 mg at home).
-Continue to monitor daily weights and I/Os.
Impression / Plan
-
64 year old female (known to Dr. Olmedo, her primary Kosher Butcher) with CAD s/p prior KATHARINE to mid LAD (02/28/2021), subsequent KATHARINE to proximal pLAD (10/31 2021), paroxysmal atrial fibrillation (declines OAC), PSVT, chronic HFpEF, hypertension,
hyperlipidemia (patient declines statin), sinus bradycardia with MDT ILR (TEENA) 2018 now at EOS, severe COPD (2L dependent; quit smoking 2020), GERD, obesity, and likely anxiety presenting with shortness of breath. The patient takes alternating QOD
doses of Lasix 40 mg once daily and 80 mg once daily at home. She has noted an approximate 5 pound weight gain over the past few weeks. The patient also experienced similar midsternal chest pain that radiated across her chest and bilateral arms;
patient had similar presentation 07/2024 which led to cardiac catheterization that revealed patent stents and no obstructive coronary artery disease.
Chest pain/known CAD:
-Most likely non-cardiac; possibly related to significant anxiety.
-No objective signs suggestive of ACS; cardiac enzymes negative EKG with no acute changes (unchanged compared to previous EKGs).
-Patent stents and no obstructive CAD on cardiac catheterization 07/12/2024.
-Continue aspirin/Plavix.
-Patient declines statin, which is recommended.
Severe oxygen dependent COPD exacerbation:
-Continue respiratory treatment as directed by primary Hospitalist.
-Should continue to refrain from tobacco use.
-Patient still wheezing on examination this a.m.; continue management as per primary team.
Acute on chronic HFpEF:
-Patient is up approximately 5 kg compared to 10/2024.
-This is a threat to life; IV diuresis indicated.
-Patient shows no overt signs of volume overload, but patient had an over 5 pound weight gain at home.
-Cardiac BNP not elevated.
-Patient continues to diurese relatively well with Lasix 40 mg IV twice daily; continue for now.
-This requires intensive monitoring.
-Once respiratory status improves, patient should be discharged on Lasix 80 mg PO BID (she was on alternating once daily doses of 40 mg and 80 mg at home).
-Continue to monitor daily weights and I/Os.
-Patient did not tolerate SGLT2 inhibitor or spironolactone.
-No need to repeat echocardiogram as the patient recently had one on 06/30/2024.
Paroxysmal atrial fibrillation/PSVT:
-Patient declines anticoagulation.
-Continue diltiazem CD 180 mg twice daily.
Hypertension:
-Blood pressure was elevated at 155/100 mmHg on admission, but quickly normalized to 110/84 mmHg on recheck; likely secondary to anxiety.
-Controlled on current antihypertensive medication regimen; continue.
Hyperlipidemia:
-LDL 181; patient declines statin.
-Counseled on the importance of a statin, which is indicated given her CAD; patient declines.
Diabetes:
-Management as per primary team.
Obesity:
-Weight loss recommended.
Physical Exam
Vital Signs/Labs
Vital Signs
Temp Pulse Resp BP Pulse Ox
98.9 F 54 16 122/90 95
01/11/25 07:00 01/11/25 07:55 01/11/25 07:55 01/11/25 07:00 01/11/25 07:55
01/10/25 01/11/25 01/12/25
06:59 06:59 06:59
Actual Weight 99.365 kg
01/09/25 07:19
01/11/25 05:22
Magnesium 2.2 mg/dl (1.6-2.3) 01/08/25 13:31
Triglycerides 64 mg/dl (10-149) 01/09/25 07:19
LDL Cholesterol, Calc 181 mg/dl 01/09/25 07:19
VLDL Cholesterol, Calc 12 mg/dl (0-30) 01/09/25 07:19
HDL Cholesterol 85 mg/dl 01/09/25 07:19
01/08/25
13:31
Ebj-N-Msexjyfuvzm Pept 59.8
LAB Results
01/08/25 01/08/25 01/09/25
13:31 18:32 07:19
Troponin I < 0.012 < 0.012 < 0.012
Physical Exam
Constitutional: No acute distress and Comfortable
EENT: Anicteric
Cardiovascular: Rhythm & rate is regular, Systolic murmur absent, Pedal edema present (trace) and S1S2 is normal
Respiratory: Respiratory effort normal, Crackles Absent and Wheeze Present
GI: Soft
Neuro/Psych: AO x 3
Other: Skin (Warm, dry, intact)
Data Reviewed
-
Date of Service: January 11, 2025
EKG: Tracing Personally Visualized and interpreted (Telemetry: Sinus rhythm)
Medical Tests (PFT, Pathology etc): Discussed with Patient
Labs: Labs Reviewed by me
[2025-01-11 11:00] VITALS: BP 119/69
--- NOTE | 2025-01-11 11:08 | CM ---
manager market development reviewed patient's chart and met with patient and patient is on home oxygen at 2 liters, per patient she has home oxygen set up from [employer], patient is agreeable to visiting nurses at discharge and options
reviewed and patient has selected [facility], referral sent to [facility].
Plan; Home with [facility].
--- NOTE | 2025-01-11 13:01 | W.PN.HOSP.TC ---
Today's Communication/Plan
-
Monitor vital signs see plan
Continue with IV diuresis
Continue with breathing treatments
If symptoms do not improve then will start steroids
Wean oxygen as tolerated
Assessment / Plan
Assessment / Plan
Gen-AAOx3, NAD
HEENT-NC, AT, anicteric, clear oral mm
Neck-supple
CV-reg, no M, +S1/S2
Lungs-clear B/L
Abd-soft, NT, ND
Ext-no edema
Musculoskeletal-no cyanosis
Skin-warm and dry
Neuro-grossly non-focal
Psych-calm, cooperative
Acute Hypoxemic Respiratory insufficiency
- Possibly multifactorial with CHF and COPD overlay - but seems primarily CHF by history, etc.
- Continue supportive care / supplemental O2 / etc.
- Treat individual issues as noted below and follow for clinical improvement.
Acute on Chronic HFpEF
- Patient presents with hypoxemia, dyspnea with exertion, chest discomfort and recent weight gain. Weight remains unchanged on IV Lasix.
- BNP is unremarkable - but is the same as in 07/2024 when she was noted to have markedly elevated filling pressures on cath.
- IV Lasix BID and follow for clinical improvement / effective diuresis.
No repeat echo needed per cardiology
Not orthostatic based on vitals.
Acute bronchitis - suspect viral in etiology. Patient states she started having a cough day before admission. No infiltrates on chest x-ray or CT. Treat supportively with Acapella, incentive spirometer, Mucinex. Continue inhalers.
If symptoms do not improve then will start steroids
Follows with pulmonary outpatient for COPD/emphysema
Chest Pain
ASCVD
- Patient with exertional chest pain - ? related to CHF / CAD versus anxiety versus combination.
- Troponin negative x 3 sets thus far. EKG without active ischemia.
- Continue current CV med regimen.
- Cath done 07/2024 without significant / critical stenoses.
- Cardiology evaluation as noted above.
COPD with mild exacerbation due to bronchitis -if symptoms do not improve then will start steroids
Follow-up with pulmonary outpatient
Paroxysmal A-Fib / SVT
- Patient denies specific episodes of palpitations since increase in diltiazem dosing.
- Monitor on telemetry for any recurrent SVT episodes which may be contributing to current presentation.
- Continue current med regimen.
- Patient has declined OAC for stroke risk reduction.
Anxiety / Depression
- Again, suspect this is contributing to some degree to current presentation.
- BZDs PRN for anxiety and follow for clinical response.
Morbid Obesity due to excess calories
- Affects all aspects of care and specifically contributes to respiratory complaints.
- Encourage healthy diet and regular exercise with goal of weight loss.
DVT Prophylaxis: Lovenox
Code Status: Full
Anticipated Discharge: 24 - 48 hours
Subjective/Interval History
-
Date of Service: January 11, 2025
still has some wheezing
Objective Data
-
Labs:
Laboratory Results
01/11/25
05:22
Sodium 137
Potassium 4.0
Chloride 94 L
Carbon Dioxide 36 H
BUN 26 H
Creatinine 1.0
Glucose 102 H
Calcium 9.3
Total Bilirubin 0.8
AST 20
ALT 19
Alkaline Phosphatase 110
Vital Signs:
Vital Signs
Temp Pulse Resp BP Pulse Ox
98.5 F 63 18 119/69 97
01/11/25 11:00 01/11/25 11:00 01/11/25 11:00 01/11/25 11:00 01/11/25 11:00
I&O
01/10/25 01/11/25 01/12/25
06:59 06:59 06:59
Intake Total 960 / 960
Balance 960 / 960
--- NOTE | 2025-01-11 13:11 | VNURNOTE ---
Home Health Liaison met with patient at bedside to discuss [facility] nurse/therapy, visits, schedule and homebound status. Patient is agreeable and understands that visits at home will be 2-3 x per week to assess and teach medical management. She
confirms that she has a scale, home 02 and neb machine at home ([employer]). Patient is familiar with [facility] services and aware that [facility] will contact them for start of care in 1-2 days after discharge from . [facility] referral completed in [facility].
[2025-01-11 15:00] VITALS: BP 121/73
[2025-01-11] MEDS: COLACE 100 MG PO (17:28)
[2025-01-11] MEDS: LOVENOX SC (17:28)
[2025-01-11] MEDS: MUCINEX 1200 MG PO (20:56)
[2025-01-11] MEDS: MAG-TAB SR 84 MG PO (20:57)
[2025-01-11 23:00] VITALS: BP 101/54
[2025-01-12 06:00] VITALS: BMI 41.2
[2025-01-12 06:17] LABS: Blood Urea Nitrogen 24 mg/dl (7-17); Calcium 9.6 mg/dl (8.4-10.2); Carbon Dioxide 34 mmol/L (22-30); Chloride 95 mmol/L (98-107); Estimated Creatinine Clearance 61 ml/min; Glucose 125 mg/dl (70-99); Potassium 4.2 mmol/L (3.5-5.1); Sodium 137 mmol/L (135-145); eGFR > 60.00
[2025-01-12 06:29] LABS: % Basophils 1.2 % (0-2); % Immature Granulocytes 0.7 % (0-0.5); % Lymphocytes 26.1 % (20.5-51.1); % Monocytes 11.2 % (1.7-9.3); % Neutrophils 58.8 % (42.2-75.2); Absolute Basophils 0.1 10^3/uL (0-0.2); Absolute Eosinophils 0.2 10^3/uL (0-0.7); Absolute Immature Granulocytes 0.1 10^3/uL (0-0.05); Absolute Lymphocytes 2.3 10^3/uL (1.2-3.4); Absolute Neutrophils 5.2 10^3/uL (1.4-6.5); Hematocrit 43.7 % (37.0-47.0); Hemoglobin 14.3 g/dL (12.0-16.0); Mean Corp Hgb Conc. 32.7 g/dL (33.0-37.0); Mean Corpuscular Volume 91.8 fL (81.0-99.0); Mean Platelet Volume 8.8 fL (7.4-10.4); Nucleated Red Blood Cells % 0 %; Platelet Count 302 10^3/uL (130-400); Red Blood Cell Count 4.76 10^6/uL (4.20-5.40); Red Cell Dist. Width 12.6 % (11.5-14.5); White Blood Cell Count 8.9 10^3/uL (4.8-10.8)
[2025-01-12 06:31] VITALS: BP 95/63
[2025-01-12 07:33] VITALS: BP 114/72
[2025-01-12] MEDS: PLAVIX 75 MG PO (07:36)
[2025-01-12] MEDS: KCL 40 MEQ PO (07:36)
[2025-01-12] MEDS: ASPIR LOW (ENTERIC COATED) 81 MG PO (07:36)
[2025-01-12] MEDS: MUCINEX 1200 MG PO ×2 (07:36→20:21)
[2025-01-12] MEDS: PROTONIX 40 MG PO (07:36)
[2025-01-12] MEDS: LASIX 40 MG IV ×2 (07:36→15:04)
[2025-01-12] MEDS: CARDIZEM CD 180 MG PO ×2 (07:36→17:14)
[2025-01-12] MEDS: XOPENEX 1.25 MG INHALANT SOLUTION INH ×3 (07:53→19:43)
[2025-01-12] MEDS: ADVAIR HFA 115/21 MCG INHALER 2 PUFF INH ×2 (07:53→19:43)
[2025-01-12] MEDS: SPIRIVA RESPIMAT 2.5 MCG 2 PUFF INH (07:53)
--- NOTE | 2025-01-12 08:51 | W.PN.CD ---
Today's Communication / Plan
-
continue lasix 40mg IV bid
assess for PO tomorrow
Impression / Plan
-
64 year old female (known to Dr. Olmedo, her primary Clerical Associate) with CAD s/p prior KATHARINE to mid LAD (02/28/2021), subsequent KATHARINE to proximal pLAD (10/31 2021), paroxysmal atrial fibrillation (declines OAC), PSVT, chronic HFpEF, hypertension,
hyperlipidemia (patient declines statin), sinus bradycardia with MDT ILR (LINQ) 2018 now at EOS, severe COPD (2L dependent; quit smoking 2020), GERD, obesity, and likely anxiety presenting with shortness of breath. The patient takes alternating QOD
doses of Lasix 40 mg once daily and 80 mg once daily at home. She has noted an approximate 5 pound weight gain over the past few weeks. The patient also experienced similar midsternal chest pain that radiated across her chest and bilateral arms;
patient had similar presentation 07/2024 which led to cardiac catheterization that revealed patent stents and no obstructive coronary artery disease.
Acute on chronic HFpEF: severe, requiring hospitalization and IV diuretics, with close monitoring of labs/tele
-will aim for 97 kg
-she had gradual weight gain at home, and recognizes she need to be better with fluid restriction
-Patient did not tolerate SGLT2 inhibitor or spironolactone.
-No need to repeat echocardiogram as the patient recently had one on 06/30/2024: EF 65-70%, no sig valve disease
-continue lasix 40mg IV bid
-on discharge, she want to try resuming prior regimen of alternating 80mg and 40mg daily, with better adherence to fluid restriction
-low threshhold to increase to 80mg daily based on weight trend
Chest pain/known CAD:
-Most likely non-cardiac; possibly related to significant anxiety.
-No objective signs suggestive of ACS; cardiac enzymes negative EKG with no acute changes (unchanged compared to previous EKGs).
-Patent stents and no obstructive CAD on cardiac catheterization 07/12/2024.
-Continue aspirin/Plavix.
-Patient declines statin, which is recommended.
Severe oxygen dependent COPD exacerbation:
-Continue respiratory treatment as directed by primary Hospitalist
Paroxysmal atrial fibrillation/PSVT:
-Patient declines anticoagulation.
-Continue diltiazem CD 180 mg twice daily.
Hypertension:
-Blood pressure was elevated at 155/100 mmHg on admission, but quickly normalized to 110/84 mmHg on recheck; likely secondary to anxiety.
-Controlled on current antihypertensive medication regimen; continue.
Hyperlipidemia:
-LDL 181; patient declines statin.
-Counseled on the importance of a statin, which is indicated given her CAD; patient declines.
Diabetes:
-Management as per primary team.
Obesity:
-Weight loss recommended.
Physical Exam
Vital Signs/Labs
Vital Signs
Temp Pulse Resp BP Pulse Ox
97.6 F 67 18 114/72 93
01/12/25 07:33 01/12/25 08:01 01/12/25 08:01 01/12/25 07:36 01/12/25 08:01
01/11/25 01/12/25 01/13/25
06:59 06:59 06:59
Actual Weight 99.365 kg 98.747 kg
01/12/25 05:27
01/12/25 05:27
Magnesium 2.2 mg/dl (1.6-2.3) 01/08/25 13:31
Triglycerides 64 mg/dl (10-149) 01/09/25 07:19
LDL Cholesterol, Calc 181 mg/dl 01/09/25 07:19
VLDL Cholesterol, Calc 12 mg/dl (0-30) 01/09/25 07:19
HDL Cholesterol 85 mg/dl 01/09/25 07:19
01/08/25
13:31
Gpy-L-Kjuwvxfwkgl Pept 59.8
LAB Results
01/09/25
07:19
Troponin I < 0.012
Physical Exam
Constitutional: No acute distress and Comfortable
EENT: Moist mucous membranes
Cardiovascular: Rhythm & rate is regular, Pedal edema is absent, Systolic murmur absent and JVD present
Respiratory: Labored respirations
Neuro/Psych: AO x 3
Data Reviewed
-
Date of Service: January 12, 2025
Labs: Labs Reviewed by me
--- NOTE | 2025-01-12 10:03 | CM ---
Patient seen at bedside.
has home 02
Referral in [facility] for [facility] - accepted
PLAN: home with [facility] when medically stable.
[2025-01-12] MEDS: DECADRON 4 MG IV (10:18)
[2025-01-12 11:44] VITALS: BP 122/87
--- NOTE | 2025-01-12 12:10 | W.PN.HOSP.TC ---
Today's Communication/Plan
-
Monitor vital signs see plan
Start Decadron, Doxy
Check strep
Continue with IV diuresis
Assessment / Plan
Assessment / Plan
Gen-AAOx3, NAD
HEENT-NC, AT, anicteric, clear oral mm
Neck-supple
CV-reg, no M, +S1/S2
Lungs-clear B/L, +wheezing
Abd-soft, NT, ND
Ext-no edema
Musculoskeletal-no cyanosis
Neuro-grossly non-focal
Psych-calm, cooperative
Acute Hypoxemic Respiratory insufficiency
- Possibly multifactorial with CHF and COPD overlay - but seems primarily CHF by history, etc.
- Continue supportive care / supplemental O2 / etc.
- Treat individual issues as noted below and follow for clinical improvement.
Acute on Chronic HFpEF
- Patient presents with hypoxemia, dyspnea with exertion, chest discomfort and recent weight gain. Weight remains unchanged on IV Lasix.
- BNP is unremarkable - but is the same as in 07/2024 when she was noted to have markedly elevated filling pressures on cath.
- IV Lasix BID and follow for clinical improvement / effective diuresis.
No repeat echo needed per cardiology
Not orthostatic based on vitals.
Acute bronchitis - suspect viral in etiology. Patient states she started having a cough day before admission. No infiltrates on chest x-ray or CT. Treat supportively with Acapella, incentive spirometer, Mucinex. Continue inhalers.
Still has some shortness of breath, start Decadron. Check strep since brother was recently diagnosed with strep
Follows with pulmonary outpatient for COPD/emphysema
Start Doxy
Chest Pain
ASCVD
- Patient with exertional chest pain - ? related to CHF / CAD versus anxiety versus combination.
- Troponin negative x 3 sets thus far. EKG without active ischemia.
- Continue current CV med regimen.
- Cath done 07/2024 without significant / critical stenoses.
- Cardiology evaluation as noted above.
COPD with mild exacerbation due to bronchitis -if symptoms do not improve then will start steroids
Follow-up with pulmonary outpatient
Paroxysmal A-Fib / SVT
- Patient denies specific episodes of palpitations since increase in diltiazem dosing.
- Monitor on telemetry for any recurrent SVT episodes which may be contributing to current presentation.
- Continue current med regimen.
- Patient has declined OAC for stroke risk reduction.
Anxiety / Depression
- Again, suspect this is contributing to some degree to current presentation.
- BZDs PRN for anxiety and follow for clinical response.
Morbid Obesity due to excess calories
- Affects all aspects of care and specifically contributes to respiratory complaints.
- Encourage healthy diet and regular exercise with goal of weight loss.
DVT Prophylaxis: Lovenox
Code Status: Full
I spent a total of 52 minutes with the patient or on the floor. More than 50% of this time involved counseling and coordination of care.
Anticipated Discharge: 24 - 48 hours
Subjective/Interval History
-
Date of Service: January 12, 2025
Still some shortness of breath
Objective Data
-
Labs:
Laboratory Results
01/12/25
05:27
WBC 8.9
Hgb 14.3
Hct 43.7
Plt Count 302 D
Sodium 137
Potassium 4.2
Chloride 95 L
Carbon Dioxide 34 H
BUN 24 H
Creatinine 1.0
Glucose 125 H
Calcium 9.6
Vital Signs:
Vital Signs
Temp Pulse Resp BP Pulse Ox
97.4 F 86 16 122/87 94
01/12/25 11:44 01/12/25 11:44 01/12/25 11:44 01/12/25 11:44 01/12/25 11:44
I&O
01/11/25 01/12/25 01/13/25
06:59 06:59 06:59
Intake Total 960 / 960 960 / 960
Balance 960 / 960 960 / 960
[2025-01-12] MEDS: TESSALON PERLES 200 MG PO (12:28)
[2025-01-12] MEDS: VIBRAMYCIN 100 MG PO ×2 (12:28→20:21)
[2025-01-12 15:00] VITALS: BP 121/82
[2025-01-12] MEDS: COLACE PO (17:16)
[2025-01-12] MEDS: LOVENOX SC (17:16)
[2025-01-12] MEDS: DECADRON IV (17:17)
[2025-01-12 18:41] VITALS: BP 125/70
[2025-01-12] MEDS: CARDIZEM 30 MG PO (20:57)
[2025-01-12] MEDS: MAG-TAB SR 84 MG PO (20:59)
--- NOTE | 2025-01-12 21:01 | PTCARENOTE ---
Pt's HR sustaining in the 130s for half an hour. Pt denied getting OOB and c/o SOB and looks dyspneic at rest, but no c/o dizziness or CP. [employer] HOTEL [employer]NER notified, 1x dose of Cardizem 30mg PO ordered and given (see JAN). BP 124/89 and pt 95% on 2L O2. Plan of
care ongoing.
[2025-01-12 23:00] VITALS: BP 127/77
[2025-01-13] VITALS (7 sets, daily range): BP systolic 125–152; BP diastolic 79–106; BMI 40.9
[2025-01-13] MEDS: DECADRON 4 MG IV ×3 (03:19→17:34)
[2025-01-13] MEDS: TESSALON PERLES 200 MG PO (03:42)
[2025-01-13] MEDS: CARDIZEM CD 180 MG PO ×2 (06:29→17:29)
[2025-01-13 06:31] LABS: Blood Urea Nitrogen 29 mg/dl (7-17); Calcium 9.6 mg/dl (8.4-10.2); Carbon Dioxide 33 mmol/L (22-30); Chloride 93 mmol/L (98-107); Estimated Creatinine Clearance 61 ml/min; Glucose 145 mg/dl (70-99); HDL Cholesterol 86 mg/dl; LDL Cholesterol, Calculated 131 mg/dl; Potassium 4.6 mmol/L (3.5-5.1); Sodium 134 mmol/L (135-145); Total Cholesterol 239 mg/dl (50-199); Triglyceride 111 mg/dl (10-149); Very Low Density Lipoprotein 22 mg/dl (0-30); eGFR > 60.00
[2025-01-13 06:34] LABS: % Basophils 0.2 % (0-2); % Immature Granulocytes 0.9 % (0-0.5); % Lymphocytes 3.5 % (20.5-51.1); % Monocytes 10.3 % (1.7-9.3); % Neutrophils 85.1 % (42.2-75.2); Absolute Immature Granulocytes 0.1 10^3/uL (0-0.05); Absolute Lymphocytes 0.3 10^3/uL (1.2-3.4); Absolute Monocytes 0.9 10^3/uL (0.1-0.6); Absolute Neutrophils 7.2 10^3/uL (1.4-6.5); Hematocrit 43.3 % (37.0-47.0); Hemoglobin 14.4 g/dL (12.0-16.0); Mean Corp Hgb Conc. 33.3 g/dL (33.0-37.0); Mean Corpuscular Hgb 30.3 pg (27.0-31.0); Mean Platelet Volume 9.4 fL (7.4-10.4); Nucleated Red Blood Cells % 0 %; Platelet Count 241 10^3/uL (130-400); Red Blood Cell Count 4.76 10^6/uL (4.20-5.40); Red Cell Dist. Width 12.4 % (11.5-14.5); White Blood Cell Count 8.5 10^3/uL (4.8-10.8)
[2025-01-13] MEDS: ADVAIR HFA 115/21 MCG INHALER 2 PUFF INH ×2 (07:27→19:41)
[2025-01-13] MEDS: SPIRIVA RESPIMAT 2.5 MCG 2 PUFF INH (07:27)
[2025-01-13] MEDS: XOPENEX 1.25 MG INHALANT SOLUTION INH ×3 (07:33→19:41)
[2025-01-13] MEDS: VIBRAMYCIN 100 MG PO ×2 (07:49→21:09)
[2025-01-13] MEDS: LASIX 40 MG IV ×2 (07:49→17:29)
[2025-01-13] MEDS: PROTONIX 40 MG PO (07:49)
[2025-01-13] MEDS: PLAVIX 75 MG PO (07:49)
[2025-01-13] MEDS: KCL 40 MEQ PO (07:49)
[2025-01-13] MEDS: MUCINEX 1200 MG PO ×2 (07:49→21:09)
[2025-01-13] MEDS: ASPIR LOW (ENTERIC COATED) 81 MG PO (08:18)
--- NOTE | 2025-01-13 10:06 | CON.PUL ---
Consultation
Consultation Request
Date/Time Consultation Requested: 01/13/2025-10 AM
Date/Time Consultation Performed: 01/13/2025-10:30 AM
Requesting Provider: Hospitalist
Performing Provider: Dr. Cheng
Reason for Consultation: Shortness of breath
Medical History
-
Chief Complaint: Shortness of breath
History of Present Illness:
64-year-old female patient who is a former smoker and has oxygen dependent COPD, CAD, CHF preserved EF, presented with increasing shortness of breath felt to be a combination of COPD and CHF evaluated by cardiology with persistent shortness of
breath and pulmonary was consulted for COPD/shortness of breath 01/13/2025.. Patient came in and has been diuresed but her wheezing is gotten worse. She has some chest tightness, wheezing and she is worried about taking too many nebulizers as a
contributor SVT. She is also occasionally leery about steroids which were recently initiated. She is currently on Xopenex nebulizers 3 times daily. She does not have fevers or chills and has minimal cough and nonproductive mucus. She complained
of any abdominal pain, or worsening leg swelling or focal weakness.
Past Medical History
Past Medical History: None (COPD-oxygen dependent. Former smoker. Hypertension. Hyperlipidemia. ALISSON. Pulmonary hypertension. PAF. CAD/stent. CHF preserved EF. Anxiety. GERD. Left breast lump removed)
Social History
Tobacco: Former Smoker
Alcohol: None
Personal: Single
Living: With Family
Occupational Exposures: No known asbestos exposure
Environmental Exposures: No known tuberculosis exposure
Family History
Family History: Reviewed & Not Pertinent (Brother-ALISSON and COPD)
Allergies / Home Medications
Allergies
Allergy/AdvReac Type Severity Reaction Status Date / Time
azithromycin Allergy Per pt Verified 01/08/25 13:06
stimulates
her A Fib
dipyridamole Allergy didn't Verified 01/08/25 13:06
[From Persantine] tolerate.
dobutamine Allergy 'feels Verified 01/08/25 13:06
terrible'
isosorbide [From Imdur] Allergy DIZZY Verified 01/08/25 13:06
levofloxacin [From Levaquin] Allergy LEGS WEAK Verified 01/08/25 13:06
morphine Allergy Nausea Verified 01/08/25 13:06
MUSCLE RELAXERS Allergy Nausea / Uncoded 01/08/25 13:06
Vomiting
Home Medications
�Medication �Instructions �Recorded �Confirmed �Last Taken �Type
pantoprazole 40 mg tablet,delayed 40 mg PO DAILY Gastrointestinal 02/28/22 01/09/25 07/20/24 History
release issue
aspirin 81 mg tablet,delayed 81 mg PO DAILY Blood clot 01/29/23 01/09/25 07/20/24 History
release prevention/tx
cholecalciferol (vitamin D3) 50 50 mcg PO NOON Supplement 01/29/23 01/09/25 07/20/24 History
mcg (2,000 unit) tablet
clopidogrel 75 mg tablet 75 mg PO DAILY Blood clot 01/29/23 01/09/25 07/20/24 History
prevention/tx
docusate sodium 100 mg capsule 100 mg PO QPM Constipation 01/29/23 01/09/25 02/24/23 History
famotidine 20 mg tablet 20 mg PO DAILYPRN PRN heartburn 01/29/23 01/09/25 Unknown History
fluticasone propionate 115 2 puff inhalation R BID 01/29/23 01/09/25 07/20/24 History
mcg-salmeterol 21 mcg/actuation Lung/breathing issues
HFA inhaler (Advair HFA)
acetaminophen 650 mg 650 mg PO [id number] PRN mild pain 06/29/24 01/09/25 07/19/24 History
tablet,extended release (Tylenol 8
Hour)
levalbuterol HCl 0.63 mg/3 mL 0.63 mg (3 mL) inhalation R TIDPRN 10/23/24 01/09/25 Unknown Rx
solution for nebulization PRN sob/wheezing #72 mL
levalbuterol tartrate 45 2 inh inhalation R Q6HPRN PRN 10/23/24 01/09/25 Unknown Rx
mcg/actuation aerosol inhaler sob,wheezing #15 grams
acyclovir 5 % topical cream 1 applic topical DAILYPRN PRN 01/08/25 01/09/25 Unknown History
herpes flare
diazepam 2 mg tablet 2 mg PO DAILYPRN PRN anxiety 01/08/25 01/09/25 Unknown History
diltiazem HCl 180 mg 180 mg PO BID Heart 01/08/25 01/09/25 Unknown History
capsule,extended release 24 hr, Disease/Condition
controlled
furosemide 40 mg tablet 40 mg PO Q48H Heart Failure 01/08/25 01/09/25 Unknown History
furosemide 40 mg tablet 80 mg PO Q48H Heart Failure 01/08/25 01/09/25 Unknown History
magnesium oxide 400 mg PO HS Supplement 01/08/25 01/09/25 Unknown History
potassium chloride 20 mEq 20 meq PO Q48H Supplement 01/08/25 01/09/25 Unknown History
tablet,extended release
potassium chloride 20 mEq 40 meq PO Q48H Supplement 01/08/25 01/09/25 Unknown History
tablet,extended release
tiotropium bromide 2.5 2 puff inhalation R DAILY 01/08/25 01/09/25 Unknown History
mcg/actuation mist for inhalation Lung/Breathing Issues
(Spiriva Respimat)
Review of Systems
-
Unable to Obtain full review of systems at this time due to: Other (Per HPI)
Vitals / Labs / Diagnostic Testing
Vital Signs
Temp Pulse Resp BP Pulse Ox
97.9 F 71 22 125/82 96
01/13/25 07:05 01/13/25 07:32 01/13/25 07:32 01/13/25 07:05 01/13/25 07:32
Lab Data
01/13/25 05:28
01/13/25 05:28
Microbiology
01/12/25 10:25 Throat/Pharynx Streptococcus Screen ([facility]) - Preliminary
Culture in Progress
01/12/25 10:25 Throat/Pharynx Streptococcus Rapid Screen - Final
Rapid Strep Screen (Group A) Negative
Diagnostic Testing:
Physical Exam
-
Exam:
Well-nourished and well-developed in no apparent distress
HEENT-atraumatic, normocephalic
Neck-supple, no JVD, no bruit
Heart-regular rate and rhythm-no murmurs, rubs or gallops
Chest with rare crackles at the bases, diminished breath sounds, prolonged expiratory time, few forced end expiratory wheezes
Back without tenderness
Abdomen-soft, nontender, nondistended, no hepatosplenomegaly
Extremities-no cyanosis, clubbing, lower extremity edema
Integument-intact, no rashes, lesions or ecchymosis
Neurology-alert and oriented, nonfocal motor and sensory exam
Assessment
-
64-year-old female patient who is a former smoker and has oxygen dependent COPD, CAD, CHF preserved EF, presented with increasing shortness of breath felt to be a combination of COPD and CHF evaluated by cardiology with persistent shortness of
breath and pulmonary was consulted for COPD/shortness of breath 01/13/2025.
Shortness of breath
COPD-with acute exacerbation
Bronchitis
CHF preserved EF
Atypical chest pain
Conditions present prior to admission:
Hospitalized 07/2024 with COPD exacerbation and decompensated heart failure
Severe COPD, maintained on levalbuterol nebs, advair/spiriva, and O2 2L at rest and sleep, 4L on exertion. Intermittent CS but no jail
ABG 02-28-22 on O2 3L: 7.40/46/125/28.5/3/98.9%
Intermittently elevated serum total CO2
02/20/24- FVC 2.07 or 72%, FEV1 0.95 or 43%. Ratio 45.
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 Never received A1AT replacement therapy
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
Pulmonary nodules-4 mm right upper lobe stable
Former smoker-since age 16 up to 2 packs a day quit 02/2021
Hypertension.
Hyperlipidemia.
ALISSON-mild.
Nocturnal hypoxemia
Pulmonary hypertension.
CAD, s/p KATHARINE to mid LAD 02/28/2021, then [place] with KATHARINE to stenosis proximal to prior LAD stent 10/31/2021, continued on ASA/clopidogrel, [facility] 12-04-21 without residual disease
PAFib: declined AC due to fear of bleeding complications
Anxiety.
History CHF.
PAF.
GERD.
Left breast lump removed.
Plan
Respiratory decompensation likely multifactorial-CHF as well as underlying COPD which is advanced-Significant wheezing on exam-greater than her baseline
Supplemental oxygen as needed
Nebulizers-Xopenex 3 times a day
Advair continues as well as Spiriva
Mucolytic's-Mucinex 1200 mg twice daily
Mucus clearing devices
Steroids initiated-Decadron 4 mg IV every 8 hours
Check cultures
Empiric antibiotics-doxycycline initiated
Diuresis as tolerated
Monitor renal function, electrolytes, intake/output, lower extremity edema and weight
Replace electrolytes as needed
Cardiology following-correspondence reviewed
Last echocardiogram summarized below as well as last cardiac catheterization-known to have elevated filling pressures on cardiac catheterization while proBNP not significantly elevated
DVT prophylaxis-on Lovenox-recommended oral anticoagulation in the past due to paroxysmal atrial fibrillation-refused
GI prophylaxis-on pantoprazole
Nutrition
Early mobilization
Outpatient pulmonary [id number] appointment with Dr. Zepeda with PFTs 03/09/2025 at 11 AM
Diagnostic data:
Chest x-ray 10/22/2024-NAD, stable scarring in anterior right upper lobe
CT chest 01/08/2025-no evidence for pulm embolism, chronic emphysema,, no new nodules
CT chest 10/22/2024-no evidence for pulm embolism, significant COPD, chronic parenchymal scarring in the right upper lobe, no evidence for pneumonia, stable 4 mm nodule medial right upper lobe
CT chest 10/22/2024-Advanced emphysematous changes, stable 4 mm nodule right upper lobe, no evidence for pulmonary embolism, chronic scarring right upper lobe
CT chest 07/21/2024: Reviewed can you find out no evidence of pulmonary embolism or thoracic aortic dissection.Changes of severe emphysema.Nodular opacity within the right middle lobe, measuring 2.5 cm in diameter, best seen on series 401 images
33-38. No significant change compared to 06/29/2024, or 11/27/2023. Opacity is less pronounced compared to a prior CT dated 02/25/2023. This likely represents scarring in a region of prior pneumonia. Consider continued CT follow-up as clinically
appropriate. Pulmonary nodule within the medial aspect of the right lung apex, best seen on series 401 image 18, measuring 4 mm in diameter. Nodule measured approximately 8 mm in diameter on 06/29/2024, therefore is likely infectious or inflammatory.
Severe coronary arterial calcification. Please correlate with symptoms of and risk factors for coronary artery disease, with further workup as clinically appropriate.
CT Chest 06/29/24- No evidence of pulmonary embolism.Moderate/severe apical predominant emphysematous changes with similar appearance of the nodular scarring within the right middle lobe measuring approximately 3.0 cm.There is a new 6 mm solid nodule
within the medial right upper lobe as well as new 7 mm solid nodules within the left upper lobe. Recommend follow-up CT to ensure stability Prominent gallstone present.
CT Chest 01/29/23 - Examination is negative for pulmonary embolism. Severe changes of emphysema. New horizontal band of increased opacity within the superior segment of the right lower lobe of the lung. Morphologic appearance would be suggestive of
scarring or atelectasis. Fatty infiltration of the liver.
CT chest 02-28-22, c/w 02-23-21 IMPRESSION: No CT evidence for pulmonary embolism. Severe centrilobular emphysema.
TTE 11-29-22:Normal biventricular size and systolic function without regional wall motion abnormality. Mild concentric left ventricular hypertrophy. No significant valvular disease. No significant change since the prior study of 03/01/22
.
Echo: 03-01-22, normal LV systolic function, LVEF greater than 75%, mild concentric LVH. No significant valvular disease. Normal RV size and function. Normal pericardium without effusion. IVC is of normal size and demonstrates normal respiratory
variation. Interatrial septum is intact with no evidence of shunting by color-flow Doppler. No intracardiac mass or thrombus formation seen. No significant change compared to October 2021.
/[facility] 05-25-22 HEMODYNAMIC DATA : AO: 127/78 - LV: 127/16 - PCWP: 14 - PA: 36/22 - RV: 34/14 - RA: 10 - Oximetry: Ao 97%, PA 75%, cardiac output 4.5, cardiac index 2.4
LEFT VENTRICULOGRAPHY: Not performed
CORONARY ANGIOGRAPHY: Dominance: Right - Left Main: Normal - LAD: Widely patent ostial/proximal LAD stents with no restenosis. There is 30% mid LAD stenosis. - Circumflex: Normal - RCA: Normal dominant vessel
CONCLUSIONS
1: Normal filling pressures without pulmonary hypertension
2: Widely patent ostial/proximal LAD stents without restenosis
3. No significant residual obstructive CAD
Cardiac catheterization 07/22/2024-patent proximal LAD stent, severely elevated filling [id number]
DIANN doppler 02-26-23: negative
DIANN doppler 09-08-21: negative
PFT 08/21/22: FEV1 1.02L 46%, FVC 2.11L 73%, ratio 48. Post FEV1 1.06L 48%, +BD response in FVC. TLC 4.86L 110%, RV/TLC 51%, DLCO 24%
HST 10/07/19-AHI-2.4, desaturation laura 89%, snoring
PSG 10/06/24-sleep efficiency 68.7%, AHI-4.4, desaturation laura 78%, 76.4%. The time less than 90% saturation, 1 L of oxygen was added
Continue ongoing
Data Reviewed
-
PFT: Report reviewed by me
EKG: Report reviewed by me
Radiology: Image personally visualized and interpreted and Report reviewed by me
CT Scan: Image personally visualized and interpreted and Report reviewed by me
Medical Tests (Nuc Med, Echo etc): Report reviewed by me
Labs: Labs reviewed by me
Old Records: Reviewed
Total Time Spent with Patient (in minutes): 65
--- NOTE | 2025-01-13 11:10 | W.PN.CD ---
Today's Communication / Plan
-
Continue IV Lasix today
Assess for switch to p.o. tomorrow
Monitor SVT on telemetry and decide if we need to increase diltiazem
Impression / Plan
-
64 year old female (known to Dr. Olmedo, her primary Financial Adviser) with CAD s/p prior KATHARINE to mid LAD (02/28/2021), subsequent KATHARINE to proximal pLAD (10/31 2021), paroxysmal atrial fibrillation (declines OAC), PSVT, chronic HFpEF, hypertension,
hyperlipidemia (patient declines statin), sinus bradycardia with MDT ILR (TEENA) 2018 now at EOS, severe COPD (2L dependent; quit smoking 2020), GERD, obesity, and likely anxiety presenting with shortness of breath. The patient takes alternating QOD
doses of Lasix 40 mg once daily and 80 mg once daily at home. She has noted an approximate 5 pound weight gain over the past few weeks. The patient also experienced similar midsternal chest pain that radiated across her chest and bilateral arms;
patient had similar presentation 07/2024 which led to cardiac catheterization that revealed patent stents and no obstructive coronary artery disease.
Acute on chronic HFpEF: severe, requiring hospitalization and IV diuretics, with close monitoring of labs/tele
-will aim for 97 kg
-she had gradual weight gain at home, and recognizes she need to be better with fluid restriction
-Patient did not tolerate SGLT2 inhibitor or spironolactone.
-No need to repeat echocardiogram as the patient recently had one on 06/30/2024: EF 65-70%, no sig valve disease
-continue lasix 40mg IV bid. Assess for PO lasix tomorrow
-on discharge, she want to try resuming prior regimen of alternating 80mg and 40mg daily, with better adherence to fluid restriction
-low threshhold to increase to 80mg daily based on weight trend
Paroxysmal atrial fibrillation/PSVT:
-Frequent SVT on tele on 01/12 but has since quieted down. If recurrence, increase diltiazem.
-Patient declines anticoagulation.
-Continue diltiazem CD 180 mg twice daily.
Chest pain/known CAD:
-Most likely non-cardiac; possibly related to significant anxiety.
-No objective signs suggestive of ACS; cardiac enzymes negative EKG with no acute changes (unchanged compared to previous EKGs).
-Patent stents and no obstructive CAD on cardiac catheterization 07/12/2024.
-Continue aspirin/Plavix.
-Patient declines statin, which is recommended.
Severe oxygen dependent COPD exacerbation:
-Continue respiratory treatment as directed by primary Hospitalist
Hypertension:
-Blood pressure was elevated at 155/100 mmHg on admission, but quickly normalized to 110/84 mmHg on recheck; likely secondary to anxiety.
-Controlled on current antihypertensive medication regimen; continue.
Hyperlipidemia:
-LDL 181; patient declines statin.
-Counseled on the importance of a statin, which is indicated given her CAD; patient declines.
Diabetes:
-Management as per primary team.
Obesity:
-Weight loss recommended.
Subjective: Breathing very loudly with long exhales. Says this is because she is short of breath. Symptoms have not really improved since admission. She is not sure if this is lungs or heart.
Physical Exam
Vital Signs/Labs
Vital Signs
Temp Pulse Resp BP Pulse Ox
97.9 F 71 22 125/82 96
01/13/25 07:05 01/13/25 07:32 01/13/25 07:32 01/13/25 07:05 01/13/25 07:32
01/12/25 01/13/25 01/14/25
06:59 06:59 06:59
Actual Weight 98.747 kg 98.248 kg
01/13/25 05:28
01/13/25 05:28
Magnesium 2.2 mg/dl (1.6-2.3) 01/08/25 13:31
Triglycerides 111 mg/dl (10-149) 01/13/25 05:28
LDL Cholesterol, Calc 131 mg/dl 01/13/25 05:28
VLDL Cholesterol, Calc 22 mg/dl (0-30) 01/13/25 05:28
HDL Cholesterol 86 mg/dl 01/13/25 05:28
01/08/25
13:31
Kbl-L-Lomdoypgieo Pept 59.8
Physical Exam
Constitutional: No acute distress
Cardiovascular: Rhythm & rate is regular, Pedal edema is absent, S1S2 is normal and Murmur/rub/gallop absent
Respiratory: Rhonchi Present and Other (breathing through pursed lips with long exhales but can speak in full sentences)
Neuro/Psych: AO x 3
Data Reviewed
-
Date of Service: January 13, 2025
Medical Decision Making: Reviewed Test Results, Independent Historian Assessment, Test Interpretation and Review of Case with other Provider
EKG: Tracing Personally Visualized and interpreted
Echo: Report Reviewed by me
X-Ray/CT/US/MRI/NUC/PET: Report Reviewed by me
Labs: Labs Reviewed by me
--- NOTE | 2025-01-13 12:10 | W.PN.HOSP.TC ---
Today's Communication/Plan
-
Monitor vital signs see plan
Wean oxygen as tolerated
Pulmonary evaluation
Continue with Decadron
Start nystatin
Continue with IV diuresis
Assessment / Plan
Assessment / Plan
Gen-AAOx3, NAD
HEENT-NC, AT, anicteric, clear oral mm
Neck-supple
CV-reg, no M, +S1/S2
Lungs-clear B/L, +wheezing
Abd-soft, NT, ND
Ext-no edema
Musculoskeletal-no cyanosis
Neuro-grossly non-focal
Psych-calm, cooperative
Acute Hypoxemic Respiratory insufficiency
- Possibly multifactorial with CHF and COPD overlay
- Continue supportive care / supplemental O2 / etc.
- Treat individual issues as noted below and follow for clinical improvement.
Acute on Chronic HFpEF
- Patient presents with hypoxemia, dyspnea with exertion, chest discomfort and recent weight gain. Weight remains unchanged on IV Lasix.
- BNP is unremarkable - but is the same as in 07/2024 when she was noted to have markedly elevated filling pressures on cath.
- IV Lasix BID and follow for clinical improvement / effective diuresis.
No repeat echo needed per cardiology
Not orthostatic based on vitals.
Acute bronchitis - suspect viral in etiology. Patient states she started having a cough day before admission. No infiltrates on chest x-ray or CT. Treat supportively with Acapella, incentive spirometer, Mucinex. Continue inhalers.
Still has some shortness of breath, started Decadron. neg strep
Follows with pulmonary outpatient for COPD/emphysema
cw Doxy
Oral thrush
Start nystatin
Chest Pain
ASCVD
- Patient with exertional chest pain - ? related to CHF / CAD versus anxiety versus combination.
- Troponin negative x 3 sets thus far. EKG without active ischemia.
- Continue current CV med regimen.
- Cath done 07/2024 without significant / critical stenoses.
- Cardiology evaluation as noted above.
COPD with mild exacerbation due to bronchitis -if symptoms do not improve then will start steroids
Follow-up with pulmonary outpatient
Hyponatremia
Monitor
Paroxysmal A-Fib / SVT
- Patient denies specific episodes of palpitations since increase in diltiazem dosing.
- Monitor on telemetry for any recurrent SVT episodes which may be contributing to current presentation.
- Continue current med regimen.
- Patient has declined OAC for stroke risk reduction.
Anxiety / Depression
- Again, suspect this is contributing to some degree to current presentation.
- BZDs PRN for anxiety and follow for clinical response.
Morbid Obesity due to excess calories
- Affects all aspects of care and specifically contributes to respiratory complaints.
- Encourage healthy diet and regular exercise with goal of weight loss.
DVT Prophylaxis: Lovenox
Code Status: Full
I spent a total of 51 minutes with the patient or on the floor. More than 50% of this time involved counseling and coordination of care.
Anticipated Discharge: 24 - 48 hours
Subjective/Interval History
-
Date of Service: January 13, 2025
still sob
Objective Data
-
Labs:
Laboratory Results
01/13/25
05:28
WBC 8.5
Hgb 14.4
Hct 43.3
Plt Count 241 D
Sodium 134 L
Potassium 4.6
Chloride 93 L
Carbon Dioxide 33 H
BUN 29 H
Creatinine 1.0
Glucose 145 H
Calcium 9.6
Vital Signs:
Vital Signs
Temp Pulse Resp BP Pulse Ox
98.4 F 77 18 146/106 93
01/13/25 11:05 01/13/25 11:42 01/13/25 11:42 01/13/25 11:05 01/13/25 11:42
I&O
03/09/2801/13/25 01/14/25
06:59 06:59 06:59
Intake Total 960 / 960 240 / 240 24
Balance 960 / 960 240 / 240
[2025-01-13] MEDS: MYCOSTATIN ORAL SUSPENSION 5 ML PO ×2 (13:18→17:33)
[2025-01-13] MEDS: TYLENOL 650 MG PO (13:24)
[2025-01-13] MEDS: COLACE 100 MG PO (17:29)
[2025-01-13] MEDS: LOVENOX SC (17:30)
[2025-01-13] MEDS: MAG-TAB SR 84 MG PO (21:09)
[2025-01-13] MEDS: MYCOSTATIN ORAL SUSPENSION PO ×2 (21:09→21:15)
[2025-01-14] MEDS: TYLENOL 650 MG PO ×3 (00:03→21:23)
[2025-01-14] MEDS: DECADRON 4 MG IV ×3 (03:03→17:00)
[2025-01-14 03:55] VITALS: BP 156/93
[2025-01-14] MEDS: CARDIZEM CD 180 MG PO ×2 (05:27→17:00)
[2025-01-14 05:56] LABS: % Basophils 0.3 % (0-2); % Immature Granulocytes 0.9 % (0-0.5); % Lymphocytes 3.6 % (20.5-51.1); % Monocytes 8.4 % (1.7-9.3); % Neutrophils 86.8 % (42.2-75.2); Absolute Immature Granulocytes 0.1 10^3/uL (0-0.05); Absolute Lymphocytes 0.4 10^3/uL (1.2-3.4); Absolute Neutrophils 9.9 10^3/uL (1.4-6.5); Hematocrit 40.7 % (37.0-47.0); Hemoglobin 14.1 g/dL (12.0-16.0); Mean Corp Hgb Conc. 34.6 g/dL (33.0-37.0); Mean Corpuscular Hgb 30.3 pg (27.0-31.0); Mean Corpuscular Volume 87.5 fL (81.0-99.0); Nucleated Red Blood Cells % 0 %; Platelet Count 231 10^3/uL (130-400); Red Blood Cell Count 4.65 10^6/uL (4.20-5.40); Red Cell Dist. Width 12.8 % (11.5-14.5); White Blood Cell Count 11.4 10^3/uL (4.8-10.8)
[2025-01-14 06:00] VITALS: BMI 40.4
[2025-01-14 06:21] LABS: Blood Urea Nitrogen 34 mg/dl (7-17); Calcium 9.7 mg/dl (8.4-10.2); Carbon Dioxide 28 mmol/L (22-30); Chloride 96 mmol/L (98-107); Estimated Creatinine Clearance 61 ml/min; Glucose 152 mg/dl (70-99); Potassium 4.6 mmol/L (3.5-5.1); Sodium 134 mmol/L (135-145); eGFR > 60.00
[2025-01-14] MEDS: ADVAIR HFA 115/21 MCG INHALER 2 PUFF INH ×2 (07:17→19:23)
[2025-01-14] MEDS: XOPENEX 1.25 MG INHALANT SOLUTION INH ×3 (07:17→19:23)
[2025-01-14] MEDS: SPIRIVA RESPIMAT 2.5 MCG 2 PUFF INH (07:17)
[2025-01-14] MEDS: PROTONIX 40 MG PO (07:20)
[2025-01-14] MEDS: VIBRAMYCIN 100 MG PO ×2 (07:20→20:33)
[2025-01-14] MEDS: ASPIR LOW (ENTERIC COATED) 81 MG PO (07:20)
[2025-01-14] MEDS: MUCINEX 1200 MG PO ×2 (07:20→20:33)
[2025-01-14] MEDS: PLAVIX 75 MG PO (07:20)
[2025-01-14] MEDS: LASIX 40 MG IV ×2 (07:20→16:58)
[2025-01-14] MEDS: KCL 40 MEQ PO (07:20)
[2025-01-14] MEDS: MYCOSTATIN ORAL SUSPENSION 5 ML PO ×3 (07:20→21:23)
[2025-01-14 07:21] VITALS: BP 136/79
--- NOTE | 2025-01-14 08:59 | W.PN.CD ---
Today's Communication / Plan
-
cont IV lasix
Impression / Plan
-
64 year old female (known to Dr. Olmedo, her primary Manager [employer]) with CAD s/p prior KATHARINE to mid LAD (02/28/2021), subsequent KATHARINE to proximal pLAD (10/31 2021), paroxysmal atrial fibrillation (declines OAC), PSVT, chronic HFpEF, hypertension,
hyperlipidemia (patient declines statin), sinus bradycardia with MDT ILR (LINQ) 2018 now at EOS, severe COPD (2L dependent; quit smoking 2020), GERD, obesity, and likely anxiety presenting with shortness of breath. The patient takes alternating QOD
doses of Lasix 40 mg once daily and 80 mg once daily at home. She has noted an approximate 5 pound weight gain over the past few weeks. The patient also experienced similar midsternal chest pain that radiated across her chest and bilateral arms;
patient had similar presentation 07/2024 which led to cardiac catheterization that revealed patent stents and no obstructive coronary artery disease.
Acute on chronic HFpEF: severe, requiring hospitalization and IV diuretics, with close monitoring of labs/tele
-will aim for 97 kg: she is at this weight today, but looks like would benefit from another day IV diuresis
-she had gradual weight gain at home, and recognizes she need to be better with fluid restriction
-Patient did not tolerate SGLT2 inhibitor or spironolactone.
-No need to repeat echocardiogram as the patient recently had one on 06/30/2024: EF 65-70%, no sig valve disease
-continue lasix 40mg IV bid. Assess for PO lasix tomorrow
-on discharge, we revisited plan, and will do lasix 40mg PO bid with Kcl 20 mEq bid
Paroxysmal atrial fibrillation/PSVT:
-Frequent SVT on tele on 01/12 but has since quieted down.
-Patient declines anticoagulation.
-Continue diltiazem CD 180 mg twice daily.
Chest pain/known CAD:
-Most likely non-cardiac; possibly related to significant anxiety.
-No objective signs suggestive of ACS; cardiac enzymes negative EKG with no acute changes (unchanged compared to previous EKGs).
-Patent stents and no obstructive CAD on cardiac catheterization 07/12/2024.
-Continue aspirin/Plavix.
-Patient declines statin, which is recommended.
Severe oxygen dependent COPD exacerbation:
-Continue respiratory treatment as directed by primary Hospitalist/pulmonology
Hypertension:
-Blood pressure was elevated at 155/100 mmHg on admission, but quickly normalized to 110/84 mmHg on recheck; likely secondary to anxiety.
-Controlled on current antihypertensive medication regimen; continue.
Hyperlipidemia:
-LDL 181; patient declines statin.
-Counseled on the importance of a statin, which is indicated given her CAD; patient declines.
Diabetes:
-Management as per primary team.
Obesity:
-Weight loss recommended.
Physical Exam
Vital Signs/Labs
Vital Signs
Temp Pulse Resp BP Pulse Ox
97.8 F 88 15 136/79 92
01/14/25 07:21 01/14/25 07:21 01/14/25 07:21 01/14/25 07:21 01/14/25 07:21
01/13/25 01/14/25 01/15/25
06:59 06:59 06:59
Actual Weight 98.248 kg 96.933 kg
01/14/25 05:28
01/14/25 05:28
Magnesium 2.2 mg/dl (1.6-2.3) 01/08/25 13:31
Triglycerides 111 mg/dl (10-149) 01/13/25 05:28
LDL Cholesterol, Calc 131 mg/dl 01/13/25 05:28
VLDL Cholesterol, Calc 22 mg/dl (0-30) 01/13/25 05:28
HDL Cholesterol 86 mg/dl 01/13/25 05:28
01/08/25
13:31
Tmn-C-[id number] Pept 59.8
Physical Exam
Constitutional: No acute distress
EENT: Moist mucous membranes
Cardiovascular: Rhythm & rate is regular, Pedal edema is absent, Systolic murmur absent and JVD present
Respiratory: Wheeze Present
Neuro/Psych: AO x 3
Data Reviewed
-
Date of Service: January 14, 2025
EKG: Other (Tele: SR 70s, one brief SVT)
Labs: Labs Reviewed by me
--- NOTE | 2025-01-14 09:17 | W.PN.PUL.V3 ---
Today's Communication / Plan
-
.
Continue diuresis.
Wean FiO2.
Increase activity.
No change in steroids.
Continue nebulizers
Assessment
-
64-year-old female patient who is a former smoker and has oxygen dependent COPD, CAD, CHF preserved EF, presented with increasing shortness of breath felt to be a combination of COPD and CHF evaluated by cardiology with persistent shortness of
breath and pulmonary was consulted for COPD/shortness of breath 01/13/2025.
Shortness of breath
COPD-with acute exacerbation
Bronchitis
CHF preserved EF
Atypical chest pain
Conditions present prior to admission:
Hospitalized 07/2024 with COPD exacerbation and decompensated heart failure
Severe COPD, maintained on levalbuterol nebs, advair/spiriva, and O2 2L at rest and sleep, 4L on exertion. Intermittent CS but no halfway
ABG 02-28-22 on O2 3L: 7.40/46/125/28.5/3/98.9%
Intermittently elevated serum total CO2
02/20/24- FVC 2.07 or 72%, FEV1 0.95 or 43%. Ratio 45.
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 Never received A1AT replacement therapy
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
Pulmonary nodules-4 mm right upper lobe stable
Former smoker-since age 16 up to 2 packs a day quit 02/2021
Hypertension.
Hyperlipidemia.
ALISSON-mild.
Nocturnal hypoxemia
Pulmonary hypertension.
CAD, s/p KATHARINE to mid LAD 02/28/2021, then [place] with KATHARINE to stenosis proximal to prior LAD stent 10/31/2021, continued on ASA/clopidogrel, [facility] 12-04-21 without residual disease
PAFib: declined AC due to fear of bleeding complications
Anxiety.
History CHF.
PAF.
GERD.
Left breast lump removed.
Plan
Respiratory decompensation likely multifactorial-CHF as well as underlying COPD which is advanced-Significant wheezing on exam-greater than her baseline
Supplemental oxygen as needed-attempt to wean
Nebulizers-Xopenex 3 times a day
Advair continues as well as Spiriva
Mucolytic's-Mucinex 1200 mg twice daily
Mucus clearing devices
Steroids initiated-Decadron 4 mg IV every 8 hours-no change-potentially changed to prednisone 50 mg with slow taper in the next 24 hours
.
Cultures reviewed
Empiric antibiotics-doxycycline initiated
Diuresis continues as tolerated
Monitor renal function, electrolytes, intake/output, lower extremity edema and weight
Replace electrolytes as needed
Cardiology following-correspondence reviewed-reviewed with Dr. Olmedo
Last echocardiogram summarized below as well as last cardiac catheterization-known to have elevated filling pressures on cardiac catheterization while proBNP not significantly elevated
DVT prophylaxis-on Lovenox-recommended oral anticoagulation in the past due to paroxysmal atrial fibrillation-refused
GI prophylaxis-on pantoprazole
Nutrition.
Increase activity
Outpatient pulmonary [id number] appointment with Dr. Zepeda with PFTs 03/09/2025 at 11 AM
Diagnostic data:
Chest x-ray 10/22/2024-NAD, stable scarring in anterior right upper lobe
CT chest 01/08/2025-no evidence for pulm embolism, chronic emphysema,, no new nodules
CT chest 10/22/2024-no evidence for pulm embolism, significant COPD, chronic parenchymal scarring in the right upper lobe, no evidence for pneumonia, stable 4 mm nodule medial right upper lobe
CT chest 10/22/2024-Advanced emphysematous changes, stable 4 mm nodule right upper lobe, no evidence for pulmonary embolism, chronic scarring right upper lobe
CT chest 07/21/2024: Reviewed can you find out no evidence of pulmonary embolism or thoracic aortic dissection.Changes of severe emphysema.Nodular opacity within the right middle lobe, measuring 2.5 cm in diameter, best seen on series 401 images
33-38. No significant change compared to 06/29/2024, or 11/27/2023. Opacity is less pronounced compared to a prior CT dated 02/25/2023. This likely represents scarring in a region of prior pneumonia. Consider continued CT follow-up as clinically
appropriate. Pulmonary nodule within the medial aspect of the right lung apex, best seen on series 401 image 18, measuring 4 mm in diameter. Nodule measured approximately 8 mm in diameter on 06/29/2024, therefore is likely infectious or inflammatory.
Severe coronary arterial calcification. Please correlate with symptoms of and risk factors for coronary artery disease, with further workup as clinically appropriate.
CT Chest 06/29/24- No evidence of pulmonary embolism.Moderate/severe apical predominant emphysematous changes with similar appearance of the nodular scarring within the right middle lobe measuring approximately 3.0 cm.There is a new 6 mm solid nodule
within the medial right upper lobe as well as new 7 mm solid nodules within the left upper lobe. Recommend follow-up CT to ensure stability Prominent gallstone present.
CT Chest 01/29/23 - Examination is negative for pulmonary embolism. Severe changes of emphysema. New horizontal band of increased opacity within the superior segment of the right lower lobe of the lung. Morphologic appearance would be suggestive of
scarring or atelectasis. Fatty infiltration of the liver.
CT chest 02-28-22, c/w 02-23-21 IMPRESSION: No CT evidence for pulmonary embolism. Severe centrilobular emphysema.
TTE 11-29-22:Normal biventricular size and systolic function without regional wall motion abnormality. Mild concentric left ventricular hypertrophy. No significant valvular disease. No significant change since the prior study of 03/01/22
.
Echo: 03-01-22, normal LV systolic function, LVEF greater than 75%, mild concentric LVH. No significant valvular disease. Normal RV size and function. Normal pericardium without effusion. IVC is of normal size and demonstrates normal respiratory
variation. Interatrial septum is intact with no evidence of shunting by color-flow Doppler. No intracardiac mass or thrombus formation seen. No significant change compared to October 2021.
[facility] 05-25-22 HEMODYNAMIC DATA : AO: 127/78 - LV: 127/16 - PCWP: 14 - PA: 36/22 - RV: 34/14 - RA: 10 - Oximetry: Ao 97%, PA 75%, cardiac output 4.5, cardiac index 2.4
LEFT VENTRICULOGRAPHY: Not performed
CORONARY ANGIOGRAPHY: Dominance: Right - Left Main: Normal - LAD: Widely patent ostial/proximal LAD stents with no restenosis. There is 30% mid LAD stenosis. - Circumflex: Normal - RCA: Normal dominant vessel
CONCLUSIONS
1: Normal filling pressures without pulmonary hypertension
2: Widely patent ostial/proximal LAD stents without restenosis
3. No significant residual obstructive CAD
Cardiac catheterization 07/22/2024-patent proximal LAD stent, severely elevated filling [id number]
DIANN doppler 02-26-23: negative
DIANN doppler 09-08-21: negative
PFT 08/21/22: FEV1 1.02L 46%, FVC 2.11L 73%, ratio 48. Post FEV1 1.06L 48%, +BD response in FVC. TLC 4.86L 110%, RV/TLC 51%, DLCO 24%
HST 10/07/19-AHI-2.4, desaturation laura 89%, snoring
PSG 10/06/24-sleep efficiency 68.7%, AHI-4.4, desaturation laura 78%, 76.4%. The time less than 90% saturation, 1 L of oxygen was added
Continue ongoing
Subjective Data
-
Date of Service:
Date of Service: January 14, 2025
Chief Complaint: Pulmonary Follow Up and Dyspnea Follow Up
Subjective:
Still quite wheezy, has some nonproductive cough, no chest pain, abdominal pain, or increased leg swelling
Review of Systems
General: Other (. HPI)
Objective Data
Data Reviewed
Vital Signs / I&O:
Vital Signs
Temp Pulse Resp BP Pulse Ox
97.8 F 88 15 136/79 92
01/14/25 07:21 01/14/25 07:21 01/14/25 07:21 01/14/25 07:21 01/14/25 07:21
Intake and Output
01/13/25 01/14/25 01/15/25
06:59 06:59 06:59
Intake Total 240 / 240 1224 / 1224
Balance 240 / 240 1224 / 1224
SaO2: 92
Nasal Cannula flow liters per minute: 2
Physical Exam
General: Respiratory Distress (n)
HEENT: Normocephalic, Anicteric and Moist Mucous Membranes
Cardiovascular: Regular Rhythm
Respiratory: Clear ( diminished breath sounds and prolonged expiratory time), Wheeze ( diffuse expiratory), Crackles (n), Rhonchi (n), Non-Labored Respirations and Accessory Resp Muscle Use (n)
GI: Soft, Non Distended and Non Tender
Neurology: Awake, Alert and No Motor Deficits
Skin: Warm, Good Color, Cyanosis (n) and Jaundice (n)
Labs/Micro/Reports
Lab Data
01/14/25 05:28
01/14/25 05:28
Microbiology
01/12/25 10:25 Throat/Pharynx Streptococcus Screen (ARCADIO) - Final
No Beta Hemolytic Streptococci Isolated
01/12/25 10:25 Throat/Pharynx Streptococcus Rapid Screen - Final
Rapid Strep Screen (Group A) Negative
[2025-01-14 11:13] VITALS: BP 113/77
--- NOTE | 2025-01-14 11:27 | W.PN.HOSP.TC ---
Today's Communication/Plan
-
Monitor vitals
See plan
Continue with IV Decadron
Continue with IV diuresis
Check sputum culture if able
Assessment / Plan
Assessment / Plan
Gen-AAOx3, NAD
HEENT-NC, AT, anicteric, clear oral mm
Neck-supple
CV-reg, no M, +S1/S2
Lungs-clear B/L, +wheezing
Abd-soft, NT, ND
Ext-no edema
Musculoskeletal-no cyanosis
Neuro-grossly non-focal
Psych-calm, cooperative
Acute on chronic Hypoxemic Respiratory insufficiency
- Possibly multifactorial with CHF and COPD
On 2 L chronically at home
- Treat individual issues as noted below and follow for clinical improvement.
Acute on Chronic HFpEF
- Patient presents with hypoxemia, dyspnea with exertion, chest discomfort and recent weight gain.
- BNP is unremarkable - but is the same as in 07/2024 when she was noted to have markedly elevated filling pressures on cath.
- IV Lasix BID and follow for clinical improvement / effective diuresis.
No repeat echo needed per cardiology
Not orthostatic based on vitals.
Acute bronchitis - suspect viral in etiology. Patient states she started having a cough day before admission. No infiltrates on chest x-ray or CT. Treat supportively with Acapella, incentive spirometer, Mucinex. Continue inhalers.
Suspect component of COPD exacerbation
Still has some shortness of breath, started Decadron. neg strep
Follows with pulmonary outpatient for COPD/emphysema
cw Doxy
Pulmonary following
Oral thrush
Start nystatin
Chest Pain
ASCVD
- Patient with exertional chest pain - ? related to CHF / CAD versus anxiety versus combination.
- Troponin negative x 3 sets thus far. EKG without active ischemia.
- Continue current CV med regimen.
- Cath done 07/2024 without significant / critical stenoses.
- Cardiology evaluation as noted above.
COPD with mild exacerbation due to bronchitis
Pulmonary following
Hyponatremia
Monitor
Paroxysmal A-Fib / SVT
- Patient denies specific episodes of palpitations since increase in diltiazem dosing.
- Monitor on telemetry for any recurrent SVT episodes which may be contributing to current presentation.
- Continue current med regimen.
- Patient has declined OAC for stroke risk reduction.
Anxiety / Depression
- Again, suspect this is contributing to some degree to current presentation.
- BZDs PRN for anxiety and follow for clinical response.
Morbid Obesity due to excess calories
- Affects all aspects of care and specifically contributes to respiratory complaints.
- Encourage healthy diet and regular exercise with goal of weight loss.
DVT Prophylaxis: Lovenox
Code Status: Full
I spent a total of 52 minutes with the patient or on the floor. More than 50% of this time involved counseling and coordination of care.
Anticipated Discharge: 24 - 48 hours
Subjective/Interval History
-
Date of Service: January 14, 2025
denies pain
Objective Data
-
Labs:
Laboratory Results
01/14/25
05:28
WBC 11.4 H
Hgb 14.1
Hct 40.7
Plt Count 231
Sodium 134 L
Potassium 4.6
Chloride 96 L
Carbon Dioxide 28
BUN 34 H
Creatinine 1.0
Glucose 152 H
Calcium 9.7
Vital Signs:
Vital Signs
Temp Pulse Resp BP Pulse Ox
98.0 F 90 20 113/77 92
01/14/25 11:13 01/14/25 11:13 01/14/25 11:13 01/14/25 11:13 01/14/25 11:13
I&O
01/13/25 01/14/25 01/15/25
06:59 06:59 06:59
Intake Total 240 / 240 1224 / 1224
Balance 240 / 240 1224 / 1224
[2025-01-14] MEDS: MYCOSTATIN ORAL SUSPENSION PO (12:44)
[2025-01-14 15:22] VITALS: BP 126/81
[2025-01-14] MEDS: COLACE 100 MG PO (17:00)
[2025-01-14] MEDS: LOVENOX SC (17:02)
[2025-01-14 19:55] VITALS: BP 135/89
[2025-01-14] MEDS: MAG-TAB SR 84 MG PO (21:23)
[2025-01-14 23:15] VITALS: BP 114/75
[2025-01-15] MEDS: DECADRON 4 MG IV ×3 (03:15→18:24)
[2025-01-15 03:55] VITALS: BP 127/94
[2025-01-15 06:00] VITALS: BMI 40.4
[2025-01-15 06:01] LABS: % Basophils 0.1 % (0-2); % Immature Granulocytes 0.9 % (0-0.5); % Lymphocytes 2.9 % (20.5-51.1); % Monocytes 8.6 % (1.7-9.3); % Neutrophils 87.5 % (42.2-75.2); Absolute Immature Granulocytes 0.1 10^3/uL (0-0.05); Absolute Lymphocytes 0.4 10^3/uL (1.2-3.4); Absolute Monocytes 1.1 10^3/uL (0.1-0.6); Absolute Neutrophils 11.3 10^3/uL (1.4-6.5); Hematocrit 43.2 % (37.0-47.0); Hemoglobin 14.3 g/dL (12.0-16.0); Mean Corp Hgb Conc. 33.1 g/dL (33.0-37.0); Mean Corpuscular Hgb 29.8 pg (27.0-31.0); Mean Platelet Volume 9.3 fL (7.4-10.4); Nucleated Red Blood Cells % 0 %; Platelet Count 250 10^3/uL (130-400); Red Cell Dist. Width 12.8 % (11.5-14.5); White Blood Cell Count 12.9 10^3/uL (4.8-10.8)
[2025-01-15] MEDS: XOPENEX 1.25 MG INHALANT SOLUTION INH ×3 (06:09→21:06)
[2025-01-15] MEDS: ADVAIR HFA 115/21 MCG INHALER 2 PUFF INH ×2 (06:09→21:06)
[2025-01-15] MEDS: SPIRIVA RESPIMAT 2.5 MCG 2 PUFF INH (06:09)
[2025-01-15] MEDS: TYLENOL 650 MG PO (06:10)
[2025-01-15] MEDS: CARDIZEM CD 180 MG PO ×2 (06:10→18:24)
[2025-01-15 06:23] LABS: Blood Urea Nitrogen 35 mg/dl (7-17); Calcium 9.5 mg/dl (8.4-10.2); Carbon Dioxide 31 mmol/L (22-30); Chloride 93 mmol/L (98-107); Estimated Creatinine Clearance 55 ml/min; Glucose 146 mg/dl (70-99); Potassium 4.2 mmol/L (3.5-5.1); Sodium 134 mmol/L (135-145); eGFR 56.11
[2025-01-15 08:36] VITALS: BP 127/81
[2025-01-15] MEDS: MUCINEX 1200 MG PO ×2 (08:40→20:57)
[2025-01-15] MEDS: ASPIR LOW (ENTERIC COATED) 81 MG PO (08:40)
[2025-01-15] MEDS: PROTONIX 40 MG PO (08:40)
[2025-01-15] MEDS: KCL 40 MEQ PO (08:40)
[2025-01-15] MEDS: PLAVIX 75 MG PO (08:40)
[2025-01-15] MEDS: VIBRAMYCIN 100 MG PO ×2 (08:40→20:58)
[2025-01-15] MEDS: MYCOSTATIN ORAL SUSPENSION 5 ML PO ×4 (08:42→20:59)
--- NOTE | 2025-01-15 09:25 | W.PN.PUL.V3 ---
Today's Communication / Plan
-
Patient quite anxious for discharge-respiratory status will always be tenuous-if discharged then see prednisone taper
Finite course of doxycycline
Diuretics per cardiology
Outpatient pulmonary follow-up
Assessment
-
64-year-old female patient who is a former smoker and has oxygen dependent COPD, CAD, CHF preserved EF, presented with increasing shortness of breath felt to be a combination of COPD and CHF evaluated by cardiology with persistent shortness of
breath and pulmonary was consulted for COPD/shortness of breath 01/13/2025.
Shortness of breath
COPD-with acute exacerbation
Bronchitis
CHF preserved EF
Atypical chest pain
Conditions present prior to admission:
Hospitalized 07/2024 with COPD exacerbation and decompensated heart failure
Severe COPD, maintained on levalbuterol nebs, advair/spiriva, and O2 2L at rest and sleep, 4L on exertion. Intermittent CS but no buttermaker helper
ABG 02-28-22 on O2 3L: 7.40/46/125/28.5/3/98.9%
Intermittently elevated serum total CO2
02/20/24- FVC 2.07 or 72%, FEV1 0.95 or 43%. Ratio 45.
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 Never received A1AT replacement therapy
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
Pulmonary nodules-4 mm right upper lobe stable
Former smoker-since age 16 up to 2 packs a day quit 02/2021
Hypertension.
Hyperlipidemia.
ALISSON-mild.
Nocturnal hypoxemia
Pulmonary hypertension.
CAD, s/p KATHARINE to mid LAD 02/28/2021, then [place] with KATHARINE to stenosis proximal to prior LAD stent 10/31/2021, continued on ASA/clopidogrel, [facility] 12-04-21 without residual disease
PAFib: declined AC due to fear of bleeding complications
Anxiety.
History CHF.
PAF.
GERD.
Left breast lump removed.
Plan
Respiratory decompensation likely [id number]-DEJ-he well as underlying COPD which is advanced-Significant wheezing on exam-greater than her baseline
Supplemental oxygen as needed-attempt to wean-has home O2
Nebulizers-Xopenex 3 times a day
Advair continues as well as Spiriva
Mucolytic's-Mucinex 1200 mg twice daily
Mucus clearing devices
Steroids initiated-Decadron 4 mg IV every 8 hours-anxious for discharge-if going home today then changed to prednisone 50 mg daily for 3 days and then 40 mg daily for 3 days and then 30 mg daily for 3 days and then 20 mg daily for 3 days and then 10
mg daily until seen by pulmonary
.
Cultures reviewed
Empiric antibiotics-doxycycline initiated-finite course
Diuresis continues as tolerated
Monitor renal function, electrolytes, intake/output, lower extremity edema and weight
Replace electrolytes as needed
Cardiology following-correspondence reviewed-reviewed with Dr. Olmedo
Last echocardiogram summarized below as well as last cardiac catheterization-known to have elevated filling pressures on cardiac catheterization while proBNP not significantly elevated
DVT prophylaxis-on Lovenox-recommended oral anticoagulation in the past due to paroxysmal atrial fibrillation-refused
GI prophylaxis-on pantoprazole
Nutrition.
Increase activity
Outpatient pulmonary [id number] appointment with Dr. Zepeda with PFTs 03/09/2025 at 11 AM
Diagnostic data:
Chest x-ray 10/22/2024-NAD, stable scarring in anterior right upper lobe
CT chest 01/08/2025-no evidence for pulm embolism, chronic emphysema,, no new nodules
CT chest 10/22/2024-no evidence for pulm embolism, significant COPD, chronic parenchymal scarring in the right upper lobe, no evidence for pneumonia, stable 4 mm nodule medial right upper lobe
CT chest 10/22/2024-Advanced emphysematous changes, stable 4 mm nodule right upper lobe, no evidence for pulmonary embolism, chronic scarring right upper lobe
CT chest 07/21/2024: Reviewed can you find out no evidence of pulmonary embolism or thoracic aortic dissection.Changes of severe emphysema.Nodular opacity within the right middle lobe, measuring 2.5 cm in diameter, best seen on series 401 images
33-38. No significant change compared to 06/29/2024, or 11/27/2023. Opacity is less pronounced compared to a prior CT dated 02/25/2023. This likely represents scarring in a region of prior pneumonia. Consider continued CT follow-up as clinically
appropriate. Pulmonary nodule within the medial aspect of the right lung apex, best seen on series 401 image 18, measuring 4 mm in diameter. Nodule measured approximately 8 mm in diameter on 06/29/2024, therefore is likely infectious or inflammatory.
Severe coronary arterial calcification. Please correlate with symptoms of and risk factors for coronary artery disease, with further workup as clinically appropriate.
CT Chest 06/29/24- No evidence of pulmonary embolism.Moderate/severe apical predominant emphysematous changes with similar appearance of the nodular scarring within the right middle lobe measuring approximately 3.0 cm.There is a new 6 mm solid nodule
within the medial right upper lobe as well as new 7 mm solid nodules within the left upper lobe. Recommend follow-up CT to ensure stability Prominent gallstone present.
CT Chest 01/29/23 - Examination is negative for pulmonary embolism. Severe changes of emphysema. New horizontal band of increased opacity within the superior segment of the right lower lobe of the lung. Morphologic appearance would be suggestive of
scarring or atelectasis. Fatty infiltration of the liver.
CT chest 02-28-22, c/w 02-23-21 IMPRESSION: No CT evidence for pulmonary embolism. Severe centrilobular emphysema.
TTE 11-29-22:Normal biventricular size and systolic function without regional wall motion abnormality. Mild concentric left ventricular hypertrophy. No significant valvular disease. No significant change since the prior study of 03/01/22
.
Echo: 03-01-22, normal LV systolic function, LVEF greater than 75%, mild concentric LVH. No significant valvular disease. Normal RV size and function. Normal pericardium without effusion. IVC is of normal size and demonstrates normal respiratory
variation. Interatrial septum is intact with no evidence of shunting by color-flow Doppler. No intracardiac mass or thrombus formation seen. No significant change compared to October 2021.
/[facility] 05-25-22 HEMODYNAMIC DATA : AO: 127/78 - LV: 127/16 - PCWP: 14 - PA: 36/22 - RV: 34/14 - RA: 10 - Oximetry: Ao 97%, PA 75%, cardiac output 4.5, cardiac index 2.4
LEFT VENTRICULOGRAPHY: Not performed
CORONARY ANGIOGRAPHY: Dominance: Right - Left Main: Normal - LAD: Widely patent ostial/proximal LAD stents with no restenosis. There is 30% mid LAD stenosis. - Circumflex: Normal - RCA: Normal dominant vessel
CONCLUSIONS
1: Normal filling pressures without pulmonary hypertension
2: Widely patent ostial/proximal LAD stents without restenosis
3. No significant residual obstructive CAD
Cardiac catheterization 07/22/2024-patent proximal LAD stent, severely elevated filling [id number]
DIANN doppler 02-26-23: negative
DIANN doppler 09-08-21: negative
PFT 08/21/22: FEV1 1.02L 46%, FVC 2.11L 73%, ratio 48. Post FEV1 1.06L 48%, +BD response in FVC. TLC 4.86L 110%, RV/TLC 51%, DLCO 24%
HST 10/07/19-AHI-2.4, desaturation laura 89%, snoring
PSG 10/06/24-sleep efficiency 68.7%, AHI-4.4, desaturation laura 78%, 76.4%. The time less than 90% saturation, 1 L of oxygen was added
Continue ongoing
Subjective Data
-
Date of Service:
Date of Service: January 15, 2025
Chief Complaint: Pulmonary Follow Up and Dyspnea Follow Up
Subjective:
Still with significant wheezing, saturations with exertion, no chest pain, wants to go home, no abdominal pain or increased leg swelling
Review of Systems
General: Other (Per HPI)
Objective Data
Data Reviewed
Vital Signs / I&O:
Vital Signs
Temp Pulse Resp BP Pulse Ox
98.7 F 73 20 127/81 92
01/15/25 08:36 01/15/25 08:36 01/15/25 08:36 01/15/25 08:36 01/15/25 08:36
Intake and Output
01/14/25 01/15/25 01/16/25
06:59 06:59 06:59
Intake Total 1224 / 1224 360 / 360
Balance 1224 / 1224 360 / 360
SaO2: 92
Nasal Cannula flow liters per minute: 2
Physical Exam
General: Respiratory Distress (n)
HEENT: Normocephalic, Anicteric and Moist Mucous Membranes
Cardiovascular: Regular Rhythm
Respiratory: Clear ( diminished breath sounds and prolonged expiratory time), Wheeze ( diffuse expiratory), Crackles (n), Rhonchi (n), Non-Labored Respirations and Accessory Resp Muscle Use (n)
GI: Soft, Non Distended and Non Tender
Neurology: Awake, Alert and No Motor Deficits
Skin: Warm, Good Color, Cyanosis (n) and Jaundice (n)
Labs/Micro/Reports
Lab Data
01/15/25 05:29
01/15/25 05:29
Microbiology
01/14/25 17:11 Sputum Respiratory Culture - Final
01/14/25 17:11 Sputum Gram Stain - Final
01/12/25 10:25 Throat/Pharynx Streptococcus Screen (ARCADIO) - Final
No Beta Hemolytic Streptococci Isolated
01/12/25 10:25 Throat/Pharynx Streptococcus Rapid Screen - Final
Rapid Strep Screen (Group A) Negative
--- NOTE | 2025-01-15 10:20 | W.PN.CD ---
Today's Communication / Plan
-
transition to lasix 40mg PO bid with Kcl 20 mEq bid
BMP in one week
we will arrange for follow up with us
please call us with additional questions
Impression / Plan
-
64 year old female (known to Dr. Olmedo, her primary Enrollment Consultant) with CAD s/p prior KATHARINE to mid LAD (02/28/2021), subsequent KATHARINE to proximal pLAD (10/31 2021), paroxysmal atrial fibrillation (declines OAC), PSVT, chronic HFpEF, hypertension,
hyperlipidemia (patient declines statin), sinus bradycardia with MDT ILR (TEENA) 2018 now at EOS, severe COPD (2L dependent; quit smoking 2020), GERD, obesity, and likely anxiety presenting with shortness of breath. The patient takes alternating QOD
doses of Lasix 40 mg once daily and 80 mg once daily at home. She has noted an approximate 5 pound weight gain over the past few weeks. The patient also experienced similar midsternal chest pain that radiated across her chest and bilateral arms;
patient had similar presentation 07/2024 which led to cardiac catheterization that revealed patent stents and no obstructive coronary artery disease.
Acute on chronic HFpEF: severe, requiring hospitalization and IV diuretics, with close monitoring of labs/tele
-will aim for 97 kg: she is at this weight today (213 lbs)
-she had gradual weight gain at home, and recognizes she need to be better with fluid restriction
-Patient did not tolerate SGLT2 inhibitor or spironolactone.
-No need to repeat echocardiogram as the patient recently had one on 06/30/2024: EF 65-70%, no sig valve disease
-transition to lasix 40mg PO bid with Kcl 20 mEq bid
Paroxysmal atrial fibrillation/PSVT:
-Frequent SVT on tele on 01/12 but has since quieted down.
-Patient declines anticoagulation.
-Continue diltiazem CD 180 mg twice daily.
Chest pain/known CAD:
-Most likely non-cardiac; possibly related to significant anxiety.
-No objective signs suggestive of ACS; cardiac enzymes negative EKG with no acute changes (unchanged compared to previous EKGs).
-Patent stents and no obstructive CAD on cardiac catheterization 07/12/2024.
-Continue aspirin/Plavix.
-Patient declines statin, which is recommended.
Severe oxygen dependent COPD exacerbation:
-Continue respiratory treatment as directed by primary Hospitalist/pulmonology
Hypertension:
-Blood pressure was elevated at 155/100 mmHg on admission, but quickly normalized to 110/84 mmHg on recheck; likely secondary to anxiety.
-Controlled on current antihypertensive medication regimen; continue.
Hyperlipidemia:
-LDL 181; patient declines statin.
-Counseled on the importance of a statin, which is indicated given her CAD; patient declines.
Diabetes:
-Management as per primary team.
Obesity:
-Weight loss recommended.
Physical Exam
Vital Signs/Labs
Vital Signs
Temp Pulse Resp BP Pulse Ox
98.7 F 73 20 127/81 92
01/15/25 08:36 01/15/25 08:36 01/15/25 08:36 01/15/25 08:36 01/15/25 09:25
01/14/25 01/15/25 01/16/25
06:59 06:59 06:59
Actual Weight 96.933 kg 96.842 kg
01/15/25 05:29
01/15/25 05:29
Magnesium 2.2 mg/dl (1.6-2.3) 01/08/25 13:31
Triglycerides 111 mg/dl (10-149) 01/13/25 05:28
LDL Cholesterol, Calc 131 mg/dl 01/13/25 05:28
VLDL Cholesterol, Calc 22 mg/dl (0-30) 01/13/25 05:28
HDL Cholesterol 86 mg/dl 01/13/25 05:28
01/08/25
13:31
Cng-T-Xjnnzynsdty Pept 59.8
Physical Exam
Constitutional: No acute distress and Comfortable
EENT: Moist mucous membranes
Cardiovascular: Rhythm & rate is regular, Pedal edema is absent, JVD pressure is normal and Systolic murmur absent
Respiratory: Labored respirations and Wheeze Present
Neuro/Psych: AO x 3
Data Reviewed
-
Date of Service: January 15, 2025
EKG: Other (Tele: SR 70s)
Labs: Labs Reviewed by me
[2025-01-15] MEDS: LASIX IV (10:43)
[2025-01-15] MEDS: LASIX 40 MG PO ×2 (10:46→16:08)
[2025-01-15 11:16] VITALS: BP 144/80
--- NOTE | 2025-01-15 12:39 | W.PN.HOSP.TC ---
Today's Communication/Plan
-
Monitor vital signs see plan
Slowly improving
Transition to p.o. Lasix
Continue with IV Decadron for now
hopeful dc in next 24hrs
Assessment / Plan
Assessment / Plan
Gen-AAOx3, NAD
HEENT-NC, AT, anicteric, clear oral mm
Neck-supple
CV-reg, no M, +S1/S2
Lungs-clear B/L, +wheezing
Abd-soft, NT, ND
Ext-no edema
Musculoskeletal-no cyanosis
Neuro-grossly non-focal
Psych-calm, cooperative
Acute on chronic Hypoxemic Respiratory insufficiency
- Possibly multifactorial with CHF and COPD
On 2 L chronically at home
- Treat individual issues as noted below and follow for clinical improvement.
Acute on Chronic HFpEF
- Patient presents with hypoxemia, dyspnea with exertion, chest discomfort and recent weight gain.
- BNP is unremarkable - but is the same as in 07/2024 when she was noted to have markedly elevated filling pressures on cath.
transition to lasix 40mg PO bid with Kcl 20 mEq bid. BMP in 1 week on dc
No repeat echo needed per cardiology
Not orthostatic based on vitals.
Acute bronchitis - suspect viral in etiology. Patient states she started having a cough day before admission. No infiltrates on chest x-ray or CT. Treat supportively with Acapella, incentive spirometer, Mucinex. Continue inhalers.
Suspect component of COPD exacerbation
Still has some shortness of breath, started Decadron. neg strep. hopeful transition to p.o. prednisone soon
Follows with pulmonary outpatient for COPD/emphysema
cw Doxy
Pulmonary following
Oral thrush
Start nystatin
Chest Pain
ASCVD
- Patient with exertional chest pain - ? related to CHF / CAD versus anxiety versus combination.
- Troponin negative x 3 sets thus far. EKG without active ischemia.
- Continue current CV med regimen.
- Cath done 07/2024 without significant / critical stenoses.
- Cardiology evaluation as noted above.
COPD with mild exacerbation due to bronchitis
Pulmonary following
Hyponatremia
Monitor
Paroxysmal A-Fib / SVT
- Patient denies specific episodes of palpitations since increase in diltiazem dosing.
- Monitor on telemetry for any recurrent SVT episodes which may be contributing to current presentation.
- Continue current med regimen.
- Patient has declined OAC for stroke risk reduction.
Anxiety / Depression
- Again, suspect this is contributing to some degree to current presentation.
- BZDs PRN for anxiety and follow for clinical response.
Morbid Obesity due to excess calories
- Affects all aspects of care and specifically contributes to respiratory complaints.
- Encourage healthy diet and regular exercise with goal of weight loss.
DVT Prophylaxis: Lovenox
Code Status: Full
I spent a total of 52 minutes with the patient or on the floor. More than 50% of this time involved counseling and coordination of care.
Anticipated Discharge: Within 24 hours
Subjective/Interval History
-
Date of Service: January 15, 2025
denies pain
Objective Data
-
Labs:
Laboratory Results
01/15/25
05:29
WBC 12.9 H
Hgb 14.3
Hct 43.2
Plt Count 250
Sodium 134 L
Potassium 4.2
Chloride 93 L
Carbon Dioxide 31 H
BUN 35 H
Creatinine 1.1 H
Glucose 146 H
Calcium 9.5
Vital Signs:
Vital Signs
Temp Pulse Resp BP Pulse Ox
98.3 F 80 20 144/80 91
01/15/25 11:16 01/15/25 11:16 01/15/25 11:16 01/15/25 11:16 01/15/25 11:16
I&O
01/14/25 01/15/25 01/16/25
06:59 06:59 06:59
Intake Total 1224 / 1224 360 / 360
Balance 1224 / 1224 360 / 360
[2025-01-15 14:20] VITALS: BP 120/84
[2025-01-15] MEDS: TESSALON PERLES 200 MG PO ×2 (16:08→20:59)
[2025-01-15] MEDS: COLACE 100 MG PO (18:24)
[2025-01-15] MEDS: LOVENOX SC ×2 (18:24→18:28)
[2025-01-15 19:10] VITALS: BP 136/86
[2025-01-15] MEDS: MAG-TAB SR 84 MG PO (20:58)
[2025-01-15 23:01] VITALS: BP 131/81
[2025-01-16] VITALS (7 sets, daily range): BP systolic 102–125; BP diastolic 69–83; BMI 40.3
[2025-01-16] MEDS: DECADRON 4 MG IV (03:00)
[2025-01-16] MEDS: CARDIZEM CD 180 MG PO ×2 (06:04→17:51)
[2025-01-16] MEDS: TESSALON PERLES 200 MG PO ×2 (06:04→20:32)
[2025-01-16] MEDS: XOPENEX 1.25 MG INHALANT SOLUTION INH ×3 (07:48→19:10)
[2025-01-16] MEDS: SPIRIVA RESPIMAT 2.5 MCG 2 PUFF INH (07:49)
[2025-01-16] MEDS: ADVAIR HFA 115/21 MCG INHALER 2 PUFF INH ×2 (07:49→19:09)
[2025-01-16] MEDS: VIBRAMYCIN 100 MG PO ×2 (08:31→20:32)
[2025-01-16] MEDS: MYCOSTATIN ORAL SUSPENSION 5 ML PO ×3 (08:31→20:34)
[2025-01-16] MEDS: ASPIR LOW (ENTERIC COATED) 81 MG PO (08:31)
[2025-01-16] MEDS: MUCINEX 1200 MG PO ×2 (08:31→20:33)
[2025-01-16] MEDS: PLAVIX 75 MG PO (08:31)
[2025-01-16] MEDS: KCL 20 MEQ PO ×2 (08:31→20:32)
[2025-01-16] MEDS: LASIX 40 MG PO ×2 (08:31→15:41)
[2025-01-16] MEDS: PROTONIX 40 MG PO (08:31)
[2025-01-16 09:17] LABS: % Basophils 0.2 % (0-2); % Lymphocytes 3.4 % (20.5-51.1); % Monocytes 6.8 % (1.7-9.3); % Neutrophils 88.6 % (42.2-75.2); Absolute Immature Granulocytes 0.1 10^3/uL (0-0.05); Absolute Lymphocytes 0.4 10^3/uL (1.2-3.4); Absolute Monocytes 0.8 10^3/uL (0.1-0.6); Absolute Neutrophils 9.8 10^3/uL (1.4-6.5); Hematocrit 41.6 % (37.0-47.0); Mean Corp Hgb Conc. 33.7 g/dL (33.0-37.0); Mean Corpuscular Hgb 30.3 pg (27.0-31.0); Mean Platelet Volume 9.7 fL (7.4-10.4); Nucleated Red Blood Cells % 0 %; Platelet Count 204 10^3/uL (130-400); Red Blood Cell Count 4.62 10^6/uL (4.20-5.40); Red Cell Dist. Width 13.1 % (11.5-14.5)
[2025-01-16 09:35] LABS: Blood Urea Nitrogen 30 mg/dl (7-17); Calcium 9.3 mg/dl (8.4-10.2); Carbon Dioxide 30 mmol/L (22-30); Chloride 87 mmol/L (98-107); Estimated Creatinine Clearance 55 ml/min; Glucose 217 mg/dl (70-99); Sodium 129 mmol/L (135-145); eGFR 56.11
[2025-01-16] MEDS: DECADRON IV ×2 (10:36→17:53)
[2025-01-16] MEDS: DECADRON 6 MG IV ×2 (10:39→20:32)
--- NOTE | 2025-01-16 13:16 | W.PN.HOSP.TC ---
Addendum entered and electronically signed by Félix Henderson MD 01/16/25 15:14:
Patient is positive for influenza A. Given her symptoms, would treat with Tamiflu
Original Note:
Today's Communication/Plan
-
Monitor vital signs see plan
Hypoxic overnight, now on 4 L
Wean oxygen as tolerated
Chest x-ray with progressive pneumonia
Add ceftriaxone, continue Doxy
Assessment / Plan
Assessment / Plan
Gen-AAOx3, NAD
HEENT-NC, AT, anicteric, clear oral mm
Neck-supple
CV-reg, no M, +S1/S2
Lungs-clear B/L, +wheezing
Abd-soft, NT, ND
Ext-no edema
Musculoskeletal-no cyanosis
Neuro-grossly non-focal
Psych-calm, cooperative
Acute on chronic Hypoxemic Respiratory insufficiency
- Possibly multifactorial with CHF and COPD
On 2 L chronically at home
Hypoxic overnight, now on 4 L. Wean oxygen as tolerated
Chest x-ray 01/16 with progressive possible pneumonia. Already on doxycycline. Add ceftriaxone.
- Treat individual issues as noted below and follow for clinical improvement.
Speech evaluation
Acute on Chronic HFpEF
- Patient presents with hypoxemia, dyspnea with exertion, chest discomfort and recent weight gain.
- BNP is unremarkable - but is the same as in 07/2024 when she was noted to have markedly elevated filling pressures on cath.
transition to lasix 40mg PO bid with Kcl 20 mEq bid. BMP in 1 week on dc
No repeat echo needed per cardiology
Not orthostatic based on vitals.
Acute bronchitis - Patient states she started having a cough day before admission.. Treat supportively with Acapella, incentive spirometer, Mucinex. Continue inhalers.
Suspect component of COPD exacerbation
Still has some shortness of breath, started Decadron, increased to 6 every 8
Follows with pulmonary outpatient for COPD/emphysema
cw Doxy, added ceftriaxone
Pulmonary following
Oral thrush
Start nystatin
Hyponatremia
Monitor
Chest Pain
ASCVD
- Patient with exertional chest pain - ? related to CHF / CAD versus anxiety versus combination.
- Troponin negative x 3 sets thus far. EKG without active ischemia.
- Continue current CV med regimen.
- Cath done 07/2024 without significant / critical stenoses.
- Cardiology evaluation as noted above.
COPD with mild exacerbation due to bronchitis
Pulmonary following
Hyponatremia
Monitor
Paroxysmal A-Fib / SVT
- Patient denies specific episodes of palpitations since increase in diltiazem dosing.
- Monitor on telemetry for any recurrent SVT episodes which may be contributing to current presentation.
- Continue current med regimen.
- Patient has declined OAC for stroke risk reduction.
Anxiety / Depression
- Again, suspect this is contributing to some degree to current presentation.
- BZDs PRN for anxiety and follow for clinical response.
Morbid Obesity due to excess calories
- Affects all aspects of care and specifically contributes to respiratory complaints.
- Encourage healthy diet and regular exercise with goal of weight loss.
DVT Prophylaxis: Lovenox
Code Status: Full
I spent a total of 53 minutes with the patient or on the floor. More than 50% of this time involved counseling and coordination of care.
Anticipated Discharge: > 48 hours
Subjective/Interval History
-
Date of Service: January 16, 2025
Still feeling shortness of breath and is hypoxic
Objective Data
-
Labs:
Laboratory Results
01/16/25
08:55
WBC 11.0 H
Hgb 14.0
Hct 41.6
Plt Count 204
Sodium 129 L
Potassium 4.0
Chloride 87 L
Carbon Dioxide 30
BUN 30 H
Creatinine 1.1 H
Glucose 217 H
Calcium 9.3
Vital Signs:
Vital Signs
Temp Pulse Resp BP Pulse Ox
98.8 F 82 22 108/72 87
01/16/25 12:25 01/16/25 12:25 01/16/25 12:25 01/16/25 12:25 01/16/25 12:25
I&O
01/15/25 01/16/25 01/17/25
06:59 06:59 06:59
Intake Total 360 / 360 590 / 590
Balance 360 / 360 590 / 590
[2025-01-16] MEDS: MYCOSTATIN ORAL SUSPENSION PO (13:23)
[2025-01-16] MEDS: ROCEPHIN 1000 MG IV (13:54)
[2025-01-16] MEDS: STERILE WATER FOR INJECTION 10 ML IV (13:55)
--- NOTE | 2025-01-16 14:42 | PTOTSP ---
Speech Therapy Evaluation:
Pt with acute on chronic risk factors of dysphagia (hx of COPD on home O2, GERD, CHF, ARHF). Pt subjectively SOB with frequent and audible breaths throughout evaluation, however RR appeared steady during PO trials. No overt s/sx of aspiration with
PO, however cannot r/o silent aspiration given hx of COPD and new PNA. Pt remains at increased risk of aspiration and related pulmonary complications given concern for breathing/swallow coordination and tenuous respiratory status. HAIRSPRING ADJUSTER discussed
recommendations for VSE to further assess oropharyngeal swallow function, however pt unsure if she would like to participate at this time. HAIRSPRING ADJUSTER to follow
Recommend:
1. Continue IDDSI Level 7 (regular) solids and thin liquids
2. Medications as tolerated
3. Monitor respiratory status. d/c oral diet if concerned for aspiration or if worsening in respiratory status
4. Strict aspiration and reflux precautions
5. HAIRSPRING ADJUSTER to follow to monitor tolerance of diet, determine need for diet modifications, and continue to provide edu. re: VSE given acute on chronic risk factors
[2025-01-16 15:05] LABS: COVID-19 Antigen Negative (Negative)
[2025-01-16] MEDS: TAMIFLU 75 MG PO ×2 (15:41→20:32)
--- NOTE | 2025-01-16 16:07 | PTCARENOTE ---
Pt on 4-5L O2 throughout shift POX in the low 90's. CXR done during shift showed PNA. Pt tested + for Flu A. Report given to RN Will on 4W. Pt transferred to room 428 with belongings.
--- NOTE | 2025-01-16 16:20 | W.PN.PUL3 ---
Today's Communication / Plan
-
Due to patient having influenza A pneumonia with what appears to be bacterial superinfection, continue with ceftriaxone, doxycycline and Tamiflu
May need to transfer to the IMU for high flow nasal cannula as she remains short of breath on 5 - 6 L/min nasal cannula
Aspiration precautions
Diuretics per cardiology
Replete K>4, Mg>2 while on diuretics
Continue Advair 115 mcg + Xopenex and Spiriva
May need to change inhalers to nebulized form if she remains SOB
Titrate O2 flow rate to keep SpO2 88-95%
Pulmonary service will continue to follow
Assessment
-
64-year-old female patient who is a former smoker and has oxygen dependent COPD, CAD, CHF preserved EF, presented with increasing shortness of breath felt to be a combination of COPD and CHF evaluated by cardiology with persistent shortness of
breath and pulmonary was consulted for COPD/shortness of breath 01/13/2025.
Shortness of breath due to influenza A pneumonia in the setting of COPD
COPD/emphysema with acute exacerbation
Acute bronchitis due to influenza A
Chronic HFpEF
Atypical chest pain
Conditions present prior to admission:
Hospitalized 07/2024 with COPD exacerbation and decompensated heart failure
Severe COPD, maintained on levalbuterol nebs, advair/spiriva, and O2 2L at rest and sleep, 4L on exertion. Intermittent CS but no residential
ABG 02-28-22 on O2 3L: 7.40/46/125/28.5/3/98.9%
Intermittently elevated serum total CO2
02/20/24- FVC 2.07 or 72%, FEV1 0.95 or 43%. Ratio 45.
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 Never received A1AT replacement therapy
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, pathology reviewed, told final diagnosis was respiratory bronchiolitis
Pulmonary nodules-4 mm right upper lobe stable
Former smoker-since age 16 up to 2 packs a day quit 02/2021
Hypertension.
Hyperlipidemia.
ALISSON-mild.
Nocturnal hypoxemia
Pulmonary hypertension.
CAD, s/p KATHARINE to mid LAD 02/28/2021, then [facility] with KATHARINE to stenosis proximal to prior LAD stent 10/31/2021, continued on ASA/clopidogrel, [facility] 12-04-21 without residual disease
PAFib: declined AC due to fear of bleeding complications
Anxiety.
History CHF.
PAF.
GERD.
Left breast lump removed.
Plan
Respiratory decompensation likely from influenza A in the setting of COPD/emphysema
Continue with supplemental oxygen and titrate to SpO2 88-95%; may need to upgrade to IMU for high flow nasal cannula
Continue with Advair HFA 115 mcg + Spiriva, also on Xopenex TID
Mucolytics-Mucinex 1200 mg twice daily
Mucus clearing devices
Steroids initiated-Decadron 4 mg IV every 8 hours- raised to 6mg IV q8hr today
.
Cultures reviewed
CXR reviewed from today (01/16/2025) showing significant left lower lobe pneumonia as well as right lower lobe pneumonia (L >R)
Ceftriaxone started today and she remains on doxycycline
Start Tamiflu today and finish 5-10-day course
Continue with PO Lasix 40 mg BID
On her recent CTA chest from 01/08/2025 there was no evidence of acute volume overload
Monitor renal function, electrolytes, intake/output, lower extremity edema and weight
Replace electrolytes as needed
Cardiology following-correspondence reviewed
Last echocardiogram summarized below as well as last cardiac catheterization-known to have elevated filling pressures on cardiac catheterization while proBNP not significantly elevated
DVT prophylaxis-on Lovenox-recommended oral anticoagulation in the past due to paroxysmal atrial fibrillation-refused
GI prophylaxis-n/a - on pantoprazole (home med)
Nutrition
Increase activity as tolerated
Outpatient pulmonary [id number] appointment with Dr. Zepeda with PFTs 03/09/2025 at 11 AM
Diagnostic data:
Chest x-ray 10/22/2024-NAD, stable scarring in anterior right upper lobe
CT chest 01/08/2025-no evidence for pulm embolism, chronic emphysema,, no new nodules
CT chest 10/22/2024-no evidence for pulm embolism, significant COPD, chronic parenchymal scarring in the right upper lobe, no evidence for pneumonia, stable 4 mm nodule medial right upper lobe
CT chest 10/22/2024-Advanced emphysematous changes, stable 4 mm nodule right upper lobe, no evidence for pulmonary embolism, chronic scarring right upper lobe
CT chest 07/21/2024: Reviewed can you find out no evidence of pulmonary embolism or thoracic aortic dissection.Changes of severe emphysema.Nodular opacity within the right middle lobe, measuring 2.5 cm in diameter, best seen on series 401 images
33-38. No significant change compared to 06/29/2024, or 11/27/2023. Opacity is less pronounced compared to a prior CT dated 02/25/2023. This likely represents scarring in a region of prior pneumonia. Consider continued CT follow-up as clinically
appropriate. Pulmonary nodule within the medial aspect of the right lung apex, best seen on series 401 image 18, measuring 4 mm in diameter. Nodule measured approximately 8 mm in diameter on 06/29/2024, therefore is likely infectious or inflammatory.
Severe coronary arterial calcification. Please correlate with symptoms of and risk factors for coronary artery disease, with further workup as clinically appropriate.
CT Chest 06/29/24- No evidence of pulmonary embolism.Moderate/severe apical predominant emphysematous changes with similar appearance of the nodular scarring within the right middle lobe measuring approximately 3.0 cm.There is a new 6 mm solid nodule
within the medial right upper lobe as well as new 7 mm solid nodules within the left upper lobe. Recommend follow-up CT to ensure stability Prominent gallstone present.
CT Chest 01/29/23 - Examination is negative for pulmonary embolism. Severe changes of emphysema. New horizontal band of increased opacity within the superior segment of the right lower lobe of the lung. Morphologic appearance would be suggestive of
scarring or atelectasis. Fatty infiltration of the liver.
CT chest 02-28-22, c/w 02-23-21 IMPRESSION: No CT evidence for pulmonary embolism. Severe centrilobular emphysema.
TTE 11-29-22:Normal biventricular size and systolic function without regional wall motion abnormality. Mild concentric left ventricular hypertrophy. No significant valvular disease. No significant change since the prior study of 03/01/22
.
Echo: 03-01-22, normal LV systolic function, LVEF greater than 75%, mild concentric LVH. No significant valvular disease. Normal RV size and function. Normal pericardium without effusion. IVC is of normal size and demonstrates normal respiratory
variation. Interatrial septum is intact with no evidence of shunting by color-flow Doppler. No intracardiac mass or thrombus formation seen. No significant change compared to October 2021.
/[facility] 05-25-22 HEMODYNAMIC DATA : AO: 127/78 - LV: 127/16 - PCWP: 14 - PA: 36/22 - RV: 34/14 - RA: 10 - Oximetry: Ao 97%, PA 75%, cardiac output 4.5, cardiac index 2.4
LEFT VENTRICULOGRAPHY: Not performed
CORONARY ANGIOGRAPHY: Dominance: Right - Left Main: Normal - LAD: Widely patent ostial/proximal LAD stents with no restenosis. There is 30% mid LAD stenosis. - Circumflex: Normal - RCA: Normal dominant vessel
CONCLUSIONS
1: Normal filling pressures without pulmonary hypertension
2: Widely patent ostial/proximal LAD stents without restenosis
3. No significant residual obstructive CAD
Cardiac catheterization 07/22/2024-patent proximal LAD stent, severely elevated filling [id number]
DIANN doppler 02-26-23: negative
DIANN doppler 09-08-21: negative
PFT 08/21/22: FEV1 1.02L 46%, FVC 2.11L 73%, ratio 48. Post FEV1 1.06L 48%, +BD response in FVC. TLC 4.86L 110%, RV/TLC 51%, DLCO 24%
HST 10/07/19-AHI-2.4, desaturation laura 89%, snoring
PSG 10/06/24-sleep efficiency 68.7%, AHI-4.4, desaturation laura 78%, 76.4%. The time less than 90% saturation, 1 L of oxygen was added
Total time spent today was 52 minutes for this encounter. Time includes reviewing laboratory test/imaging results, reviewing pertinent medical records, obtaining and reviewing medical history, performing an appropriate exam, ordering medications,
tests and procedures. Time also includes documentation of this encounter, coordinating patient care and communicating with other healthcare professionals. Total time does not include separately billed tests performed on this date of service.
Subjective Data
-
Date of Service:
Date of Service: January 16, 2025
Chief Complaint: Pulmonary Follow Up and Dyspnea Follow Up
Subjective:
Patient seen earlier today (late note entry) and she was desaturating while on 4-5 L/min with saturations in the low 90s/upper 80s. She feels short of breath today. Flu swab performed today showing that she has influenza A. She denies chest pain,
REYES, nausea, fevers or chills.
Review of Systems
General: Other (Negative unless mentioned above)
Objective Data
Data Reviewed
Vital Signs / I&O / Oxygen:
Vital Signs
Temp Pulse Resp BP Pulse Ox
98.4 F 81 21 102/77 86
01/16/25 08:18 01/16/25 08:18 01/16/25 08:18 01/16/25 08:18 01/16/25 08:18
Intake and Output
01/15/25 01/16/25 01/17/25
06:59 06:59 06:59
Intake Total 360 / 360 590 / 590
Balance 360 / 360 590 / 590
SaO2 86
Nasal Cannula flow liters per 4
minute
Physical Exam
General: Respiratory Distress (Mild), Chills (n) and Sweats (n)
HEENT: Normocephalic, Anicteric and Moist Mucous Membranes
Cardiovascular: S1-S2 and Peripheral Edema (+1 lower extremity pitting edema)
Respiratory: Wheeze (n), Crackles (n), Rhonchi (n), Non-Labored Respirations, Accessory Resp Muscle Use (n) and Other ( diminished breath sounds and prolonged expiratory time)
GI: Soft, Non Distended, Non Tender and Normal Bowel Sounds
Neurology: AO x 3 and Tremors (n)
Skin: Warm, Dry, Cyanosis (n) and Jaundice (n)
Labs/Micro/Reports
Lab Data
01/16/25 08:55
01/16/25 08:55
Microbiology
01/14/25 17:11 Sputum Respiratory Culture - Final
01/14/25 17:11 Sputum Gram Stain - Final
01/12/25 10:25 Throat/Pharynx Streptococcus Screen (ARCADIO) - Final
No Beta Hemolytic Streptococci Isolated
01/12/25 10:25 Throat/Pharynx Streptococcus Rapid Screen - Final
Rapid Strep Screen (Group A) Negative
[2025-01-16] MEDS: COLACE 100 MG PO (17:52)
[2025-01-16] MEDS: LOVENOX 40 MG SC (17:54)
[2025-01-16] MEDS: ATROVENT NEBULES INH (18:38)
[2025-01-16 18:40] LABS: B.E. 11.8 mmol/L; HCO3 35.9 mmol/L (21-28); O2 Saturation % 89.3 % (94-98); PCO2 43 mmHg (32-35); pH 7.53 (7.35-7.45)
[2025-01-16 18:43] LABS: PO2 53 mmHg (83-108)
[2025-01-16] MEDS: ATROVENT NEBULES 0.5 MG INH (19:09)
--- NOTE | 2025-01-16 20:00 | PTCARENOTE ---
rec'd patient at shift change, transfer from floor. assessment as documented. oriented x3, placed on HFNC with NRB, SOB at rest and labored breathing noted. SR on monitor. pt with frequent hacking cough. pt admits to stress incontinence, purewick
and brief in place. PIV flushed. call butler in reach. IMU level of care.
--- NOTE | 2025-01-16 20:09 | PTCARENOTE ---
Pt arrived at 16:45 to the unit. VS taken. Apon arrival she was breathing heavily, 40 R/min, O2 was 88% on 6L. She got up and went to the bathroom and when she came out was in obvioud distress. Pulseox was in the mid 70s. O2 was turned up to 8L.
Pulseox didn't come up above 86. She was mouth breathing, still at 40 RPM. Got a non-rebreather on her. Still stting at 88-89. made aware. Midflow ordered. Order was placed to transfer pt to IMU. Was put on 15L midflow and satting at 92%. No
beds were available in IMU so was transferred to ICU. Jayant called, pt transferred.
[2025-01-16] MEDS: MAG-TAB SR 84 MG PO (20:34)
[2025-01-17] VITALS (20 sets, daily range): BP systolic 103–134; BP diastolic 66–94; BMI 39.6
[2025-01-17] MEDS: DECADRON 6 MG IV ×3 (03:08→20:09)
[2025-01-17 03:42] LABS: % Basophils 0.2 % (0-2); % Eosinophils 0.1 % (0-6); % Lymphocytes 3.4 % (20.5-51.1); % Monocytes 6.1 % (1.7-9.3); % Neutrophils 89.2 % (42.2-75.2); Absolute Immature Granulocytes 0.1 10^3/uL (0-0.05); Absolute Lymphocytes 0.3 10^3/uL (1.2-3.4); Absolute Monocytes 0.6 10^3/uL (0.1-0.6); Absolute Neutrophils 8.9 10^3/uL (1.4-6.5); Hematocrit 40.3 % (37.0-47.0); Hemoglobin 13.9 g/dL (12.0-16.0); Mean Corp Hgb Conc. 34.5 g/dL (33.0-37.0); Mean Corpuscular Hgb 30.5 pg (27.0-31.0); Mean Corpuscular Volume 88.4 fL (81.0-99.0); Mean Platelet Volume 9.4 fL (7.4-10.4); Nucleated Red Blood Cells % 0 %; Platelet Count 208 10^3/uL (130-400); Red Blood Cell Count 4.56 10^6/uL (4.20-5.40)
[2025-01-17 04:10] LABS: Blood Urea Nitrogen 32 mg/dl (7-17); Calcium 8.8 mg/dl (8.4-10.2); Carbon Dioxide 34 mmol/L (22-30); Chloride 88 mmol/L (98-107); Estimated Creatinine Clearance 60 ml/min; Glucose 160 mg/dl (70-99); Potassium 4.3 mmol/L (3.5-5.1); Sodium 131 mmol/L (135-145); eGFR > 60.00
--- NOTE | 2025-01-17 04:40 | PTCARENOTE ---
AM labs sent. pt remains on HFNC, NRB off at this time, satting 88-93%. freq cough noted. otherwise assessment unchanged. call butler in reach. care continues
[2025-01-17] MEDS: TYLENOL 650 MG PO (06:01)
[2025-01-17] MEDS: CARDIZEM CD 180 MG PO ×2 (06:02→19:00)
[2025-01-17] MEDS: ADVAIR HFA 115/21 MCG INHALER 2 PUFF INH ×2 (07:46→19:03)
[2025-01-17] MEDS: ATROVENT NEBULES 0.5 MG INH ×3 (07:46→19:04)
[2025-01-17] MEDS: XOPENEX 1.25 MG INHALANT SOLUTION INH ×3 (07:46→19:04)
[2025-01-17] MEDS: PLAVIX 75 MG PO (08:05)
[2025-01-17] MEDS: LASIX 40 MG PO ×2 (08:05→15:20)
[2025-01-17] MEDS: MYCOSTATIN ORAL SUSPENSION 5 ML PO ×4 (08:05→20:09)
[2025-01-17] MEDS: KCL 20 MEQ PO ×2 (08:05→20:10)
[2025-01-17] MEDS: MUCINEX 1200 MG PO ×2 (08:05→20:09)
[2025-01-17] MEDS: ASPIR LOW (ENTERIC COATED) 81 MG PO (08:05)
[2025-01-17] MEDS: TAMIFLU 75 MG PO ×2 (08:05→20:10)
[2025-01-17] MEDS: VIBRAMYCIN 100 MG PO ×2 (08:05→20:10)
[2025-01-17] MEDS: PROTONIX 40 MG PO (08:05)
--- NOTE | 2025-01-17 08:10 | PTCARENOTE ---
Assumed care of pt at 0715 following shift report. Pt awake and resting quietly in bed watching TV. Pt denies c/o pain. Remains on [place] 50L/100% w/ POx 90-94% at rest. Occasional moist hacking cough noted w/ POx down to 86% during episodes of
coughing. Dyspnea w/ mild exertion noted. Recovers quickly w/ rest. Droplet precautions maintained. No running IVs. Purewick in place for stress incontinence. Comfort care/hygiene provided. Physical assessment completed as documented. Call luke w/in
pt reach and safe environment maintained.
--- NOTE | 2025-01-17 08:27 | W.PN.PUL3 ---
Today's Communication / Plan
-
Due to patient having influenza A pneumonia with what appears to be bacterial superinfection, continue with ceftriaxone, doxycycline and Tamiflu
Continue high flow nasal cannula, and transition to BiPAP vs NIV with low threshold to intubate
Aspiration precautions
Diuretics per cardiology
Replete K>4, Mg>2 while on diuretics
Continue Advair 115 mcg + Xopenex; change Spiriva to xopenex
May need to change all inhalers to nebulized form
Titrate O2 flow rate to keep SpO2 88-95%
Pulmonary service will continue to follow; if upgraded to ICU then [employer] [facility] will manage alongside hospitalist
Assessment
-
64-year-old female patient who is a former smoker and has oxygen dependent COPD, CAD, CHF preserved EF, presented with increasing shortness of breath felt to be a combination of COPD and CHF evaluated by cardiology with persistent shortness of
breath and pulmonary was consulted for COPD/shortness of breath 01/13/2025.
Impression:
Shortness of breath due to influenza A pneumonia in the setting of COPD
COPD/emphysema with acute exacerbation
Acute bronchitis due to influenza A
Chronic HFpEF
Atypical chest pain
Conditions present prior to admission:
Hospitalized 07/2024 with COPD exacerbation and decompensated heart failure
Severe COPD, maintained on levalbuterol nebs, advair/spiriva, and O2 2L at rest and sleep, 4L on exertion. Intermittent CS but no longterm
ABG 02-28-22 on O2 3L: 7.40/46/125/28.5/3/98.9%
Intermittently elevated serum total CO2
02/20/24- FVC 2.07 or 72%, FEV1 0.95 or 43%. Ratio 45.
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 Never received A1AT replacement therapy
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
Pulmonary nodules-4 mm right upper lobe stable
Former smoker-since age 16 up to 2 packs a day quit 02/2021
Hypertension.
Hyperlipidemia.
ALISSON-mild.
Nocturnal hypoxemia
Pulmonary hypertension.
CAD, s/p KATHARINE to mid LAD 02/28/2021, then [facility] with KATHARINE to stenosis proximal to prior LAD stent 10/31/2021, continued on ASA/clopidogrel, [facility] 12-04-21 without residual disease
PAFib: declined AC due to fear of bleeding complications
Anxiety.
History CHF.
PAF.
GERD.
Left breast lump removed.
Plan
Respiratory decompensation likely from influenza A in the setting of COPD/emphysema
Patient was upgraded to the IMU on 01/16 due to worsening SOB with hypoxia, and placed onto high flow nasal cannula
Continue with HFNC and use nonrebreather over HFNC as needed to keep saturations >88%
Strongly consider transitioning to BiPAP vs NIV as she does have increased work of breathing
If NIV is started then she will need to be upgraded to the ICU
Low threshold to intubate
Currently she is awake, alert and only in mild respiratory distress and able to complete her sentences without conversational dyspnea --> no immediate necessity to intubate at this time
Goal SpO2 88-95%
Continue with Advair HFA 115 mcg --> change Spiriva to atrovent TID, and continue Xopenex TID
Mucolytics with Mucinex 1200 mg twice daily
Mucus clearing devices
Steroids initiated-Decadron 4 mg IV every 8 hours- raised to 6mg IV q8hr today
.
Cultures reviewed
CXR reviewed from 01/16/2025 showing significant left lower lobe pneumonia as well as right lower lobe pneumonia (L >R)
CXR from 01/17/2025 again shows bilateral lower lobe pneumonia (L >R)
Ceftriaxone started 01/16 and she remains on doxycycline
Started Tamiflu on 01/16 --> finish a 5-10-day course
Trend WBC and monitor for fevers
Continue with PO Lasix 40 mg BID
On her recent CTA chest from 01/08/2025 there was no evidence of acute volume overload
Monitor renal function, electrolytes, intake/output, lower extremity edema and weight
Replace electrolytes as needed
Cardiology following-correspondence reviewed
Last echocardiogram from 06/30/2024 shows mild concentric LVH with EF 65-70% with mild CO, with normal RV size/function; known to have elevated filling pressures on cardiac catheterization while proBNP not significantly elevated
DVT prophylaxis-on Lovenox-recommended oral anticoagulation in the past due to paroxysmal atrial fibrillation-refused
GI prophylaxis-n/a - on pantoprazole (home med)
Nutrition
Increase activity as tolerated
Outpatient pulmonary [id number] appointment with Dr. Zepeda with PFTs 03/09/2025 at 11 AM
Pulmonary service will continue to follow along; if patient upgraded to ICU then [employer] [facility] will continue to manage alongside hospitalist.
Diagnostic data:
Chest x-ray 10/22/2024-NAD, stable scarring in anterior right upper lobe
CT chest 01/08/2025-no evidence for pulm embolism, chronic emphysema,, no new nodules
CT chest 10/22/2024-no evidence for pulm embolism, significant COPD, chronic parenchymal scarring in the right upper lobe, no evidence for pneumonia, stable 4 mm nodule medial right upper lobe
CT chest 10/22/2024-Advanced emphysematous changes, stable 4 mm nodule right upper lobe, no evidence for pulmonary embolism, chronic scarring right upper lobe
CT chest 07/21/2024: Reviewed can you find out no evidence of pulmonary embolism or thoracic aortic dissection.Changes of severe emphysema.Nodular opacity within the right middle lobe, measuring 2.5 cm in diameter, best seen on series 401 images
33-38. No significant change compared to 06/29/2024, or 11/27/2023. Opacity is less pronounced compared to a prior CT dated 02/25/2023. This likely represents scarring in a region of prior pneumonia. Consider continued CT follow-up as clinically
appropriate. Pulmonary nodule within the medial aspect of the right lung apex, best seen on series 401 image 18, measuring 4 mm in diameter. Nodule measured approximately 8 mm in diameter on 06/29/2024, therefore is likely infectious or inflammatory.
Severe coronary arterial calcification. Please correlate with symptoms of and risk factors for coronary artery disease, with further workup as clinically appropriate.
CT Chest 06/29/24- No evidence of pulmonary embolism.Moderate/severe apical predominant emphysematous changes with similar appearance of the nodular scarring within the right middle lobe measuring approximately 3.0 cm.There is a new 6 mm solid nodule
within the medial right upper lobe as well as new 7 mm solid nodules within the left upper lobe. Recommend follow-up CT to ensure stability Prominent gallstone present.
CT Chest 01/29/23 - Examination is negative for pulmonary embolism. Severe changes of emphysema. New horizontal band of increased opacity within the superior segment of the right lower lobe of the lung. Morphologic appearance would be suggestive of
scarring or atelectasis. Fatty infiltration of the liver.
CT chest 02-28-22, c/w 02-23-21 IMPRESSION: No CT evidence for pulmonary embolism. Severe centrilobular emphysema.
TTE 11-29-22:Normal biventricular size and systolic function without regional wall motion abnormality. Mild concentric left ventricular hypertrophy. No significant valvular disease. No significant change since the prior study of 03/01/22
.
Echo: 03-01-22, normal LV systolic function, LVEF greater than 75%, mild concentric LVH. No significant valvular disease. Normal RV size and function. Normal pericardium without effusion. IVC is of normal size and demonstrates normal respiratory
variation. Interatrial septum is intact with no evidence of shunting by color-flow Doppler. No intracardiac mass or thrombus formation seen. No significant change compared to October 2021.
/[facility] 05-25-22 HEMODYNAMIC DATA : AO: 127/78 - LV: 127/16 - PCWP: 14 - PA: 36/22 - RV: 34/14 - RA: 10 - Oximetry: Ao 97%, PA 75%, cardiac output 4.5, cardiac index 2.4
LEFT VENTRICULOGRAPHY: Not performed
CORONARY ANGIOGRAPHY: Dominance: Right - Left Main: Normal - LAD: Widely patent ostial/proximal LAD stents with no restenosis. There is 30% mid LAD stenosis. - Circumflex: Normal - RCA: Normal dominant vessel
CONCLUSIONS
1: Normal filling pressures without pulmonary hypertension
2: Widely patent ostial/proximal LAD stents without restenosis
3. No significant residual obstructive CAD
Cardiac catheterization 07/22/2024-patent proximal LAD stent, severely elevated filling [id number]
DIANN doppler 02-26-23: negative
DIANN doppler 09-08-21: negative
PFT 08/21/22: FEV1 1.02L 46%, FVC 2.11L 73%, ratio 48. Post FEV1 1.06L 48%, +BD response in FVC. TLC 4.86L 110%, RV/TLC 51%, DLCO 24%
HST 10/07/19-AHI-2.4, desaturation laura 89%, snoring
PSG 10/06/24-sleep efficiency 68.7%, AHI-4.4, desaturation laura 78%, 76.4%. The time less than 90% saturation, 1 L of oxygen was added
Total time spent today was 57 minutes for this encounter. Time includes reviewing laboratory test/imaging results, reviewing pertinent medical records, obtaining and reviewing medical history, performing an appropriate exam, ordering medications,
tests and procedures. Time also includes documentation of this encounter, coordinating patient care and communicating with other healthcare professionals. Total time does not include separately billed tests performed on this date of service.
Subjective Data
-
Date of Service:
Date of Service: January 17, 2025
Chief Complaint: Pulmonary Follow Up and Dyspnea Follow Up
Subjective:
Patient was seen this morning. Currently on high flow nasal cannula at 100% FiO2, 60 L/min and still desaturating to as low as 87%. She is having coughing fits with no phlegm production. She is awake, alert but feels weak overall. Heart rate 77,
SpO2 87% and BP 127/78. Currently denies chest pain, REYES, nausea, fevers or chills.
Review of Systems
General: Other (Negative unless mentioned above)
Objective Data
Data Reviewed
Vital Signs / I&O / Oxygen:
Vital Signs
Temp Pulse Resp BP Pulse Ox
98.0 F 69 22 126/83 88
01/17/25 08:00 01/17/25 08:11 01/17/25 08:11 01/17/25 08:11 01/17/25 08:11
Intake and Output
01/16/25 01/17/25 01/18/25
06:59 06:59 06:59
Intake Total 590 / 590 480 / 480
Output Total 500 / 500
Balance 590 / 590 -20 / -20
SaO2 88
Nasal Cannula flow liters per 55
minute
Physical Exam
General: Respiratory Distress (Mild), Chills (n) and Sweats (n)
HEENT: Normocephalic, Anicteric and Moist Mucous Membranes
Cardiovascular: S1-S2, Rub (negative) and Peripheral Edema (negative)
Respiratory: Wheeze (Expiratory wheeze heard bilaterally), Crackles (Bilateral), Rhonchi (n), Accessory Resp Muscle Use (mild) and Other (Diminished breath sounds and prolonged expiratory time)
GI: Soft, Non Distended, Non Tender and Normal Bowel Sounds
Neurology: AO x 3 and Tremors (n)
Skin: Warm, Dry, Cyanosis (n) and Jaundice (n)
Labs/Micro/Reports
Lab Data
01/17/25 03:17
01/17/25 03:17
Laboratory Results
01/16/25
18:34
pH 7.53 H
pCO2 43 H
pO2 53 L*
HCO3 35.9 H
O2 Delivery Level
Microbiology
01/16/25 14:39 Nasal Swab Influenza Types A & B (SUZY) - Final
Influenza A Positive, NAAT
01/14/25 17:11 Sputum Respiratory Culture - Final
01/14/25 17:11 Sputum Gram Stain - Final
01/12/25 10:25 Throat/Pharynx Streptococcus Screen (ARCADIO) - Final
No Beta Hemolytic Streptococci Isolated
01/12/25 10:25 Throat/Pharynx Streptococcus Rapid Screen - Final
Rapid Strep Screen (Group A) Negative
--- NOTE | 2025-01-17 10:30 | PTCARENOTE ---
Remains resting in bed- no complaints. Sats on High FLow are anywhere from 85-90%.
[2025-01-17] MEDS: FLUSH (NSS) 1 FLUSH IV ×2 (11:57→13:51)
[2025-01-17] MEDS: TESSALON PERLES 200 MG PO ×2 (11:59→20:10)
--- NOTE | 2025-01-17 11:59 | W.PN.HOSP.TC ---
Today's Communication/Plan
-
Monitor vital signs see plan
Pulmonary to see today
Continue with antibiotics, Decadron, Tamiflu
Wean high flow as tolerated
Repeat gas if mental status declining
Tenuous breathing
Assessment / Plan
Assessment / Plan
Gen-AAOx3, NAD
HEENT-NC, AT, anicteric
Neck-supple
CV-reg, no M, +S1/S2
Lungs-clear B/L, +wheezing
Abd-soft, NT, ND
Ext-no edema
Musculoskeletal-no cyanosis
Neuro-grossly non-focal
Psych-calm, cooperative
Acute on chronic Hypoxemic Respiratory failure
- Possibly multifactorial with CHF and COPD
On 2 L chronically at home; now on high flow. Wean oxygen as tolerated
Severely hypoxic 01/16, chest x-ray with pneumonia. Broadened antibiotics with ceftriaxone and doxycycline. Influenza A positive. Started Tamiflu
Chest x-ray 01/16 with progressive possible pneumonia.
- Treat individual issues as noted below and follow for clinical improvement.
Pulmonary following
Acute on Chronic HFpEF
- Patient presents with hypoxemia, dyspnea with exertion, chest discomfort and recent weight gain.
- BNP is unremarkable - but is the same as in 07/2024 when she was noted to have markedly elevated filling pressures on cath.
transition to lasix 40mg PO bid with Kcl 20 mEq bid. BMP in 1 week on dc
No repeat echo needed per cardiology
Not orthostatic based on vitals.
Acute bronchitis - Patient states she started having a cough day before admission. Treat supportively with Acapella, incentive spirometer, Mucinex.
Hold Spiriva, started ipratropium nebulizer at this time
Suspect component of COPD exacerbation
Still has some shortness of breath, started Decadron, increased to 6 every 8
Follows with pulmonary outpatient for COPD/emphysema
cw Doxy, added ceftriaxone
Pulmonary following
Oral thrush
Start nystatin
Hyponatremia
Monitor
Chest Pain
ASCVD
now resolved
- Continue current CV med regimen.
- Cath done 07/2024 without significant / critical stenoses.
- Cardiology evaluation as noted above.
Suspect COPD exacerbation with underlying flu with superimposed bacterial pneumonia
Continued antibiotics, continue Tamiflu
Currently on IV Decadron, continue
Wean oxygen as tolerated
Pulmonary following
Hyponatremia
Monitor
Paroxysmal A-Fib / SVT
- Patient denies specific episodes of palpitations since increase in diltiazem dosing.
- Monitor on telemetry for any recurrent SVT episodes which may be contributing to current presentation.
- Continue current med regimen.
- Patient has declined OAC for stroke risk reduction.
Anxiety / Depression
- Again, suspect this is contributing to some degree to current presentation.
- BZDs PRN for anxiety and follow for clinical response.
Morbid Obesity due to excess calories
- Affects all aspects of care and specifically contributes to respiratory complaints.
- Encourage healthy diet and regular exercise with goal of weight loss.
DVT Prophylaxis: Lovenox
Code Status: Full
Total Critical Care Time__48___ minutes. I was immediately available to the patient and staff. I personally examined, reviewed labs, diagnostic images/reports, interpretations, treatment plans, discussed patient care with other providers and
family or caregivers (if patient is unable to make decisions), entered orders as appropriate and documented the medical record.
Anticipated Discharge: > 48 hours
Subjective/Interval History
-
Date of Service: January 17, 2025
Now on high flow
Objective Data
-
Labs:
Laboratory Results
01/17/25
03:17
WBC 10.0
Hgb 13.9
Hct 40.3
Plt Count 208
Sodium 131 L
Potassium 4.3
Chloride 88 L
Carbon Dioxide 34 H
BUN 32 H
Creatinine 1.0
Glucose 160 H
Calcium 8.8
Vital Signs:
Vital Signs
Temp Pulse Resp BP Pulse Ox
98.0 F 69 22 126/83 88
01/17/25 08:00 01/17/25 08:11 01/17/25 08:11 01/17/25 08:11 01/17/25 11:08
I&O
01/16/25 01/17/25 01/18/25
06:59 06:59 06:59
Intake Total 590 / 590 480 / 480
Output Total 500 / 500
Balance 590 / 590 -20 / -20
--- NOTE | 2025-01-17 12:00 | PTCARENOTE ---
Pt remains alert and oriented resting in bed- mostly watching TV. Admits to chest/rib and abd soreness from coughing. Coughs are harsh, moist hacking cough- Medicated with Tessalon Perrles for cough. BS are coarse with some wheezing mostly with
coughing. Remains on High Flow 55L/100% with sats anywhere from 86-92% easily desats with even minimal activity. Using 100% supplemental NRB mask intermittently but mostly on High FLow. Monitor SR. VS as documented. Abd is round and soft with + BS.
Denies nausea- did say she was hungry and wanted to try something to eat. Purewick in place for yellow urine- Complete CHG bath given and purewick replaced. Pt repositioned. Capped int intact L wrist. Site wnl. Call butler in reach.
[2025-01-17] MEDS: STERILE WATER FOR INJECTION 10 ML IV (13:50)
[2025-01-17] MEDS: ROCEPHIN 1000 MG IV (13:50)
--- NOTE | 2025-01-17 14:45 | PTCARENOTE ---
Was able to eat a sandwich for lunch. Sats overall have remained mostly 87-88% on the 55L/100% Midflow. CXRay obtained per md order. Overall pt admits to being easily winded but tolerable as her hope is to not have to go on a ventilator. Has
remained alert, oriented and conversant. Any activity does make her desaturate to 85% but does recover back to 87-88%. Dr. Diaz updated on pt.
[2025-01-17] MEDS: TESSALON PERLES PO ×2 (15:21→15:26)
[2025-01-17] MEDS: VALIUM 2 MG PO (15:30)
--- NOTE | 2025-01-17 16:00 | PTCARENOTE ---
Pt overall while tolerating High Flow- sats have only been 86-88%- Dr. Diaz in and decision made to place pt on NIV ventilation. Valium 2 mg po given at 1530 to help relax pt. Currently on NIV 17/05 Rate 14 and Fio2 100%. RR 28, sats up to 91%.
VS as documented and pt resting. Turned prior and new purewick placed and chinmay care given. Oral care done by pt. Call butler in reach.
--- NOTE | 2025-01-17 17:31 | PTCARENOTE ---
Dozing on the NIV- sats currently are 91%. No other changes in assessment
[2025-01-17] MEDS: COLACE 100 MG PO (19:00)
[2025-01-17] MEDS: LOVENOX 40 MG SC (19:00)
--- NOTE | 2025-01-17 19:24 | PTCARENOTE ---
Pt placed back on High Flow to eat dinner and take meds- 55L/100% and intermittent NRB- sats 82-84%. Pt winded with any exertion. On NIV sats were 90-91%. Call butler in reach. C/O pain mostly just with coughing. Droplet precautions maintained
[2025-01-17] MEDS: MAG-TAB SR 84 MG PO (20:10)
--- NOTE | 2025-01-17 20:58 | PTCARENOTE ---
assessment as documented. pt finished dinner, oral care done and meds given, RT placed pt back on NIV. sats 87-90%. discussed code status with patient as well as potential need for intubation, educated on NIV. pt wishes to remain full code at this
time. breathing labored, tachypneic, dyspnea on rest. SR on monitor, afebrile. purewick in place. call butler in reach, care continues
[2025-01-17] MEDS: MORPHINE SULFATE 1 MG IV (22:18)
--- NOTE | 2025-01-17 23:59 | W.PN.ANESINT ---
Anesthesia Intubation Note
- Intubation Note
Intubation Note:
Diagnosis: pneumonia/respiratory distress
Blade: Ary #4
Tube Size: 8.0 hi/lo
Depth: 21 cm at right lip
Side Taped:
Drugs Used: Propofol 170 mg and Succinlycholine 100 mg IV
Grade View: Grade 2 view
EtCO2 Present: +ETCO2 via stat cap
Atraumatic: yes
Attempts: 2
Insertion Start and Stop Time:
SaO2 Pre: 84
SaO2 Post: 87
Glidescope Used: yes
Other Airway Adjustments:
Pre-Oxygenated: on bipap on arrival, ambu ventilation prior to intubation
Portable Chest X-Ray: pending
RSI:
Suctioned:
Bilateral Breath Sounds Confirmed: +BBS
Vent Settings: See ICU/respiratory flow sheet/EMR
Left in care of ICU team in stable condition.
Settings per ___Attending Physician
[2025-01-18] VITALS: BP 112/75
[2025-01-18] MEDS: VERSED 5 MG IV ×4 (00:02→02:55)
[2025-01-18] MEDS: SUBLIMAZE 100 MCG IV ×2 (00:02→00:38)
[2025-01-18 00:05] VITALS: BP 110/67
[2025-01-18 00:15] VITALS: BP 114/73
[2025-01-18 00:21] LABS: Triglycerides 118 mg/dl (10-149)
[2025-01-18 00:30] VITALS: BP 95/71
[2025-01-18 00:37] LABS: HCO3 32.8 mmol/L (21-28); O2 Saturation % 85.1 % (94-98); PCO2 45 mmHg (32-35); pH 7.47 (7.35-7.45)
[2025-01-18] MEDS: NIMBEX 20 MG IV (00:38)
[2025-01-18] MEDS: SUBLIMAZE 100 IV ×2 (00:40→17:35)
[2025-01-18 00:45] VITALS: BP 88/70
[2025-01-18 01:00] VITALS: BP 113/86
[2025-01-18 01:01] LABS: PO2 51 mmHg (83-108)
--- NOTE | 2025-01-18 01:07 | W.PN.UPDATE ---
Update Note
Progress Note Update
Operation/Procedure: left radial arterial line placement
Consent for operation or procedure: Emergent need due to patient condition - need for invasive monitoring per protocol
Indications: Hemodynamic monitoring
After properly positioning the patient's wrist in the standard fashion, the site was prepped and draped in a sterile fashion. The radial artery was entered, noting bright red, pulsatile flow. A guidewire was easily inserted, the needle removed,
and the catheter was then placed using the Seldinger technique. The guidewire was removed, with good flow present. The catheter was then connected to the transducer with a good waveform noted. The catheter was secured with an occlusive dressing
was placed after properly cleaning and prepping the site.
Complications: The patient tolerated the procedure well and no complications were noted.
Estimated Blood Loss: minimal
Plan: Arterial line to remain in place for hemodynamic monitoring.
[2025-01-18] MEDS: LASIX 40 MG IV ×3 (01:18→15:49)
[2025-01-18] MEDS: REFRESH CELLUVISC GEL 1 DROPS OPHTH ×3 (01:19→19:18)
[2025-01-18] MEDS: NIMBEX 14 MG IV ×3 (01:52→21:29)
--- NOTE | 2025-01-18 01:59 | PTCARENOTE ---
2300 - pt only satting 84-87% on max NIV settings. discussion had between ICU WATCH TECHNICIAN, RN and pt about intubating. pt agrees at this time. SHIPPING AND RECEIVING ASSISTANT called. pt intubated at 2347 with #8.0 ETT, 22cm @ lip. pt dyssynchronous with vent, not pulling TV, alarming
for high peak pressures, pt coughing. spO2 in 70s. ICU WATCH TECHNICIAN at bedside, CXR obtained. PRN meds given, see MAR. decision to paralyze pt made, sedation provided, BIS monitor set up, reading between 30-40. ToF obtained, 4/4 twitches @ 4. nimbex given.
thomas placed, lasix given. restraints in place. arterial line placed at bedside by ICU WATCH TECHNICIAN.
0200 - additional dose of sedation and nimbex given. pt satting 89%, on pressure support mode, [id number] repositioned off of L lung. levo/prop/fent infusing. flolan ordered per ICU WATCH TECHNICIAN, RT at bedside.
care continues
[2025-01-18] MEDS: SUBLIMAZE 50 MCG IV ×5 (02:52→21:28)
[2025-01-18] MEDS: NIMBEX 200 MG IV (03:06)
[2025-01-18] MEDS: NIMBEX 200 ML IV (03:06)
[2025-01-18] MEDS: DIPRIVAN 100 IV ×5 (03:07→21:28)
[2025-01-18] MEDS: LEVOPHED 250 IV (03:14)
--- NOTE | 2025-01-18 03:23 | PTCARENOTE ---
0230 - OGT placed, CXR obtained
0300 - flolan continues, pt still satting in 80s...decision to prone made, ICU PROFESSOR OF SOCIOLOGY/RNs/RT at bedside. foams placed. levo/prop/fent gtts continue. nimbex gtt initiated. pt currently satting 97%. care continues
--- NOTE | 2025-01-18 03:35 | W.PN.UPDATE ---
Update Note
Progress Note Update
01/17/25
2339- Patient having difficult maintaining her oxygenation saturations now sustaining 84% on Non-invasive ventilation. Discussed with patient plan of care including intubation, she is agreeable to intubation. Reviewed risk/benefit of intubation
and answered all questions. OIL BURNER SERVICER AND INSTALLER was called to intubate patient. Post intubation, patient saturations were sustained 70s%, generalized overall coloring dusky, and plateau pressures 40. Patient suctioned and bagged at 100% with ambu bag.
Additional sedation given fentanyl IV bolus 100mcg and versed 5mg IV push, propofol gtt and fentanyl gtt initiated. Chest xray obtained to confirm ETT placement, no pneumothorax seen. Patient placed back on ventilator and peep increased to 10,
oxygen saturations remained 80%s. Small blood tinged secretions noted with suctioning, unclear if related to intubation vs alveoli. Concern for ARDS (acute respiratory distress syndrome) due to influenza A and pneumonia. Dr. Diaz, mat linker
updated, recommendations received: paralyze patient with nimbex IV push, additional sedation boluses for paralyzing, lasix 40mg IV, and if needed Flolan.
Right radial a-line was inserted.
Patient was given additional boluses of nimbex with slightly improvement in oxygenation to high 80s%. Flolan ordered and respiratory therapist initiated treatment through the ventilator. Concern for continued to hypoxemia decision was made to
prone patient for recruitment of lung tissue and improved oxygenation. Patient was put in proned position and oxygenation improved to 95-97%.
Patient requested her friend to be updated, Domonique Moreno. Voicemail was left at 2340, friend called back at 0415. She was updated on patients current condition that she is now intubated and sedated on the ventilator, all questions answered. The
friend stated the patient had requested for her to be POA, but she would like clarification because patient does also have a brother and . Family dynamics are complex and friend would like guidance with decisions and family.
[2025-01-18] MEDS: DECADRON 6 MG IV (03:52)
[2025-01-18 04:07] LABS: B.E. 6.4 mmol/L; HCO3 24.8 mmol/L (21-28); O2 Saturation % 98.6 % (94-98); PCO2 21 mmHg (32-35); PO2 91 mmHg (83-108)
[2025-01-18 04:10] LABS: pH 7.68 (7.35-7.45)
--- NOTE | 2025-01-18 04:17 | PTCARENOTE ---
vent settings adjusted - AC 14/550/100%/10. O2 sat 96%
[2025-01-18 04:19] LABS: Lactic Acid 1.8 mmol/L (0.7-2.0)
[2025-01-18 04:29] LABS: % Basophils 0.2 % (0-2); % Eosinophils 0.1 % (0-6); % Immature Granulocytes 3.6 % (0-0.5); % Lymphocytes 4.6 % (20.5-51.1); % Monocytes 4.8 % (1.7-9.3); % Neutrophils 86.7 % (42.2-75.2); Absolute Immature Granulocytes 0.4 10^3/uL (0-0.05); Absolute Lymphocytes 0.6 10^3/uL (1.2-3.4); Absolute Monocytes 0.6 10^3/uL (0.1-0.6); Absolute Neutrophils 10.5 10^3/uL (1.4-6.5); Hematocrit 41.2 % (37.0-47.0); Hemoglobin 14.6 g/dL (12.0-16.0); Mean Corp Hgb Conc. 35.4 g/dL (33.0-37.0); Mean Corpuscular Hgb 30.7 pg (27.0-31.0); Mean Corpuscular Volume 86.7 fL (81.0-99.0); Mean Platelet Volume 9.6 fL (7.4-10.4); Nucleated Red Blood Cells % 0 %; Platelet Count 241 10^3/uL (130-400); Red Blood Cell Count 4.75 10^6/uL (4.20-5.40); Red Cell Dist. Width 12.7 % (11.5-14.5); White Blood Cell Count 12.1 10^3/uL (4.8-10.8)
[2025-01-18 04:51] LABS: Blood Urea Nitrogen 38 mg/dl (7-17); Calcium 8.6 mg/dl (8.4-10.2); Carbon Dioxide 23 mmol/L (22-30); Chloride 91 mmol/L (98-107); Estimated Creatinine Clearance 54 ml/min; Glucose 240 mg/dl (70-99); Magnesium 2.1 mg/dl (1.6-2.3); Phosphorus 2.3 mg/dl (2.5-4.5); Potassium 3.5 mmol/L (3.5-5.1); Sodium 130 mmol/L (135-145); eGFR 56.11
[2025-01-18] MEDS: CARDIZEM CD PO (05:28)
--- NOTE | 2025-01-18 05:32 | RESPNOTE ---
05:30 head turn done, suctioned for no secretions
[2025-01-18 06:00] VITALS: BMI 39.6
[2025-01-18 06:03] LABS: Glucose - Point of Care 190 mg/dl (70-99)
[2025-01-18] MEDS: POTASSIUM PHOSPHATE 259.0909 MEQ IV (06:10)
[2025-01-18] MEDS: NOVOLIN R INSULIN INFUSION 100 IV ×2 (06:10→17:36)
--- NOTE | 2025-01-18 06:22 | PTCARENOTE ---
glycemic protocol initiated, insulin gtt hung. kphos being repleted. head turned with RNx2 and RT. oral care provided. levo gtt off, MAPS currently in 80s. prop/fent/nimbex gtts continue. pt synchronous with vent. BIS 50s. care continues
[2025-01-18 07:22] LABS: Glucose - Point of Care 170 mg/dl (70-99)
[2025-01-18] MEDS: VIBRAMYCIN 260 MG IV (07:56)
[2025-01-18] MEDS: NSS (PRESERVATIVE FREE) 10 ML IV (07:56)
[2025-01-18] MEDS: PLAVIX 75 MG PO (07:56)
[2025-01-18] MEDS: PROTONIX IV 40 MG IV (07:56)
[2025-01-18] MEDS: ASPIR LOW (ENTERIC COATED) 81 MG PO (07:57)
[2025-01-18] MEDS: COLACE LIQUID 100 MG TUBE ×2 (07:57→19:18)
[2025-01-18] MEDS: TAMIFLU 75 MG TUBE ×2 (07:57→21:28)
[2025-01-18 08:09] LABS: Glucose - Point of Care 131 mg/dl (70-99)
[2025-01-18 08:22] LABS: B.E. 7.6 mmol/L; O2 Saturation % 99.1 % (94-98); PCO2 43 mmHg (32-35); PO2 119 mmHg (83-108); pH 7.48 (7.35-7.45)
--- NOTE | 2025-01-18 08:30 | PTCARENOTE ---
Received pt @ change of shift intubated/sedated/paralyzed. Pt. deeply sedated; unarousable w RASS (-5); CPOT 0; BIS monitoring in 40-60's. Pupils 3mm/sluggish. SR on monitor. Afebrile. SpO2 97% on vent settings AC14/550/.100/+10; #8.0 ett/22 @
lip; suctioned for scant amt thick white/clear secretions. Auscultated dim/coarse breath sounds posteriorly. NPO; OG tube secured @ 55cm; clamped and used for meds. Thermistor thomas in place draining yellow urine. #20 L AC w Nimbex gtt; TOF
performed and Dr. Alvarenga notified of results; gtt decreased per protocol orders- see flow sheet. # 20 R FA w prop/fent/insulin gtts- see flow sheets. #22 R wrist w K+ phos rider. Pt. remains prone positioning; repositioning in prone per protocol.
R rad A-line transduced, calibrated, and monitored; all ports patent and secured. ABG drawn and sent to lab. Pt.'s friend/POA Ирина to bedside this AM; received MD/RN updated @ bedside. Safe environment maintained.
[2025-01-18] MEDS: ADVAIR HFA 115/21 MCG INHALER 2 PUFF INH (08:32)
[2025-01-18] MEDS: XOPENEX 1.25 MG INHALANT SOLUTION INH ×2 (08:32)
[2025-01-18] MEDS: ATROVENT NEBULES 0.5 MG INH (08:32)
--- NOTE | 2025-01-18 08:40 | PN.DE.MGMTRT ---
Insulin Management
- -
01/18/2025: Diabetes Management Consult
64 year old female with PMH: CAD s/p KATHARINE, CHF preserved EF, PAFib, Pulmonary hypertension, HTN, HLD, GERD, Anxiety, ALISSON, Former smoker COPD, Oxygen dependent and T2DM. Pt presented with increasing shortness of breath due to influenza A pneumonia in
the setting of COPD/emphysema with acute exacerbation and Chronic HFpEF. patient developed worsening respiratory failure and was subsequently intubated and mechanically ventilated, was also noted for significant hypoxia post intubation that required
high PEEP and proning as well as initiation of paralytics.
She was started on steroids, contributing to hyperglycemia--> continuos insulin infusion. A1C 6.6%, Cr 1.1, eGFR 56.11.
Pt remains intubated, sedated and paralyzed, unable to interview and no family at bedside at this time. 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
Glucose range 130to 190, requiring 2.6 to 6 units of insulin/hr.
Will cont current diabetes care plan and reassess in am for readiness to transition off the drip if medically stable.
Discussed with Nurse and ICU Rounding team.
Diabetes History
- -
Type of Diabetes: 2 requiring insulin
Pre-Admission Diabetes Regimen
01/18/25
03:57
Creatinine 1.1 H
Insulin Pump Settings
IP Diabetes Regimen
01/18/25 01/18/25 01/18/25
03:57 05:52 07:09
Glucose 240 H
POC Glucose 190 H 170 H
01/18/25
07:57
Glucose
POC Glucose 131 H
Meal type: Dinner
Meal type: Lunch
Amount consumed: 50%
Amount consumed: 75%
Patient Education
[2025-01-18 09:09] LABS: Glycohemoglobin (HgbA1c) 6.6 % (4.0-5.6)
[2025-01-18 09:14] LABS: Glucose - Point of Care 130 mg/dl (70-99)
[2025-01-18 10:20] LABS: Glucose - Point of Care 133 mg/dl (70-99)
--- NOTE | 2025-01-18 12:13 | CM ---
Copy of Advance Directive from 2019 is available on chart; the document identifies patient's friend, Ирина Newton, as health care proxy.
Per Risk Management, a copy of the document can be shared with her if she requests it.
CM spoke w/ friend, Ирина Newton via phone.
[2025-01-18 12:15] LABS: Glucose - Point of Care 160 mg/dl (70-99)
[2025-01-18] MEDS: VELETRI 50 ML INH (12:18)
[2025-01-18] MEDS: VELETRI 50 MCG INH (12:18)
[2025-01-18 12:25] VITALS: BMI 39.6
--- NOTE | 2025-01-18 12:54 | W.PN.HOSP.TC ---
Today's Communication/Plan
-
monitor vitals
see plan
wean nimbex as tolerated
vent management per budget technician
cw abx,tamiflu
prone
monitor ABG
diuresis
replet phos
critically ill
Assessment / Plan
Assessment / Plan
Gen-Sedated, intubated,prone
HEENT-anicteric,pink conjuctivae
CV-reg, no M, +S1/S2
Lungs-clear B/L, ventillator breath sounds
Abd-soft, NT
Ext-no edema
:+ thomas
Neuro-paralyze
Psych-calm, sedated
Acute on chronic Hypoxemic Respiratory failure
likely 2/2 ARDS from influenza A and PNA
also has COPD and CHF
01/17 night, could not tolerate NIV. Intubated. Now on Nimbex drip, propofol, fentanyl. Proned
wean vent as tolerated; 18/420/10/100%
cw abx,tamiflu
on chronic 2L at home
Chest x-ray 01/16 with progressive possible pneumonia.
- Treat individual issues as noted below and follow for clinical improvement.
Pulmonary following
cw nebs,decadron stopped
hypotension post intubation; was briefly on levo and vaso, now off
Acute on Chronic HFpEF
- Patient presents with hypoxemia, dyspnea with exertion, chest discomfort and recent weight gain.
- BNP is unremarkable - but is the same as in 07/2024 when she was noted to have markedly elevated filling pressures on cath.
now back on IV lasix
No repeat echo needed per cardiology
Not orthostatic based on vitals.
hypophosphatemia
replete
Oral thrush
nystatin
Hyponatremia
Monitor
Chest Pain
ASCVD
now resolved
- Continue current CV med regimen.
- Cath done 07/2024 without significant / critical stenoses.
- Cardiology evaluation as noted above.
Hyponatremia
Monitor
Paroxysmal A-Fib / SVT
- Patient denies specific episodes of palpitations since increase in diltiazem dosing.
- Monitor on telemetry for any recurrent SVT episodes which may be contributing to current presentation.
- Continue current med regimen.
- Patient has declined OAC for stroke risk reduction.
Anxiety / Depression
currently intubated
monitor
A1c 6.6, consistent with DM
monitor
on insulin gtt for tighter control; monitor
Morbid Obesity due to excess calories
- Affects all aspects of care and specifically contributes to respiratory complaints.
- Encourage healthy diet and regular exercise with goal of weight loss.
DVT Prophylaxis: Lovenox
Code Status: Full
Total Critical Care Time__49___ minutes. I was immediately available to the patient and staff. I personally examined, reviewed labs, diagnostic images/reports, interpretations, treatment plans, discussed patient care with other providers and
family or caregivers (if patient is unable to make decisions), entered orders as appropriate and documented the medical record.
Anticipated Discharge: > 48 hours
Subjective/Interval History
-
Date of Service: January 18, 2025
intubated
Objective Data
-
Labs:
Laboratory Results
01/18/25 01/18/25 01/18/25
00:31 03:57 08:14
WBC 12.1 H
Hgb 14.6
Hct 41.2
Plt Count 241
HCO3 32.8 H 24.8 32.0 H
Sodium 130 L
Potassium 3.5
Chloride 91 L
Carbon Dioxide 23
BUN 38 H
Creatinine 1.1 H
Glucose 240 H
Calcium 8.6
01/18/25 01/18/25
12:00 18:00
WBC
Hgb
Hct
Plt Count
HCO3 Pending Pending
Sodium
Potassium
Chloride
Carbon Dioxide
BUN
Creatinine
Glucose
Calcium
Vital Signs:
Vital Signs
Temp Pulse Resp BP Pulse Ox
98.0 F 79 20 125/79 94
01/18/25 11:33 01/18/25 11:30 01/18/25 11:30 01/18/25 01:18 01/18/25 12:19
I&O
01/17/25 01/18/25 01/19/25
06:59 06:59 06:59
Intake Total 480 / 480 934.6 / 977.8 512.0 / 512.0
Output Total 500 / 500 1180 / 1280 1000 / 1000
Balance -20 / -20 -245.4 / -302.2 -488.0 / -488.0
--- NOTE | 2025-01-18 12:54 | W.PN.INTV ---
Today's Communication / Plan
Recommendations
-DC ceftriaxone and doxycycline and start cefepime.
-Check MRSA screen and send tracheal aspirate for cultures
-Wean off paralytics with the goal to take off paralytics by midday
-Wean Flolan as tolerated
-DuoNebs every 6 hours scheduled
-Lower steroids to Solu-Medrol 40 daily
-Follow-up ABG later today and chest x-ray in a.m.
Assessment
-
64-year-old female patient who is a former smoker and has oxygen dependent COPD, CAD, CHF preserved EF, presented with increasing shortness of breath felt to be a combination of COPD and CHF evaluated by cardiology with persistent shortness of
breath and pulmonary was consulted for COPD/shortness of breath 01/13/2025. Patient then developed worsening respiratory status and was transferred to ICU. Patient was started on noninvasive positive pressure ventilation. Overnight, 01/17, patient
developed worsening respiratory failure and was subsequently intubated and mechanically ventilated. Patient has significant hypoxia post intubation also and required high PEEP, proning as well as initiation of paralytics.
Last 24 hrs:
-Patient intubated and mechanically ventilated on 01/18. Required proning as well as initiation of paralytics along with Flolan initiation
-Fluid balance, -983 mL
-Hemoglobin stable at 14.6, WBC 12.1 with platelet count of 2 41K
-ABG 7.48, pCO2 43, 119 while patient was proned on 420/20/100%/PEEP of 10
-Sodium around 130, creatinine stable at 1.1. Potassium of 3.5 and magnesium of 2.1
-Chest x-ray suggestive of bibasilar pneumonia, left greater than right
#1. Acute hypoxic respiratory failure due to influenza A with superimposed left greater than right bibasilar pneumonia.
-Patient is currently intubated, mechanically ventilated, deeply sedated and on paralytics
-Continue proning for 18 hours due to severe hypoxia
-Continue propofol and fentanyl drip
-Start weaning Nimbex infusion with the aim of discontinuing all paralytics by midday
-Start weaning Flolan as tolerated
-Continue Tamiflu
-Change antibiotics to cefepime. Check MRSA screen, if positive will start IV vancomycin
-DC ceftriaxone and doxycycline. Send tracheal aspirate for culture
-Follow serial ABG, chest x-ray in a.m.
-Continue levalbuterol and ipratropium for underlying COPD
-In view of severe pneumonia, switch Decadron to Solu-Medrol 40 mg daily
#2. Severe emphysema.
-Switch to DuoNebs 4 times daily scheduled
-Switched steroids to Solu-Medrol 40 mg IV daily
-Patient is not actively wheezing during my evaluation
#3. Heart failure with preserved ejection fraction.
-Continue Lasix IV twice daily for now
-Follow-up chest x-ray in a.m.
#4. h/o CAD, s/p PCI
-Continue ASA/Clopidogrel
#5. h/o Paroxysmal A fib
-Patient historically has declined anticoagulation
-Rate controlled
-Diltiazem on hold
Conditions present prior to admission:
Hospitalized 07/2024 with COPD exacerbation and decompensated heart failure
Severe COPD, maintained on levalbuterol nebs, advair/spiriva, and O2 2L at rest and sleep, 4L on exertion. 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
ABG 02-28-22 on O2 3L: 7.40/46/125/28.5/3/98.9%
Intermittently elevated serum total CO2
02/20/24- FVC 2.07 or 72%, FEV1 0.95 or 43%. Ratio 45.
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 Never received A1AT replacement therapy
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
Pulmonary nodules-4 mm right upper lobe stable
Former smoker-since age 16 up to 2 packs a day quit 02/2021
Hypertension.
Hyperlipidemia.
ALISSON-mild.
Nocturnal hypoxemia
Pulmonary hypertension.
CAD, s/p KATHARINE to mid LAD 02/28/2021, then [facility] with KATHARINE to stenosis proximal to prior LAD stent 10/31/2021, continued on ASA/clopidogrel, [facility] 12-04-21 without residual disease
PAFib: declined AC due to fear of bleeding complications
Anxiety.
History CHF.
PAF.
GERD.
Left breast lump removed.
DVT prophylaxis-on Lovenox
GI prophylaxis-n/a - on pantoprazole
Outpatient pulmonary [id number] appointment with Dr. Zepeda with PFTs 03/09/2025 at 11 AM
Diagnostic data:
Chest x-ray 10/22/2024-NAD, stable scarring in anterior right upper lobe
CT chest 01/08/2025-no evidence for pulm embolism, chronic emphysema,, no new nodules
CT chest 10/22/2024-no evidence for pulm embolism, significant COPD, chronic parenchymal scarring in the right upper lobe, no evidence for pneumonia, stable 4 mm nodule medial right upper lobe
CT chest 10/22/2024-Advanced emphysematous changes, stable 4 mm nodule right upper lobe, no evidence for pulmonary embolism, chronic scarring right upper lobe
CT chest 07/21/2024: Reviewed can you find out no evidence of pulmonary embolism or thoracic aortic dissection.Changes of severe emphysema.Nodular opacity within the right middle lobe, measuring 2.5 cm in diameter, best seen on series 401 images
33-38. No significant change compared to 06/29/2024, or 11/27/2023. Opacity is less pronounced compared to a prior CT dated 02/25/2023. This likely represents scarring in a region of prior pneumonia. Consider continued CT follow-up as clinically
appropriate. Pulmonary nodule within the medial aspect of the right lung apex, best seen on series 401 image 18, measuring 4 mm in diameter. Nodule measured approximately 8 mm in diameter on 06/29/2024, therefore is likely infectious or inflammatory.
Severe coronary arterial calcification. Please correlate with symptoms of and risk factors for coronary artery disease, with further workup as clinically appropriate.
CT Chest 06/29/24- No evidence of pulmonary embolism.Moderate/severe apical predominant emphysematous changes with similar appearance of the nodular scarring within the right middle lobe measuring approximately 3.0 cm.There is a new 6 mm solid nodule
within the medial right upper lobe as well as new 7 mm solid nodules within the left upper lobe. Recommend follow-up CT to ensure stability Prominent gallstone present.
CT Chest 01/29/23 - Examination is negative for pulmonary embolism. Severe changes of emphysema. New horizontal band of increased opacity within the superior segment of the right lower lobe of the lung. Morphologic appearance would be suggestive of
scarring or atelectasis. Fatty infiltration of the liver.
CT chest 02-28-22, c/w 02-23-21 IMPRESSION: No CT evidence for pulmonary embolism. Severe centrilobular emphysema.
TTE 11-29-22:Normal biventricular size and systolic function without regional wall motion abnormality. Mild concentric left ventricular hypertrophy. No significant valvular disease. No significant change since the prior study of 03/01/22
.
Echo: 03-01-22, normal LV systolic function, LVEF greater than 75%, mild concentric LVH. No significant valvular disease. Normal RV size and function. Normal pericardium without effusion. IVC is of normal size and demonstrates normal respiratory
variation. Interatrial septum is intact with no evidence of shunting by color-flow Doppler. No intracardiac mass or thrombus formation seen. No significant change compared to October 2021.
/[facility] 05-25-22 HEMODYNAMIC DATA : AO: 127/78 - LV: 127/16 - PCWP: 14 - PA: 36/22 - RV: 34/14 - RA: 10 - Oximetry: Ao 97%, PA 75%, cardiac output 4.5, cardiac index 2.4
LEFT VENTRICULOGRAPHY: Not performed
CORONARY ANGIOGRAPHY: Dominance: Right - Left Main: Normal - LAD: Widely patent ostial/proximal LAD stents with no restenosis. There is 30% mid LAD stenosis. - Circumflex: Normal - RCA: Normal dominant vessel
CONCLUSIONS
1: Normal filling pressures without pulmonary hypertension
2: Widely patent ostial/proximal LAD stents without restenosis
3. No significant residual obstructive CAD
Cardiac catheterization 07/22/2024-patent proximal LAD stent, severely elevated filling [id number]
DIANN doppler 02-26-23: negative
DIANN doppler 09-08-21: negative
PFT 08/21/22: FEV1 1.02L 46%, FVC 2.11L 73%, ratio 48. Post FEV1 1.06L 48%, +BD response in FVC. TLC 4.86L 110%, RV/TLC 51%, DLCO 24%
HST 10/07/19-AHI-2.4, desaturation laura 89%, snoring
PSG 10/06/24-sleep efficiency 68.7%, AHI-4.4, desaturation laura 78%, 76.4%. The time less than 90% saturation, 1 L of oxygen was added
Total time spent today was 65 minutes for this encounter. Time includes reviewing laboratory test/imaging results, reviewing pertinent medical records, obtaining and reviewing medical history, performing an appropriate exam, ordering medications,
tests and procedures. Time also includes documentation of this encounter, coordinating patient care and communicating with other healthcare professionals. Total time does not include separately billed tests performed on this date of service.
Subjective Dataa
Subjective Data
Date of Service:
Date of Service: January 18, 2025
Subjective:
Patient currently intubated, mechanically ventilated, sedated and on paralytics.
Review of Systems
General: Unobtainable - Sedation
Objective Data
Data Reviewed
Vital Signs / I&O / Oxygen:
Vital Signs
Temp Pulse Resp BP Pulse Ox
98.0 F 79 20 125/79 94
01/18/25 11:33 01/18/25 11:30 01/18/25 11:30 01/18/25 01:18 01/18/25 12:19
Intake and Output
01/17/25 01/18/25 01/19/25
06:59 06:59 06:59
Intake Total 480 / 480 934.6 / 977.8 512.0 / 512.0
Output Total 500 / 500 1180 / 1280 1000 / 1000
Balance -20 / -20 -245.4 / -302.2 -488.0 / -488.0
SaO2 [A/C] 97
SaO2 [P-A/C] 89
SaO2 [NIV (Non Invasive 91
Ventilation)]
SaO2 94
Nasal Cannula flow liters per 55
minute
Physical Exam
General: Comfortable
HEENT: Normocephalic
Cardiovascular: S1-S2
Respiratory: Clear
GI: Soft and Non Distended
Neurology: Other (Deep sedation.)
Skin: Warm
Labs/Micro/Reports
Lab Data
01/18/25 03:57
01/18/25 03:57
Laboratory Results
01/18/25 01/18/25 01/18/25
00:31 03:57 08:14
pH 7.47 H 7.68 H* 7.48 H
pCO2 45 H 21 L 43 H
pO2 51 L* 91 119 H
HCO3 32.8 H 24.8 32.0 H
O2 Delivery Level
Microbiology
01/16/25 14:39 Nasal Swab Influenza Types A & B (SUZY) - Final
Influenza A Positive, NAAT
--- NOTE | 2025-01-18 13:00 | PTCARENOTE ---
No changes in pt. assessment from previous; remains intubated/sedated/paralyzed in prone position. Paralytic gtt tapered per orders; confirmed taper w MD and pharmacy- see flow sheet. TOF performed q1h; pt. remains w out twitches on highest
voltage setting; MD aware during rounds. ABG drawn and sent to lab; awaiting results. Pt.'s brother to bedside this afternoon, updated. Safe environment maintained.
[2025-01-18] MEDS: MAXIPIME 2000 MG IV ×2 (13:09→19:17)
[2025-01-18] MEDS: STERILE WATER FOR INJECTION 10 ML IV ×2 (13:09→19:18)
[2025-01-18] MEDS: STERILE WATER FOR INJECTION IV (13:17)
[2025-01-18 13:27] LABS: B.E. 6.5 mmol/L; HCO3 31.9 mmol/L (21-28); O2 Saturation % 97.1 % (94-98); PCO2 47 mmHg (32-35); PO2 83 mmHg (83-108); pH 7.44 (7.35-7.45)
[2025-01-18] MEDS: KCL 270 MEQ IV (14:01)
[2025-01-18 14:10] LABS: Glucose - Point of Care 152 mg/dl (70-99)
[2025-01-18] MEDS: DUONEB 3 ML INH ×2 (15:05→19:27)
--- NOTE | 2025-01-18 16:24 | RESPNOTE ---
patient supinated, remains on vent- AC 04-057-91-100. EPO running @ 0.01mL/kg/hr or 0.965Ml/hr for patients IBW. SPO2 90-91%, HR 77, RR 20, A-Line BP 110/66 (80).
[2025-01-18 16:26] LABS: Glucose - Point of Care 138 mg/dl (70-99)
--- NOTE | 2025-01-18 17:12 | OR.RPT ---
Operative Report
Operative Report
Right IJ Central Line placement
Indication: Need for multiple medications, lack of reliable IV access. Patient critically ill needing proning and paralytics.
Consent obtained from: Patient's friend listed as secondary contact. I was unable to reach primary contact. Phone consent was obtained by myself and confirmed by RN
Time-out was performed and patient was placed in Trendelenburg position. Ultrasound was used to assess patency of Right IJ vein. Under sterile conditions area was cleaned with chlorhexidine and then a full body drape was placed. 3 mL of local
anesthesia with lidocaine was injected. Under real-time ultrasound guidance, long axis view, the needle was inserted and vein was punctured, once blood was aspirated, syringe was removed and guidewire was advanced which did not meet any resistance.
Subsequently needle was withdrawn and guidewire was left in place. Ultrasound was used again to confirm presence of guidewire inside the vein lumen. A small imelda was placed at the skin and a dilator was advanced to about 50% of its length.
Dilator was removed and central venous catheter was advanced over guidewire and subsequently guidewire was removed. All 3 ports were capped and they were easy to flush and were withdrawing blood without any resistance. Central line was sutured to
the skin and dressing was applied.
Ultrasound of the lungs was performed and good lung sliding was obtained. Patient stayed hemodynamically stable through the procedure.
Complications: None
Blood loss: Minimal
Time spent: 35 min
[2025-01-18 17:34] LABS: B.E. 5.5 mmol/L; HCO3 31.1 mmol/L (21-28); O2 Saturation % 94.1 % (94-98); PCO2 48 mmHg (32-35); PO2 67 mmHg (83-108); pH 7.42 (7.35-7.45)
[2025-01-18] MEDS: LOVENOX 40 MG SC (17:35)
[2025-01-18 18:10] LABS: Glucose - Point of Care 117 mg/dl (70-99)
--- NOTE | 2025-01-18 18:35 | PTCARENOTE ---
Nimbex gtt tapered to off per protocol- see flow sheet. S/P paralytic gtt off, BIS increased into 70's and CPOT increased; medicated w prn fent and gtt increased w positive affect- see JAN. Pt. supinated @ 1600 by proning team. R IJ inserted @
bedside by Dr. Alvarenga; placement confirmed w x-ray and gtts switched from peripheral IVs to central line. CXR and ABG obtain s/p supination. Results reviewed by Dr. Alvarenga; remains on current vent settings. SpO2 currently 94%; remains on
fent/prop/insulin gtts. Plan to prone @ 2200; re-paralyze w bolus does during proning as needed per MD; relayed to oncoming shift. Safe environment maintained.
[2025-01-18] MEDS: ADVAIR HFA 115/21 MCG INHALER 4 PUFF INH (19:28)
--- NOTE | 2025-01-18 19:51 | PTCARENOTE ---
rec'd pt from RN. assessment as documented. pt deeply sedated, BIS 50-60. b/l restraints in place. pupils 2mm b/l sluggish. SR on monitor. afebrile. BP maintained w/o pressors. arterial line leveled and zeroed. weak DP/PT pulses. #8.0 ETT,
22cm @ lip. AC 20/420/10/100%. breath sounds diminished but clear. Flolan continues per RT. OGT in place @ 55cm, clamped, used for meds. hypoactive BS. GP continues, currently q2h checks. thomas w/ thermistor in place. RIJ CVC inserted on .
plan to prone @ 2200, supinate tomorrow @ 1400. will give PRN paralytic before proning process per day team. will repeat ABG once proned. prop/fent gtts continue. care continues
[2025-01-18 20:19] LABS: Glucose - Point of Care 125 mg/dl (70-99)
--- NOTE | 2025-01-18 22:06 | PTCARENOTE ---
Addendum entered by Delfina Pan RN 01/18/25 22:57:
repeat ABG sent, pO2 improved to 91
Original Note:
PRN fent and nimbex given, pt proned with RNx4 and RT at bedside. foams and pillows placed, head turned to R side, restraints continue. BIS 40-60. pt satting 95-96%, BP stable. care ongoing
[2025-01-18 22:21] LABS: Glucose - Point of Care 112 mg/dl (70-99)
[2025-01-18 22:52] LABS: B.E. 5.6 mmol/L; HCO3 30.6 mmol/L (21-28); O2 Saturation % 98.7 % (94-98); PCO2 45 mmHg (32-35); PO2 91 mmHg (83-108); pH 7.44 (7.35-7.45)
[2025-01-19] MEDS: SUBLIMAZE 50 MCG IV ×9 (00:08→20:19)
[2025-01-19 00:10] LABS: Glucose - Point of Care 91 mg/dl (70-99)
--- NOTE | 2025-01-19 00:16 | PTCARENOTE ---
BGM 91 at midnight, insulin gtt off per protocol
[2025-01-19 01:11] LABS: Glucose - Point of Care 93 mg/dl (70-99)
[2025-01-19] MEDS: DIPRIVAN 100 IV ×8 (01:59→23:20)
[2025-01-19 02:13] LABS: Glucose - Point of Care 101 mg/dl (70-99)
--- NOTE | 2025-01-19 02:16 | RESPNOTE ---
02:05 Head turn done at this time, suctioned after for no secretions
[2025-01-19 03:17] LABS: Glucose - Point of Care 136 mg/dl (70-99)
[2025-01-19] MEDS: SUBLIMAZE 100 IV ×4 (03:20→20:19)
[2025-01-19] MEDS: STERILE WATER FOR INJECTION 10 ML IV ×4 (03:21→19:43)
[2025-01-19] MEDS: MAXIPIME 2000 MG IV ×3 (03:21→19:43)
[2025-01-19 03:38] LABS: B.E. 6.4 mmol/L; HCO3 31.9 mmol/L (21-28); O2 Saturation % 97.2 % (94-98); PCO2 48 mmHg (32-35); PO2 78 mmHg (83-108); pH 7.43 (7.35-7.45)
--- NOTE | 2025-01-19 03:42 | PTCARENOTE ---
AM labs and ABG sent. vent settings unchanged. q2h head turns while proned. oral care provided. BIS 60s. prop/fent gtts infusing. care continues
[2025-01-19 03:43] LABS: Hematocrit 38.3 % (37.0-47.0); Hemoglobin 12.9 g/dL (12.0-16.0); Mean Corp Hgb Conc. 33.7 g/dL (33.0-37.0); Mean Corpuscular Hgb 30.6 pg (27.0-31.0); Mean Corpuscular Volume 90.8 fL (81.0-99.0); Mean Platelet Volume 9.8 fL (7.4-10.4); Platelet Count 201 10^3/uL (130-400); Red Blood Cell Count 4.22 10^6/uL (4.20-5.40); Red Cell Dist. Width 12.8 % (11.5-14.5); White Blood Cell Count 8.8 10^3/uL (4.8-10.8)
[2025-01-19 03:45] LABS: O2 Therapy 100%
--- NOTE | 2025-01-19 04:01 | RESPNOTE ---
head turned at this time
[2025-01-19 04:06] LABS: Blood Urea Nitrogen 29 mg/dl (7-17); Calcium 8.5 mg/dl (8.4-10.2); Carbon Dioxide 32 mmol/L (22-30); Chloride 97 mmol/L (98-107); Estimated Creatinine Clearance 75 ml/min; Glucose 132 mg/dl (70-99); Potassium 3.8 mmol/L (3.5-5.1); Sodium 136 mmol/L (135-145); eGFR > 60.00
[2025-01-19 04:17] LABS: Glucose - Point of Care 116 mg/dl (70-99)
[2025-01-19] MEDS: VELETRI 50 MCG INH ×3 (05:21→22:57)
[2025-01-19] MEDS: VELETRI 50 ML INH ×3 (05:21→22:57)
[2025-01-19 06:00] VITALS: BMI 39.8
[2025-01-19 06:14] LABS: Glucose - Point of Care 133 mg/dl (70-99)
[2025-01-19 07:06] LABS: % Basophils 0.2 % (0-2); % Immature Granulocytes 1.9 % (0-0.5); % Monocytes 5.6 % (1.7-9.3); % Neutrophils 84.3 % (42.2-75.2); Absolute Immature Granulocytes 0.2 10^3/uL (0-0.05); Absolute Lymphocytes 0.7 10^3/uL (1.2-3.4); Absolute Monocytes 0.5 10^3/uL (0.1-0.6); Absolute Neutrophils 7.4 10^3/uL (1.4-6.5); Nucleated Red Blood Cells % 0 %
[2025-01-19] MEDS: ASPIR LOW (ENTERIC COATED) 81 MG PO (07:27)
[2025-01-19] MEDS: PLAVIX 75 MG PO (07:27)
[2025-01-19] MEDS: TAMIFLU 75 MG TUBE ×2 (07:27→19:43)
[2025-01-19] MEDS: COLACE LIQUID 100 MG TUBE ×2 (07:27→19:43)
[2025-01-19] MEDS: PROTONIX IV 40 MG IV (07:28)
[2025-01-19] MEDS: SOLU-MEDROL PF 40 MG IV (07:28)
[2025-01-19] MEDS: LASIX 40 MG IV ×2 (07:28→15:10)
[2025-01-19] MEDS: ADVAIR HFA 115/21 MCG INHALER 4 PUFF INH ×2 (07:28→19:58)
[2025-01-19] MEDS: DUONEB 3 ML INH ×4 (07:28→19:58)
[2025-01-19] MEDS: REFRESH CELLUVISC GEL 1 DROPS OPHTH ×2 (07:28→19:43)
[2025-01-19] MEDS: NSS (PRESERVATIVE FREE) 10 ML IV (07:28)
[2025-01-19 08:09] LABS: Glucose - Point of Care 115 mg/dl (70-99)
--- NOTE | 2025-01-19 08:30 | PTCARENOTE ---
Received pt @ change of shift intubated/sedated in prone position w b/l soft limb restraints and 4 rails- see flow sheet. Pt. lethargic; awakens to tactile stimuli; CPOT and RASS increased during head reposition w RT; medicated w prn IV fent bolus'
and prop/fent titrated per orders- see flow sheet. BIS monitor 60's. Pupils 2mm/sluggishly reactive. SR on monitor w PVC's and PAC's. SpO2 marginal @ 89-90% on vent settings AC20/420/.100/+5 via ett #8.0 22 @ lip. Suctioned for thin/clear
secretions. Auscultated dim breath sounds posteriorly. ABG drawn and sent to lab, results reviewed by Dr. Alvarenga this AM. +BS, abd round/obese. NPO; OG tube secured @ 55cm; clamped. Therm thomas in place draining clear, yellow urine. L rad A-line
transduced, calibrated, and monitored; all ports patent and secured. R IJ TL w prop/fent gtts; insulin gtt off per glycemic protocol-see flow sheets. Pt.'s friends, Domonique, to bedside this AM, updated. Safe environment maintained.
[2025-01-19 08:32] LABS: B.E. 5.8 mmol/L; HCO3 31.2 mmol/L (21-28); O2 Saturation % 95.3 % (94-98); PCO2 47 mmHg (32-35); PO2 64 mmHg (83-108); pH 7.43 (7.35-7.45)
[2025-01-19 08:33] LABS: O2 Therapy 100
--- NOTE | 2025-01-19 09:03 | PN.DE.MGMTRT ---
Insulin Management
- -
01/19/2025: Diabetes Management Consult follow up
Patient admitted 01/08 with increasing shortness of breath due to influenza A pneumonia in the setting of COPD/emphysema with acute exacerbation and Chronic HFpEF, PMH: CAD s/p KATHARINE, CHF preserved EF, PAFib, Pulmonary hypertension, HTN, HLD, GERD,
Anxiety, ALISSON, Former smoker COPD, Oxygen dependent and T2DM. Patient developed worsening respiratory failure and was subsequently intubated and mechanically ventilated, was also noted for significant hypoxia post intubation that required high PEEP
and proning as well as initiation of paralytics.
She was started on steroids, contributing to hyperglycemia--> continuos insulin infusion. A1C 6.6%, Cr 1.1, eGFR 56.11.
Pt remains intubated, sedated and paralyzed, unable to interview and no family at bedside at this time. 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
Insulin infusion off at midnight for glucose 91.
Will start corrective insulin Q6 hours.
Discussed with Nurse and ICU Rounding team.
Diabetes History
- -
Type of Diabetes: 2
Pre-Admission Diabetes Regimen
01/19/25
03:27
Creatinine 0.8
Lab Results
Hemoglobin A1c 6.6 % (4.0-5.6) H 01/18/25 05:52
Insulin Pump Settings
IP Diabetes Regimen
01/18/25 01/18/25 01/18/25
09:03 10:09 12:03
Glucose
POC Glucose 130 H 133 H 160 H
01/18/25 01/18/25 01/18/25
13:59 16:15 17:59
Glucose
POC Glucose 152 H 138 H 117 H
01/18/25 01/18/25 01/18/25
20:07 22:08 23:58
Glucose
POC Glucose 125 H 112 H 91
01/19/25 01/19/2501/19/25
00:59 02:01 03:05
Glucose
POC Glucose 93 101 H 136 H
01/19/25 01/19/25 01/19/25
03:27 04:06 06:03
Glucose 132 H
POC Glucose 116 H 133 H
01/19/25
07:58
Glucose
POC Glucose 115 H
Patient Education
[2025-01-19 10:16] LABS: Glucose - Point of Care 172 mg/dl (70-99)
--- NOTE | 2025-01-19 12:00 | PTCARENOTE ---
pt.'s POX remains borderline 88-90% on full vent support AC20/420/.100/+10. Pt. also w frequent brief episodes of tachycardia into 140's, subsequently w hypotension w SBP 90's; HR immediately self resolves back into SR in 80-90's w BP recovery w
SBP back into 100-110's. Dr. Alvarenga made aware of above findings. Dr. Alvarenga also reported pt not a candidate for ECMO; updated family via phone. Plan for family meeting tomorrow @ 1400 w on goals of care. Pt. remains in prone position;
head/arms repositioned per protocol. Safe environment maintained.
--- NOTE | 2025-01-19 12:17 | W.PN.HOSP.TC ---
Today's Communication/Plan
-
Monitor vital signs see plan
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
Continue with sedation, wean as tolerated
ABG noted
Hypoxemic
Continue with Tamiflu, antibiotic
cw diuresis
Assessment / Plan
Assessment / Plan
Gen-Sedated, intubated,prone
HEENT-anicteric,pink conjuctivae
CV-reg, no M, +S1/S2
Lungs-clear B/L, ventillator breath sounds
Abd-soft, NT
Ext-no edema
:+ thomas
Neuro-paralyze
Psych-calm, sedated
Acute on chronic Hypoxemic Respiratory failure
likely 2/2 ARDS from influenza A and PNA
also has COPD and CHF
Severe emphysema
01/17 night, could not tolerate NIV. Intubated. propofol, fentanyl. Proned. now weaned off nimbex, however would need to watch oxygenation
wean vent as tolerated; 20/420/10/100%
unsure if will be a good ecmo candidate if needed
cw abx,tamiflu
on chronic 2L at home
Chest x-ray 01/16 with progressive possible pneumonia.
- Treat individual issues as noted below and follow for clinical improvement.
Pulmonary following
cw nebs,decadron stopped. now on low dose solumedrol
hypotension post intubation; was briefly on levo and vaso, now off
Acute on Chronic HFpEF
- Patient presents with hypoxemia, dyspnea with exertion, chest discomfort and recent weight gain.
- BNP is unremarkable - but is the same as in 07/2024 when she was noted to have markedly elevated filling pressures on cath.
now back on IV lasix
hypophosphatemia
replete
Oral thrush
nystatin
Hyponatremia
Monitor
Chest Pain
ASCVD
now resolved
- Continue current CV med regimen.
- Cath done 07/2024 without significant / critical stenoses.
- Cardiology evaluation as noted above.
Hyponatremia
Monitor
Paroxysmal A-Fib / SVT
- Patient denies specific episodes of palpitations since increase in diltiazem dosing.
- Monitor on telemetry for any recurrent SVT episodes which may be contributing to current presentation.
- Continue current med regimen.
- Patient has declined OAC for stroke risk reduction.
Anxiety / Depression
currently intubated
monitor
A1c 6.6, consistent with DM
monitor
on insulin gtt for tighter control; monitor
Morbid Obesity due to excess calories
- Encourage healthy diet and regular exercise with goal of weight loss.
DVT Prophylaxis: Lovenox
Code Status: Full
Total Critical Care Time__44___ minutes. I was immediately available to the patient and staff. I personally examined, reviewed labs, diagnostic images/reports, interpretations, treatment plans, discussed patient care with other providers and
family or caregivers (if patient is unable to make decisions), entered orders as appropriate and documented the medical record.
Anticipated Discharge: > 48 hours
Subjective/Interval History
-
Date of Service: January 19, 2025
intubated
Objective Data
-
Labs:
Laboratory Results
01/19/25 01/19/25 01/19/25
03:27 03:31 08:11
WBC 8.8
Hgb 12.9
Hct 38.3
Plt Count 201
HCO3 31.9 H 31.2 H
Sodium 136
Potassium 3.8
Chloride 97 L
Carbon Dioxide 32 H
BUN 29 H
Creatinine 0.8
Glucose 132 H
Calcium 8.5
Vital Signs:
Vital Signs
Temp Pulse Resp BP Pulse Ox
97.5 F 89 20 104/63 89
01/19/25 11:15 01/19/25 11:30 01/19/25 11:42 01/19/25 07:28 01/19/25 11:42
I&O
01/18/25 01/19/25 01/20/25
06:59 06:59 06:59
Intake Total 934.6 / 977.8 2545.8 / 2658.6 300.1 / 300.1
Output Total 1180 / 1280 1847 / 1897 575 / 575
Balance -245.4 / -302.2 698.8 / 761.6 -274.9 / -274.9
[2025-01-19 12:20] LABS: Glucose - Point of Care 183 mg/dl (70-99)
[2025-01-19] MEDS: NOVOLOG FLEXPEN-MODERATE RESISTANCE 1 UNITS SC ×2 (12:26→23:22)
--- NOTE | 2025-01-19 13:33 | PN.CDI ---
CDI
- -
CDI:
Physician Documentation Request
Admit Date: 01/08/25 20:03
Dear Doctor Santiago,
Please review the following and provide your response in the progress notes.
Current documentation includes a diagnosis of hypotension.
Clinical Indicators:
Pt admitted with Acute on Chronic Dastolic CHF/ now intubated due to ARDS/Influenza A/bacterial PNA /Acute Hypoxic respiratory Failure
Progress note 01/18, ' hypotension post intubation; was briefly on levo and vaso, now off..'
Please clarify which of the following is the most likely etiology of the above symptoms and treatment rendered/Pressors:
Drug induced shock
Cardiogenic shock
Septic Shock
Hypotension only
Other ( please specify)
Use of terms such as suspected, likely, concern for, or probable (associated with a specific diagnosis that is being evaluated, monitored, or treated as if it exists) are acceptable and can be coded in the inpatient setting, when documented at the
time of discharge.
Thank you,
Ailyn Vicente RN
CDI Specialist
[employer]
Please use your independent medical judgment in providing your response.
--- NOTE | 2025-01-19 13:35 | W.PN.INTV ---
Today's Communication / Plan
Recommendations
-Titrate Flolan up as tolerated
-Resume paralytics, in view of worsening PF ratio
-CXR and ABG in AM
-Called [facility] ECMO center, patient not felt to be a candidate for ECMO in view of severe baseline O2 dependent COPD
-Goals of care discussion, anticipate family meeting 01/20
Assessment
-
64-year-old female patient who is a former smoker and has oxygen dependent COPD, CAD, CHF preserved EF, presented with increasing shortness of breath felt to be a combination of COPD and CHF evaluated by cardiology with persistent shortness of
breath and pulmonary was consulted for COPD/shortness of breath 01/13/2025. Patient then developed worsening respiratory status and was transferred to ICU. Patient was started on noninvasive positive pressure ventilation. Overnight, 01/17, patient
developed worsening respiratory failure and was subsequently intubated and mechanically ventilated. Patient has significant hypoxia post intubation also and required high PEEP, proning as well as initiation of paralytics.
Last 24 hrs:
-Patient intubated and mechanically ventilated on 01/18. Continuing proning as well as as needed paralytics, continuing Flolan
--01/19, I called [facility] transfer center for ECMO. [facility] and patient was not felt to be a candidate for ECMO due to baseline severe O2 dependent COPD with DLCO 24%.
-Fluid balance, +946 ml
-Hemoglobin 12.9, white count 8.8, stable renal function
-7.43, 47, 64 while proned on 100% FiO2 with a PEEP of 10, PF ratio 64
-Sodium around 130, creatinine stable at 1.1. Potassium of 3.5 and magnesium of 2.1
-Chest x-ray suggestive of bibasilar pneumonia, left greater than right
#1. Acute hypoxic respiratory failure due to influenza A with superimposed left greater than right bibasilar pneumonia.
-Patient is currently intubated, mechanically ventilated, deeply sedated and on as needed paralytics
-Continue to have severe hypoxia with PF ratio of 64, despite proning
-01/19, I called [facility] for ECMO. Discussed with oncall physician and patient was not felt to be a candidate for ECMO due to baseline severe O2 dependent COPD with DLCO 24%.
-Continue propofol and fentanyl drip
-Resume paralytics in view of worsening hypoxia
-Titrate Flolan upwards as tolerated
-Continue Tamiflu
-Continue cefepime, follow-up on cultures
-DC ceftriaxone and doxycycline. Send tracheal aspirate for culture
-Follow serial ABG, chest x-ray in a.m.
-Continue levalbuterol and ipratropium for underlying COPD
-Continue Solu-Medrol
-Poor prognosis, I updated patient secondary contact regarding my conversation with [facility] ECMO center. Plan for a family meeting on 01/20 to discuss goals of care further
#2. Severe emphysema.
-Continue DuoNeb and Solu-Medrol
-Patient is not actively wheezing during my evaluation
#3. Heart failure with preserved ejection fraction.
-Continue Lasix IV twice daily for now
-Follow-up chest x-ray in a.m.
#4. h/o CAD, s/p PCI
-Continue ASA/Clopidogrel
#5. h/o Paroxysmal A fib
-Patient historically has declined anticoagulation
-Rate controlled
-Diltiazem on hold
Conditions present prior to admission:
Hospitalized 07/2024 with COPD exacerbation and decompensated heart failure
Severe COPD, maintained on levalbuterol nebs, advair/spiriva, and O2 2L at rest and sleep, 4L on exertion. Intermittent CS but no fpc
ABG 02-28-22 on O2 3L: 7.40/46/125/28.5/3/98.9%
Intermittently elevated serum total CO2
02/20/24- FVC 2.07 or 72%, FEV1 0.95 or 43%. Ratio 45.
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 Never received A1AT replacement therapy
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, pathology reviewed, told final diagnosis was respiratory bronchiolitis
Pulmonary nodules-4 mm right upper lobe stable
Former smoker-since age 16 up to 2 packs a day quit 02/2021
Hypertension.
Hyperlipidemia.
ALISSON-mild.
Nocturnal hypoxemia
Pulmonary hypertension.
CAD, s/p KATHARINE to mid LAD 02/28/2021, then [facility] with KATHARINE to stenosis proximal to prior LAD stent 10/31/2021, continued on ASA/clopidogrel, [facility] 12-04-21 without residual disease
PAFib: declined AC due to fear of bleeding complications
Anxiety.
History CHF.
PAF.
GERD.
Left breast lump removed.
DVT prophylaxis-on Lovenox
GI prophylaxis-n/a - on pantoprazole
Outpatient pulmonary [id number] appointment with Dr. Zepeda with PFTs 03/09/2025 at 11 AM
Diagnostic data:
Chest x-ray 10/22/2024-NAD, stable scarring in anterior right upper lobe
CT chest 01/08/2025-no evidence for pulm embolism, chronic emphysema,, no new nodules
CT chest 10/22/2024-no evidence for pulm embolism, significant COPD, chronic parenchymal scarring in the right upper lobe, no evidence for pneumonia, stable 4 mm nodule medial right upper lobe
CT chest 10/22/2024-Advanced emphysematous changes, stable 4 mm nodule right upper lobe, no evidence for pulmonary embolism, chronic scarring right upper lobe
CT chest 07/21/2024: Reviewed can you find out no evidence of pulmonary embolism or thoracic aortic dissection.Changes of severe emphysema.Nodular opacity within the right middle lobe, measuring 2.5 cm in diameter, best seen on series 401 images
33-38. No significant change compared to 06/29/2024, or 11/27/2023. Opacity is less pronounced compared to a prior CT dated 02/25/2023. This likely represents scarring in a region of prior pneumonia. Consider continued CT follow-up as clinically
appropriate. Pulmonary nodule within the medial aspect of the right lung apex, best seen on series 401 image 18, measuring 4 mm in diameter. Nodule measured approximately 8 mm in diameter on 06/29/2024, therefore is likely infectious or inflammatory.
Severe coronary arterial calcification. Please correlate with symptoms of and risk factors for coronary artery disease, with further workup as clinically appropriate.
CT Chest 06/29/24- No evidence of pulmonary embolism.Moderate/severe apical predominant emphysematous changes with similar appearance of the nodular scarring within the right middle lobe measuring approximately 3.0 cm.There is a new 6 mm solid nodule
within the medial right upper lobe as well as new 7 mm solid nodules within the left upper lobe. Recommend follow-up CT to ensure stability Prominent gallstone present.
CT Chest 01/29/23 - Examination is negative for pulmonary embolism. Severe changes of emphysema. New horizontal band of increased opacity within the superior segment of the right lower lobe of the lung. Morphologic appearance would be suggestive of
scarring or atelectasis. Fatty infiltration of the liver.
CT chest 02-28-22, c/w 02-23-21 IMPRESSION: No CT evidence for pulmonary embolism. Severe centrilobular emphysema.
TTE 11-29-22:Normal biventricular size and systolic function without regional wall motion abnormality. Mild concentric left ventricular hypertrophy. No significant valvular disease. No significant change since the prior study of 03/01/22
.
Echo: 03-01-22, normal LV systolic function, LVEF greater than 75%, mild concentric LVH. No significant valvular disease. Normal RV size and function. Normal pericardium without effusion. IVC is of normal size and demonstrates normal respiratory
variation. Interatrial septum is intact with no evidence of shunting by color-flow Doppler. No intracardiac mass or thrombus formation seen. No significant change compared to October 2021.
/[facility] 05-25-22 HEMODYNAMIC DATA : AO: 127/78 - LV: 127/16 - PCWP: 14 - PA: 36/22 - RV: 34/14 - RA: 10 - Oximetry: Ao 97%, PA 75%, cardiac output 4.5, cardiac index 2.4
LEFT VENTRICULOGRAPHY: Not performed
CORONARY ANGIOGRAPHY: Dominance: Right - Left Main: Normal - LAD: Widely patent ostial/proximal LAD stents with no restenosis. There is 30% mid LAD stenosis. - Circumflex: Normal - RCA: Normal dominant vessel
CONCLUSIONS
1: Normal filling pressures without pulmonary hypertension
2: Widely patent ostial/proximal LAD stents without restenosis
3. No significant residual obstructive CAD
Cardiac catheterization 07/22/2024-patent proximal LAD stent, severely elevated filling [id number]
DIANN doppler 02-26-23: negative
DIANN doppler 09-08-21: negative
PFT 08/21/22: FEV1 1.02L 46%, FVC 2.11L 73%, ratio 48. Post FEV1 1.06L 48%, +BD response in FVC. TLC 4.86L 110%, RV/TLC 51%, DLCO 24%
HST 10/07/19-AHI-2.4, desaturation laura 89%, snoring
PSG 10/06/24-sleep efficiency 68.7%, AHI-4.4, desaturation laura 78%, 76.4%. The time less than 90% saturation, 1 L of oxygen was added
Total time spent today was 55 minutes for this encounter. Time includes reviewing laboratory test/imaging results, reviewing pertinent medical records, obtaining and reviewing medical history, performing an appropriate exam, ordering medications,
tests and procedures. Time also includes documentation of this encounter, coordinating patient care and communicating with other healthcare professionals. Total time does not include separately billed tests performed on this date of service.
Subjective Dataa
Subjective Data
Date of Service:
Date of Service: January 19, 2025
Subjective:
Patient intubated, sedated mechanically ventilated, currently proned.
Review of Systems
General: Unobtainable - Sedation
Objective Data
Data Reviewed
Vital Signs / I&O / Oxygen:
Vital Signs
Temp Pulse Resp BP Pulse Ox
97.5 F 98 20 104/63 84
01/19/25 11:15 01/19/25 12:15 01/19/25 12:15 01/19/25 07:28 01/19/25 13:10
Intake and Output
01/18/25 01/19/25 01/20/25
06:59 06:59 06:59
Intake Total 934.6 / 977.8 2545.8 / 2658.6 348.3 / 348.3
Output Total 1180 / 1280 1847 / 1897 635 / 635
Balance -245.4 / -302.2 698.8 / 761.6 -286.7 / -286.7
SaO2 [A/C] 89
SaO2 [P-A/C] 89
SaO2 [NIV (Non Invasive 91
Ventilation)]
SaO2 84
Nasal Cannula flow liters per 55
minute
Physical Exam
General: Comfortable
HEENT: Normocephalic
Cardiovascular: S1-S2
Respiratory: Clear
GI: Soft and Non Distended
Neurology: Other (Deep sedation.)
Skin: Warm
Labs/Micro/Reports
Lab Data
01/19/25 03:27
01/19/25 03:27
Laboratory Results
01/18/25 01/18/25 01/18/25
13:05 14:00 17:26
pH 7.44 Cancelled 7.42
pCO2 47 H Cancelled 48 H
pO2 83 Cancelled 67 L
HCO3 31.9 H Cancelled 31.1 H
O2 Delivery Level Cancelled
01/18/25 01/19/25 01/19/25
22:43 03:31 08:11
pH 7.44 7.43 7.43
pCO2 45 H 48 H 47 H
pO2 91 78 L 64 L
HCO3 30.6 H 31.9 H 31.2 H
O2 Delivery Level 100% 100
Microbiology
01/18/25 15:02 Tracheal Aspirate Respiratory Culture - Preliminary
NO GROWTH
01/18/25 15:02 Tracheal Aspirate Gram Stain - Preliminary
01/18/25 11:38 Nose Nasal Screen MRSA (PCR) - Final
MRSA not detected - performed by PCR methodology.
01/16/25 14:39 Nasal Swab Influenza Types A & B (SUZY) - Final
Influenza A Positive, NAAT
[2025-01-19] MEDS: NORCURON 10 MG IV (13:43)
--- NOTE | 2025-01-19 14:07 | RESPNOTE ---
patient supinated. ETT moved to LEFT side of mouth 8.0 @ 22 at the lips. mouth care completed at this time. SPO2 92%, AC 29-545-25-100. Continuous EPO rate increased to max 0.05mcg/kg/hr for rate of 4.78mL/HR. physician updated.
--- NOTE | 2025-01-19 14:16 | PTCARENOTE ---
pt.'s O2 saturation dropping into mid 80's w/out recovery while in prone position; Dr. Alvarenga aware. Pt. d/t supinate @ 1400; Pt. deeply sedated w BIS in 50's; admin prn IV vec prior to supination- see JAN. Pt. supinated by care team @ 1400. S/P
supination SpO2 recovered to 93%; remains on current vent settings; Flolan increased to max per RT. Pt. repositioned per protcol; remains on prop/fent w BIS monitoring intact. Safe environment maintained.
[2025-01-19 15:10] LABS: B.E. 5.6 mmol/L; HCO3 31.6 mmol/L (21-28); O2 Saturation % 96.6 % (94-98); PCO2 51 mmHg (32-35); PO2 72 mmHg (83-108)
--- NOTE | 2025-01-19 15:12 | CM ---
CM following re: discharge planning.
Discussed in Rounds, reviewed pt's chart. Per rounds meeting, patient intubated and mechanically ventilated on 01/18, not a candidate to transfer to [facility], continue supportive care, goals of care discussion with the family. Family meeting tomorrow.
D/C plan: uncertain at this time and will de[end on pt's progress.
CM will follow with discharge plan updates as hospitalization progresses
--- NOTE | 2025-01-19 15:14 | PTCARENOTE ---
CXR and ABG obtained post supination per orders; awaiting results.
[2025-01-19] MEDS: LOVENOX 40 MG SC (17:24)
[2025-01-19] MEDS: CARDIZEM 30 MG TUBE ×2 (17:24→23:21)
[2025-01-19] MEDS: NOVOLOG FLEXPEN-MODERATE RESISTANCE 3 UNITS SC (17:31)
[2025-01-19 17:42] LABS: Glucose - Point of Care 205 mg/dl (70-99)
--- NOTE | 2025-01-19 17:46 | PTCARENOTE ---
pt. w continued episodes of brief tachycardia/flutter rhythm w rate into 140's; immediately self resolves back into 80-90's. Dr. Alvarenga notified, further orders received- see JAN. Pt. oxygenation improved s/p supination; no plans to prone overnight
per , Dr. Alvarenga.
--- NOTE | 2025-01-19 20:00 | PTCARENOTE ---
rec'd pt from dayshift RN. assessment as documented. pt deeply sedated, BIS 40-50. b/l restraints in place. arouses with care. pupils 2mm b/l sluggish. SR on monitor w/ PACs/PVCs. afebrile. BP maintained w/o pressors. arterial line leveled and
zeroed. weak DP/PT pulses. #8.0 ETT, 22cm @ lip. ETT wood changed. AC 20/420/10/100%, spO2 remains low at 88-91%. Flolan continues per RT. OGT in place @ 55cm, clamped, used for meds. hypoactive BS. thomas w/ thermistor in place. prop/fent gtts
continue. pt not an ECMO candidate per Doyle, no plan to prone tonight, fam mtg tentative for tomorrow for GOC discussion. CHG bath and thomas care done. care continues
--- NOTE | 2025-01-19 22:57 | RESPNOTE ---
PT remains on continuous Veletri at this time and it is being administered via aerogen. Syringe was switched out at this time, without incident and pharmacy was notified that a replacement is needed. Will continue to monitor resp status and the
continuous administration of the Veletri.
[2025-01-19 23:33] LABS: Glucose - Point of Care 154 mg/dl (70-99)
[2025-01-20] MEDS: SUBLIMAZE 50 MCG IV ×2 (00:09→04:55)
[2025-01-20] MEDS: SUBLIMAZE 100 IV ×4 (00:12→15:10)
--- NOTE | 2025-01-20 00:36 | PTCARENOTE ---
assessment unchanged. prop/fent gtts continue, Flolan continues. pt satting 93% at this time. care continues
[2025-01-20] MEDS: DIPRIVAN 100 IV ×3 (02:00→11:51)
[2025-01-20] MEDS: STERILE WATER FOR INJECTION 10 ML IV ×2 (04:34→12:49)
[2025-01-20] MEDS: CARDIZEM 30 MG TUBE ×2 (04:35→12:48)
[2025-01-20] MEDS: MAXIPIME 2000 MG IV ×2 (04:35→12:49)
--- NOTE | 2025-01-20 04:46 | DOWNTIME ---
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 Downtime documentation of patient's care, including medication administrations, has been reconciled in the electronic record per guidelines. Refer to the
patient's paper chart under the miscellaneous tab to see printed paper medication records and downtime forms.
[2025-01-20 04:55] LABS: B.E. 5.9 mmol/L; HCO3 31.7 mmol/L (21-28); O2 Saturation % 93.8 % (94-98); PCO2 50 mmHg (32-35); PO2 62 mmHg (83-108); pH 7.41 (7.35-7.45)
[2025-01-20 04:58] VITALS: BMI 39.7
--- NOTE | 2025-01-20 04:58 | PTCARENOTE ---
AM labs sent. vent settings unchanged, pt satting 90-93% overnight. prop/fent continue. otherwise assessment unchanged. care ongoing
[2025-01-20 05:26] LABS: Blood Urea Nitrogen 39 mg/dl (7-17); Calcium 8.4 mg/dl (8.4-10.2); Carbon Dioxide 32 mmol/L (22-30); Chloride 98 mmol/L (98-107); Estimated Creatinine Clearance 54 ml/min; Glucose 152 mg/dl (70-99); Potassium 3.9 mmol/L (3.5-5.1); Sodium 135 mmol/L (135-145); Triglycerides 374 mg/dl (10-149); eGFR 56.11
[2025-01-20 05:27] LABS: Hematocrit 35.5 % (37.0-47.0); Hemoglobin 11.9 g/dL (12.0-16.0); Mean Corp Hgb Conc. 33.5 g/dL (33.0-37.0); Mean Corpuscular Hgb 30.8 pg (27.0-31.0); Mean Platelet Volume 9.7 fL (7.4-10.4); Platelet Count 211 10^3/uL (130-400); Red Blood Cell Count 3.86 10^6/uL (4.20-5.40); Red Cell Dist. Width 13.1 % (11.5-14.5); White Blood Cell Count 11.5 10^3/uL (4.8-10.8)
[2025-01-20] MEDS: NOVOLOG FLEXPEN-MODERATE RESISTANCE 1 UNITS SC (06:17)
[2025-01-20] MEDS: VELETRI 50 MCG INH (08:04)
[2025-01-20] MEDS: DUONEB 3 ML INH ×2 (08:04→11:17)
[2025-01-20] MEDS: VELETRI 50 ML INH (08:04)
[2025-01-20] MEDS: ADVAIR HFA 115/21 MCG INHALER 4 PUFF INH (08:05)
[2025-01-20 08:15] LABS: % Basophils 0.3 % (0-2); % Immature Granulocytes 4.7 % (0-0.5); % Lymphocytes 10.1 % (20.5-51.1); % Monocytes 5.1 % (1.7-9.3); % Neutrophils 79.8 % (42.2-75.2); Absolute Immature Granulocytes 0.5 10^3/uL (0-0.05); Absolute Lymphocytes 1.2 10^3/uL (1.2-3.4); Absolute Monocytes 0.6 10^3/uL (0.1-0.6); Absolute Neutrophils 9.2 10^3/uL (1.4-6.5); Nucleated Red Blood Cells % 0.2 %
--- NOTE | 2025-01-20 08:30 | PTCARENOTE ---
Received pt in Droplet precautions, intubated and sedated with bilateral soft wrist restraints intact. She is heavily sedated as ordered. PERRLA 2, Flaccid. Right IJ TL CVC with propofol & fentanyl. Left fa #20g, right AC#18g, Left wrist #22g
intact. Left radial arterial line transduced, calibrated and monitored. All ports are patent and secured. Arterial line correlates to cuff. #8ETT secured 22cm left lip, moved to the right. Tolerating AC 20/420/.10/+10. Left base crackles
posteriorly. OGT secured 55cm @ the lip, 10ml brown secretions aspirated. Verified placement with 30ml air bolus, air then aspirated. Temperature sensing Colbert catheter secured, draining yellow urine with sediment. Miralax administered, for mo BM
for 5 days. Hypoactive BSX4. NPO otherwise. Aspiration precautions maintained. Safe environment maintained.
[2025-01-20 08:47] LABS: Magnesium 2.7 mg/dl (1.6-2.3)
[2025-01-20 09:02] VITALS: BP 85/63
[2025-01-20] MEDS: MIRALAX 17 GRAMS PO (09:03)
[2025-01-20] MEDS: LOW STRENGTH ASPIRIN 81 MG TUBE (09:04)
[2025-01-20] MEDS: NSS (PRESERVATIVE FREE) 10 ML IV (09:04)
[2025-01-20] MEDS: COLACE LIQUID 100 MG TUBE (09:04)
[2025-01-20] MEDS: PLAVIX 75 MG TUBE (09:04)
[2025-01-20] MEDS: REFRESH CELLUVISC GEL 1 DROPS OPHTH (09:04)
[2025-01-20] MEDS: PROTONIX IV 40 MG IV (09:05)
[2025-01-20] MEDS: SOLU-MEDROL PF 40 MG IV (09:05)
[2025-01-20] MEDS: LASIX 40 MG IV ×2 (09:05→15:09)
--- NOTE | 2025-01-20 09:27 | PN.DE.MGMTRT ---
Insulin Management
- -
01/20/2025: Diabetes Management Consult follow up
Patient admitted 01/08 with increasing shortness of breath due to influenza A pneumonia in the setting of COPD/emphysema with acute exacerbation and Chronic HFpEF, PMH: CAD s/p KATHARINE, CHF preserved EF, PAFib, Pulmonary hypertension, HTN, HLD, GERD,
Anxiety, ALISSON, Former smoker COPD, Oxygen dependent and T2DM. Patient developed worsening respiratory failure and was subsequently intubated and mechanically ventilated, was also noted for significant hypoxia post intubation that required high PEEP
and proning as well as initiation of paralytics.
She was started on steroids, contributing to hyperglycemia--> continuos insulin infusion. A1C 6.6%, Cr 1.1, eGFR 56.11.
Pt remains intubated, sedated and paralyzed, unable to interview and no family at bedside at this time. 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
Insulin infusion off at midnight for glucose 91.
Receiving moderate corrective insulin Q6 hours. Glucose range yesterday 154 to 205.
Discussed with Nurse and ICU Rounding team.
Diabetes History
- -
Type of Diabetes: 2
Pre-Admission Diabetes Regimen
01/20/25
04:44
Creatinine 1.1 H
Lab Results
Hemoglobin A1c 6.6 % (4.0-5.6) H 01/18/25 05:52
Insulin Pump Settings
IP Diabetes Regimen
01/19/25 01/19/25 01/19/25
10:05 12:08 17:30
Glucose
POC Glucose 172 H 183 H 205 H
01/19/25 01/20/25
23:22 04:44
Glucose 152 H
POC Glucose 154 H
Patient Education
[2025-01-20] MEDS: TAMIFLU 75 MG TUBE (09:28)
[2025-01-20] MEDS: KCL ELIXIR 40 MEQ TUBE (11:51)
[2025-01-20 11:58] LABS: Glucose - Point of Care 124 mg/dl (70-99)
--- NOTE | 2025-01-20 12:17 | W.PN.HOSP.TC ---
Addendum entered and electronically signed by Félix Henderson MD 01/20/25 18:30:
time of discharge 38 minutes
Original Note:
Today's Communication/Plan
-
monitor vitals
see plan
wean vent if tolerates
severe ARDS
cw abx,tamiflu,steroids
Discussed with RN
prognosis appears guarded; family to meet today with roll skinner
Assessment / Plan
Assessment / Plan
Gen-Sedated, intubated
HEENT-anicteric,pink conjuctivae
CV-reg, no M, +S1/S2
Lungs-clear B/L, ventillator breath sounds
Abd-soft, NT
Ext-no edema
:+ thomas
Neuro-sedated
Psych-calm, sedated
Acute on chronic Hypoxemic Respiratory failure
likely 2/2 ARDS from influenza A and PNA
also has COPD and CHF
Severe emphysema
01/17 night, could not tolerate NIV. Intubated. propofol, fentanyl.was Proned. now weaned off nimbex,PF ratio severe; Serial CXR and ABG
Titrate Flolan
Continue propofol and fentanyl drip
Nebs
wean vent as tolerated; 20/420/10/100%
Executive Account Manager called [facility] for ECMO however patient felt not to be a candidate for ECMO given severe baseline O2 dependent COPD
cw abx,tamiflu
on chronic 2L at home
Chest x-ray 01/16 with progressive possible pneumonia. Chest x-ray today with minimally increased bibasilar airspace opacity which may represent multifocal pneumonia or atelectasis
Executive Account Manager following
on low dose solumedrol
hypotension post intubation; was briefly on levo and vaso, now off. does not appear to be in shock,hypotension only
Acute on Chronic HFpEF
- Patient presents with hypoxemia, dyspnea with exertion, chest discomfort and recent weight gain.
- BNP is unremarkable - but is the same as in 07/2024 when she was noted to have markedly elevated filling pressures on cath.
now back on IV lasix
hypophosphatemia
replete
Oral thrush
nystatin
Hyponatremia
Monitor
Chest Pain
ASCVD
now resolved
- Continue current CV med regimen.
- Cath done 07/2024 without significant / critical stenoses.
- Cardiology evaluation as noted above.
Hyponatremia
Monitor
Paroxysmal A-Fib / SVT
back in afib again
cw cardizem
monitor on tele
- Patient has declined OAC for stroke risk reduction.
Anxiety / Depression
currently intubated
monitor
A1c 6.6, consistent with DM
monitor
on insulin gtt for tighter control; monitor
Morbid Obesity due to excess calories
- Encourage healthy diet and regular exercise with goal of weight loss.
DVT Prophylaxis: Lovenox
Code Status: Full
Overall prognosis appears guarded given severe ARDS with underlying severe emphysema. Family to meet with ICU
Total Critical Care Time__43___ minutes. I was immediately available to the patient and staff. I personally examined, reviewed labs, diagnostic images/reports, interpretations, treatment plans, discussed patient care with other providers and
family or caregivers (if patient is unable to make decisions), entered orders as appropriate and documented the medical record.
Anticipated Discharge: > 48 hours
Subjective/Interval History
-
Date of Service: January 20, 2025
Continues to be intubated
Objective Data
-
Labs:
Laboratory Results
01/20/25
04:44
WBC 11.5 H
Hgb 11.9 L
Hct 35.5 L
Plt Count 211
HCO3 31.7 H
Sodium 135
Potassium 3.9
Chloride 98
Carbon Dioxide 32 H
BUN 39 H
Creatinine 1.1 H
Glucose 152 H
Calcium 8.4
Vital Signs:
Vital Signs
Temp Pulse Resp BP Pulse Ox
99.7 F 97 20 90/60 87
01/20/25 11:22 01/20/25 12:00 01/20/25 12:00 01/20/25 09:05 01/20/25 12:00
I&O
01/19/25 01/20/25 01/21/25
06:59 06:59 06:59
Intake Total 2545.8 / 2658.6 1502.2 / 1555.7 517.0 / 517.0
Output Total 1847 / 1897 1410 / 1455 660 / 660
Balance 698.8 / 761.6 92.2 / 100.7 -143.0 / -143.0
[2025-01-20] MEDS: NOVOLOG FLEXPEN-MODERATE RESISTANCE SC (12:24)
--- NOTE | 2025-01-20 13:19 | PTCARENOTE ---
pt opening her eyes to verbal stimuli. Her friends are at the bedside. Supportive care provided. She remains in Afib. BP marginal. Will continue to monitor.
--- NOTE | 2025-01-20 13:38 | PTCARENOTE ---
Repositioned on her right side. She opened her eyes, coughed. No secretions suctioned. Mouth care performed and suctioned. Desaturated to 85% improved to 89%.
[2025-01-20 14:25] VITALS: BP 92/70
--- NOTE | 2025-01-20 14:40 | W.PN.INTV ---
Today's Communication / Plan
Recommendations
- Transition to comfort focused care
-Palliative extubation later today
Assessment
-
64-year-old female patient who is a former smoker and has oxygen dependent COPD, CAD, CHF preserved EF, presented with increasing shortness of breath felt to be a combination of COPD and CHF evaluated by cardiology with persistent shortness of
breath and pulmonary was consulted for COPD/shortness of breath 01/13/2025. Patient then developed worsening respiratory status and was transferred to ICU. Patient was started on noninvasive positive pressure ventilation. Overnight, 01/17, patient
developed worsening respiratory failure and was subsequently intubated and mechanically ventilated. Patient has significant hypoxia post intubation also and required high PEEP, proning as well as initiation of paralytics.
Last 24 hrs:
--01/19, I called [facility] for ECMO. [facility] and patient was not felt to be a candidate for ECMO due to baseline severe O2 dependent COPD with DLCO 24%.
# Goals of care discussion: 01/20/2025, 215 pm, I met with the patient's brother, sister, as well as a friend who is also a secondary contact Ирина. We went over patient's current clinical condition and challenges around appropriate
oxygenation. I updated family about my call to the open transfer center for consideration of ECMO also. Family unanimously expressed that patient was very clear in her wishes that she does not want to be on life support. Family feels that patient
would not have wanted to continue like this and would not want any further life-prolonging measures. We discussed the comfort focused care and also discussed the steps involved towards palliative extubation. Family unanimously opted to pursue with
comfort focused care only with the goal to palliatively extubate later today. Family understands that patient has end-stage disease and their goal is a peaceful passing for the patient.
-CODE STATUS updated to DNR/DNI
-Comfort care order set placed
Underlying medical diagnoses:
#1. Acute hypoxic respiratory failure due to influenza A with superimposed left greater than right bibasilar pneumonia.
-Patient is currently intubated, mechanically ventilated, deeply sedated and on as needed paralytics
-Continue to have severe hypoxia with PF ratio of 62, despite 100% FiO2, Flolane, high PEEP and trial of proning.
-01/19, I called [facility] for ECMO. Discussed with [facility] and patient was not felt to be a candidate for ECMO due to baseline severe O2 dependent COPD with DLCO 24%.
#2. Severe emphysema
#3. Heart failure with preserved ejection fraction.
#4. h/o CAD, s/p PCI
#5. h/o Paroxysmal A fib
Conditions present prior to admission:
Hospitalized 07/2024 with COPD exacerbation and decompensated heart failure
Severe COPD, maintained on levalbuterol nebs, advair/spiriva, and O2 2L at rest and sleep, 4L on exertion. Intermittent CS but no mcfp
ABG 02-28-22 on O2 3L: 7.40/46/125/28.5/3/98.9%
Intermittently elevated serum total CO2
02/20/24- FVC 2.07 or 72%, FEV1 0.95 or 43%. Ratio 45.
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 Never received A1AT replacement therapy
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
Pulmonary nodules-4 mm right upper lobe stable
Former smoker-since age 16 up to 2 packs a day quit 02/2021
Hypertension.
Hyperlipidemia.
ALISSON-mild.
Nocturnal hypoxemia
Pulmonary hypertension.
CAD, s/p KATHARINE to mid LAD 02/28/2021, then RUST with KATHARINE to stenosis proximal to prior LAD stent 10/31/2021, continued on ASA/clopidogrel, [facility] 12-04-21 without residual disease
PAFib: declined AC due to fear of bleeding complications
Anxiety.
History CHF.
PAF.
GERD.
Left breast lump removed.
Diagnostic data:
Chest x-ray 10/22/2024-NAD, stable scarring in anterior right upper lobe
CT chest 01/08/2025-no evidence for pulm embolism, chronic emphysema,, no new nodules
CT chest 10/22/2024-no evidence for pulm embolism, significant COPD, chronic parenchymal scarring in the right upper lobe, no evidence for pneumonia, stable 4 mm nodule medial right upper lobe
CT chest 10/22/2024-Advanced emphysematous changes, stable 4 mm nodule right upper lobe, no evidence for pulmonary embolism, chronic scarring right upper lobe
CT chest 07/21/2024: Reviewed can you find out no evidence of pulmonary embolism or thoracic aortic dissection.Changes of severe emphysema.Nodular opacity within the right middle lobe, measuring 2.5 cm in diameter, best seen on series 401 images
33-38. No significant change compared to 06/29/2024, or 11/27/2023. Opacity is less pronounced compared to a prior CT dated 02/25/2023. This likely represents scarring in a region of prior pneumonia. Consider continued CT follow-up as clinically
appropriate. Pulmonary nodule within the medial aspect of the right lung apex, best seen on series 401 image 18, measuring 4 mm in diameter. Nodule measured approximately 8 mm in diameter on 06/29/2024, therefore is likely infectious or inflammatory.
Severe coronary arterial calcification. Please correlate with symptoms of and risk factors for coronary artery disease, with further workup as clinically appropriate.
CT Chest 06/29/24- No evidence of pulmonary embolism.Moderate/severe apical predominant emphysematous changes with similar appearance of the nodular scarring within the right middle lobe measuring approximately 3.0 cm.There is a new 6 mm solid nodule
within the medial right upper lobe as well as new 7 mm solid nodules within the left upper lobe. Recommend follow-up CT to ensure stability Prominent gallstone present.
CT Chest 01/29/23 - Examination is negative for pulmonary embolism. Severe changes of emphysema. New horizontal band of increased opacity within the superior segment of the right lower lobe of the lung. Morphologic appearance would be suggestive of
scarring or atelectasis. Fatty infiltration of the liver.
CT chest 02-28-22, c/w 02-23-21 IMPRESSION: No CT evidence for pulmonary embolism. Severe centrilobular emphysema.
TTE 11-29-22:Normal biventricular size and systolic function without regional wall motion abnormality. Mild concentric left ventricular hypertrophy. No significant valvular disease. No significant change since the prior study of 03/01/22
.
Echo: 03-01-22, normal LV systolic function, LVEF greater than 75%, mild concentric LVH. No significant valvular disease. Normal RV size and function. Normal pericardium without effusion. IVC is of normal size and demonstrates normal respiratory
variation. Interatrial septum is intact with no evidence of shunting by color-flow Doppler. No intracardiac mass or thrombus formation seen. No significant change compared to October 2021.
/[facility] 05-25-22 HEMODYNAMIC DATA : AO: 127/78 - LV: 127/16 - PCWP: 14 - PA: 36/22 - RV: 34/14 - RA: 10 - Oximetry: Ao 97%, PA 75%, cardiac output 4.5, cardiac index 2.4
LEFT VENTRICULOGRAPHY: Not performed
CORONARY ANGIOGRAPHY: Dominance: Right - Left Main: Normal - LAD: Widely patent ostial/proximal LAD stents with no restenosis. There is 30% mid LAD stenosis. - Circumflex: Normal - RCA: Normal dominant vessel
CONCLUSIONS
1: Normal filling pressures without pulmonary hypertension
2: Widely patent ostial/proximal LAD stents without restenosis
3. No significant residual obstructive CAD
Cardiac catheterization 07/22/2024-patent proximal LAD stent, severely elevated filling [id number]
DIANN doppler 02-26-23: negative
DIANN doppler 09-08-21: negative
PFT 08/21/22: FEV1 1.02L 46%, FVC 2.11L 73%, ratio 48. Post FEV1 1.06L 48%, +BD response in FVC. TLC 4.86L 110%, RV/TLC 51%, DLCO 24%
HST 10/07/19-AHI-2.4, desaturation laura 89%, snoring
PSG 10/06/24-sleep efficiency 68.7%, AHI-4.4, desaturation laura 78%, 76.4%. The time less than 90% saturation, 1 L of oxygen was added
Total time spent today was 60minutes for this encounter. Time includes reviewing laboratory test/imaging results, reviewing pertinent medical records, obtaining and reviewing medical history, performing an appropriate exam, ordering medications,
tests and procedures. Time also includes documentation of this encounter, coordinating patient care and communicating with other healthcare professionals. Total time does not include separately billed tests performed on this date of service.
Subjective Dataa
Subjective Data
Date of Service:
Date of Service: January 20, 2025
Subjective:
Patient currently intubated, mechanically ventilated and sedated.
Review of Systems
General: Unobtainable - Sedation
Objective Data
Data Reviewed
Vital Signs / I&O / Oxygen:
Vital Signs
Temp Pulse Resp BP Pulse Ox
98.8 F 93 20 100/62 90
01/20/25 14:30 01/20/25 13:00 01/20/25 13:00 01/20/25 12:48 01/20/25 14:30
Intake and Output
01/19/25 01/20/25 01/21/25
06:59 06:59 06:59
Intake Total 2545.8 / 2658.6 1502.2 / 1555.7 615.1 / 615.1
Output Total 1847 / 1897 1410 / 1455 735 / 735
Balance 698.8 / 761.6 92.2 / 100.7 -119.9 / -119.9
SaO2 [A/C] 87
SaO2 [P-A/C] 89
SaO2 [NIV (Non Invasive 91
Ventilation)]
SaO2 90
Nasal Cannula flow liters per 55
minute
Physical Exam
General: Comfortable
HEENT: Normocephalic
Cardiovascular: S1-S2
Respiratory: Clear
GI: Soft and Non Distended
Neurology: Other (Deep sedation.)
Skin: Warm
Labs/Micro/Reports
Lab Data
01/20/25 04:44
01/20/25 04:44
Laboratory Results
01/19/25 01/20/25
15:03 04:44
pH 7.40 7.41
pCO2 51 H 50 H
pO2 72 L 62 L
HCO3 31.6 H 31.7 H
O2 Delivery Level
Microbiology
01/18/25 15:02 Tracheal Aspirate Respiratory Culture - Final
01/18/25 15:02 Tracheal Aspirate Gram Stain - Final
01/18/25 11:38 Nose Nasal Screen MRSA (PCR) - Final
MRSA not detected - performed by PCR methodology.
--- NOTE | 2025-01-20 14:48 | W.DCSUMMARY ---
Discharge Summary
Discharge Data
Date of Admission: 01/08/25
Date of Discharge: 01/20/25
-
Pending Results: No
Hospital Course
Discharge Diagnosis:
Acute on chronic Hypoxemic Respiratory failure
Acute respiratory distress syndrome from influenza A and PNA
Acute on Chronic HFpEF
Severe Emphysema
Afib/SVT
Morbid Obesity
Hospital Course:
64-year-old female with past medical history of severe emphysema, COPD, CHF, chronic hypoxemic respiratory failure, paroxysmal atrial fibrillation/SVT, anxiety, depression, diabetes mellitus, morbid obesity came to the hospital with acute on chronic
hypoxemic respiratory failure secondary to COPD and CHF exacerbation. Patient was initially started on IV Lasix which was later transitioned to oral Lasix. Her breathing still did not improve so she was started on IV steroids. Over time her
breathing continue to get worse and that she subsequently was put on high flow. On labs patient was found positive for influenza A along with superimposed bacterial pneumonia. Patient was then started on Tamiflu and antibiotics. Her breathing
continue to get worse and that she got intubated in ICU. Patient was found to be in severe ARDS requiring paralytics and Flolan. [employer] also spoke with [facility] who did not think patient was a candidate for ECMO given her
baseline O2 dependent COPD. Given her worsening symptoms, family decided for palliative extubation. Patient later on 01/20/25 at 17:55pm.
Discharge Plan
-
Patient Disposition:
Discharge Diagnosis/Procedures: Acute on chronic hypoxic respiratory insufficiency
Shortness of breath multifactorial secondary to CHF exacerbation and bronchitis with COPD
Oral thrush
Anxiety
Diet: As tolerated
Activity: As tolerated
Driving Restrictions: As prior to admission
Bathing Restrictions: None
Blood Work: CBC and BMP next week with primary care provider
Instructions: *CBC Heart Failure Instructions
Referrals:
Luis Angel Lagunas MD [Active] - in one to two weeks
Vero Pyle CRNP [Specified Professional Personl] - 04/04/25 10:40 am
Kacey Villalba CRNP [Family Provider] - 01/26/25 10:00 am
Prescriptions:
Continued
pantoprazole 40 MG tablet,delayed release (DR/EC)
40 mg PO DAILY
fluticasone propion-salmeterol [Advair HFA] 115-21 mcg/actuation HFA aerosol inhaler
2 puff INHALATION R BID
cholecalciferol (vitamin D3) 50 mcg (2,000 unit) Tablet
50 mcg PO NOON
clopidogrel 75 MG tablet
75 mg PO DAILY
aspirin 81 MG tablet,delayed release (DR/EC)
81 mg PO DAILY
famotidine 20 MG tablet
20 mg PO DAILYPRN PRN (Reason: heartburn)
docusate sodium 100 MG capsule
100 mg PO QPM
acetaminophen [Tylenol 8 Hour] 650 mg Tablet Extended Release
650 mg PO [id number] PRN (Reason: mild pain)
levalbuterol HCl 0.63 MG/3 ML solution for nebulization
0.63 mg inhalation R TIDPRN PRN (Reason: sob/wheezing) Qty: 72 0RF
levalbuterol tartrate 45 mcg/actuation Hfa Aerosol Inhaler
2 inh INHALATION R Q6HPRN PRN (Reason: sob,wheezing) Qty: 15 0RF
diazepam 2 mg Tablet
2 mg PO DAILYPRN PRN (Reason: anxiety)
diltiazem HCl 180 mg capsule,ext.rel 24h degradable
180 mg PO BID
acyclovir 5 % Cream
1 applic TOPICAL DAILYPRN PRN (Reason: herpes flare)
Spiriva Respimat 2.5 mcg/actuation Mist
2 puff INHALATION R DAILY
magnesium oxide 400 mg magnesium Tablet
400 mg PO HS
No Action
furosemide 40 mg Tablet
80 mg PO Q48H
potassium chloride 20 mEq Tablet Extended Release
40 meq PO Q48H
furosemide 40 mg tablet
40 mg PO Q48H
potassium chloride 20 mEq tablet extended release
20 meq PO Q48H
Discharge Date and Time
Print Language: GABONESE
--- NOTE | 2025-01-20 15:27 | CM ---
CM following re: discharge planning.
Discussed in Rounds, reviewed pt's chart. Per rounds meeting, patient intubated and mechanically ventilated on 01/18, not a candidate to transfer to [facility], continue supportive care, goals of care discussion meeting held today: Transition to comfort
care with a plan for palliative extubation today.
D/C plan: transition to comfort care with palliative extubation today.
CM is available for emotional support.
[2025-01-20] MEDS: ROBINUL 0.2 MG IV (15:28)
[2025-01-20] MEDS: DUONEB INH (15:34)
--- NOTE | 2025-01-20 15:42 | PTCARENOTE ---
Family, friends provided support prior to transitioning to comfort. Reinforced the merritt of care and the signs and symptoms of distress that we will be monitoring for. They verbalized their understanding.
[2025-01-20 16:00] VITALS: BP 98/72
[2025-01-20] MEDS: ATIVAN 1 MG IV (16:02)
[2025-01-20] MEDS: NSS (PRESERVATIVE FREE) 0.5 ML IV (16:02)
[2025-01-20] MEDS: SUBLIMAZE 100 MCG IV ×4 (16:03→17:21)
--- NOTE | 2025-01-20 17:00 | PTCARENOTE ---
1625 terminally extubated. Premedicated as ordered. Required several fentanyl boluses, Deep oropharyngeal suctioning and bed repositioning.
--- NOTE | 2025-01-20 17:48 | PTCARENOTE ---
Dr. Ayers notified that pt .
--- NOTE | 2025-01-20 17:59 | W.PN.DEATH ---
Pronouncement of
-
Called to see patient to pronounce.
No spontaneous heart tones or respirations noted.
Patient not responsive to verbal stimuli.
Patient is pronounced .
Time of : 17:55
Date of : 01/20/25
Family Notified: Yes ( and family friends at bedside )
--- NOTE | 2025-01-20 18:37 | PTCARENOTE ---
Pt's family retained belongings from the room. Home oxygen tank and metal jewelry that included #2 metal rings and a metal necklace.
== END 2025-01-20 17:55 | disposition expired | DRG 208 ==
LOC: ICU 20:03
PROVIDERS: Hospitalist; Internal Medicine; Internal Medicine Critical Care Medicine; Nurse Practitioner; Nurse Practitioner Family; Radiology Diagnostic Radiology; ADMITTING PHYSICIAN Hospitalist; ATTENDING PHYSICIAN Internal Medicine; CONSULT PHYSICIAN Internal Medicine; CONSULT PHYSICIAN Internal Medicine Critical Care Medicine; EMERGENCY PHYSICIAN Student in an Organized Health Care Education/Training Program; FAMILY PHYSICIAN Nurse Practitioner Adult Health
PROC: 5A0935A Assistance with Respiratory Ventilation, Less than 24 Consecutive Hours, High Flow/Velocity Cannula (ICD-10-PCS; 2025-01-16)
PROC: 5A1945Z Respiratory Ventilation, 24-96 Consecutive Hours (ICD-10-PCS; 2025-01-18)
PROC: 0BH17EZ Insertion of Endotracheal Airway into Trachea, Via Natural or Artificial Opening (ICD-10-PCS; 2025-01-18)
PROC: 02HV33Z Insertion of Infusion Device into Superior Vena Cava, Percutaneous Approach (ICD-10-PCS; 2025-01-18)
DX: J43.2 Centrilobular emphysema (principal); J80 Acute respiratory distress syndrome; I50.33 Acute on chronic diastolic (congestive) heart failure; J10.08 Influenza due to other identified influenza virus with other specified pneumonia; J15.9 Unspecified bacterial pneumonia; I47.10 Supraventricular tachycardia, unspecified; B37.0 Candidal stomatitis; E87.1 Hypo-osmolality and hyponatremia; I11.0 Hypertensive heart disease with heart failure; I48.0 Paroxysmal atrial fibrillation; I25.10 Atherosclerotic heart disease of native coronary artery without angina pectoris; E11.9 Type 2 diabetes mellitus without complications; E78.00 Pure hypercholesterolemia, unspecified; E88.01 Alpha-1-antitrypsin deficiency; F32.A Depression, unspecified; G47.33 Obstructive sleep apnea (adult) (pediatric); I27.20 Pulmonary hypertension, unspecified; F41.9 Anxiety disorder, unspecified; J20.9 Acute bronchitis, unspecified; K76.0 Fatty (change of) liver, not elsewhere classified; R91.1 Solitary pulmonary nodule; E66.01 Morbid (severe) obesity due to excess calories; K21.9 Gastro-esophageal reflux disease without esophagitis; E83.39 Other disorders of phosphorus metabolism; I95.89 Other hypotension; Z99.81 Dependence on supplemental oxygen; Z95.5 Presence of coronary angioplasty implant and graft; Z87.891 Personal history of nicotine dependence; Z79.82 Long term (current) use of aspirin; Z79.02 Long term (current) use of antithrombotics/antiplatelets; Z79.51 Long term (current) use of inhaled steroids; Z68.39 Body mass index [BMI] 39.0-39.9, adult; Z88.1 Allergy status to other antibiotic agents; Z88.5 Allergy status to narcotic agent; Z88.8 Allergy status to other drugs, medicaments and biological substances
CPT/HCPCS: 36600; 71045; 71046; 71275; 76700; 80048; 80053; 80061; 82805; 82962; 83036; 83605; 83735; 83880; 84100; 84443; 84478; 84484; 85025; 85027; 85379; 87070; 87205; 87502; 87641; 87811; 87880; 92610; 93005; 94002; 94003; 94640; 94644; 94645; 96374; 97162; 97166; 99285; J1325; Q9967